=== PATIENT | female | born 1950 | race Caucasian/White ===

== ENCOUNTER 2017-05-17 14:42 | Emergency (ER) | payer MEDICARE, SELFPAY ==
[2017-05-17 14:43] VITALS: BP 152/84; PULSE 78; RESP 18; TEMP 36.6; O2SAT 96; BMI 33.5
[2017-05-17 15:59] LABS: Absolute Lymphocyte Count 2.37 X10^3/ul (0.83-4.51); Absolute Neutrophil Count 5.6 X10^3/uL (2.0-7.7); Basophil# 0.07 X10^3/uL; Basophil% 0.8 % (0-1); Eosinophil# 0.59 X10^3/uL; Eosinophils% 6.4 % (0-5); Hematocrit 42.9 % (37-47); Lymphocyte # 2.37 X10^3/ul (4.0); Lymphocyte % 25.7 % (19-41); Mean Corp Hgb Conc 32.6 g/gl (32-36); Mean Corpuscular Hgb 32.6 pg (27.0-32.0); Mean Corpuscular Volume 99.8 fL (81-99); Mean Platelet Vol. 8.7 fl (6.2-12.0); Monocyte# 0.49 X10^3/uL; Monocyte% 5.3 % (0-10); Neutrophil # 5.61 X10^3/uL (2.7-7.7); Neutrophil % 60.9 % (47-70); Platelet Count 326 K/mm3 (150-450); RBC Distribution Width CV 13.7 % (11.6-14.6); RBC Distribution Width SD 49.1 fl (35.1-43.9); White Blood Count 9.2 K/mm3 (4.4-11.0)
[2017-05-17 16:00] LABS: POSITIVE COUNT NO; POSITIVE DIFFERENTIAL NO; POSITIVE MORPHOLOGY NO
[2017-05-17] MEDS: 0.9% Normal Saline 1,000 ML 1000 ML IV (16:00)
[2017-05-17 16:08] LABS: Anion Gap 7 (5-15); BUN 17 mg/dL (7-18); Chloride 104 mmol/L (98-107); Creatinine, Serum 0.59 mg/dL (0.55-1.02); EST Glomerular Filtration Rate 109 mL/min (>60); Est Glom Filt Rate - Afr Amer 132 mL/min (>60); Estimated Creatinine Clearance 93.68 ml/min; Glucose 147 mg/dL (74-106); Sodium Level 137 mmol/L (136-145)
[2017-05-17 16:57] LABS: Mucous, Urine 0 SEEN /hpf (<or=2+)
[2017-05-17 17:30] LABS: Color, Urine Yellow (Yellow); Glucose, Dipstick Normal (Normal); Ketone-Dipstick 50 mg/dl (Negative); Leukocyte Esterase-Dipstick 25 /ul (Negative); Nitrite-Dipstick Positive (Negative); Occult Blood-Urine 50 /ul (Negative); Protein-Dipstick 15 mg/dl (Negative); Specific Gravity, Urine 1.025 (1.002-1.030); Urine Bilirubin Dipstick Negative (Negative); Urine Clarity Clear (Clear); Urine Urobilinogen 1 mg/dl (Normal)
[2017-05-17 17:58] LABS: Red Blood Cells-Urine 0-5 SEEN /hpf (0-5); Squamous Epithelial Cells - UA 0-5 SEEN /hpf (5-10); White Blood Cells 5-10 SEEN /hpf (0-5)
[2017-05-17 17:59] LABS: Bacteria 2+ /hpf (None Seen)
--- NOTE | 2017-05-17 18:29 | ED.DCSUM_ITS ---
- ER Visit Summary Date of Service: 05/17/17 Chief Complaint: Weakness and decreased appetite poor p.o. intake for the past 3 days. She denies fever or chills. She states she has had sweats for months. She denies weight gain or weight loss. She denies any ocular, visual or auditory symptoms. She denies any cardiorespiratory symptoms. She denies abdominal pain, nausea, vomiting or diarrhea. She denies dysuria, frequency, urgency hematuria. She denies of generalized weakness. She does have history of gastric carcinoma diagnosed February 2016. Last radiation chemo dose approximately 4 months ago. She is status post partial gastrectomy. She denies any polyuria, polydipsia or polyphagia. Denies heat or cold intolerance. She denies bruising easily or bleeding his stasis. Past medical history type 2 diabetes, hypertension, hyperlipidemia, depression, UTI, fibromyalgia, obstructive sleep apnea and gastric carcinoma. Past surgical history appendectomy, cholecystectomy, hysterectomy bilateral salpingo-nephrectomy and partial gastrectomy, 80%. History of Present Illness: The patient is a 66 F patient is quiet with poverty of speech and depressed affect. Pupils equal round reactive. Extra muscle intact. Nares patent. Mucosa is tacky. Heart is regular without murmur, gallop or rub. S1 and S2 are normal. Lungs are clear to auscultation with good movement of air bilaterally. Abdomen soft nontender no palpable subtle mass abdominal bruit. Surgical scars are well-healed. There is no asymmetry, swelling, discoloration, leg vein distention, palpable cords or tenderness along the distribution of the deep venous system. Neuro exam is nonfocal. Physical Examination: CBC is unremarkable. Electrode panel reveals a BUN of 17 and creatinine 0.59. UA is remarkable for leukoesterase, nitrites and blood. There is also ketones. Micro reveals 5-10 WBCs 0-5 RBCs and 2+ bacteria. Test Results: To evaluate generalized weakness in this elderly woman metabolic infectious workup was undertaken and included a CBC, BMP and UA. Because clinically she appeared mildly dehydrated and IV was established and she was given 1 L normal saline. Emergency Department Course and Treatment: Macrobid 100 mg p.o. and prescription for Macrobid. Patient was encouraged to drink more fluids. She was told she does not meet criteria for admission to the hospital. Treatment Plan: 5 day course of Macrobid and follow-up with PCP, MARY Welsh Disposition: Discharged to home with spouse Impression: 1. Urinary tract infection 2. Generalized weakness with poor appetite 3. History of type 2 diabetes 4. History of hypertension 5. History of hypercholesterolemia 6. History of depression anxiety 7. History of fibromyalgia This note was generated with [employer] software. It may contain incorrect words, spelling, and punctuation that were not noted in review of the chart prior to signing ED Disposition - Plan for ED Patient: Disposition: Home or Assisted Living Chief Complaint: General Illness Instructions: ED UTI Cystitis Female, ED Weakness [facility] Referrals: Shanta Welsh PA [Primary Care Provider] - 3-5 Days if not improving
[2017-05-17] MEDS: Nitrofurantoin Macrocrystals 100 MG Capsule PO (18:48)
--- NOTE | 2017-05-17 18:50 | ED.VISSUMM ---
- ER Visit Summary Date of Service: 05/17/17 Chief Complaint: [] History of Present Illness: The patient is a 66 F [] Physical Examination: [] Test Results: [] Emergency Department Course and Treatment: [] Treatment Plan: [] Disposition: [] Impression: [] This note was generated with [employer] dictation software. It may contain incorrect words, spelling, and punctuation that were not noted in review of the chart prior to signing ED Disposition - Plan for ED Patient: Disposition: Home or Assisted Living Chief Complaint: General Illness Instructions: ED UTI Cystitis Female, ED Weakness [facility] Prescriptions: Nitrofurantoin Macrocrystals [Macrobid] 100 mg PO Q12 #10 cap Referrals: Shanta Welsh PA [Primary Care Provider] - 3-5 Days if not improving
== END 2017-05-17 20:56 | disposition home or self-care (01) ==
PROVIDERS: Emergency Provider Emergency Medicine; Family Provider Physician Assistant; PCP Physician Assistant
DX: N39.0 Urinary tract infection, site not specified (principal); R53.1 Weakness; E86.0 Dehydration; E11.9 Type 2 diabetes mellitus without complications; I10 Essential (primary) hypertension; E78.00 Pure hypercholesterolemia, unspecified; G47.33 Obstructive sleep apnea (adult) (pediatric); M79.7 Fibromyalgia; E66.9 Obesity, unspecified; F32.9 Major depressive disorder, single episode, unspecified; F41.9 Anxiety disorder, unspecified; Z79.82 Long term (current) use of aspirin; Z79.4 Long term (current) use of insulin; Z79.52 Long term (current) use of systemic steroids; Z79.899 Other long term (current) drug therapy; Z92.3 Personal history of irradiation; Z92.21 Personal history of antineoplastic chemotherapy; Z85.028 Personal history of other malignant neoplasm of stomach; Z87.440 Personal history of urinary (tract) infections; Z90.710 Acquired absence of both cervix and uterus; Z90.3 Acquired absence of stomach [part of]
CPT/HCPCS: 80048; 81001; 85025; 99282

== ENCOUNTER 2017-05-19 10:24 | Inpatient (IN) | payer MEDICARE, MEDICAID, SELFPAY ==
[2017-05-19] VITALS (20 sets, daily range): BP systolic 75–139; BP diastolic 49–72; PULSE 52–62; RESP 10–15; TEMP 35.8–37.4; O2SAT 95–100; BMI 33.2; BMI 33.5; BMI 33.6; BMI 32.9
--- NOTE | 2017-05-19 10:35 | CT_ITS ---
STUDY: CT BRAIN WITHOUT CONTRAST REASON FOR EXAM: Female, 66 years old. Possible stroke. RADIATION DOSAGE (If Supplied By Facility): CTDIvol = ( 44.99 ) mGy, DLP = ( 812.98 ) mGycm TECHNIQUE: Transaxial CT imaging of the brain was performed without administration of intravenous contrast material. Individualized dose optimization techniques were used for this CT. COMPARISON: None. FINDINGS: Normal soft tissue structures. Normal calvarium. There is mild cerebral atrophy with widening of the extra-axial spaces and ventricular dilatation. Normal white matter tracts of the cerebral hemispheres. Normal basal ganglia and thalami. Normal brainstem. Normal cerebellum. There is no intracranial hemorrhage. There are no findings of an acute ischemic infarction. Atherosclerotic calcification of the cavernous portions of the internal carotid arteries bilaterally. Normal visualized paranasal sinuses. CT/Brain/Head without Contrast IMPRESSION: Chronic involutional changes of the brain. N.B. : The above information has been verbally conveyed by Kalin Ash MD to Jeffrey Ernst, Referring Physician, on 05/19/2017 10:53:00 (ET). Electronically Signed: Kalin Ash MD at 10:53 EST Tel [phone], Service support , N.B. : The above information has been verbally conveyed by Kalin Ash MD to Jeffrey Ernst, Referring Physician, on 05/19/2017 10:53:00 (ET).
--- NOTE | 2017-05-19 10:35 | EKG12_ITS ---
Test Reason : NEURO SYM Blood Pressure : / mmHG Vent. Rate : 053 BPM Atrial Rate : 053 BPM P-R Int : 192 ms QRS Dur : 098 ms QT Int : 466 ms P-R-T Axes : 051 000 057 degrees QTc Int : 437 ms Sinus bradycardia Nonspecific T wave abnormality Abnormal ECG Confirmed by JULIA TEAGUE, DAVIE ([id number]), video tape editor NALLELY UMAÑA ([id number]) on 05/25/2017 3:26:30 PM Referred By: LEWIS Confirmed By:DAVIE DUMONT MD
[2017-05-19 10:36] LABS: Bedside Glucose 95 mg/dL (70-110)
--- NOTE | 2017-05-19 10:46 | RAD_ITS ---
STUDY: X-RAY CHEST REASON FOR EXAM: Female, 66 years old. Weakness and confusion. TECHNIQUE: Single AP portable view of the chest. COMPARISON: Comparison is made with prior study dated March 05, 2017. FINDINGS: A left-sided portacatheter is seen. The tip is in the midportion of the superior vena cava. The lungs are clear and expanded. There is no demonstrated pleural abnormality. Normal size heart. Normal mediastinum and maxim. Normal visualized pulmonary arteries. There is atherosclerotic calcification of the aortic arch with tortuosity. There are diffuse degenerative changes of the visualized thoracic spine. Ant and screw fixation of the lower thoracic and upper lumbar spine. Prior left rotator cuff surgery. There is no demonstrated abnormality of the visualized soft tissue structures of the upper abdomen. RAD/Chest 1 View IMPRESSION: No acute abnormality is seen. Electronically Signed: Kalin Ash MD at 11:18 EST Tel [phone], Service support ,
--- NOTE | 2017-05-19 10:48 | ED.RN ---
DR BREEN SHOWED UP IN THE ER
[2017-05-19 10:58] LABS: Absolute Neutrophil Count 6.8 X10^3/uL (2.0-7.7); Basophil# 0.06 X10^3/uL; Basophil% 0.6 % (0-1); Eosinophil# 1.13 X10^3/uL; Eosinophils% 10.4 % (0-5); Hematocrit 39.7 % (37-47); Hemoglobin 13.1 g/dl (12.0-15.0); Lymphocyte % 16.5 % (19-41); Mean Platelet Vol. 8.6 fl (6.2-12.0); Monocyte# 1.07 X10^3/uL; Monocyte% 9.8 % (0-10); Neutrophil # 6.75 X10^3/uL (2.7-7.7); Neutrophil % 62.1 % (47-70); Platelet Count 339 K/mm3 (150-450); RBC Distribution Width CV 13.5 % (11.6-14.6); RBC Distribution Width SD 48.5 fl (35.1-43.9); Red Blood Count 3.97 M/mm3 (4.2-5.4); White Blood Count 10.9 K/mm3 (4.4-11.0)
[2017-05-19] MEDS: 0.9% Normal Saline 500 ML IV.SOLN. IV (11:00)
[2017-05-19 11:01] LABS: POSITIVE COUNT NO; POSITIVE DIFFERENTIAL NO; POSITIVE MORPHOLOGY NO
[2017-05-19 11:10] LABS: International Normalized Ratio 1.1; Prothrombin Time (Protime)PT. 14.1 SECONDS (11.7-14.9)
[2017-05-19 11:11] LABS: Partial Thromboplast Time 30.1 Seconds (24.1-36.2)
[2017-05-19 11:14] LABS: Anion Gap 9 (5-15); BUN 24 mg/dL (7-18); BUN/Creat Ratio 10.3 RATIO (10-20); Calcium,Total 8.7 mg/dL (8.5-10.1); Chloride 104 mmol/L (98-107); Creatinine, Serum 2.32 mg/dL (0.55-1.02); EST Glomerular Filtration Rate 22 mL/min (>60); Est Glom Filt Rate - Afr Amer 27 mL/min (>60); Estimated Creatinine Clearance 23.82 ml/min; Glucose 87 mg/dL (74-106); Potassium 3.6 mmol/L (3.5-5.1); Sodium Level 139 mmol/L (136-145)
--- NOTE | 2017-05-19 11:43 | CT_ITS ---
STUDY: CT ABDOMEN AND PELVIS WITHOUT CONTRAST REASON FOR EXAM: Female, 66 years old. Renal failure and urinary tract infection. RADIATION DOSAGE (If Supplied By Facility): CTDIvol = ( 14.77 ) mGy, DLP = ( 746.55 ) mGycm TECHNIQUE: Transaxial images were obtained from the dome of the diaphragm to the symphysis pubis without oral contrast, and without intravenous contrast. Sagittal and coronal images were reconstructed. There is significant beam hardening and streak artifact distorting anatomy of the upper abdomen arising from patient's spinal hardware. Individualized dose optimization techniques were used for this CT. COMPARISON: Prior comparable comparison studies are not available for review at this time. FINDINGS: There is patchy groundglass attenuation at the lung bases. There is interstitial thickening visible. There are focal airspace opacities within the left lower lobe that may represent some mild airspace disease. The visualized portions of the heart are within normal limits. There are vascular calcifications of the coronary arteries. Normal liver. There is non-visualization of the gallbladder, which may be secondary to either contraction or a prior cholecystectomy. Normal spleen. There is diffuse atrophy of the pancreas. Normal bilateral adrenal glands. Normal right kidney. There is a small exophytic lesion arising from lower pole left kidney. This measures approximately 2.1 cm in size. This has attenuation of approximately 24.8 Hounsfield units. This suggests that could represent a complex cyst. Normal visualized stomach. There is no evidence for dilated bowel, ascites or pneumoperitoneum. Small bowel has a grossly normal unenhanced appearance. Stool is visible throughout the colon with scattered diverticula. There calcifications near the sigmoid colon that may be the result of previous surgery. There is non-visualization of the appendix. There is patchy atherosclerotic calcification of the abdominal aorta with elongation and tortuosity, but without a demonstrated aneurysm. Normal inferior vena cava. Normal retroperitoneum. Urinary bladder wall is mildly thickened measuring approximately 6 mm in thickness. There is absence of the uterus consistent with a prior hysterectomy. There is a small umbilical hernia containing fat. The patient has had extensive thoracic and lumbar spine surgery to include surgical fusions and discectomies. The bones are osteopenic in general. There appears to be deformity of several left-sided and right-sided ribs that may be the result of previous fractures. CT/Abdomen/Pelvis without Cont IMPRESSION: 1. No CT evidence of acute intra-abdominal disease. 2. A complex cystic lesion arising from lower pole of the left kidney. 3. Sequela of extensive spinal surgery. Electronically Signed: Liza Silverio MD at 12:27 EST , Service support ,
[2017-05-19 11:45] LABS: AST(SGOT) 18 U/L (15-37); Alanine Aminotransfer ALT/SGPT 19 U/L (13-56); Albumin, Serum 3.7 g/dL (3.2-5.0); Alkaline Phosphatase 58 U/L (45-117); Bilirubin, Direct 0.13 mg/dL (0.00-0.30); Globulin 3.2 g/dL (2.2-4.2); Protein, Total 6.9 g/dL (6.4-8.2)
[2017-05-19 11:49] LABS: Red Blood Cells-Urine 0 SEEN /hpf (0-5)
[2017-05-19 11:51] LABS: Prolactin 128.2 ng/mL
[2017-05-19 11:54] LABS: Lactic Acid 2.5 mmol/L (0.4-2.0)
--- NOTE | 2017-05-19 11:56 | ED.RN ---
lactic acid 2.[address] aragon notified
--- NOTE | 2017-05-19 11:57 | ED.DCSUM_ITS ---
- ER Visit Summary Date of Service: 05/19/17 Chief Complaint: [Mental status change] History of Present Illness: The patient is a 66 F [presents to the emergency department via EMS from urgent care with complaint of mental status change. Patient's significant other is with her and states that she woke up feeling well this morning however around 8 AM she went into her closet and he went in to check on her and found her staring off in the space and essentially unresponsive. Patient was eventually ambulated out to vehicle and taken to urgent care for follow-up appointment from her visit in the emergency department 2 days ago where she was diagnosed with a urinary tract infection. Patient was found to not be acting normally in the urgent care and found to be relatively hypotensive so she was sent to the ER for further evaluation. Patient initially was unable to give me any history on arrival and was a phasic. ] Physical Examination: [HEENT-PERRLA, EOMI. Cranial nerves II through XII grossly intact. TMs clear. Mucous membranes moist. No adenopathy. Left eye slightly deviated to the left. No facial droop noted. Cardiovascular-regular rate and rhythm without murmur or ectopy Lungs-clear to auscultation, chest wall stable without crepitus or subcu emphysema Abdomen-normoactive bowel sounds, soft, nontender, no rebound or rigidity, no peritoneal signs. Neuro exam-patient a phasic, patient does seem to be moving both upper extremities and is able to hold them up. Patient will not move her lower extremities. Unable to check for ataxia. Extremities-intact ?4, normal range of motion, normal pulses, atraumatic] Test Results: [CT scan of the brain without contrast showed nothing acute. EKG obtained on arrival shows sinus bradycardia with a rate of 53 bpm with some nonspecific ST changes. CBC with differential showed a white count of 10.9, hemoglobin 13, hematocrit 39, platelets 339. Chemistries were unremarkable. BUN was 24, creatinine 2.32. Troponin was less than 0.02. Chest x-ray showed nothing acute.] Emergency Department Course and Treatment: [Initially a stroke team was called and Dr. Xavier resented to the emergency department to evaluate patient. After patient returned from CT she began following commands and became verbal and on repeat examination there are no focal neurologic deficits noted therefore patient is not a TPA candidate. Patient also initially on presentation was noted to be hypotensive and did receive IV fluids. Patient's creatinine 2 days ago was normal and now it is elevated. Patient was straight catheter urine and results of which are still currently pending.] Treatment Plan: [Admit for further workup and evaluation] Disposition: [Admit] Impression: Mental status change Hypotension Acute renal failure Lactic acidosis [] This note was generated with [employer] dictation software. It may contain incorrect words, spelling, and punctuation that were not noted in review of the chart prior to signing ED Disposition - Plan for ED Patient: Chief Complaint: Neuro S/Sx Referrals: Shanta Welsh PA [Primary Care Provider] -
[2017-05-19 12:01] LABS: Color, Urine Yellow (Yellow); Glucose, Dipstick Normal (Normal); Ketone-Dipstick Negative (Negative); Leukocyte Esterase-Dipstick 500 /ul (Negative); Nitrite-Dipstick Negative (Negative); Occult Blood-Urine 25 /ul (Negative); Protein-Dipstick 30 mg/dl (Negative); Urine Bilirubin Dipstick Negative (Negative); Urine Clarity Clear (Clear); Urine Urobilinogen Normal (Normal)
[2017-05-19 12:11] LABS: White Blood Cells 50-100 SEEN /hpf (0-5)
[2017-05-19 12:12] LABS: Amorphous Sediment 2+; Bacteria 1+ /hpf (None Seen); Mucous, Urine RARE /hpf (<or=2+); Squamous Epithelial Cells - UA 0-5 SEEN /hpf (5-10)
[2017-05-19 12:15] LABS: Amphetamine Urine VISTA NEGATIVE (<1000 ng/mL); Barbiturate Urine VISTA NEGATIVE (< 200 ng/mL); Benzodiazepine Urine VISTA NEGATIVE (< 200 ng/mL); Cocaine Urine VISTA NEGATIVE (< 300 ng/mL); Ecstacy Urine VISTA NEGATIVE (< 500 ng/mL); Methadone Urine VISTA NEGATIVE (< 300 ng/mL); PCP Urine VISTA NEGATIVE (< 25 ng/mL); THC Urine VISTA NEGATIVE (< 50 ng/mL); Vista UDS pH Range 5
--- NOTE | 2017-05-19 12:41 | ED.RN ---
SEFERINO PATCH REMOVED FROM PT RIGHT ARM BY DR SAXENA
[2017-05-19] MEDS: 0.9% Normal Saline 1,000 ML 999 ML IV ×2 (12:42→13:44)
--- NOTE | 2017-05-19 12:42 | ED.RN ---
EEG IN PROGRESS
--- NOTE | 2017-05-19 13:09 | PCM.HP.STD ---
Problem List (1) Septic shock Status: Acute (2) Acute renal failure Status: Acute (3) Urinary tract infection Status: Acute Qualifiers: Urinary tract infection type: site unspecified (4) Toxic encephalopathy Status: Acute (5) Hyperammonemia Status: Acute (6) Klebsiella lower UTI Status: Acute (7) Recurrent falls Status: Acute (8) Depression Status: Chronic (9) Diabetes mellitus type 2 in obese Status: Chronic (10) Dyslipidemia Status: Chronic (11) Fibromyalgia Status: Chronic (12) Gastric cancer Status: Chronic (13) Hypertension Status: Chronic (14) Multinodular goiter Status: Chronic (15) Obstructive sleep apnea Status: Chronic (16) Noncompliance with CPAP treatment Status: Chronic (17) Morbid obesity Status: Acute History of Present Illness Date of Admission: 05/19/17 Chief Complaint: hypotension and altered mental status The patient is a 66 year old F with a past medical history of gastric cancer (see subtotal gastrectomy), diabetes mellitus type 2, hypertension, chronic pain syndrome, fibromyalgia, obstructive sleep apnea (noncompliant with CPAP), multinodular goiter, dyslipidemia, depression and morbid obesity who was brought to the emergency department at [facility] on 05/19/2017 with decreased level of consciousness. Patient's significant other found her standing in front of a closet staring and not appropriately responding.] She was able to ambulate to the car and was brought to an [facility] for a follow up appt.. [facility] she was not acting appropriately and was hypotensive and she was sent to the ER for further evaluation. She was in the [facility] urgent care on 05/17/[address] Carreon with a complaint of decreased appetite and intake for the preceding 3 days. A UA done at that time showed 5-10 white blood cells and 2+ bacteria. She was discharged home with a 5 day course of Macrobid. Creatinine on 05/17/2017 was 0.56. K is 2.32 with a BUN of 24. Her family states that she has had no significant oral intake since Wednesday. Vital signs at presentation to the emergency room are temperature 98.3, pulse rate 56, blood pressure 79/53, respiratory rate 10 and oxygen saturation is 95%. White blood cell count is 10.9 with 62% neutrophils and 10.4% eosinophils. Hemoglobin is 13.1 and the platelets are normal at 339,000. PT and PTT are within normal limits. Electrolytes are within normal limits but the BUN is 24 with a creatinine of 2.32, up from 0.59 on 05/17/2017. Troponin is less than 0.02. Ammonia is mildly elevated at 40. CT scan of the abdomen shows normal size kidneys with no hydroureter and no hydronephrosis. UA now shows 50-100 WBCs per high-power field with 1+ bacteria. Chest x-ray shows no acute abnormality and the CT brain showed no acute findings. He was seen in the emergency room by Dr. Xavier who has ordered an EEG. She is very obtunded but is arousable and can answer questions and follow commands but drops immediately off to sleep. She is bradycardic and hypotensive. She follows with Dr. Grant. Last chemo was 4 months ago Past Medical History Past Medical History (Chronic Problems): Chronic Problems Noncompliance with CPAP treatment (Chronic) Depression (Chronic) Dyslipidemia (Chronic) Fibromyalgia (Chronic) Multinodular goiter (Chronic) Obstructive sleep apnea (Chronic) Diabetes mellitus type 2 in obese (Chronic) Hypertension (Chronic) Gastric cancer (Chronic) Allergies fentanyl Adverse Reaction (Verified 05/17/17 14:45) MAKES ME SHAKE oxycodone [From Percocet] Adverse Reaction (Verified 05/17/17 14:45) MAKES ME SHAKE thiopental Adverse Reaction (Verified 05/17/17 14:45) MAKES ME SHAKE Home Medications: Ambulatory Orders Medication Instructions Recorded Albuterol Sulfate [Proair 1 puff IH Q4H PRN PRN 02/15/16 Respiclick] Aspirin [Aspirin, Baby] 81 mg PO DAILY@0800 02/15/16 Dicyclomine HCl 20 mg PO TID PRN PRN 02/15/16 Docusate Sodium [Colace] 100 mg PO BID 02/15/16 Dorzolamide Hydrochloride/Ti 1 drop EACH EYE BID 02/15/16 [Cosopt Opth Drops] Duloxetine Hcl [Cymbalta] 60 mg PO DAILY 02/15/16 Gabapentin [Neurontin] 800 mg PO BID 02/15/16 Insulin Detemir [Levemir FlexPen] 50 units SC QHS 02/15/16 Loratadine 10 mg PO PRN PRN 02/15/16 Metoclopramide [Reglan] 10 mg PO Q6H PRN 02/15/16 Nystatin [Mycostatin] 1 applic TOPICAL BID PRN 02/15/16 Fenofibrate 200 mg PO DAILY 03/05/17 Ferrous Sulfate Syrup 325 mg PO TIDCM 03/05/17 Hydrocortisone 2.5% Crm [Hytone] 1 applic TOPICAL BID 03/05/17 Ketoconazole [Nizoral Cream] 1 applic TOPICAL DAILY 03/05/17 Ketorolac Tromethamine [Acular] 1 drop RIGHT EYE 4X/DAY 03/05/17 Metoprolol Tartrate [Lopressor 12.5 mg PO BID 03/05/17 (beta anthony)] Olanzapine 10 mg PO QHS 03/05/17 Polyethylene Glycol 3350 [Miralax] 17 gm PO DAILY 03/05/17 Ranitidine [Zantac] 150 mg PO BID 03/05/17 Trazodone HCl [Desyrel] 50 mg PO QHS 03/05/17 Nitrofurantoin Macrocrystals 100 mg PO Q12 #10 cap 05/17/17 [Macrobid] Atorvastatin Calcium [Lipitor] 40 mg PO QHS 05/19/17 Baclofen 10 mg PO TID PRN 05/19/17 Buprenorphine [Butrans] 1 each TD QWEEK 05/19/17 Esomeprazole Magnesium 40 mg PO BID 05/19/17 Furosemide [Lasix] 20 mg PO DAILY PRN 05/19/17 Glimepiride [Amaryl] 4 mg PO BID 05/19/17 Hydrochlorothiazide 12.5 mg PO DAILY PRN 05/19/17 Ibuprofen [Ibuprofen] 800 mg PO Q6H PRN 05/19/17 Metformin HCl [Glucophage] 1,000 mg PO BIDCM 05/19/17 Prednisolone Acetate 1 drop LEFT EYE 4X/DAY 05/19/17 Trimethoprim [Trimpex] 100 mg PO BID 05/19/17 Valacyclovir HCl [Valtrex] 1,000 mg PO BID PRN 05/19/17 Surgical History: cholecystectomy, hysterectomy, - - Subtotal gastrectomy for gastric cancer. She has a cervical fusion and Jefferson rods that and most of her thoracic and lumbosacral spine. Psychiatric History: - - she is on Zyprexa and the family could not tell me why FIL[employer] History: - - Has had a total hysterectomy but the family is unsure why she had a hysterectomy but this was done many years ago. Lives: Spouse/ Significant Other Smoking Status: Current every day smoker Tobacco Use: Cigarettes Alcohol: Rare Drugs: None - *Family History Maternal History Items: - - unable to obtain significant FH at this time because the pt is acutely encephalopathic Review of Systems Constitutional: Reports: Anorexia Cardiovascular: Reports: - - decreased appetite and intake Unable to obtain accurate/complete ROS d/t: pt is encephalopathic and can not stay awake to answer my questions VTE Information - Inpt Only VTE Present on Admission: No VTE Mechan Device Prophylaxis: SCD's, Knee High YAN Hose VTE Pharm Prophylaxis ordered?: Yes Patient Problems: Active and Suspected Problems Septic shock (Acute) Acute renal failure (Acute) Urinary tract infection (Acute) Toxic encephalopathy (Acute) Hyperammonemia (Acute) Morbid obesity (Acute) Encephalopathy (Acute) - Physical Exam General: Well developed, Well nourished, Lethargic HEENT: Atraumatic, PERRLA - pupils are small, the Left eye deviates laterally and the family states this is chronic due to a weak muscle, Normocephalic Oral: Dry Mucosa Neck: No JVD, Negative Carotid Bruits, No Nodes, Trachea Midline, - - neck is not very flexible- she has had a cervical fusion in the past Lungs: Clear to auscultation, Diminished Cardiovascular: Regular Rhythm, Normal S1, Normal S2, No murmurs, Bradycardic, No rub noted, No Gallop, - - heart sounds are somewhat distant Abdomen: Bowel Sounds Present, Soft, Non Tender, Non-Distended, No Hepato-splenomegaly, - - No guarding with palpation. No masses palpated Extremities: No clubbing, No cyanosis, No edema, Diminished Peripheral Pulses Skin: No rashes, No breakdown Musculoskeletal: No Muscle Wasting Neurological: Cranial nerves II-XII grossly intact, - - She can be aroused and will follow commands for a brief period until she falls asleep again.there is no facial asymmetry and no focal neurologic deficits Vital Signs Temp Pulse Resp BP Pulse Ox 97.7 F L 53 L 12 79/49 L 96 05/19/17 12:30 05/19/17 12:30 05/19/17 12:30 05/19/17 12:30 05/19/17 12:30 Oxygen Flow Rate 2 Oxygen Delivery Method Nasal Cannula Weight: 214 lb 4.629 oz Body Mass Index (BMI) 33.5 Finger Stick Blood Glucose 95 Laboratory Tests Past 24 Hrs 05/19/17 05/19/17 05/19/17 10:45 10:45 10:45 WBC 10.9 RBC 3.97 L Hgb 13.1 Hct 39.7 MCV 100.0 H MCH 33.0 H MCHC 33.0 RDW 13.5 RDW Differential 48.5 H Plt Count 339 MPV 8.6 Immature Gran % (Auto) 0.600 Neut % (Auto) 62.1 Lymph % (Auto) 16.5 L Jewell % (Auto) 9.8 Eos % (Auto) 10.4 H Baso % (Auto) 0.6 Absolute Neuts (auto) 6.8 Absolute Lymphs (auto) 1.80 Total Counted Not Reportable PT 14.1 INR 1.1 APTT 30.1 Sodium 139 Potassium 3.6 Chloride 104 Carbon Dioxide 26.0 Anion Gap 9 BUN 24 H Creatinine 2.32 H Estim Creat Clear Calc 23.82 Est GFR (MDRD) Af Amer 27 L Est GFR (MDRD) Non-Af 22 L BUN/Creatinine Ratio 10.3 Glucose 87 Lactic Acid Calcium 8.7 Total Bilirubin Direct Bilirubin AST ALT Alkaline Phosphatase Ammonia Troponin I < 0.02 Total Protein Albumin Globulin Prolactin Urine Color Urine Clarity Urine pH Ur Specific Heppner Urine Protein Urine Glucose (UA) Urine Ketones Urine Occult Blood Urine Nitrite Urine Bilirubin Urine Urobilinogen Ur Leukocyte Esterase Urine RBC Urine WBC Ur Squamous Epith Cells Amorphous Sediment Urine Bacteria Urine Mucus Urine Opiates Screen Urine Methadone Screen Ur Barbiturates Screen Ur Phencyclidine Scrn Ur Amphetamines Screen U Methamphetamin-MDMA U Benzodiazepines Scrn Urine Cocaine Screen U Cannabinoids Screen Ur Drug Screen Comment 05/19/17 05/19/17 05/19/17 11:16 11:16 11:16 WBC RBC Hgb Hct MCV MCH MCHC RDW RDW Differential Plt Count MPV Immature Gran % (Auto) Neut % (Auto) Lymph % (Auto) Jewell % (Auto) Eos % (Auto) Baso % (Auto) Absolute Neuts (auto) Absolute Lymphs (auto) Total Counted PT INR APTT Sodium Potassium Chloride Carbon Dioxide Anion Gap BUN Creatinine Estim Creat Clear Calc Est GFR (MDRD) Af Amer Est GFR (MDRD) Non-Af BUN/Creatinine Ratio Glucose Lactic Acid 2.5 H Calcium Total Bilirubin 0.40 Direct Bilirubin 0.13 AST 18 ALT 19 Alkaline Phosphatase 58 Ammonia 40.0 H Troponin I Total Protein 6.9 Albumin 3.7 Globulin 3.2 Prolactin Urine Color Urine Clarity Urine pH Ur Specific Heppner Urine Protein Urine Glucose (UA) Urine Ketones Urine Occult Blood Urine Nitrite Urine Bilirubin Urine Urobilinogen Ur Leukocyte Esterase Urine RBC Urine WBC Ur Squamous Epith Cells Amorphous Sediment Urine Bacteria Urine Mucus Urine Opiates Screen Urine Methadone Screen Ur Barbiturates Screen Ur Phencyclidine Scrn Ur Amphetamines Screen U Methamphetamin-MDMA U Benzodiazepines Scrn Urine Cocaine Screen U Cannabinoids Screen Ur Drug Screen Comment 05/19/17 05/19/17 05/19/17 11:16 11:40 11:40 WBC RBC Hgb Hct MCV MCH MCHC RDW RDW Differential Plt Count MPV Immature Gran % (Auto) Neut % (Auto) Lymph % (Auto) Jewell % (Auto) Eos % (Auto) Baso % (Auto) Absolute Neuts (auto) Absolute Lymphs (auto) Total Counted PT INR APTT Sodium Potassium Chloride Carbon Dioxide Anion Gap BUN Creatinine Estim Creat Clear Calc Est GFR (MDRD) Af Amer Est GFR (MDRD) Non-Af BUN/Creatinine Ratio Glucose Lactic Acid Calcium Total Bilirubin Direct Bilirubin AST ALT Alkaline Phosphatase Ammonia Troponin I Total Protein Albumin Globulin Prolactin 128.2 Urine Color Yellow Urine Clarity Clear Urine pH 5.0 Ur Specific Heppner 1.020 Urine Protein 30 H Urine Glucose (UA) Normal Urine Ketones Negative Urine Occult Blood 25 H Urine Nitrite Negative Urine Bilirubin Negative Urine Urobilinogen Normal Ur Leukocyte Esterase 500 H Urine RBC 0 SEEN Urine WBC 50-100 SEEN Ur Squamous Epith Cells 0-5 SEEN Amorphous Sediment 2+ Urine Bacteria 1+ Urine Mucus RARE Urine Opiates Screen NEGATIVE Urine Methadone Screen NEGATIVE Ur Barbiturates Screen NEGATIVE Ur Phencyclidine Scrn NEGATIVE Ur Amphetamines Screen NEGATIVE U Methamphetamin-MDMA NEGATIVE U Benzodiazepines Scrn NEGATIVE Urine Cocaine Screen NEGATIVE U Cannabinoids Screen NEGATIVE Ur Drug Screen Comment POC Glucose 05/19/17 10:29 POC Glucose 95 Assessment/Plan Active and Suspected Problems Septic shock (Acute) Acute renal failure (Acute) Urinary tract infection (Acute) Toxic encephalopathy (Acute) Hyperammonemia (Acute) Morbid obesity (Acute) Encephalopathy (Acute) Impressions 1. septic shock - due to UTI. She was last in the hospital in February. Will treat as hospital acquired. She has in the past grown Klebsiella pneumoniae which is sensitive to cefepime and Rocephin. Blood cultures were ordered in the emergency room and also a urine culture. She is receiving 30 cc/kg of body weight of normal saline. I suspect the Butrans patch is contributing to the hypotension and the Macrobid may be contributing to the bradycardia....and both of these are likely affected by the ARF 2. Acute renal failure-suspect secondary to dehydration, possible ATN 3. Toxic encephalopathy secondary to Butrans plus sepsis 4. DM II 5. HTN 6. fibromyalgia 7. chronic pain S on a Butrans patch 8. smoker 9. bradycardia - with hypotension 10. gastric cancer - S/P subtotal gastrectomy and chemotherapy. Follows with Dr. Grant. Last chemotherapy was 4 months ago. 11. Possible psychiatric diagnosis-patient is on Zyprexa and family cannot tell me why 12. History of depression 13. Hyperlipidemia 14. Multinodular goiter 15. Obstructive sleep apnea-noncompliant with CPAP I removed the Butrans patch. Admitted to ICU Dr. Rodriguez consulted Consult Dr. Xavier for encephalopathy-EEG done in the emergency room Cefepime 2 g IV daily Consult pharmacy to manage dosing of cefepime for renal failure and also dosing of acyclovir since she will be n.p.o. and not able to take Valtrex. N.p.o. If she remains hypotensive following 30 cc/kg of normal saline will need to start pressors. TSH stat Code Visit Inpatient E&M: 90087 Init Hosp L3
--- NOTE | 2017-05-19 14:07 | PCM.CON.CC ---
Reason for Consult Date of Consultation: 05/19/17 Reason for Consultation: Bradycardia/hypotension/altered mentation History of Present Illness: The patient is a 66-year-old female, with a history as outlined below, who presented to the emergency department on May 19 with altered mental status. The patient was seen in the emergency department on May [address] Carreon and treated for uncomplicated cystitis with nitrofurantoin. Prior urine cultures completed within this hospital has demonstrated the presence of Klebsiella pneumoniae on 2 separate occasions, the most recent of which in February 2017 was not sensitive to nitrofurantoin. The patient does have a history of gastric cancer and obstructive sleep apnea, for which she is noncompliant with use of nocturnal PAP therapy. On presentation to the emergency department, the patient was noted to be afebrile, bradycardic and hypotensive. Laboratory evaluation revealed no evidence of a leukocytosis. Her CBC differential did reveal 10.4% eosinophils. Chemistry profile was notable for evidence of acute kidney injury with a creatinine of 2.32. Her creatinine was normal at 0.59 just 2 days ago. Serum lactate was mildly elevated to 2.5. Ammonia level was increased to 40. Troponin was negative. Urinalysis revealed positive leukocyte esterase 50-100 white blood cells and 1+ bacteria. Urine toxicology screen was negative. Head CT revealed only chronic involutional changes. CT abdomen/pelvis revealed no acute intra-abdominal disease. Plain film chest x-ray revealed no acute cardiopulmonary process. The patient received supplemental IV fluids and was started on antibiotics. She was evaluated by neurology and an EEG was performed. She was subsequently transferred to the medical intensive care unit for ongoing management. Past Medical History Past Medical History (Chronic Problems): Chronic Problems Noncompliance with CPAP treatment (Chronic) Depression (Chronic) Dyslipidemia (Chronic) Fibromyalgia (Chronic) Multinodular goiter (Chronic) Obstructive sleep apnea (Chronic) Diabetes mellitus type 2 in obese (Chronic) Hypertension (Chronic) Gastric cancer (Chronic) Allergies fentanyl Adverse Reaction (Verified 05/17/17 14:45) MAKES ME SHAKE oxycodone [From Percocet] Adverse Reaction (Verified 05/17/17 14:45) MAKES ME SHAKE thiopental Adverse Reaction (Verified 05/17/17 14:45) MAKES ME SHAKE Home Medications: Ambulatory Orders Medication Instructions Recorded Albuterol Sulfate [Proair 1 puff IH Q4H PRN PRN 02/15/16 Respiclick] Aspirin [Aspirin, Baby] 81 mg PO DAILY@0800 02/15/16 Dicyclomine HCl 20 mg PO TID PRN PRN 02/15/16 Docusate Sodium [Colace] 100 mg PO BID 02/15/16 Dorzolamide Hydrochloride/Ti 1 drop EACH EYE BID 02/15/16 [Cosopt Opth Drops] Duloxetine Hcl [Cymbalta] 60 mg PO DAILY 02/15/16 Gabapentin [Neurontin] 800 mg PO BID 02/15/16 Insulin Detemir [Levemir FlexPen] 50 units SC QHS 02/15/16 Loratadine 10 mg PO PRN PRN 02/15/16 Metoclopramide [Reglan] 10 mg PO Q6H PRN 02/15/16 Nystatin [Mycostatin] 1 applic TOPICAL BID PRN 02/15/16 Fenofibrate 200 mg PO DAILY 03/05/17 Ferrous Sulfate Syrup 325 mg PO TIDCM 03/05/17 Hydrocortisone 2.5% Crm [Hytone] 1 applic TOPICAL BID 03/05/17 Ketoconazole [Nizoral Cream] 1 applic TOPICAL DAILY 03/05/17 Ketorolac Tromethamine [Acular] 1 drop RIGHT EYE 4X/DAY 03/05/17 Metoprolol Tartrate [Lopressor 12.5 mg PO BID 03/05/17 (beta anthony)] Olanzapine 10 mg PO QHS 03/05/17 Polyethylene Glycol 3350 [Miralax] 17 gm PO DAILY 03/05/17 Ranitidine [Zantac] 150 mg PO BID 03/05/17 Trazodone HCl [Desyrel] 50 mg PO QHS 03/05/17 Nitrofurantoin Macrocrystals 100 mg PO Q12 #10 cap 05/17/17 [Macrobid] Atorvastatin Calcium [Lipitor] 40 mg PO QHS 05/19/17 Baclofen 10 mg PO TID PRN 05/19/17 Buprenorphine [Butrans] 1 each TD QWEEK 05/19/17 Esomeprazole Magnesium 40 mg PO BID 05/19/17 Furosemide [Lasix] 20 mg PO DAILY PRN 05/19/17 Glimepiride [Amaryl] 4 mg PO BID 05/19/17 Hydrochlorothiazide 12.5 mg PO DAILY PRN 05/19/17 Ibuprofen [Ibuprofen] 800 mg PO Q6H PRN 05/19/17 Metformin HCl [Glucophage] 1,000 mg PO BIDCM 05/19/17 Prednisolone Acetate 1 drop LEFT EYE 4X/DAY 05/19/17 Trimethoprim [Trimpex] 100 mg PO BID 05/19/17 Valacyclovir HCl [Valtrex] 1,000 mg PO BID PRN 05/19/17 Surgical History: cholecystectomy, hysterectomy, - - Subtotal gastrectomy for gastric cancer. She has a cervical fusion and Jefferson rods that and most of her thoracic and lumbosacral spine. 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 Lives: Spouse/ Significant Other Smoking Status: Current every day smoker Tobacco Use: Cigarettes Alcohol: Rare Drugs: None - *Family History Maternal History Items: - - unable to obtain significant FH at this time because the pt is acutely encephalopathic Review of Systems Constitutional: Reports: Chills, Fever Unable to obtain accurate/complete ROS d/t: Due to encephalopathic state Patient Problems: Active and Suspected Problems Septic shock (Acute) Acute renal failure (Acute) Urinary tract infection (Acute) Toxic encephalopathy (Acute) Hyperammonemia (Acute) Morbid obesity (Acute) Encephalopathy (Acute) Objective: The patient's most recent lab work, culture data and imaging studies have all been personally reviewed. - Physical Exam General: Lethargic, - - Will arouse to verbal stimulation and then falls quickly back to sleep. HEENT: Atraumatic, PERRLA, Normocephalic Oral: No Gingival or Mucosal Lesions/ Ulcerations, Dry Mucosa Neck: Supple, No Nodes, Trachea Midline Lungs: No rhonchi, No wheeze, No rales, Diminished, - - Poor inspiratory effort Cardiovascular: Normal S1, Normal S2, No murmurs, Bradycardic Abdomen: Bowel Sounds Present, Soft, Non Tender, Obese Extremities: No clubbing, No cyanosis, No edema Skin: No rashes, No breakdown Musculoskeletal: No Muscle Wasting Neurological: - - Slowed mentation. No focal deficits. Vital Signs Temp Pulse Resp BP Pulse Ox 97.7 F L 53 L 12 79/49 L 96 05/19/17 12:30 05/19/17 12:30 05/19/17 12:30 05/19/17 12:30 05/19/17 12:30 Labs (Last 48 Hours) 05/19/17 05/19/17 05/19/17 10:29 10:45 10:45 WBC 10.9 RBC 3.97 L Hgb 13.1 Hct 39.7 MCV 100.0 H MCH 33.0 H MCHC 33.0 RDW 13.5 RDW Differential 48.5 H Plt Count 339 MPV 8.6 Immature Gran % (Auto) 0.600 Neut % (Auto) 62.1 Lymph % (Auto) 16.5 L Centre % (Auto) 9.8 Eos % (Auto) 10.4 H Baso % (Auto) 0.6 Absolute Neuts (auto) 6.8 Absolute Lymphs (auto) 1.80 Total Counted Not Reportable PT 14.1 INR 1.1 APTT 30.1 Sodium Potassium Chloride Carbon Dioxide Anion Gap BUN Creatinine Estim Creat Clear Calc Est GFR (MDRD) Af Amer Est GFR (MDRD) Non-Af BUN/Creatinine Ratio Glucose Lactic Acid Calcium Total Bilirubin Direct Bilirubin AST ALT Alkaline Phosphatase Ammonia Troponin I Total Protein Albumin Globulin Prolactin Urine Color Urine Clarity Urine pH Ur Specific [place] Urine Protein Urine Glucose (UA) Urine Ketones Urine Occult Blood Urine Nitrite Urine Bilirubin Urine Urobilinogen Ur Leukocyte Esterase Urine RBC Urine WBC Ur Squamous Epith Cells Amorphous Sediment Urine Bacteria Urine Mucus Urine Opiates Screen Urine Methadone Screen Ur Barbiturates Screen Ur Phencyclidine Scrn Ur Amphetamines Screen U Methamphetamin-MDMA U Benzodiazepines Scrn Urine Cocaine Screen U Cannabinoids Screen Ur Drug Screen Comment POC Glucose 95 05/19/17 05/19/17 05/19/17 10:45 11:16 11:16 WBC RBC Hgb Hct MCV MCH MCHC RDW RDW Differential Plt Count MPV Immature Gran % (Auto) Neut % (Auto) Lymph % (Auto) Centre % (Auto) Eos % (Auto) Baso % (Auto) Absolute Neuts (auto) Absolute Lymphs (auto) Total Counted PT INR APTT Sodium 139 Potassium 3.6 Chloride 104 Carbon Dioxide 26.0 Anion Gap 9 BUN 24 H Creatinine 2.32 H Estim Creat Clear Calc 23.82 Est GFR (MDRD) Af Amer 27 L Est GFR (MDRD) Non-Af 22 L BUN/Creatinine Ratio 10.3 Glucose 87 Lactic Acid Calcium 8.7 Total Bilirubin 0.40 Direct Bilirubin 0.13 AST 18 ALT 19 Alkaline Phosphatase 58 Ammonia 40.0 H Troponin I < 0.02 Total Protein 6.9 Albumin 3.7 Globulin 3.2 Prolactin Urine Color Urine Clarity Urine pH Ur Specific [place] Urine Protein Urine Glucose (UA) Urine Ketones Urine Occult Blood Urine Nitrite Urine Bilirubin Urine Urobilinogen Ur Leukocyte Esterase Urine RBC Urine WBC Ur Squamous Epith Cells Amorphous Sediment Urine Bacteria Urine Mucus Urine Opiates Screen Urine Methadone Screen Ur Barbiturates Screen Ur Phencyclidine Scrn Ur Amphetamines Screen U Methamphetamin-MDMA U Benzodiazepines Scrn Urine Cocaine Screen U Cannabinoids Screen Ur Drug Screen Comment POC Glucose 05/19/17 05/19/17 05/19/17 11:16 11:16 11:40 WBC RBC Hgb Hct MCV MCH MCHC RDW RDW Differential Plt Count MPV Immature Gran % (Auto) Neut % (Auto) Lymph % (Auto) Centre % (Auto) Eos % (Auto) Baso % (Auto) Absolute Neuts (auto) Absolute Lymphs (auto) Total Counted PT INR APTT Sodium Potassium Chloride Carbon Dioxide Anion Gap BUN Creatinine Estim Creat Clear Calc Est GFR (MDRD) Af Amer Est GFR (MDRD) Non-Af BUN/Creatinine Ratio Glucose Lactic Acid 2.5 H Calcium Total Bilirubin Direct Bilirubin AST ALT Alkaline Phosphatase Ammonia Troponin I Total Protein Albumin Globulin Prolactin 128.2 Urine Color Yellow Urine Clarity Clear Urine pH 5.0 Ur Specific [place] 1.020 Urine Protein 30 H Urine Glucose (UA) Normal Urine Ketones Negative Urine Occult Blood 25 H Urine Nitrite Negative Urine Bilirubin Negative Urine Urobilinogen Normal Ur Leukocyte Esterase 500 H Urine RBC 0 SEEN Urine WBC 50-100 SEEN Ur Squamous Epith Cells 0-5 SEEN Amorphous Sediment 2+ Urine Bacteria 1+ Urine Mucus RARE Urine Opiates Screen Urine Methadone Screen Ur Barbiturates Screen Ur Phencyclidine Scrn Ur Amphetamines Screen U Methamphetamin-MDMA U Benzodiazepines Scrn Urine Cocaine Screen U Cannabinoids Screen Ur Drug Screen Comment POC Glucose 05/19/17 11:40 WBC RBC Hgb Hct MCV MCH MCHC RDW RDW Differential Plt Count MPV Immature Gran % (Auto) Neut % (Auto) Lymph % (Auto) Centre % (Auto) Eos % (Auto) Baso % (Auto) Absolute Neuts (auto) Absolute Lymphs (auto) Total Counted PT INR APTT Sodium Potassium Chloride Carbon Dioxide Anion Gap BUN Creatinine Estim Creat Clear Calc Est GFR (MDRD) Af Amer Est GFR (MDRD) Non-Af BUN/Creatinine Ratio Glucose Lactic Acid Calcium Total Bilirubin Direct Bilirubin AST ALT Alkaline Phosphatase Ammonia Troponin I Total Protein Albumin Globulin Prolactin Urine Color Urine Clarity Urine pH Ur Specific [place] Urine Protein Urine Glucose (UA) Urine Ketones Urine Occult Blood Urine Nitrite Urine Bilirubin Urine Urobilinogen Ur Leukocyte Esterase Urine RBC Urine WBC Ur Squamous Epith Cells Amorphous Sediment Urine Bacteria Urine Mucus Urine Opiates Screen NEGATIVE Urine Methadone Screen NEGATIVE Ur Barbiturates Screen NEGATIVE Ur Phencyclidine Scrn NEGATIVE Ur Amphetamines Screen NEGATIVE U Methamphetamin-MDMA NEGATIVE U Benzodiazepines Scrn NEGATIVE Urine Cocaine Screen NEGATIVE U Cannabinoids Screen NEGATIVE Ur Drug Screen Comment POC Glucose Clinical Impression(s) from Imaging Studies Brain CT 05/19/17 10:35 IMPRESSION: Chronic involutional changes of the brain. N.B. : The above information has been verbally conveyed by Kalin Ash MD to Jeffrey Ernst, Referring Physician, on 05/19/2017 10:53:00 (ET). Electronically Signed: Kalin Ash MD at 10:53 EST Tel [phone], Service support , N.B. : The above information has been verbally conveyed by Kalin Ash MD to Jeffrey Ernst, Referring Physician, on 05/19/2017 10:53:00 (ET). Chest X-Ray 05/19/17 10:46 IMPRESSION: No acute abnormality is seen. Electronically Signed: Kalin Ash MD at 11:18 EST Tel [phone], Service support , Abdomen/Pelvis CT 05/19/17 11:43 IMPRESSION: 1. No CT evidence of acute intra-abdominal disease. 2. A complex cystic lesion arising from lower pole of the left kidney. 3. Sequela of extensive spinal surgery. Electronically Signed: Liza Silverio MD at 12:27 EST , Service support , Assessment/Plan Active and Suspected Problems Septic shock (Acute) Acute renal failure (Acute) Urinary tract infection (Acute) Toxic encephalopathy (Acute) Hyperammonemia (Acute) Morbid obesity (Acute) Encephalopathy (Acute) RECOMMENDATIONS: 1. Continue antibiotics pending infectious workup 2. Send blood cultures 3. Check urine eosinophil count 4. Supplemental IV fluid hydration, pending improvement in mentation and p.o. intake 5. Recheck serum lactate level 6. Check TSH level 7. Neurology is following IMPRESSIONS: 1. Encephalopathy Likely infectious/metabolic in nature with polypharmacy contributing. Continue treatment of underlying infectious process. Hold sedating medications accordingly. EEG has been completed. Anticipate improvement over the next 24-48 hours. 2. Severe sepsis secondary to cystitis Continue antibiotics as ordered. Repeat cultures are currently pending. Continue supplemental IV fluid hydration. 3. Bradycardia Likely secondary to currently administered medications in the setting of renal insufficiency. Offending medications have been discontinued. We will continue to monitor accordingly. 4. Acute kidney injury Potentially related to AIN, given peripheral eosinophilia. Will check urine eosinophil count. Additional urine studies are currently pending. Nephrology will be consulted accordingly. 5. Obstructive sleep apnea The patient has a history of CARLOTA, but is noncompliant with the use of nocturnal CPAP therapy. Recommend empiric utilization of CPAP at a pressure setting of 8 cm of water with naps and nightly. The patient should follow-up in the pulmonary medicine clinic upon discharge, at which time, a re-titration study can be completed. 6. Chronic pain syndrome/fibromyalgia/tobacco abuse/personal history of gastric malignancy/depression/hyperlipidemia Complicates care, management, recovery and prognosis. Hold all sedating medications at this time. This note was generated with [employer] software. It may contain incorrect words, spelling, and punctuation that were not noted in checking the note before signing. Code Visit Inpatient E&M: 23157 Init Hosp L3
--- NOTE | 2017-05-19 14:33 | CON.PCM_ITS ---
Problem List (1) Encephalopathy Status: Acute Reason for Consult Date of Consultation: 05/19/17 Reason for Consultation: AMS History of Present Illness: The patient is a 66 year old CF with PMH HTN, HLD, DM, H/O Gastric cancer s/p surgery and chemotherapy, depression, CARLOTA non compliant with CPAP admitted with change in mental status. Initially a stroke alert was called but patient almost came back to her baseline in the ED, based on her symptoms it was not thought to be a vascular event like stroke and she was not an IVtpa candidate. Per boyfriend patient was normal when she woke up this morning, then around 8 am became less resposnsive, was seen staring off and was not verbalizing much, was recently seen in the ED for UTI on 05/17/17, started on macrobid, later her boyfriend took her to urgent care today but there she was found to be hypotensive and less aware, was sent to the ED. At present patient is near her baseline, denies any CASAS, visual disturbances, speech disturbances, focal motor weakness or sensory loss. On admission per discussion with the admitting ED doctor the paramedics thought she may have had a gaze preference, but at present there is no gaze preference, and per documentation she has left eye amblyopia. No witnessed seizures, no tongue bite or urinary incontinence. Per patient she remember waking up normal this morning but does not remember anything in between till at present when she is ED. She does not remember her boyfriend taking her to urgent care and per boyfriend she has been in daze all morning. She uses cane to ambulate, denies any frequent falls, does not need any assistance for her ADLs. She is on ASA at baseline. Found to have RADHA with creatinine 2.32, ammonia 40 and UA- LE +ve, WBCs 50-100. [] Past Medical History Past Medical History (Chronic Problems): Chronic Problems Noncompliance with CPAP treatment (Chronic) Depression (Chronic) Dyslipidemia (Chronic) Fibromyalgia (Chronic) Multinodular goiter (Chronic) Obstructive sleep apnea (Chronic) Diabetes mellitus type 2 in obese (Chronic) Hypertension (Chronic) Gastric cancer (Chronic) Allergies fentanyl Adverse Reaction (Verified 05/17/17 14:45) MAKES ME SHAKE oxycodone [From Percocet] Adverse Reaction (Verified 05/17/17 14:45) MAKES ME SHAKE thiopental Adverse Reaction (Verified 05/17/17 14:45) MAKES ME SHAKE Home Medications: Ambulatory Orders Medication Instructions Recorded Albuterol Sulfate [Proair 1 puff IH Q4H PRN PRN 02/15/16 Respiclick] Aspirin [Aspirin, Baby] 81 mg PO DAILY@0800 02/15/16 Dicyclomine HCl 20 mg PO TID PRN PRN 02/15/16 Docusate Sodium [Colace] 100 mg PO BID 02/15/16 Dorzolamide Hydrochloride/Ti 1 drop EACH EYE BID 02/15/16 [Cosopt Opth Drops] Duloxetine Hcl [Cymbalta] 60 mg PO DAILY 02/15/16 Gabapentin [Neurontin] 800 mg PO BID 02/15/16 Insulin Detemir [Levemir FlexPen] 50 units SC QHS 02/15/16 Loratadine 10 mg PO PRN PRN 02/15/16 Metoclopramide [Reglan] 10 mg PO Q6H PRN 02/15/16 Nystatin [Mycostatin] 1 applic TOPICAL BID PRN 02/15/16 Fenofibrate 200 mg PO DAILY 03/05/17 Ferrous Sulfate Syrup 325 mg PO TIDCM 03/05/17 Hydrocortisone 2.5% Crm [Hytone] 1 applic TOPICAL BID 03/05/17 Ketoconazole [Nizoral Cream] 1 applic TOPICAL DAILY 03/05/17 Ketorolac Tromethamine [Acular] 1 drop RIGHT EYE 4X/DAY 03/05/17 Metoprolol Tartrate [Lopressor 12.5 mg PO BID 03/05/17 (beta anthony)] Olanzapine 10 mg PO QHS 03/05/17 Polyethylene Glycol 3350 [Miralax] 17 gm PO DAILY 03/05/17 Ranitidine [Zantac] 150 mg PO BID 03/05/17 Trazodone HCl [Desyrel] 50 mg PO QHS 03/05/17 Nitrofurantoin Macrocrystals 100 mg PO Q12 #10 cap 05/17/17 [Macrobid] Atorvastatin Calcium [Lipitor] 40 mg PO QHS 05/19/17 Baclofen 10 mg PO TID PRN 05/19/17 Buprenorphine [Butrans] 1 each TD QWEEK 05/19/17 Esomeprazole Magnesium 40 mg PO BID 05/19/17 Furosemide [Lasix] 20 mg PO DAILY PRN 05/19/17 Glimepiride [Amaryl] 4 mg PO BID 05/19/17 Hydrochlorothiazide 12.5 mg PO DAILY PRN 05/19/17 Ibuprofen [Ibuprofen] 800 mg PO Q6H PRN 05/19/17 Metformin HCl [Glucophage] 1,000 mg PO BIDCM 05/19/17 Prednisolone Acetate 1 drop LEFT EYE 4X/DAY 05/19/17 Trimethoprim [Trimpex] 100 mg PO BID 05/19/17 Valacyclovir HCl [Valtrex] 1,000 mg PO BID PRN 05/19/17 Surgical History: cholecystectomy, hysterectomy, - - Subtotal gastrectomy for gastric cancer. She has a cervical fusion and Jefferson rods that and most of her thoracic and lumbosacral spine. 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 Lives: Spouse/ Significant Other Smoking Status: Current every day smoker Tobacco Use: Cigarettes Alcohol: Rare Drugs: None - *Family History Maternal History Items: - - unable to obtain significant FH at this time because the pt is acutely encephalopathic Review of Systems Constitutional: Reports: - - complete ROS negative except as documented above Patient Problems: Active and Suspected Problems Septic shock (Acute) Acute renal failure (Acute) Urinary tract infection (Acute) Toxic encephalopathy (Acute) Hyperammonemia (Acute) Morbid obesity (Acute) Encephalopathy (Acute) - Physical Exam General: Alert, Oriented x3, Cooperative HEENT: Atraumatic, PERRLA, EOMI, Normocephalic Neck: Supple, No JVD, Negative Carotid Bruits Lungs: Clear to auscultation, Normal air movement Cardiovascular: Regular rate, No murmurs Abdomen: Bowel Sounds Present, Soft, Non Tender Extremities: No edema, Capillary Refill Less than 3 Seconds Skin: No rashes, No breakdown Musculoskeletal: No Tenderness to Palpation of Joints or Extremities Neurological: - - consious, alert, CN 2-12 grossly intact, left eye amblyopia, power 5/5 all 4 limbs, no sensory loss, no cerebellar signs, Reflexes + B/L B/S/ T/K/A, gait deferred Psych/Mental Status: Normal Affect, Appropriate Vital Signs Temp Pulse Resp BP Pulse Ox 97.7 F L 53 L 12 79/49 L 96 05/19/17 12:30 05/19/17 12:30 05/19/17 12:30 05/19/17 12:30 05/19/17 12:30 Assessment/Plan Active and Suspected Problems Septic shock (Acute) Acute renal failure (Acute) Urinary tract infection (Acute) Toxic encephalopathy (Acute) Hyperammonemia (Acute) Morbid obesity (Acute) Encephalopathy (Acute) The patient is a 66 year old CF with PMH HTN, HLD, DM, H/O Gastric cancer s/p surgery and chemotherapy, depression, CARLOTA non compliant with CPAP admitted with change in mental status. Initially a stroke alert was called but patient almost came back to her baseline in the ED, based on her symptoms it was not thought to be a vascular event like stroke and she was not an IVtpa candidate. Per boyfriend patient was normal when she woke up this morning, then around 8 am became less resposnsive, was seen staring off and was not verbalizing much, was recently seen in the ED for UTI on 05/17/17, started on macrobid, later her boyfriend took her to urgent care today but there she was found to be hypotensive and less aware, was sent to the ED. At present patient is near her baseline, denies any CASAS, visual disturbances, speech disturbances, focal motor weakness or sensory loss. On admission per discussion with the admitting ED doctor the paramedics thought she may have had a gaze preference, but at present there is no gaze preference, and per documentation she has left eye amblyopia. No witnessed seizures, no tongue bite or urinary incontinence. Per patient she remember waking up normal this morning but does not remember anything in between till at present when she is ED. She does not remember her boyfriend taking her to urgent care and per boyfriend she has been in daze all morning. She uses cane to ambulate, denies any frequent falls, does not need any assistance for her ADLs. She is on ASA at baseline. Found to have RADHA with creatinine 2.32, ammonia 40 and UA- LE +ve, WBCs 50-100. Impression Likely Metabolic Encephalopathy ? TGA (transient global amnesia) RADHA Hyperammonemia UTI Plan -CT head in the ED-reported normal -Recommend MRI brain w/o contrast/ MRA head/neck -Recommend EEG -Labs reviewed -On ASA and Lipitor -Further medical management per primary team -GI/DVT prophylaxis -PT/OT -Fall precautions -Please call with questions if any -Thank you for allowing us to participate in patient's care and management I spent 60 minutes of critical care time in the ED taking history, doing physical examination, reviewing medical records, coordinating care and counseling patient and her boyfriend. Code Visit Inpatient E&M: 74129 Init Hosp L3
[2017-05-19 15:20] LABS: Reflex Lactate? Y
--- NOTE | 2017-05-19 15:32 | EEG ---
- Electroencephalogram Date of Service: 05/19/17 History EEG is being done in this 66 yr F to rule out seizures EEG Description: This is an 18 channel EEG with 10-20 lead placement system. Bipolar montages, Referential and Circumferential montages were reviewed. Photic stimulation was performed but Hyperventilation was not performed. The posterior dominant background rhythm was not present. Photo stimulation did not elicit normal driving response or any abnormal photoparoxysmal response, Hyperventilation was not performed. Sleep was not identified. There is generalized background slowing in the theta frequency range of about 5 Hz. There is presence of occasional intermittent triphasic waves seen during the entire record. There was no epileptiform discharges or electrographic seizures noted during this recording. EEG Interpretation This is an abnormal EEG due to the presence of moderate generalized slowing along with the presence of occasional intermittent triphasic waves. This can be seen in generalized cerebral dysfunction like metabolic/toxic encephalopathy. Clinical correlation is advised. There is no epileptiform discharges or electrographic seizures noted during the record.
[2017-05-19 15:34] LABS: Urine Sodium 76 mmol/L (Not Establ.)
[2017-05-19] MEDS: 0.9% Normal Saline 1,000 ML 150 ML IV (15:39)
[2017-05-19] MEDS: Heparin Injection 5,000 UNITS/ML Syringe 5000 UNITS SC ×2 (15:39→21:25)
[2017-05-19 15:50] LABS: Hemoglobin A1c 5.8 % (4.2-6.3)
[2017-05-19 15:51] LABS: Thyroid Stim Hormone (TSH) 3.02 uIU/mL (0.358-3.74)
[2017-05-19 17:01] LABS: M R Staph aureus DNA By PCR Negative (Negative); Probe Check PASS; Specimen Processing Control PASS
[2017-05-19] MEDS: Dextrose 50%-Water 25 GM/50 ML DISP.SYRIN IV (17:15)
[2017-05-19] MEDS: Cefepime HCl 2 GM in 0.9% NS 100 ML Minibag Q12 IV (17:32)
[2017-05-19 17:36] LABS: Bedside Glucose 21 mg/dL (70-110)
[2017-05-19 17:50] LABS: Bedside Glucose 99 mg/dL (70-110)
[2017-05-19 19:51] LABS: Bedside Glucose 65 mg/dL (70-110)
[2017-05-19 21:12] LABS: Lactic Acid 1.6 mmol/L (0.4-2.0)
[2017-05-19] MEDS: Dextrose 5%/0.9% NaCl 1,000 ML 100 ML IV (21:25)
[2017-05-19 21:41] LABS: Bedside Glucose 68 mg/dL (70-110)
[2017-05-20] VITALS (30 sets, daily range): BP systolic 81–145; BP diastolic 41–101; PULSE 55–85; RESP 12–94; TEMP 36.8–37.6; O2SAT 90–100
[2017-05-20 00:21] LABS: Bedside Glucose 61 mg/dL (70-110)
[2017-05-20] MEDS: Dextrose 50%-Water 25 GM/50 ML DISP.SYRIN IV (00:46)
[2017-05-20] MEDS: Dextrose 5%/0.9% NaCl 1,000 ML 100 ML IV (05:30)
[2017-05-20] MEDS: Heparin Injection 5,000 UNITS/ML Syringe 5000 UNITS SC ×3 (05:30→21:30)
[2017-05-20 05:43] LABS: Absolute Lymphocyte Count 2.04 X10^3/ul (0.83-4.51); Absolute Neutrophil Count 5.8 X10^3/uL (2.0-7.7); Basophil# 0.04 X10^3/uL; Basophil% 0.4 % (0-1); Eosinophil# 1.32 X10^3/uL; Eosinophils% 12.9 % (0-5); Hematocrit 37.2 % (37-47); Hemoglobin 12.2 g/dl (12.0-15.0); Lymphocyte # 2.04 X10^3/ul (4.0); Mean Corp Hgb Conc 32.8 g/gl (32-36); Mean Corpuscular Hgb 33.3 pg (27.0-32.0); Mean Corpuscular Volume 101.6 fL (81-99); Mean Platelet Vol. 8.5 fl (6.2-12.0); Monocyte# 0.94 X10^3/uL; Monocyte% 9.2 % (0-10); Neutrophil # 5.81 X10^3/uL (2.7-7.7); Platelet Count 283 K/mm3 (150-450); RBC Distribution Width CV 13.9 % (11.6-14.6); Red Blood Count 3.66 M/mm3 (4.2-5.4); White Blood Count 10.2 K/mm3 (4.4-11.0)
[2017-05-20 05:52] LABS: POSITIVE COUNT NO; POSITIVE DIFFERENTIAL NO; POSITIVE MORPHOLOGY NO
[2017-05-20 05:55] LABS: International Normalized Ratio 1.1; Prothrombin Time (Protime)PT. 14.4 SECONDS (11.7-14.9)
--- NOTE | 2017-05-20 05:55 | RAD_ITS ---
STUDY: X-RAY CHEST REASON FOR EXAM: Female, 66 years old. Pneumonia TECHNIQUE: Single AP portable view of the chest. COMPARISON: Mar 05 2017 12:22pm FINDINGS: MediPort is seen on the left side its catheter tip is at the upper part of superior vena cava. The lungs are clear and expanded. There is no demonstrated pleural abnormality. Normal size heart. Normal mediastinum and maxim. Normal visualized pulmonary arteries. There is atherosclerotic calcification of the aortic arch with tortuosity. Normal visualized thoracic spine. There is degenerative osteoarthritis of the bilateral shoulders. There is no demonstrated abnormality of the visualized soft tissue structures of the upper abdomen. RAD/Chest 1 View (Portable) IMPRESSION: Degenerative changes, as described above. No demonstrated acute cardiopulmonary process. Electronically Signed: Flynn Calles MD at 5:10 EST Tel , Service support ,
[2017-05-20 06:11] LABS: AST(SGOT) 15 U/L (15-37); Alanine Aminotransfer ALT/SGPT 16 U/L (13-56); Albumin, Serum 3.2 g/dL (3.2-5.0); Alkaline Phosphatase 51 U/L (45-117); Anion Gap 6 (5-15); BUN 24 mg/dL (7-18); BUN/Creat Ratio 12.4 RATIO (10-20); Calcium,Total 8.1 mg/dL (8.5-10.1); Chloride 107 mmol/L (98-107); Creatinine, Serum 1.94 mg/dL (0.55-1.02); EST Glomerular Filtration Rate 28 mL/min (>60); Est Glom Filt Rate - Afr Amer 33 mL/min (>60); Estimated Creatinine Clearance 28.49 ml/min; Globulin 3.1 g/dL (2.2-4.2); Glucose 109 mg/dL (74-106); Magnesium 1.5 mg/dL (1.6-2.6); Phosphorus 5.2 mg/dL (2.5-4.9); Potassium 3.7 mmol/L (3.5-5.1); Protein, Total 6.3 g/dL (6.4-8.2); Sodium Level 142 mmol/L (136-145)
--- NOTE | 2017-05-20 07:06 | PCM.PN.INT ---
Subjective: The patient was seen and examined at the bedside this morning. Events from the last 24 hours have been reviewed. The patient is currently afebrile, but remains mildly bradycardic. She is maintaining appropriate oxygen saturations on room air. Mentation is significantly improved from yesterday. She has no specific complaints. She is anxious to be allowed to eat. Objective: The patient's most recent lab work, culture data and imaging studies have all been personally reviewed. Blood and urine cultures are pending. Prior urine cultures completed within this hospital has demonstrated the presence of Klebsiella pneumoniae on 2 separate occasions, the most recent of which in February 2017. Head CT revealed only chronic involutional changes. CT abdomen/pelvis revealed no acute intra-abdominal disease. Plain film chest x-ray revealed no acute cardiopulmonary process. EEG revealed moderate generalized background slowing which can be seen in cerebral dysfunction like metabolic/toxic encephalopathy. General: Alert, Oriented x3, Cooperative, No apparent distress HEENT: Atraumatic, PERRLA, Normocephalic Oral: Dry Mucosa Neck: Supple, No Nodes, Trachea Midline Lungs: Normal air movement, No rhonchi, No wheeze, No rales Cardiovascular: Normal S1, Normal S2, No murmurs, Bradycardic Abdomen: Bowel Sounds Present, Soft, Non Tender, Obese Extremities: No clubbing, No cyanosis, No edema Skin: No rashes, No breakdown Musculoskeletal: No Muscle Wasting Lymphatic: No Cervical, Supraclavicular, or Inguinal Adenopathy Neurological: Neuro grossly intact Psych/Mental Status: Normal Affect, Appropriate Vital Signs Temp Pulse Resp BP Pulse Ox 98.9 F 57 L 13 115/61 95 05/20/17 06:17 05/20/17 06:17 05/20/17 06:17 05/20/17 06:17 05/20/17 06:17 Oxygen Flow Rate 2 Oxygen Delivery Method Room Air Weight: 212 lb 11.937 oz Body Mass Index (BMI) 32.9 Intake and Output for Last 24 Hours 05/18/17 05/19/17 05/20/17 23:59 23:59 23:59 Intake Total 943 / 943 1093 / 1093 Output Total 175 / 175 1500 / 1500 Balance 768 / 768 -407 / -407 Labs (Last 48 Hours) 05/19/17 05/19/17 05/19/17 15:00 15:00 15:00 WBC RBC Hgb Hct MCV MCH MCHC RDW RDW Differential Plt Count MPV Immature Gran % (Auto) Neut % (Auto) Lymph % (Auto) [place] % (Auto) Eos % (Auto) Baso % (Auto) Absolute Neuts (auto) Absolute Lymphs (auto) Total Counted Eos Smear Total Cells Pending PT INR Sodium Potassium Chloride Carbon Dioxide Anion Gap BUN Creatinine Estim Creat Clear Calc Est GFR (MDRD) Af Amer Est GFR (MDRD) Non-Af BUN/Creatinine Ratio Glucose Lactic Acid Calcium Phosphorus Magnesium Total Bilirubin AST ALT Alkaline Phosphatase Total Protein Albumin Globulin Albumin/Globulin Ratio Ur Random Sodium 76 Urine Creatinine MRSA (PCR) Negative POC Glucose 05/19/17 05/19/17 05/19/17 15:00 17:25 17:44 WBC RBC Hgb Hct MCV MCH MCHC RDW RDW Differential Plt Count MPV Immature Gran % (Auto) Neut % (Auto) Lymph % (Auto) [place] % (Auto) Eos % (Auto) Baso % (Auto) Absolute Neuts (auto) Absolute Lymphs (auto) Total Counted Eos Smear Total Cells PT INR Sodium Potassium Chloride Carbon Dioxide Anion Gap BUN Creatinine Estim Creat Clear Calc Est GFR (MDRD) Af Amer Est GFR (MDRD) Non-Af BUN/Creatinine Ratio Glucose Lactic Acid Calcium Phosphorus Magnesium Total Bilirubin AST ALT Alkaline Phosphatase Total Protein Albumin Globulin Albumin/Globulin Ratio Ur Random Sodium Urine Creatinine 90.40 MRSA (PCR) POC Glucose 21 L* 99 05/19/17 05/19/17 05/19/17 19:40 20:40 21:31 WBC RBC Hgb Hct MCV MCH MCHC RDW RDW Differential Plt Count MPV Immature Gran % (Auto) Neut % (Auto) Lymph % (Auto) [place] % (Auto) Eos % (Auto) Baso % (Auto) Absolute Neuts (auto) Absolute Lymphs (auto) Total Counted Eos Smear Total Cells PT INR Sodium Potassium Chloride Carbon Dioxide Anion Gap BUN Creatinine Estim Creat Clear Calc Est GFR (MDRD) Af Amer Est GFR (MDRD) Non-Af BUN/Creatinine Ratio Glucose Lactic Acid 1.6 Calcium Phosphorus Magnesium Total Bilirubin AST ALT Alkaline Phosphatase Total Protein Albumin Globulin Albumin/Globulin Ratio Ur Random Sodium Urine Creatinine MRSA (PCR) POC Glucose 65 L 68 L 05/20/17 05/20/17 05/20/17 00:16 05:35 05:35 WBC 10.2 RBC 3.66 L Hgb 12.2 Hct 37.2 MCV 101.6 H MCH 33.3 H MCHC 32.8 RDW 13.9 RDW Differential 50.0 H Plt Count 283 MPV 8.5 Immature Gran % (Auto) 0.500 Neut % (Auto) 57.0 Lymph % (Auto) 20.0 [place] % (Auto) 9.2 Eos % (Auto) 12.9 H Baso % (Auto) 0.4 Absolute Neuts (auto) 5.8 Absolute Lymphs (auto) 2.04 Total Counted Not Reportable Eos Smear Total Cells PT 14.4 INR 1.1 Sodium Potassium Chloride Carbon Dioxide Anion Gap BUN Creatinine Estim Creat Clear Calc Est GFR (MDRD) Af Amer Est GFR (MDRD) Non-Af BUN/Creatinine Ratio Glucose Lactic Acid Calcium Phosphorus Magnesium Total Bilirubin AST ALT Alkaline Phosphatase Total Protein Albumin Globulin Albumin/Globulin Ratio Ur Random Sodium Urine Creatinine MRSA (PCR) POC Glucose 61 L 05/20/17 05:35 WBC RBC Hgb Hct MCV MCH MCHC RDW RDW Differential Plt Count MPV Immature Gran % (Auto) Neut % (Auto) Lymph % (Auto) [place] % (Auto) Eos % (Auto) Baso % (Auto) Absolute Neuts (auto) Absolute Lymphs (auto) Total Counted Eos Smear Total Cells PT INR Sodium 142 Potassium 3.7 Chloride 107 Carbon Dioxide 29.0 Anion Gap 6 BUN 24 H Creatinine 1.94 H Estim Creat Clear Calc 28.49 Est GFR (MDRD) Af Amer 33 L Est GFR (MDRD) Non-Af 28 L BUN/Creatinine Ratio 12.4 Glucose 109 H Lactic Acid Calcium 8.1 L Phosphorus 5.2 H Magnesium 1.5 L Total Bilirubin 0.30 AST 15 ALT 16 Alkaline Phosphatase 51 Total Protein 6.3 L Albumin 3.2 Globulin 3.1 Albumin/Globulin Ratio 1.0 Ur Random Sodium Urine Creatinine MRSA (PCR) POC Glucose Clinical Impression(s) from Imaging Studies Brain CT 05/19/17 10:35 IMPRESSION: Chronic involutional changes of the brain. N.B. : The above information has been verbally conveyed by Kalin Ash MD to Jeffrey Ernst, Referring Physician, on 05/19/2017 10:53:00 (ET). Electronically Signed: Kalin Ash MD at 10:53 EST Tel [phone], Service support , N.B. : The above information has been verbally conveyed by Kalin Ash MD to Jeffrey Ernst, Referring Physician, on 05/19/2017 10:53:00 (ET). Chest X-Ray 05/19/17 10:46 IMPRESSION: No acute abnormality is seen. Electronically Signed: Kalin Ash MD at 11:18 EST Tel [phone], Service support , Abdomen/Pelvis CT 05/19/17 11:43 IMPRESSION: 1. No CT evidence of acute intra-abdominal disease. 2. A complex cystic lesion arising from lower pole of the left kidney. 3. Sequela of extensive spinal surgery. Electronically Signed: Liza Silverio MD at 12:27 EST , Service support , Chest X-Ray 05/20/17 05:55 IMPRESSION: Degenerative changes, as described above. No demonstrated acute cardiopulmonary process. Electronically Signed: Flynn Calles MD at 5:10 EST Tel , Service support , Assessment/Plan Active and Suspected Problems Septic shock (Acute) Acute renal failure (Acute) Urinary tract infection (Acute) Toxic encephalopathy (Acute) Hyperammonemia (Acute) Morbid obesity (Acute) Encephalopathy (Acute) RECOMMENDATIONS: 1. Continue antibiotics pending infectious workup 2. Pain control per hospitalist 3. Prednisone for presumptive AIN 4. Swallow evaluation and advance diet 5. Neurology planning for MR brain today 6. Empiric CPAP utilization with naps and nightly 7. The patient is medically stable for transfer out of the intensive care unit. IMPRESSIONS: 1. Encephalopathy Resolved at this time. Likely infectious/metabolic in nature with polypharmacy contributing. Continue treatment of underlying infectious process. Hold sedating medications accordingly. EEG has been completed. MRI brain to be completed this morning. Perform swallow evaluation and advance diet accordingly. Recommend PT/OT evaluations today. 2. Severe sepsis secondary to cystitis Continue antibiotics as ordered. Repeat cultures are currently pending. Continue supplemental IV fluid hydration, pending advancement of diet. 3. Bradycardia Improving. Likely secondary to currently administered medications in the setting of renal insufficiency. Offending medications have been discontinued. We will continue to monitor accordingly. 4. Acute kidney injury Potentially related to AIN, given peripheral eosinophilia. Nephrology is following. Prednisone has been initiated. 5. Obstructive sleep apnea The patient has a history of CARLOTA, but is noncompliant with the use of nocturnal CPAP therapy. Recommend empiric utilization of CPAP at a pressure setting of 8 cm of water with naps and nightly. The patient should follow-up in the pulmonary medicine clinic upon discharge, at which time, a re-titration study can be completed. 6. Chronic pain syndrome/fibromyalgia/tobacco abuse/personal history of gastric malignancy/depression/hyperlipidemia Complicates care, management, recovery and prognosis. Hold all sedating medications at this time. This note was generated with [employer] (Proprietary) dictation software. It may contain incorrect words, spelling, and punctuation that were not noted in checking the note before signing. Code Visit Inpatient E&M: 88213 Subs Hosp L3
--- NOTE | 2017-05-20 07:36 | MRI_ITS ---
STUDY: MRA OF THE HEAD WITHOUT CONTRAST REASON FOR EXAM: Female, 66 years old. Altered mental status, slurred speech and confusion. TECHNIQUE: 3-D [id number] (TOF) imaging was performed with MIPs. The study was performed unenhanced. COMPARISON: None. FINDINGS: Normal bilateral petrous carotid arteries. There is ectatic elongation and tortuosity of the right cavernous carotid artery, without a demonstrated hemodynamically significant stenosis. There is ectatic elongation and tortuosity of the left cavernous carotid artery, without a demonstrated hemodynamically significant stenosis. Normal right A1 segments of the anterior cerebral artery. Normal left A1 segments of the anterior cerebral artery. Normal intact anterior communicating artery (ACOM). There is irregularity of the contour of the A2 segments. This may be related to motion artifact though sequela of vasculopathy is possible as well. There is irregularity of the right M1 and M2 branches with minimal luminal narrowing, suggesting atherosclerotic plaque formation, without an occlusion. There is irregularity of the left M1 and M2 branches with minimal luminal narrowing, suggesting atherosclerotic plaque formation, without an occlusion. There is non-visualization of the right posterior communicating artery (PCOM). Normal left posterior communicating artery (PCOM). There is a small atretic right vertebral artery with a dominant left vertebral artery. Normal basilar artery with a normal basilar bifurcation. The visualized bilateral superior cerebellar (SCA) arteries are normal. Normal bilateral P1, P2 and visualized P3 segments of the posterior cerebral arteries. There is no demonstrated aneurysm of the [place] of [place]. There is no major vessel occlusion or hemodynamically significant stenosis. There is no demonstrated abnormality of the visualized brain. MRI/MRA Head ONLY without Contrast IMPRESSION: 1. No MRA evidence for hemodynamically significant stenosis. 2. Irregular contour of the A2 segments suggest possible sequela of an inflammatory vasculopathy. Electronically Signed: Liza Silverio MD at 12:51 EST , Service support ,
--- NOTE | 2017-05-20 07:36 | MRI_ITS ---
STUDY: MRA NECK WITHOUT CONTRAST REASON FOR EXAM: Female, 66 years old. Altered mental status with slurred speech and confusion. TECHNIQUE: Source images were obtained, MIPs were performed. The study was performed unenhanced. Several images are limited by patient motion. COMPARISON: None. FINDINGS: RIGHT CAROTID ARTERIES: Normal right common carotid artery (CCA). There is mild atherosclerotic plaque formation with minimal narrowing of the right carotid bulb. There is mild atherosclerotic plaque formation of the origin of the right internal carotid artery with less than 50% cross sectional diameter stenosis. Normal visualized cervical portion of the right internal carotid artery. Normal origin of the right external carotid artery (ECA). LEFT CAROTID ARTERIES: Normal left common carotid artery (CCA). There is mild atherosclerotic plaque formation with minimal narrowing of the left carotid bulb. There is mild atherosclerotic plaque formation of the origin of the left internal carotid artery with less than 50% cross sectional diameter stenosis. There is atherosclerotic tortuous elongation of the cervical portion of the left internal carotid artery. Normal origin of the left external carotid artery (ECA). VERTEBRAL ARTERIES: Normal antegrade flow within the bilateral vertebral artery without a hemodynamically significant stenosis. MRI/MRA Neck without Contrast IMPRESSION: Technically limited study due to patient motion without MRA evidence for hemodynamically significant stenosis. Electronically Signed: Liaz Silverio MD at 12:32 EST , Service support ,
--- NOTE | 2017-05-20 07:36 | MRI_ITS ---
STUDY: MRI BRAIN WITHOUT CONTRAST REASON FOR EXAM: Female, 66 years old. Altered mental status, slurred speech and confusion. TECHNIQUE: Standardized multiplanar fat and water weighted pulse sequences were obtained. Several images are limited by patient motion. COMPARISON: CT of the head dated May 19, 2017. FINDINGS: There is mild cerebral atrophy with widening of the extra-axial spaces and ventricular dilatation. Normal white matter tracts of the supratentorial brain. There is no evidence for recent intracranial ischemia or other cause of cytotoxic edema on diffusion weighted imaging (DWI). Normal T2* images of the brain without demonstrated susceptibility artifact. There is no demonstrated hemosiderin stain. Normal bilateral basal ganglia. Normal thalami. There is no extra-axial fluid accumulation. Normal flow voids within the major intracranial circulation suggesting patency by spin echo criteria. There is enlargement of the sella turcica with increased CSF within the sella and flattening of the pituitary gland consistent with an empty sellar syndrome. Normal infundibular stalk, hypothalamus, and optic chiasm. Normal tectal plate and pineal gland. There are chronic white matter ischemic changes of the efe. The midbrain and medulla are otherwise normal. Normal cerebellum. There are large basal cisterns. Normal bilateral temporal bones. Normal bilateral internal auditory canals. There are bilateral ocular lens implants with otherwise normal intraorbital contents. There is mucoperiosteal inflammatory disease of the paranasal sinuses consistent with mild chronic sinusitis. Normal calvarium and skull base. Normal visualized soft tissue structures. Normal visualized upper cervical spine. MRI/Brain without Contrast IMPRESSION: 1. Involutional changes of the brain, as described above. 2. No MR evidence for acute infarct. Electronically Signed: Liza Silverio MD at 13:08 EST , Service support ,
[2017-05-20 08:51] LABS: Bedside Glucose 84 mg/dL (70-110)
[2017-05-20 08:51] LABS: Bedside Glucose 95 mg/dL (70-110)
--- NOTE | 2017-05-20 08:51 | PN_ITS ---
Patient Problems: Active and Suspected Problems Septic shock (Acute) Acute renal failure (Acute) Urinary tract infection (Acute) Toxic encephalopathy (Acute) Hyperammonemia (Acute) Morbid obesity (Acute) Encephalopathy (Acute) Subjective: Antibiotics day #2-currently on cefepime 66-year-old female with history of gastric cancer admitted to the intensive care unit yesterday with septic shock secondary to urinary tract infection. T-max 99.4. Balance since admission is +361. urine and output was 1500 overnight. Currently 95% on room air. Blood pressure is 115/61. Still remains in the 50s. White blood cell count is 10.2 today with an unremarkable differential other than 12.9% eosinophils. Hemoglobin and platelets are within normal limits. PT/ INR are within normal limits. HEENT is down to 1.94 from 2.32 at admission. Creatinine in February 2017 was as low as 0.59. Phosphorus is high at 5.2 today and the magnesium is low at 1.5. LFTs are unremarkable. Renal excretion of sodium is 1.41%. TSH was normal at 3.02. The second lactic acid was 1.6 after 30 cc/kg of body weight normal saline. Urine and blood cultures are pending. Chest x-ray today shows no infiltrates or pulmonary vascular congestion. Never required pressors. She is very alert, oriented and appropriate today. He has no complaints. She asked if she could be started on a diet. She denies pain. That she has been noncompliant with CPAP because it is an old unit and the mask is too large..... And makes her feel as though she is suffocating. - Physical Exam General: Alert, Oriented x3, Cooperative, No apparent distress HEENT: PERRLA Oral: Dry Mucosa Neck: No Nuchal Rigidity, Trachea Midline Lungs: No wheeze, No rales, Rhonchi - Mostly clear after a cough Cardiovascular: Regular rate, Normal S1, Normal S2, Bradycardic, No Gallop Abdomen: Bowel Sounds Present, Soft, Non Tender, Non-Distended Extremities: No edema, No Calf Tenderness Skin: No rashes, No breakdown Psych/Mental Status: Normal Affect, Appropriate Vital Signs Temp Pulse Resp BP Pulse Ox 98.9 F 57 L 13 115/61 95 05/20/17 06:17 05/20/17 06:17 05/20/17 06:17 05/20/17 06:17 05/20/17 07:28 Oxygen Flow Rate 2 Oxygen Delivery Method Room Air Weight: 212 lb 11.937 oz Body Mass Index (BMI) 32.9 Intake and Output for Last 24 Hours 05/18/17 05/19/17 05/20/17 23:59 23:59 23:59 Intake Total 943 / 943 1093 / 1093 Output Total 175 / 175 1500 / 1500 Balance 768 / 768 -407 / -407 Laboratory Tests Past 24 Hrs 05/19/17 05/19/17 05/19/17 15:00 15:00 15:00 WBC RBC Hgb Hct MCV MCH MCHC RDW RDW Differential Plt Count MPV Immature Gran % (Auto) Neut % (Auto) Lymph % (Auto) [place] % (Auto) Eos % (Auto) Baso % (Auto) Absolute Neuts (auto) Absolute Lymphs (auto) Total Counted Eos Smear Total Cells Pending PT INR Sodium Potassium Chloride Carbon Dioxide Anion Gap BUN Creatinine Estim Creat Clear Calc Est GFR (MDRD) Af Amer Est GFR (MDRD) Non-Af BUN/Creatinine Ratio Glucose Lactic Acid Calcium Phosphorus Magnesium Total Bilirubin AST ALT Alkaline Phosphatase Total Protein Albumin Globulin Albumin/Globulin Ratio Ur Random Sodium 76 Urine Creatinine MRSA (PCR) Negative 05/19/17 05/19/17 05/20/17 15:00 20:40 05:35 WBC 10.2 RBC 3.66 L Hgb 12.2 Hct 37.2 MCV 101.6 H MCH 33.3 H MCHC 32.8 RDW 13.9 RDW Differential 50.0 H Plt Count 283 MPV 8.5 Immature Gran % (Auto) 0.500 Neut % (Auto) 57.0 Lymph % (Auto) 20.0 [place] % (Auto) 9.2 Eos % (Auto) 12.9 H Baso % (Auto) 0.4 Absolute Neuts (auto) 5.8 Absolute Lymphs (auto) 2.04 Total Counted Not Reportable Eos Smear Total Cells PT INR Sodium Potassium Chloride Carbon Dioxide Anion Gap BUN Creatinine Estim Creat Clear Calc Est GFR (MDRD) Af Amer Est GFR (MDRD) Non-Af BUN/Creatinine Ratio Glucose Lactic Acid 1.6 Calcium Phosphorus Magnesium Total Bilirubin AST ALT Alkaline Phosphatase Total Protein Albumin Globulin Albumin/Globulin Ratio Ur Random Sodium Urine Creatinine 90.40 MRSA (PCR) 05/20/17 05/20/17 05:35 05:35 WBC RBC Hgb Hct MCV MCH MCHC RDW RDW Differential Plt Count MPV Immature Gran % (Auto) Neut % (Auto) Lymph % (Auto) [place] % (Auto) Eos % (Auto) Baso % (Auto) Absolute Neuts (auto) Absolute Lymphs (auto) Total Counted Eos Smear Total Cells PT 14.4 INR 1.1 Sodium 142 Potassium 3.7 Chloride 107 Carbon Dioxide 29.0 Anion Gap 6 BUN 24 H Creatinine 1.94 H Estim Creat Clear Calc 28.49 Est GFR (MDRD) Af Amer 33 L Est GFR (MDRD) Non-Af 28 L BUN/Creatinine Ratio 12.4 Glucose 109 H Lactic Acid Calcium 8.1 L Phosphorus 5.2 H Magnesium 1.5 L Total Bilirubin 0.30 AST 15 ALT 16 Alkaline Phosphatase 51 Total Protein 6.3 L Albumin 3.2 Globulin 3.1 Albumin/Globulin Ratio 1.0 Ur Random Sodium Urine Creatinine MRSA (PCR) POC Glucose 05/20/17 05/19/17 05/19/17 00:16 21:31 19:40 POC Glucose 61 L 68 L 65 L 05/19/17 05/19/17 17:44 17:25 POC Glucose 99 21 L* Assessment/Plan Active and Suspected Problems Septic shock (Acute) Acute renal failure (Acute) Urinary tract infection (Acute) Toxic encephalopathy (Acute) Hyperammonemia (Acute) Morbid obesity (Acute) Encephalopathy (Acute) Impressions 1. septic shock - due to UTI. She was last in the hospital in February. Will treat as hospital acquired. She has in the past grown Klebsiella pneumoniae which is sensitive to cefepime and Rocephin. Blood cultures were ordered in the emergency room and also a urine culture. She is receiving 30 cc/kg of body weight of normal saline. I suspect the Butrans patch is contributing to the hypotension and the Macrobid may be contributing to the bradycardia....and both of these are likely affected by the ARF.....septic shock has been ruled out. the Lactic acid was not greater than 4 and she never required fluids 2. Acute renal failure- possibly due to Interstitial Nephritis....urine for eos sent yesterday. discussed with Dr. Powell who will consult on the patient and she recommended starting Prednisone 40 mg daily 3. Toxic encephalopathy secondary to Butrans plus sepsis - resolved. Butrans patch discontinued yesterday and she is alert and pain free today 4. DM II 5. HTN 6. fibromyalgia 7. chronic pain S on a Butrans patch 8. smoker 9. bradycardia - with hypotension 10. gastric cancer - S/P subtotal gastrectomy and chemotherapy. Follows with Dr. Grant. Last chemotherapy was 4 months ago. 11. Possible psychiatric diagnosis-patient is on Zyprexa and family cannot tell me why 12. History of depression 13. Hyperlipidemia 14. Multinodular goiter 15. Obstructive sleep apnea-noncompliant with CPAP 16. Hypomagnesemia 15. Hypophosphatemia-resolved Doing much better today.....if she remains stable throughout the morning will transfer to PCU Continue cefepime and await the results of the urine culture Consult Dr. Powlel for suspected interstitial nephritis Start a 1600-calorie diet Start prednisone 40 mg p.o. daily Urine eosinophils are pending, fractional excretion of sodium is greater than 1% Supplement the magnesium Continue IV fluids Monitor intake and output closely Continue to hold metformin PT/OT ALbuterol aerosols QID Restart home medications Use buprenorphine tablets as needed pain IS
[2017-05-20] MEDS: 0.45% Normal Saline 1,000 ML 75 ML IV (10:37)
[2017-05-20] MEDS: Famotidine 20 MG Tablet PO (10:45)
[2017-05-20] MEDS: Polyethylene Glycol 3350 17 GM PACKET PO (12:36)
[2017-05-20] MEDS: Fenofibrate 145 MG Tablet PO (12:42)
[2017-05-20] MEDS: Gabapentin 300 MG Capsule PO ×2 (12:42→18:15)
[2017-05-20] MEDS: Docusate Sodium 100 MG Capsule PO ×2 (12:48→21:28)
[2017-05-20 12:51] LABS: Bedside Glucose 60 mg/dL (70-110)
--- NOTE | 2017-05-20 13:33 | PCM.CONS.R ---
Consultation - Renal 05/20/17 PCP/ Referring MD: Requesting physician: Devora Mccarty Primary care physician: Shanta Welsh Reason for Consultation:: RADHA - History of Present Illness History of Present Illness: The patient is a 66 year old F who presented to the ER by her boyfriend with confusion past 2 days. Pt was reported to be staring out, acting inappropriately like singing all the time. She had poor oral intake. She was initially seen in urgent care and was found to be hypotensive with SBP in the 80s. She was evaluated for sepsis syndrome, pancultured and admitted to ICU. Neurology was consulted. No history of seizure activity. Her metation appears to be back to normal. Ammonia level was mildly elevated at 40 with creatinine at 2.3 on admit. Creatinine improved to 1.94 today after iv fluids overnight. She had a baseline creatinine of 0.59 on 05/17/17 when she was seen in urgent care for UTI and discharged to home on macrobid. She denied dysuria but did notice tea-colored urine in the past. She noticed drop in urine output at home. Denied fever, chills. No skin rash, arthralgias, urticaria. Her past medical history is significant for hypertension, DM type 2 for 35 years with retinopathy s/p laser surgery, neuropathy on gabapentin at home. She admit to NSAID use with ibuprofen 800mg twice a day and on muscle relaxers. She has chronic back pain with history of hardware in back, cervical neck surgery, back surgery. She had a CT scan of the abdomen w/o iv contrast that showed normal size kidneys with no hydroureter or hydronephrosis. UA now shows 50-100 WBCs per high-power field with 1+ bacteria. CBC showed eosinophilia. Urine eosinophils pending. Urine sodium 76 Ucr 90. Chest x-ray shows no acute abnormality and the CT brain showed no acute findings. - Allergies Allergies: Allergies fentanyl Adverse Reaction (Verified 05/17/17 14:45) MAKES ME SHAKE oxycodone [From Percocet] Adverse Reaction (Verified 05/17/17 14:45) MAKES ME SHAKE thiopental Adverse Reaction (Verified 05/17/17 14:45) MAKES ME SHAKE - Current Medications Current Medications: Current Medications Albuterol Sulfate (Ventolin Aerosols) 2.5 mg INHALATION Q4HWA.RT CRUZITO Last Admin: 05/20/17 11:17 Dose: Not Given Aspirin (Aspirin, Baby) 81 mg PO DAILY@0800 [facility] Atorvastatin Calcium (Lipitor) 40 mg PO QHS [facility] Buprenorphine HCl (Buprenorphine Hcl) 2 mg SL Q2H PRN PRN PRN Reason: PAIN Dextrose (D50w Syringe) 0 gm IV X1 PRN; Protocol PRN Reason: Hypoglycemia Docusate Sodium (Colace) 100 mg PO BID [facility] Last Admin: 05/20/17 12:48 Dose: 100 mg Dorzolamide/Timolol (Cosopt Opth Drops) 1 drop EACH EYE BID [facility] Last Admin: 05/20/17 12:50 Dose: 1 drop Duloxetine HCl (Cymbalta) 60 mg PO DAILY [facility] Famotidine (Pepcid) 20 mg PO DAILY [facility] Last Admin: 05/20/17 10:45 Dose: 20 mg Fenofibrate (Tricor) 145 mg PO DAILY [facility] Last Admin: 05/20/17 12:42 Dose: 145 mg Ferrous Sulfate (Ferrous Sulfate Syrup) 300 mg PO BIDCM [facility] Gabapentin (Neurontin) 300 mg PO BIDCM [facility] Last Admin: 05/20/17 12:42 Dose: 300 mg Glucagon () 1 mg IM .X1 PRN PRN Reason: Hypoglycemia Heparin Sodium (Porcine) () 5,000 units SC Q8 [facility] Last Admin: 05/20/17 05:30 Dose: 5,000 units Sodium Chloride () 500 mls @ 999 mls/hr IV .Q31M ONE Last Admin: 05/19/17 10:44 Dose: 999 mls/hr Cefepime HCl 2 gm/ Sodium (Chloride) 100 mls @ 200 mls/hr IV Q24 [facility] Last Admin: 05/19/17 17:32 Dose: 200 mls/hr Dextrose/Sodium Chloride (Dextrose 5%/0.9% Nacl) 1,000 mls @ 100 mls/hr IV .Q10H [facility] Last Admin: 05/20/17 05:30 Dose: 100 mls/hr Sodium Chloride () 1,000 mls @ 75 mls/hr IV .[id number] [facility] Last Admin: 05/20/17 10:37 Dose: 75 mls/hr Magnesium Sulfate 2 gm/ Sodium (Chloride) 104 mls @ 52 mls/hr IV X1 ONE Stop: 05/20/17 13:59 Last Admin: 05/20/17 12:37 Dose: 52 mls/hr Insulin Aspart (Novolog Flexpen (Bkc)) 0 units SC ACHS [facility] PRN Reason: Protocol Last Admin: 05/20/17 12:44 Dose: Not Given Ketorolac Tromethamine (Acular) 1 drop EACH EYE 4X/DAY [facility] Last Admin: 05/20/17 10:44 Dose: 1 drop Magnesium Oxide (Mag-Ox 400) 400 mg PO DAILYCM [facility] Olanzapine (Zyprexa) 10 mg PO QHS [facility] Polyethylene Glycol (Miralax) 17 gm PO DAILY [facility] Last Admin: 05/20/17 12:36 Dose: 17 gm Prednisolone Acetate (Pred Forte 1 Ml) 1 drop LEFT EYE 4X/DAY [facility] Last Admin: 05/20/17 12:51 Dose: Not Given Prednisone (Prednisone) 40 mg PO DAILY@0800 [facility] - Past Medical History Past Medical History (Chronic Problems): Chronic Problems Noncompliance with CPAP treatment (Chronic) Depression (Chronic) Dyslipidemia (Chronic) Fibromyalgia (Chronic) Multinodular goiter (Chronic) Obstructive sleep apnea (Chronic) Diabetes mellitus type 2 in obese (Chronic) Hypertension (Chronic) Gastric cancer (Chronic) - Past Surgical History Surgical History: cholecystectomy, hysterectomy, - - Subtotal gastrectomy for gastric cancer. She has a cervical fusion and Jefferson rods that and most of her thoracic and lumbosacral spine. - Social History Smoking Status: Current every day smoker Alcohol: Rare Drugs: None - Family History Maternal History Items: Diabetes, - Paternal History Items: Diabetes - no kidney disease Review of Systems Constitutional: Reports: Anorexia, Weakness, Fatigue. Denies: Chills, Fever Eyes: Reports: - - hx retinpathy, laser surgery, decreased vision left eye. Denies: Blurred vision, Double vision HEENT: Denies: Difficulty Hearing, Head Aches Cardiovascular: Denies: Chest Pain, Edema, Palpitations, Syncope Respiratory: Denies: Cough Gastrointestinal: Reports: - - anorexia. Denies: Abdominal Pain, Constipation, Diarrhea, Nausea, Vomiting Genitourinary: Reports: Incontinence, - - tea colored urine. Denies: Dysuria, Frequency, Hematuria Musculoskeletal: Reports: Back Pain - back surgery, neck surgery, Neck Pain Skin: Denies: Rash Neurological: Denies: Focal weakness, Headaches, Tremor, Seizures Psychiatric: Reports: Depression. Denies: Anxiety Endocrine: Reports: - - hx goiter Hematologic/ Lymphatic: Denies: Hx of blood clot Patient Problems: Active and Suspected Problems Septic shock (Acute) Acute renal failure (Acute) Urinary tract infection (Acute) Toxic encephalopathy (Acute) Hyperammonemia (Acute) Morbid obesity (Acute) Encephalopathy (Acute) - Physical Exam General: Alert, Oriented x3, Cooperative, No apparent distress HEENT: PERRLA, EOMI, - - disconjugate gaze, strabismus Neck: Supple, No JVD, - - scar anterior neck Lungs: Clear to auscultation Cardiovascular: Regular rate Abdomen: Bowel Sounds Present, Soft, Non Tender, Non-Distended Extremities: No edema Musculoskeletal: No Muscle Wasting, Arthritic Changes, - - lordotic curvature of lumbar spine, s/p back surgery scar Neurological: Cranial nerves II-XII grossly intact, - - generalized weakness Psych/Mental Status: Normal Affect, Appropriate, Alert and oriented to time, place, person, mood and affect Vital Signs Temp Pulse Resp BP Pulse Ox 98.3 F 55 L 14 112/63 98 05/20/17 10:00 05/20/17 10:00 05/20/17 10:00 05/20/17 10:00 05/20/17 10:00 Oxygen Flow Rate 2 Oxygen Delivery Method Room Air Weight: 96.5 kg Body Mass Index (BMI) 32.9 Intake and Output for Last 24 Hours 05/18/17 05/19/17 05/20/17 23:59 23:59 23:59 Intake Total 943 / 943 1666 / 1666 Output Total 175 / 175 2500 / 2500 Balance 768 / 768 -834 / -834 Laboratory Tests Past 24 Hrs 05/19/17 05/19/17 05/19/17 15:00 15:00 15:00 WBC RBC Hgb Hct MCV MCH MCHC RDW RDW Differential Plt Count MPV Immature Gran % (Auto) Neut % (Auto) Lymph % (Auto) Irion % (Auto) Eos % (Auto) Baso % (Auto) Absolute Neuts (auto) Absolute Lymphs (auto) Total Counted Eos Smear Total Cells Pending PT INR Sodium Potassium Chloride Carbon Dioxide Anion Gap BUN Creatinine Estim Creat Clear Calc Est GFR (MDRD) Af Amer Est GFR (MDRD) Non-Af BUN/Creatinine Ratio Glucose Lactic Acid Calcium Phosphorus Magnesium Total Bilirubin AST ALT Alkaline Phosphatase Total Protein Albumin Globulin Albumin/Globulin Ratio Ur Random Sodium 76 Urine Creatinine MRSA (PCR) Negative 05/19/17 05/19/17 05/20/17 15:00 20:40 05:35 WBC 10.2 RBC 3.66 L Hgb 12.2 Hct 37.2 MCV 101.6 H MCH 33.3 H MCHC 32.8 RDW 13.9 RDW Differential 50.0 H Plt Count 283 MPV 8.5 Immature Gran % (Auto) 0.500 Neut % (Auto) 57.0 Lymph % (Auto) 20.0 Irion % (Auto) 9.2 Eos % (Auto) 12.9 H Baso % (Auto) 0.4 Absolute Neuts (auto) 5.8 Absolute Lymphs (auto) 2.04 Total Counted Not Reportable Eos Smear Total Cells PT INR Sodium Potassium Chloride Carbon Dioxide Anion Gap BUN Creatinine Estim Creat Clear Calc Est GFR (MDRD) Af Amer Est GFR (MDRD) Non-Af BUN/Creatinine Ratio Glucose Lactic Acid 1.6 Calcium Phosphorus Magnesium Total Bilirubin AST ALT Alkaline Phosphatase Total Protein Albumin Globulin Albumin/Globulin Ratio Ur Random Sodium Urine Creatinine 90.40 MRSA (PCR) 05/20/17 05/20/17 05:35 05:35 WBC RBC Hgb Hct MCV MCH MCHC RDW RDW Differential Plt Count MPV Immature Gran % (Auto) Neut % (Auto) Lymph % (Auto) Irion % (Auto) Eos % (Auto) Baso % (Auto) Absolute Neuts (auto) Absolute Lymphs (auto) Total Counted Eos Smear Total Cells PT 14.4 INR 1.1 Sodium 142 Potassium 3.7 Chloride 107 Carbon Dioxide 29.0 Anion Gap 6 BUN 24 H Creatinine 1.94 H Estim Creat Clear Calc 28.49 Est GFR (MDRD) Af Amer 33 L Est GFR (MDRD) Non-Af 28 L BUN/Creatinine Ratio 12.4 Glucose 109 H Lactic Acid Calcium 8.1 L Phosphorus 5.2 H Magnesium 1.5 L Total Bilirubin 0.30 AST 15 ALT 16 Alkaline Phosphatase 51 Total Protein 6.3 L Albumin 3.2 Globulin 3.1 Albumin/Globulin Ratio 1.0 Ur Random Sodium Urine Creatinine MRSA (PCR) POC Glucose 05/20/17 05/20/17 05/20/17 12:31 08:43 06:57 POC Glucose 60 L 95 84 05/20/17 05/19/17 05/19/17 00:16 21:31 19:40 POC Glucose 61 L 68 L 65 L 05/19/17 05/19/17 17:44 17:25 POC Glucose 99 21 L* Clinical Impression(s) from Imaging Studies Brain CT 05/19/17 10:35 IMPRESSION: Chronic involutional changes of the brain. N.B. : The above information has been verbally conveyed by Kalin Ash MD to Jeffrey Ernst, Referring Physician, on 05/19/2017 10:53:00 (ET). Electronically Signed: Kalin Ash MD at 10:53 EST Tel [phone], Service support , N.B. : The above information has been verbally conveyed by Kalin Ash MD to Jeffrey Ernst, Referring Physician, on 05/19/2017 10:53:00 (ET). Chest X-Ray 05/19/17 10:46 IMPRESSION: No acute abnormality is seen. Electronically Signed: Kalin Ash MD at 11:18 EST Tel [phone], Service support , Abdomen/Pelvis CT 05/19/17 11:43 IMPRESSION: 1. No CT evidence of acute intra-abdominal disease. 2. A complex cystic lesion arising from lower pole of the left kidney. 3. Sequela of extensive spinal surgery. Electronically Signed: Liza Silverio MD at 12:27 EST , Service support , Brain MRI 05/20/17 07:36 IMPRESSION: 1. Involutional changes of the brain, as described above. 2. No MR evidence for acute infarct. Electronically Signed: Liza Silverio MD at 13:08 EST , Service support , Neck MRA 05/20/17 07:36 IMPRESSION: Technically limited study due to patient motion without MRA evidence for hemodynamically significant stenosis. Electronically Signed: Liza Silverio MD at 12:32 EST , Service support , Assessment/Plan Active and Suspected Problems Septic shock (Acute) Acute renal failure (Acute) Urinary tract infection (Acute) Toxic encephalopathy (Acute) Hyperammonemia (Acute) Morbid obesity (Acute) Encephalopathy (Acute) 1. RADHA likely due to combination of poor intake, use of ibuprofen, metformin, lasix. Creatinine improved from 2.3 to 1.94 today. Continue with ivf. Continue to hold diuretics, metformin. Avoid NSAIDs, nephrotoxins eg iv contrast until renal fxn returns to baseline creatinine of 0.59 from 05/17. Has eosinophilia on CBC. Urine eos pending to evaluate for allergic interstitial nephritis with recent treatment for UTI, cystitis with macrobid. Since renal fxn improved overnight with hydration, doubt AIN. Would stop steroid treatment. Pt without fever, rash, hematuria minimal on UA. Small exophytic lesion on lower pole left kidney on CT abdomen w/o iv contrast. Consider w/u with iv contrast when renal fxn back to baseline. 2. DM type 2. Hold metformin. 3. sepsis syndrome, hypotension resolved. Cx pending. 4. Altered mental status improved. CT head unremarkable, tox screen negative. Neurology consulted
[2017-05-20 14:16] LABS: Bedside Glucose 158 mg/dL (70-110)
[2017-05-20] MEDS: Cefepime HCl 2 GM in 0.9% NS 100 ML Minibag Q12 IV (14:29)
[2017-05-20] MEDS: DULoxetine Hcl 60 MG Capsule PO (14:37)
[2017-05-20] MEDS: Albuterol 2.5 MG/3 ML VIAL.NEB. INHALATION ×2 (15:29→18:54)
--- NOTE | 2017-05-20 15:47 | CHAPLAIN ---
patient was receiving PT at the time of my attempted visit
[2017-05-20] MEDS: Ferrous Sulfate 300 MG/5 ML UDC PO (18:14)
[2017-05-20] MEDS: 0.9% NaCl Peripheral Flush Adult/Peds IV (18:14)
[2017-05-20] MEDS: 0.9% NaCl IVPB Med Flush (250 mL) 15 ML IV (18:15)
[2017-05-20 18:21] LABS: Bedside Glucose 245 mg/dL (70-110)
[2017-05-20] MEDS: OLANZapine 10 MG Tablet PO (21:29)
[2017-05-20] MEDS: Atorvastatin Calcium 40 MG Tablet PO (21:29)
[2017-05-20] MEDS: Buprenorphine HCl 2 MG TAB.SUBL SL (21:53)
[2017-05-20 22:01] LABS: Bedside Glucose 360 mg/dL (70-110)
[2017-05-21] VITALS (27 sets, daily range): BP systolic 104–135; BP diastolic 57–106; PULSE 53–71; RESP 11–23; TEMP 36.2–37.1; O2SAT 92–98
[2017-05-21] MEDS: Buprenorphine HCl 2 MG TAB.SUBL SL ×4 (00:09→21:58)
[2017-05-21] MEDS: 0.45% Normal Saline 1,000 ML 75 ML IV (03:34)
[2017-05-21 03:56] LABS: Absolute Lymphocyte Count 1.85 X10^3/ul (0.83-4.51); Absolute Neutrophil Count 5.9 X10^3/uL (2.0-7.7); Basophil# 0.06 X10^3/uL; Basophil% 0.7 % (0-1); Eosinophil# 0.39 X10^3/uL; Eosinophils% 4.4 % (0-5); Hematocrit 35.5 % (37-47); Hemoglobin 11.9 g/dl (12.0-15.0); Lymphocyte # 1.85 X10^3/ul (4.0); Lymphocyte % 20.8 % (19-41); Mean Corp Hgb Conc 33.5 g/gl (32-36); Mean Corpuscular Hgb 33.1 pg (27.0-32.0); Mean Corpuscular Volume 98.6 fL (81-99); Mean Platelet Vol. 8.8 fl (6.2-12.0); Monocyte# 0.65 X10^3/uL; Monocyte% 7.3 % (0-10); Neutrophil # 5.87 X10^3/uL (2.7-7.7); Neutrophil % 65.9 % (47-70); Platelet Count 304 K/mm3 (150-450); RBC Distribution Width CV 13.3 % (11.6-14.6); RBC Distribution Width SD 45.9 fl (35.1-43.9); White Blood Count 8.9 K/mm3 (4.4-11.0)
[2017-05-21 03:57] LABS: POSITIVE COUNT NO; POSITIVE DIFFERENTIAL NO; POSITIVE MORPHOLOGY NO
[2017-05-21 04:23] LABS: Albumin, Serum 3.2 g/dL (3.2-5.0); BUN 17 mg/dL (7-18); Calcium,Total 8.4 mg/dL (8.5-10.1); Chloride 99 mmol/L (98-107); Creatinine, Serum 1.06 mg/dL (0.55-1.02); EST Glomerular Filtration Rate 55 mL/min (>60); Est Glom Filt Rate - Afr Amer 67 mL/min (>60); Estimated Creatinine Clearance 52.14 ml/min; Glucose 270 mg/dL (74-106); Phosphorus 2.9 mg/dL (2.5-4.9); Potassium 3.7 mmol/L (3.5-5.1); Sodium Level 135 mmol/L (136-145)
[2017-05-21] MEDS: Heparin Injection 5,000 UNITS/ML Syringe 5000 UNITS SC ×3 (06:29→21:41)
[2017-05-21] MEDS: Albuterol 2.5 MG/3 ML VIAL.NEB. INHALATION ×4 (06:50→19:17)
--- NOTE | 2017-05-21 07:10 | PCM.PN.INT ---
Subjective: The patient was seen and examined at the bedside this morning. Events from the last 24 hours have been reviewed. The patient is currently afebrile, hemodynamically stable and maintaining appropriate oxygen saturations on room air. The patient's hypoglycemia and bradycardia are improved. The patient is overall net -1.2 L for the admission. No overnight events were noted by the nursing staff. Objective: The patient's most recent lab work, culture data and imaging studies have all been personally reviewed. Current infectious workup has been unrevealing to date. Prior urine cultures completed within this hospital has demonstrated the presence of Klebsiella pneumoniae on 2 separate occasions, the most recent of which in February 2017. Head CT revealed only chronic involutional changes. CT abdomen/pelvis revealed no acute intra-abdominal disease. Plain film chest x-ray revealed no acute cardiopulmonary process. EEG revealed moderate generalized background slowing which can be seen in cerebral dysfunction like metabolic/toxic encephalopathy. General: Alert, Cooperative, No apparent distress HEENT: Atraumatic, PERRLA, Normocephalic Oral: No Gingival or Mucosal Lesions/ Ulcerations Neck: Supple, No Nodes, Trachea Midline Lungs: No rhonchi, No wheeze, No rales Cardiovascular: Normal S1, Normal S2, No murmurs, Bradycardic Abdomen: Bowel Sounds Present, Soft, Non Tender Extremities: No clubbing, No cyanosis, No edema Skin: No rashes, No breakdown Musculoskeletal: No Muscle Wasting Lymphatic: No Cervical, Supraclavicular, or Inguinal Adenopathy Neurological: Neuro grossly intact Psych/Mental Status: Normal Affect, Appropriate Vital Signs Temp Pulse Resp BP Pulse Ox 97.6 F L 60 13 124/63 H 97 05/21/17 06:26 05/21/17 06:26 05/21/17 06:26 05/21/17 06:26 05/21/17 06:26 Oxygen Flow Rate 2 Oxygen Delivery Method Room Air Weight: 214 lb 15.211 oz Body Mass Index (BMI) 32.9 Intake and Output for Last 24 Hours 05/19/17 05/20/17 05/21/17 23:59 23:59 23:59 Intake Total 943 / 943 2453 / 2453 1273.5 / 1273.5 Output Total 175 / 175 3500 / 3500 2250 / 2250 Balance 768 / 768 -1047 / -1047 -976.5 / -976.5 Labs (Last 48 Hours) 05/19/17 05/19/17 05/19/17 15:00 15:00 15:00 WBC RBC Hgb Hct MCV MCH MCHC RDW RDW Differential Plt Count MPV Immature Gran % (Auto) Neut % (Auto) Lymph % (Auto) [place] % (Auto) Eos % (Auto) Baso % (Auto) Absolute Neuts (auto) Absolute Lymphs (auto) Total Counted Eos Smear Total Cells Pending PT INR Sodium Potassium Chloride Carbon Dioxide Anion Gap BUN Creatinine Estim Creat Clear Calc Est GFR (MDRD) Af Amer Est GFR (MDRD) Non-Af BUN/Creatinine Ratio Glucose Lactic Acid Calcium Phosphorus Magnesium Total Bilirubin AST ALT Alkaline Phosphatase Total Protein Albumin Globulin Albumin/Globulin Ratio Ur Random Sodium 76 Urine Creatinine MRSA (PCR) Negative POC Glucose 05/19/17 05/19/17 05/19/17 15:00 17:25 17:44 WBC RBC Hgb Hct MCV MCH MCHC RDW RDW Differential Plt Count MPV Immature Gran % (Auto) Neut % (Auto) Lymph % (Auto) [place] % (Auto) Eos % (Auto) Baso % (Auto) Absolute Neuts (auto) Absolute Lymphs (auto) Total Counted Eos Smear Total Cells PT INR Sodium Potassium Chloride Carbon Dioxide Anion Gap BUN Creatinine Estim Creat Clear Calc Est GFR (MDRD) Af Amer Est GFR (MDRD) Non-Af BUN/Creatinine Ratio Glucose Lactic Acid Calcium Phosphorus Magnesium Total Bilirubin AST ALT Alkaline Phosphatase Total Protein Albumin Globulin Albumin/Globulin Ratio Ur Random Sodium Urine Creatinine 90.40 MRSA (PCR) POC Glucose 21 L* 99 05/19/17 05/19/17 05/19/17 19:40 20:40 21:31 WBC RBC Hgb Hct MCV MCH MCHC RDW RDW Differential Plt Count MPV Immature Gran % (Auto) Neut % (Auto) Lymph % (Auto) [place] % (Auto) Eos % (Auto) Baso % (Auto) Absolute Neuts (auto) Absolute Lymphs (auto) Total Counted Eos Smear Total Cells PT INR Sodium Potassium Chloride Carbon Dioxide Anion Gap BUN Creatinine Estim Creat Clear Calc Est GFR (MDRD) Af Amer Est GFR (MDRD) Non-Af BUN/Creatinine Ratio Glucose Lactic Acid 1.6 Calcium Phosphorus Magnesium Total Bilirubin AST ALT Alkaline Phosphatase Total Protein Albumin Globulin Albumin/Globulin Ratio Ur Random Sodium Urine Creatinine MRSA (PCR) POC Glucose 65 L 68 L 05/20/17 05/20/17 05/20/17 00:16 05:35 05:35 WBC 10.2 RBC 3.66 L Hgb 12.2 Hct 37.2 MCV 101.6 H MCH 33.3 H MCHC 32.8 RDW 13.9 RDW Differential 50.0 H Plt Count 283 MPV 8.5 Immature Gran % (Auto) 0.500 Neut % (Auto) 57.0 Lymph % (Auto) 20.0 [place] % (Auto) 9.2 Eos % (Auto) 12.9 H Baso % (Auto) 0.4 Absolute Neuts (auto) 5.8 Absolute Lymphs (auto) 2.04 Total Counted Not Reportable Eos Smear Total Cells PT 14.4 INR 1.1 Sodium Potassium Chloride Carbon Dioxide Anion Gap BUN Creatinine Estim Creat Clear Calc Est GFR (MDRD) Af Amer Est GFR (MDRD) Non-Af BUN/Creatinine Ratio Glucose Lactic Acid Calcium Phosphorus Magnesium Total Bilirubin AST ALT Alkaline Phosphatase Total Protein Albumin Globulin Albumin/Globulin Ratio Ur Random Sodium Urine Creatinine MRSA (PCR) POC Glucose 61 L 05/20/17 05/20/17 05/20/17 05:35 06:57 08:43 WBC RBC Hgb Hct MCV MCH MCHC RDW RDW Differential Plt Count MPV Immature Gran % (Auto) Neut % (Auto) Lymph % (Auto) [place] % (Auto) Eos % (Auto) Baso % (Auto) Absolute Neuts (auto) Absolute Lymphs (auto) Total Counted Eos Smear Total Cells PT INR Sodium 142 Potassium 3.7 Chloride 107 Carbon Dioxide 29.0 Anion Gap 6 BUN 24 H Creatinine 1.94 H Estim Creat Clear Calc 28.49 Est GFR (MDRD) Af Amer 33 L Est GFR (MDRD) Non-Af 28 L BUN/Creatinine Ratio 12.4 Glucose 109 H Lactic Acid Calcium 8.1 L Phosphorus 5.2 H Magnesium 1.5 L Total Bilirubin 0.30 AST 15 ALT 16 Alkaline Phosphatase 51 Total Protein 6.3 L Albumin 3.2 Globulin 3.1 Albumin/Globulin Ratio 1.0 Ur Random Sodium Urine Creatinine MRSA (PCR) POC Glucose 84 95 05/20/17 05/20/17 05/20/17 12:31 14:11 18:12 WBC RBC Hgb Hct MCV MCH MCHC RDW RDW Differential Plt Count MPV Immature Gran % (Auto) Neut % (Auto) Lymph % (Auto) [place] % (Auto) Eos % (Auto) Baso % (Auto) Absolute Neuts (auto) Absolute Lymphs (auto) Total Counted Eos Smear Total Cells PT INR Sodium Potassium Chloride Carbon Dioxide Anion Gap BUN Creatinine Estim Creat Clear Calc Est GFR (MDRD) Af Amer Est GFR (MDRD) Non-Af BUN/Creatinine Ratio Glucose Lactic Acid Calcium Phosphorus Magnesium Total Bilirubin AST ALT Alkaline Phosphatase Total Protein Albumin Globulin Albumin/Globulin Ratio Ur Random Sodium Urine Creatinine MRSA (PCR) POC Glucose 60 L 158 H 245 H 05/20/17 05/21/17 05/21/17 21:23 03:45 03:45 WBC 8.9 RBC 3.60 L Hgb 11.9 L Hct 35.5 L MCV 98.6 MCH 33.1 H MCHC 33.5 RDW 13.3 RDW Differential 45.9 H Plt Count 304 MPV 8.8 Immature Gran % (Auto) 0.900 Neut % (Auto) 65.9 Lymph % (Auto) 20.8 [place] % (Auto) 7.3 Eos % (Auto) 4.4 Baso % (Auto) 0.7 Absolute Neuts (auto) 5.9 Absolute Lymphs (auto) 1.85 Total Counted Not Reportable Eos Smear Total Cells PT INR Sodium 135 L Potassium 3.7 Chloride 99 Carbon Dioxide 27.0 Anion Gap BUN 17 Creatinine 1.06 H Estim Creat Clear Calc 52.14 Est GFR (MDRD) Af Amer 67 Est GFR (MDRD) Non-Af 55 L BUN/Creatinine Ratio 16.0 Glucose 270 H Lactic Acid Calcium 8.4 L Phosphorus 2.9 Magnesium Total Bilirubin AST ALT Alkaline Phosphatase Total Protein Albumin 3.2 Globulin Albumin/Globulin Ratio Ur Random Sodium Urine Creatinine MRSA (PCR) POC Glucose 360 H Clinical Impression(s) from Imaging Studies Brain CT 05/19/17 10:35 IMPRESSION: Chronic involutional changes of the brain. N.B. : The above information has been verbally conveyed by Kalin Ash MD to Jeffrey Ernst, Referring Physician, on 05/19/2017 10:53:00 (ET). Electronically Signed: Kalin Ash MD at 10:53 EST Tel [phone], Service support , N.B. : The above information has been verbally conveyed by Kalin Ash MD to Jeffrey Ernst, Referring Physician, on 05/19/2017 10:53:00 (ET). Chest X-Ray 05/19/17 10:46 IMPRESSION: No acute abnormality is seen. Electronically Signed: Kalin Ash MD at 11:18 EST Tel [phone], Service support , Abdomen/Pelvis CT 05/19/17 11:43 IMPRESSION: 1. No CT evidence of acute intra-abdominal disease. 2. A complex cystic lesion arising from lower pole of the left kidney. 3. Sequela of extensive spinal surgery. Electronically Signed: Liza Silverio MD at 12:27 EST , Service support , Chest X-Ray 05/20/17 05:55 IMPRESSION: Degenerative changes, as described above. No demonstrated acute cardiopulmonary process. Electronically Signed: Flynn Calles MD at 5:10 EST Tel , Service support , Brain MRI 05/20/17 07:36 IMPRESSION: 1. Involutional changes of the brain, as described above. 2. No MR evidence for acute infarct. Electronically Signed: Liza Silverio MD at 13:08 EST , Service support , Head MRA 05/20/17 07:36 IMPRESSION: 1. No MRA evidence for hemodynamically significant stenosis. 2. Irregular contour of the A2 segments suggest possible sequela of an inflammatory vasculopathy. Electronically Signed: Liza Silverio MD at 12:51 EST , Service support , Neck MRA 05/20/17 07:36 IMPRESSION: Technically limited study due to patient motion without MRA evidence for hemodynamically significant stenosis. Electronically Signed: Liza Silverio MD at 12:32 EST , Service support , Assessment/Plan Active and Suspected Problems Septic shock (Acute) Acute renal failure (Acute) Urinary tract infection (Acute) Toxic encephalopathy (Acute) Hyperammonemia (Acute) Morbid obesity (Acute) Encephalopathy (Acute) RECOMMENDATIONS: 1. Continue antibiotics 2. Pain control per hospitalist 3. Prednisone for presumptive AIN 4. Empiric CPAP utilization with naps and nightly 5. Continue work with physical therapy 6. The patient should follow-up in the pulmonary medicine clinic with our nurse practitioner within 2 weeks of her discharge from the hospital, given her underlying untreated CARLOTA. IMPRESSIONS: 1. Encephalopathy Resolved at this time. Likely infectious/metabolic in nature with polypharmacy contributing. Continue treatment of underlying infectious process. Hold sedating medications accordingly. EEG has been completed. MRI brain revealed only mild involutional changes. The patient is tolerating a diet working with physical therapy. 2. Severe sepsis secondary to cystitis Continue antibiotics as ordered. Repeat cultures have been unrevealing. 3. Bradycardia Improving. Likely secondary to currently administered medications in the setting of renal insufficiency. Offending medications have been discontinued. We will continue to monitor accordingly. 4. Acute kidney injury Potentially related to AIN, given peripheral eosinophilia. Nephrology is following. Continue prednisone as ordered. 5. Obstructive sleep apnea The patient has a history of CARLOTA, but is noncompliant with the use of nocturnal CPAP therapy. Recommend empiric utilization of CPAP at a pressure setting of 8 cm of water with naps and nightly. The patient should follow-up in the pulmonary medicine clinic upon discharge, at which time, a re-titration study can be completed. 6. Chronic pain syndrome/fibromyalgia/tobacco abuse/personal history of gastric malignancy/depression/hyperlipidemia Complicates care, management, recovery and prognosis. Hold all sedating medications at this time. This note was generated with Inboxation software. It may contain incorrect words, spelling, and punctuation that were not noted in checking the note before signing. As the patient is without any further ICU needs, will sign off. Please call with any additional questions. Code Visit Inpatient E&M: 95273 Subs Hosp L2
[2017-05-21] MEDS: Gabapentin 300 MG Capsule PO ×2 (08:25→16:37)
[2017-05-21] MEDS: Aspirin 81 MG TAB.CHEW PO (08:25)
[2017-05-21] MEDS: Ferrous Sulfate 300 MG/5 ML UDC PO ×2 (08:25→16:37)
[2017-05-21] MEDS: Magnesium Oxide 400 MG Tablet PO (08:26)
[2017-05-21 08:36] LABS: Bedside Glucose 195 mg/dL (70-110)
[2017-05-21] MEDS: Fenofibrate 145 MG Tablet PO (09:25)
[2017-05-21] MEDS: Docusate Sodium 100 MG Capsule PO ×2 (09:25→21:41)
[2017-05-21] MEDS: Famotidine 20 MG Tablet PO (09:25)
[2017-05-21] MEDS: DULoxetine Hcl 60 MG Capsule PO (09:25)
[2017-05-21] MEDS: Polyethylene Glycol 3350 17 GM PACKET PO (09:26)
--- NOTE | 2017-05-21 09:34 | CASEMGMT ---
Addendum entered by Amado Medina 05/21/17 10:03: Per physician pt may dc today. CHARLIE REID spoke with pt who states her son can pick her up and stay with her this evening. She has wheeled walker @ home to use. No further dc needs identified. Felix SANTOYO Original Note: See CHARLIE REID assessment link. DC PLAN: home on discharge pending PT/OT evaluations.Felix SANTOYO
--- NOTE | 2017-05-21 12:00 | PN.RENAL_ITS ---
Patient Problems: Active and Suspected Problems Septic shock (Acute) Acute renal failure (Acute) Urinary tract infection (Acute) Toxic encephalopathy (Acute) Hyperammonemia (Acute) Morbid obesity (Acute) Encephalopathy (Acute) Subjective: Transferred out of ICU today. Renal function improved. Denied any nausea or vomiting diarrhea. - Physical Exam General: Alert, Oriented x3 Neck: Supple Lungs: Clear to auscultation Cardiovascular: Regular rate Abdomen: Bowel Sounds Present, Soft, Non Tender, Non-Distended Skin: No rashes Psych/Mental Status: Normal Affect, Appropriate, Alert and oriented to time, place, person, mood and affect Vital Signs Temp Pulse Resp BP Pulse Ox 98.3 F 56 L 14 105/58 L 96 05/21/17 11:28 05/21/17 11:28 05/21/17 11:28 05/21/17 11:28 05/21/17 11:28 Oxygen Flow Rate 2 Oxygen Delivery Method Room Air Weight: 97.5 kg Body Mass Index (BMI) 32.9 Intake and Output for Last 24 Hours 05/19/17 05/20/17 05/21/17 23:59 23:59 23:59 Intake Total 943 / 943 2453 / 2453 1675.5 / 1675.5 Output Total 175 / 175 3500 / 3500 2250 / 2250 Balance 768 / 768 -1047 / -1047 -574.5 / -574.5 Microbiology Past 72 Hours 05/19/17 15:00 Urine Culture - Preliminary Urine Catheter - Campos Culture exhibits no growth. 05/19/17 Unknown Urine Culture - Preliminary Urine, Clean Catch Culture exhibits no growth. Laboratory Tests Past 24 Hrs 05/21/17 05/21/17 03:45 03:45 WBC 8.9 RBC 3.60 L Hgb 11.9 L Hct 35.5 L MCV 98.6 MCH 33.1 H MCHC 33.5 RDW 13.3 RDW Differential 45.9 H Plt Count 304 MPV 8.8 Immature Gran % (Auto) 0.900 Neut % (Auto) 65.9 Lymph % (Auto) 20.8 [place] % (Auto) 7.3 Eos % (Auto) 4.4 Baso % (Auto) 0.7 Absolute Neuts (auto) 5.9 Absolute Lymphs (auto) 1.85 Total Counted Not Reportable Sodium 135 L Potassium 3.7 Chloride 99 Carbon Dioxide 27.0 BUN 17 Creatinine 1.06 H Estim Creat Clear Calc 52.14 Est GFR (MDRD) Af Amer 67 Est GFR (MDRD) Non-Af 55 L BUN/Creatinine Ratio 16.0 Glucose 270 H Calcium 8.4 L Phosphorus 2.9 Albumin 3.2 POC Glucose 05/21/17 05/20/17 05/20/17 08:23 21:23 18:12 POC Glucose 195 H 360 H 245 H 05/20/17 05/20/17 14:11 12:31 POC Glucose 158 H 60 L Assessment/Plan Active and Suspected Problems Septic shock (Acute) Acute renal failure (Acute) Urinary tract infection (Acute) Toxic encephalopathy (Acute) Hyperammonemia (Acute) Morbid obesity (Acute) Encephalopathy (Acute) 1. RADHA likely due to poor intake, use of ibuprofen, metformin, lasix. Creatinine improved from 2.3 on admit to 1.06 today. Continue to hold diuretics , metformin. Avoid NSAIDs. Baseline creatinine 0.59 from 05/17. Eosinophilia on CBC with differential resolved. Urine eos pending. Would stop steroid treatment since renal function already showed improvement before initiating steroids 2. DM type 2. Hold metformin. 3. sepsis syndrome, hypotension resolved. Cx pending. 4. Altered mental status improved. Follow-up as needed and discussed with hospitalist.
[2017-05-21 12:05] LABS: Bedside Glucose 299 mg/dL (70-110)
[2017-05-21 16:46] LABS: Bedside Glucose 319 mg/dL (70-110)
--- NOTE | 2017-05-21 18:37 | PCM.PROGNOTE ---
Patient Problems: Active and Suspected Problems Septic shock (Acute) Acute renal failure (Acute) Urinary tract infection (Acute) Toxic encephalopathy (Acute) Hyperammonemia (Acute) Morbid obesity (Acute) Encephalopathy (Acute) Subjective: She is afebrile with stable VS's No more hypoglycemia she denies pain and has only taken 2 doses of Suboxone she is appropriate and has no complaints Eating well no N/V BS's are increasing now and are in the low 300's - due to the steroids Urine cultures are negative but, she had received antibiotics prior to cultures. - Physical Exam General: Alert, Oriented x3, Cooperative, No apparent distress, Well developed, Well nourished HEENT: Atraumatic Neck: No Nodes, Trachea Midline Lungs: Clear to auscultation Cardiovascular: Regular rate, Regular Rhythm, Normal S1, Normal S2, No rub noted, No Gallop, - - telemetry with no significant ectopy or dysrhythmia Abdomen: Bowel Sounds Present, Soft, Non Tender, Non-Distended Extremities: No clubbing, No cyanosis, No edema Skin: No rashes, No breakdown Neurological: Cranial nerves II-XII grossly intact, Neuro grossly intact Psych/Mental Status: Normal Affect, Appropriate Vital Signs Temp Pulse Resp BP Pulse Ox 98.4 F 60 12 128/71 H 96 05/21/17 16:38 05/21/17 16:38 05/21/17 16:38 05/21/17 16:38 05/21/17 16:38 Oxygen Flow Rate 2 Oxygen Delivery Method Room Air Weight: 214 lb 15.211 oz Body Mass Index (BMI) 32.9 Intake and Output for Last 24 Hours 05/19/17 05/20/17 05/21/17 23:59 23:59 23:59 Intake Total 943 / 943 2453 / 2453 1915.5 / 1915.5 Output Total 175 / 175 3500 / 3500 2250 / 2250 Balance 768 / 768 -1047 / -1047 -334.5 / -334.5 Microbiology Past 72 Hours 05/19/17 13:36 Blood Culture - Preliminary Blood Culture (Wb) #2 - Anticubital Left No growth in 48 hours. 05/19/17 13:35 Blood Culture - Preliminary Blood Culture (Wb) - Right Hand No growth in 48 hours. 05/19/17 15:00 Urine Culture - Preliminary Urine Catheter - Campos Culture exhibits no growth. 05/19/17 Unknown Urine Culture - Preliminary Urine, Clean Catch Culture exhibits no growth. Laboratory Tests Past 24 Hrs 05/21/17 05/21/17 03:45 03:45 WBC 8.9 RBC 3.60 L Hgb 11.9 L Hct 35.5 L MCV 98.6 MCH 33.1 H MCHC 33.5 RDW 13.3 RDW Differential 45.9 H Plt Count 304 MPV 8.8 Immature Gran % (Auto) 0.900 Neut % (Auto) 65.9 Lymph % (Auto) 20.8 [place] % (Auto) 7.3 Eos % (Auto) 4.4 Baso % (Auto) 0.7 Absolute Neuts (auto) 5.9 Absolute Lymphs (auto) 1.85 Total Counted Not Reportable Sodium 135 L Potassium 3.7 Chloride 99 Carbon Dioxide 27.0 BUN 17 Creatinine 1.06 H Estim Creat Clear Calc 52.14 Est GFR (MDRD) Af Amer 67 Est GFR (MDRD) Non-Af 55 L BUN/Creatinine Ratio 16.0 Glucose 270 H Calcium 8.4 L Phosphorus 2.9 Albumin 3.2 POC Glucose 05/21/17 05/21/17 05/21/17 16:35 11:30 08:23 POC Glucose 319 H 299 H 195 H 05/20/17 21:23 POC Glucose 360 H Assessment/Plan Active and Suspected Problems Septic shock (Acute) Acute renal failure (Acute) Urinary tract infection (Acute) Toxic encephalopathy (Acute) Hyperammonemia (Acute) Morbid obesity (Acute) Encephalopathy (Acute) Impressions 1. severe sepsis - due to UTI. She was last in the hospital in February. Will treat as hospital acquired. She has in the past grown Klebsiella pneumoniae which is sensitive to cefepime and Rocephin. Blood cultures were ordered in the emergency room and also a urine culture. She is receiving 30 cc/kg of body weight of normal saline. I suspect the Butrans patch is contributing to the hypotension and the Macrobid may be contributing to the bradycardia....and both of these are likely affected by the ARF.....septic shock has been ruled out. The Lactic acid was not greater than 4 and she never required fluids. 2. Acute renal failure- possibly due to Interstitial Nephritis....urine for eos sent discussed with Dr. Powell who will consult on the patient and she recommended starting Prednisone 40 mg daily. urine eos still pending eosinophilia has resolved. Creat is improved with hydration.....wlwvation likely due to dehydration and NSAID 3. Toxic encephalopathy secondary to Butrans plus gabapentin + sepsis in a pt with ARF - resolved. Butrans patch discontinued at admission and she is alert and pain free today 4. DM II 5. HTN 6. fibromyalgia 7. chronic pain S on a Butrans patch 8. smoker 9. bradycardia - with hypotension 10. gastric cancer - S/P subtotal gastrectomy and chemotherapy. Follows with Dr. Grant. Last chemotherapy was 4 months ago. 11. Possible psychiatric diagnosis-patient is on Zyprexa and family cannot tell me why 12. History of depression 13. Hyperlipidemia 14. Multinodular goiter 15. Obstructive sleep apnea-noncompliant with CPAP 16. Hypomagnesemia 15. Hypophosphatemia-resolved Transfer to PCU De-escalate antibiotic to Rocephin since the urine culture was negative. Continue PT/OT Continue prednisone-discussed with Dr. Powell Recheck lab in the a.m. Possible discharge 05/22/2017 Now that the renal failure has improved may be able to restart Butrans patch....but at a lower dose augmentin or duricef at NH - K. Pneumoniae that she has grown in the past is susceptible to both BS's should come down with the discontinuation of the Prednisone...Pt instructed to increase water intake Code Visit Inpatient E&M: 00434 Subs Hosp L2
--- NOTE | 2017-05-21 18:52 | PN_ITS ---
Patient Problems: Active and Suspected Problems Septic shock (Acute) Acute renal failure (Acute) Urinary tract infection (Acute) Toxic encephalopathy (Acute) Hyperammonemia (Acute) Morbid obesity (Acute) Encephalopathy (Acute) Subjective: She is afebrile with stable VS's No more hypoglycemia she denies pain and has only taken 2 doses of Suboxone she is appropriate and has no complaints Eating well no N/V BS's are increasing now and are in the low 300's - due to the steroids Urine cultures are negative but, she had received antibiotics prior to cultures. - Physical Exam General: Alert, Oriented x3, Cooperative, No apparent distress, Well developed, Well nourished HEENT: Atraumatic Neck: No Nodes, Trachea Midline Lungs: Clear to auscultation Cardiovascular: Regular rate, Regular Rhythm, Normal S1, Normal S2, No rub noted , No Gallop, - - telemetry with no significant ectopy or dysrhythmia Abdomen: Bowel Sounds Present, Soft, Non Tender, Non-Distended Extremities: No clubbing, No cyanosis, No edema Skin: No rashes, No breakdown Neurological: Cranial nerves II-XII grossly intact, Neuro grossly intact Psych/Mental Status: Normal Affect, Appropriate Vital Signs Temp Pulse Resp BP Pulse Ox 98.4 F 60 12 128/71 H 96 05/21/17 16:38 05/21/17 16:38 05/21/17 16:38 05/21/17 16:38 05/21/17 16:38 Oxygen Flow Rate 2 Oxygen Delivery Method Room Air Weight: 214 lb 15.211 oz Body Mass Index (BMI) 32.9 Intake and Output for Last 24 Hours 05/19/17 05/20/17 05/21/17 23:59 23:59 23:59 Intake Total 943 / 943 2453 / 2453 1915.5 / 1915.5 Output Total 175 / 175 3500 / 3500 2250 / 2250 Balance 768 / 768 -1047 / -1047 -334.5 / -334.5 Microbiology Past 72 Hours 05/19/17 13:36 Blood Culture - Preliminary Blood Culture (Wb) #2 - Anticubital Left No growth in 48 hours. 05/19/17 13:35 Blood Culture - Preliminary Blood Culture (Wb) - Right Hand No growth in 48 hours. 05/19/17 15:00 Urine Culture - Preliminary Urine Catheter - Campos Culture exhibits no growth. 05/19/17 Unknown Urine Culture - Preliminary Urine, Clean Catch Culture exhibits no growth. Laboratory Tests Past 24 Hrs 05/21/17 05/21/17 03:45 03:45 WBC 8.9 RBC 3.60 L Hgb 11.9 L Hct 35.5 L MCV 98.6 MCH 33.1 H MCHC 33.5 RDW 13.3 RDW Differential 45.9 H Plt Count 304 MPV 8.8 Immature Gran % (Auto) 0.900 Neut % (Auto) 65.9 Lymph % (Auto) 20.8 Irion % (Auto) 7.3 Eos % (Auto) 4.4 Baso % (Auto) 0.7 Absolute Neuts (auto) 5.9 Absolute Lymphs (auto) 1.85 Total Counted Not Reportable Sodium 135 L Potassium 3.7 Chloride 99 Carbon Dioxide 27.0 BUN 17 Creatinine 1.06 H Estim Creat Clear Calc 52.14 Est GFR (MDRD) Af Amer 67 Est GFR (MDRD) Non-Af 55 L BUN/Creatinine Ratio 16.0 Glucose 270 H Calcium 8.4 L Phosphorus 2.9 Albumin 3.2 POC Glucose 05/21/17 05/21/17 05/21/17 16:35 11:30 08:23 POC Glucose 319 H 299 H 195 H 05/20/17 21:23 POC Glucose 360 H Assessment/Plan Active and Suspected Problems Septic shock (Acute) Acute renal failure (Acute) Urinary tract infection (Acute) Toxic encephalopathy (Acute) Hyperammonemia (Acute) Morbid obesity (Acute) Encephalopathy (Acute) Impressions 1. severe sepsis - due to UTI. She was last in the hospital in February. Will treat as hospital acquired. She has in the past grown Klebsiella pneumoniae which is sensitive to cefepime and Rocephin. Blood cultures were ordered in the emergency room and also a urine culture. She is receiving 30 cc/ kg of body weight of normal saline. I suspect the Butrans patch is contributing to the hypotension and the Macrobid may be contributing to the bradycardia....and both of these are likely affected by the ARF.....septic shock has been ruled out. The Lactic acid was not greater than 4 and she never required fluids. 2. Acute renal failure- possibly due to Interstitial Nephritis....urine for eos sent discussed with Dr. Powell who will consult on the patient and she recommended starting Prednisone 40 mg daily. urine eos still pending eosinophilia has resolved. Creat is improved with hydration.....wlwvation likely due to dehydration and NSAID 3. Toxic encephalopathy secondary to Butrans plus gabapentin + sepsis in a pt with ARF - resolved. Butrans patch discontinued at admission and she is alert and pain free today 4. DM II 5. HTN 6. fibromyalgia 7. chronic pain S on a Butrans patch 8. smoker 9. bradycardia - with hypotension 10. gastric cancer - S/P subtotal gastrectomy and chemotherapy. Follows with Dr. Grant. Last chemotherapy was 4 months ago. 11. Possible psychiatric diagnosis-patient is on Zyprexa and family cannot tell me why 12. History of depression 13. Hyperlipidemia 14. Multinodular goiter 15. Obstructive sleep apnea-noncompliant with CPAP 16. Hypomagnesemia 15. Hypophosphatemia-resolved Transfer to PCU De-escalate antibiotic to Rocephin since the urine culture was negative. Continue PT/OT Continue prednisone-discussed with Dr. Powell Recheck lab in the a.m. Possible discharge 05/22/2017 Now that the renal failure has improved may be able to restart Butrans patch....but at a lower dose augmentin or duricef at NM - K. Pneumoniae that she has grown in the past is susceptible to both BS's should come down with the discontinuation of the Prednisone...Pt instructed to increase water intake Code Visit Inpatient E&M: 69940 Subs Hosp L2
[2017-05-21 21:41] LABS: Bedside Glucose 237 mg/dL (70-110)
[2017-05-21] MEDS: OLANZapine 10 MG Tablet PO (21:45)
[2017-05-21] MEDS: Atorvastatin Calcium 40 MG Tablet PO (21:45)
[2017-05-21] MEDS: Metoprolol Tartrate 25 MG Tablet 12.5 MG PO (21:55)
[2017-05-22] VITALS (10 sets, daily range): BP systolic 133–160; BP diastolic 71–76; PULSE 53–66; RESP 10–20; TEMP 36.1–36.8; O2SAT 92–96
[2017-05-22] MEDS: Heparin Injection 5,000 UNITS/ML Syringe 5000 UNITS SC (05:47)
[2017-05-22 06:45] LABS: Bedside Glucose 136 mg/dL (70-110)
[2017-05-22] MEDS: Albuterol 2.5 MG/3 ML VIAL.NEB. INHALATION ×2 (06:58→11:15)
[2017-05-22 08:32] LABS: Eosinophil Ct. Urine No Eosinophils Seen % (.)
[2017-05-22] MEDS: Glimepiride 4 MG Tablet PO (09:07)
[2017-05-22] MEDS: Magnesium Oxide 400 MG Tablet PO (09:08)
[2017-05-22] MEDS: Gabapentin 300 MG Capsule PO (09:08)
[2017-05-22] MEDS: Ferrous Sulfate 300 MG/5 ML UDC PO (09:08)
[2017-05-22] MEDS: Aspirin 81 MG TAB.CHEW PO (09:08)
[2017-05-22] MEDS: Docusate Sodium 100 MG Capsule PO (09:09)
[2017-05-22] MEDS: DULoxetine Hcl 60 MG Capsule PO (09:09)
[2017-05-22] MEDS: Metoprolol Tartrate 25 MG Tablet 12.5 MG PO (09:10)
[2017-05-22] MEDS: Fenofibrate 145 MG Tablet PO (09:10)
[2017-05-22] MEDS: Polyethylene Glycol 3350 17 GM PACKET PO (09:10)
[2017-05-22] MEDS: Famotidine 20 MG Tablet PO (09:10)
[2017-05-22 09:28] LABS: Anion Gap 9 (5-15); BUN 21 mg/dL (7-18); BUN/Creat Ratio 28.6 RATIO (10-20); Calcium,Total 8.9 mg/dL (8.5-10.1); Chloride 101 mmol/L (98-107); Creatinine, Serum 0.74 mg/dL (0.55-1.02); EST Glomerular Filtration Rate 84 mL/min (>60); Est Glom Filt Rate - Afr Amer 102 mL/min (>60); Estimated Creatinine Clearance 74.69 ml/min; Glucose 126 mg/dL (74-106); Potassium 3.7 mmol/L (3.5-5.1); Sodium Level 139 mmol/L (136-145)
[2017-05-22] MEDS: 0.9% NaCl Peripheral Flush Adult/Peds IV (09:56)
[2017-05-22 11:26] LABS: Bedside Glucose 173 mg/dL (70-110)
--- NOTE | 2017-05-22 15:18 | DCINST_ITS ---
- Discharge Diagnoses Current Active Problems: Current Active and Chronic Problems Septic shock (Acute) Acute renal failure (Acute) Urinary tract infection (Acute) Toxic encephalopathy (Acute) Hyperammonemia (Acute) Noncompliance with CPAP treatment (Chronic) Morbid obesity (Acute) Encephalopathy (Acute) You will use the following diet at home:: Calorie/Carbohydrate Controlled ( specify 1200, 1400, etc) Your food should be the consistency of: Regular Your liquids should be the consistency of: Regular/Thin Discharge Activity: Return to Normal Activity Call your doctor if you observe: Fever of 101 or Higher, Shortness of breath, Dizziness, Fainting spells, Chest pain, Uncontrolled pain, - - Call your PCP if severe diarrhea, painful sores in the mouth, painful swallowing, rash or itching. Additional Instructions: I think you are doing so much better in the hospital because you are on 1/2 of the medications you were on at home. You were almost comatose when you came to the hospital and I discontinued half of your medications and decreased the Gabapentin to 300 mg BID. You have only had 5 doses of pain medication since you came into the hospital. I can not discharge on the Buprenorphine tabs you have been taking in the hospital for pain because only pain management doctors are allowed to order this. I am giving you a precription for a lower dose Butrans patch. Call Dr. Damon Wednesday and tell him you were in the hospital. I will send him a copy of the discharge summary. The other reason you are so sleepy and tired all the time and that you have confusion and problems with your memory is you are not wearing CPAP. You have been much more alert and active in the hospital because you are on less medication and you have been wearing the CPAP. I am going to have you follow up with Dr. Rodriguez in the office to arrange a new sleep study for you so you can get a machine for home. Untreated sleep apnea is also associated with more pain with less tolerance of pain. Pending Tests on Discharge: none Allergies/Adverse Reactions: Allergies fentanyl Adverse Reaction (Verified 05/17/17 14:45) MAKES ME SHAKE oxycodone [From Percocet] Adverse Reaction (Verified 05/17/17 14:45) MAKES ME SHAKE thiopental Adverse Reaction (Verified 05/17/17 14:45) MAKES ME SHAKE Medications to take at Discharge Albuterol Sulfate [Proair Respiclick] 1 puff IH Q4H PRN PRN 02/15/16 Aspirin [Aspirin, Baby] 81 mg PO DAILY@0800 02/15/16 Docusate Sodium [Colace] 100 mg PO BID 02/15/16 Dorzolamide Hydrochloride/Ti [Cosopt Opth Drops] 1 drop EACH EYE BID 02/15/16 Duloxetine Hcl [Cymbalta] 60 mg PO DAILY 02/15/16 Insulin Detemir [Levemir FlexPen] 50 units SC QHS 02/15/16 Loratadine 10 mg PO PRN PRN 02/15/16 Nystatin [Mycostatin] 1 applic TOPICAL BID PRN 02/15/16 Fenofibrate 200 mg PO DAILY 03/05/17 Ferrous Sulfate Syrup 325 mg PO TIDCM 03/05/17 Hydrocortisone 2.5% Crm [Hytone] 1 applic TOPICAL BID 03/05/17 Ketoconazole [Nizoral Cream] 1 applic TOPICAL DAILY 03/05/17 Ketorolac Tromethamine [Acular] 1 drop RIGHT EYE 4X/DAY 03/05/17 Metoprolol Tartrate [Lopressor (beta anthony)] 12.5 mg PO BID 03/05/17 Olanzapine 10 mg PO QHS 03/05/17 Polyethylene Glycol 3350 [Miralax] 17 gm PO DAILY 03/05/17 Ranitidine [Zantac] 150 mg PO BID 03/05/17 Atorvastatin Calcium [Lipitor] 40 mg PO QHS 05/19/17 Buprenorphine [Butrans] 1 each TD QWEEK 05/19/17 Esomeprazole Magnesium 40 mg PO BID 05/19/17 Furosemide [Lasix] 20 mg PO DAILY PRN 05/19/17 Glimepiride [Amaryl] 4 mg PO BID 05/19/17 Metformin HCl [Glucophage] 1,000 mg PO BIDCM 05/19/17 Prednisolone Acetate 1 drop LEFT EYE 4X/DAY 05/19/17 Valacyclovir HCl [Valtrex] 1,000 mg PO BID PRN 05/19/17 Cefadroxil 1 gm PO DAILY #4 tab 05/22/17 Gabapentin [Neurontin] 300 mg PO BIDCM #60 cap 05/22/17 Magnesium Oxide [Mag-Ox 400] 400 mg PO DAILYCM #30 tab 05/22/17 Methadone HCl 5 mg PO Q4H PRN PRN 5 Days #20 tab 05/22/17 The following prescriptions were given: Methadone HCl 5 mg PO Q4H PRN PRN 5 Days #20 tab PRN Reason: Pain Cefadroxil 1 gm PO DAILY #4 tab Magnesium Oxide [Mag-Ox 400] 400 mg PO DAILYCM #30 tab Gabapentin [Neurontin] 300 mg PO BIDCM #60 cap Primary Care Physician: Shanta Welsh PA [Primary Care Provider] - Please Follow Up With: Wing Damon When: call the office Wednesday Please Follow Up With: Darrick Rodriguez DO When: 2 weeks with Perla to arrange an OP sleep study Proposed Discharge Date: 05/22/17
--- NOTE | 2017-05-22 15:49 | PCM.DC.SUM ---
Discharge Date and Diagnosis Date of Admission: 05/19/17 Date of Discharge: 05/22/17 - Primary Discharge Diagnosis Active and Suspected Problems septic shock - ruled out.....hypotension resolved with hydration Severe sepsis (Acute) Acute renal failure (Acute) Urinary tract infection (Acute) Toxic encephalopathy (Acute) secondary to polypharmacy in patient with untreated sleep apnea Eosinophilia (Acute) - likely due to Macrobid Hypophosphatemia (Acute) Hypomagnesemia (Acute) Hyperammonemia (Acute) - Secondary Discharge Diagnosis Chronic Problems Chronic pain syndrome (Chronic) Noncompliance with CPAP treatment (Chronic) Morbid obesity (Chronic) Depression (Chronic) Dyslipidemia (Chronic) Fibromyalgia (Chronic) Multinodular goiter (Chronic) Obstructive sleep apnea (Chronic) Diabetes mellitus type 2 in obese (Chronic) Hypertension (Chronic) Gastric cancer (Chronic) Hospital Course and Treatment Imaging Results: Clinical Impression(s) from Imaging Studies Brain CT 05/19/17 10:35 IMPRESSION: Chronic involutional changes of the brain. N.B. : The above information has been verbally conveyed by Kalin Ash MD to Jeffrey Ernst, Referring Physician, on 05/19/2017 10:53:00 (ET). Electronically Signed: Kalin Ash MD at 10:53 EST Tel [phone], Service support , N.B. : The above information has been verbally conveyed by Kalin Ash MD to Jeffrey Ernst, Referring Physician, on 05/19/2017 10:53:00 (ET). Chest X-Ray 05/19/17 10:46 IMPRESSION: No acute abnormality is seen. Electronically Signed: Kalin Ash MD at 11:18 EST Tel [phone], Service support , Abdomen/Pelvis CT 05/19/17 11:43 IMPRESSION: 1. No CT evidence of acute intra-abdominal disease. 2. A complex cystic lesion arising from lower pole of the left kidney. 3. Sequela of extensive spinal surgery. Electronically Signed: Liza Silverio MD at 12:27 EST , Service support , Chest X-Ray 05/20/17 05:55 IMPRESSION: Degenerative changes, as described above. No demonstrated acute cardiopulmonary process. Electronically Signed: Flynn Calles MD at 5:10 EST Tel , Service support , Brain MRI 05/20/17 07:36 IMPRESSION: 1. Involutional changes of the brain, as described above. 2. No MR evidence for acute infarct. Electronically Signed: Liza Silverio MD at 13:08 EST , Service support , Head MRA 05/20/17 07:36 IMPRESSION: 1. No MRA evidence for hemodynamically significant stenosis. 2. Irregular contour of the A2 segments suggest possible sequela of an inflammatory vasculopathy. Electronically Signed: Liza Silverio MD at 12:51 EST , Service support , Neck MRA 05/20/17 07:36 IMPRESSION: Technically limited study due to patient motion without MRA evidence for hemodynamically significant stenosis. Electronically Signed: Liza Silverio MD at 12:32 EST , Service support , Laboratory Results - last 24 hr 05/19/17 05/21/17 05/21/17 15:00 16:35 21:36 Eos Smear Total Cells No Eosinophils Seen Sodium Potassium Chloride Carbon Dioxide Anion Gap BUN Creatinine Estim Creat Clear Calc Est GFR (MDRD) Af Amer Est GFR (MDRD) Non-Af BUN/Creatinine Ratio Glucose Calcium POC Glucose 319 H 237 H 05/22/17 05/22/17 05/22/17 06:36 08:10 11:19 Eos Smear Total Cells Sodium 139 Potassium 3.7 Chloride 101 Carbon Dioxide 29.0 Anion Gap 9 BUN 21 H Creatinine 0.74 Estim Creat Clear Calc 74.69 Est GFR (MDRD) Af Amer 102 Est GFR (MDRD) Non-Af 84 BUN/Creatinine Ratio 28.6 H Glucose 126 H Calcium 8.9 POC Glucose [address] Xavier - neurology Dr. Darrick Rodriguez - pulmonary/traffic signal supervisor maintenance Operations: None Procedures: Electroencephalogram - moderate generalized slowing with the presence of occasional intermittent triphasic waves. Summary of Care Provided: The patient is a 66 year old F with a past medical history of gastric cancer (S/P subtotal gastrectomy), diabetes mellitus type 2, hypertension, chronic pain syndrome, fibromyalgia, obstructive sleep apnea (noncompliant with CPAP), multinodular goiter, dyslipidemia, depression and morbid obesity who was brought to the emergency department at [facility] on 05/19/2017 with decreased level of consciousness. Patient's significant other found her standing in front of a closet staring and not appropriately responding. She was able to ambulate to the car and was brought to an [facility] for a follow up appt.. [facility] was not acting appropriately and was hypotensive and she was sent to the ER for further evaluation. She was in the [facility] ED on 05/17/[address] Carreon with a complaint of decreased appetite and intake for the preceding 3 days. A UA done at that time showed 5-10 white blood cells and 2+ bacteria. She was discharged home with a 5 day course of Macrobid. Creatinine on 05/17/2017 was 0.56. At admission to the hospital the Creat was 2.32 with a BUN of 24. Her family states that she had no significant oral intake since 05/17. Vital signs at presentation to the emergency room were temperature 98.3, pulse rate 56, blood pressure 79/53, respiratory rate 10 and oxygen saturation was 95%. White blood cell count was 10.9 with 62% neutrophils and 10.4% eosinophils. Hemoglobin was 13.1 and the platelets are normal at 339,000. PT and PTT were within normal limits. Electrolytes were within normal limits but, the BUN was 24 with a creatinine of 2.32, up from 0.59 on 05/17/2017. Troponin was less than 0.02. Ammonia was mildly elevated at 40. CT scan of the abdomen showed normal size kidneys with no hydroureter and no hydronephrosis. UA showed 50-100 WBCs per high-power field with 1+ bacteria. Chest x-ray showed no acute abnormality and the CT brain showed no acute findings. She was admitted to the ICU. The Butrans patch was discontinued and also most of the sedating medications. Dr. Rodriguez was consulted to participate in management. She was also seen by Dr. Xavier and he ordered an EEG and brain MRA's and MRI and also an MRA of the neck. The EEG showed generalized slowing with the presence of occasional intermittent triphasic waves possibly due to generalized cerebral dysfunction like metabolic/toxic encephalopathy. There were no epileptiform discharges. MRI of the brain showed involutional changes with no MR evidence for acute infarct. There was no MR evidence for hemodynamically significant stenosis on the MRA of the brain or the MRA of the neck. On 05/20 she was more alert and she was started on a diet. The blood sugars were low and labile and she was maintained in the ICU for another night. She was transferred to PCU on 05/21. She wore CPAP anytime she was sleeping while in the hospital and was very alert during the day. She has not had a sleep study for many years and has not been wearing the CPAP at home....she stated it was broke. She is always fatigued at home and she told me she is forgetful and she fears she is developing Alzheimer's. Blood and urine cultures had no growth however the patient had been on Macrobid as an outpatient. The eosinophilia resolved with discontinuation of Macrobid. She was treated with cefepime and then Rocephin while in the hospital. Consult was also ordered with Dr. Powell in the hospital and she recommended continuing hydration and starting Prednisone for suspected Interstitial nephritis until the urine eosinophils were back from the lab. The urine had no eosinophils and the Prednisone was discontinued prior to DC. The creat recovered and the creat at DC was 0.74. She was discharged home on 05/22/17. She was instructed not to restart the Butrans patch and the Gabapentin was reduced to 300 mg BID. While in the hospital she required very little pain medication and her pain was adequately controlled with just 1-2 Suboxone tablets daily. She was also given a RX for Cefadroxil to finish treatment for UTI and a RX for Methadone 5 mg tabs to take every 4 hours as needed for pain until she can follow up with Dr. Damon. She benefited greatly from CPAP in the hospital and she is going to follow up with Dr. Rodriguez in the office in 2 weeks to arrange a sleep study and PFT's. Would avoid, as much as possible, sedating medications until she has a working CPAP unit. This note was generated with [employer] dictation software. It may contain incorrect words, spelling, and punctuation that were not noted in checking the note before signing. Discharge Activity: Return to Normal Activity Call your doctor if you observe: Fever of 101 or Higher, Shortness of breath, Dizziness, Fainting spells, Chest pain, Uncontrolled pain, - - Call your PCP if severe diarrhea, painful sores in the mouth, painful swallowing, rash or itching. Home Medications: Medications to take at Discharge Albuterol Sulfate [Proair Respiclick] 1 puff IH Q4H PRN PRN 02/15/16 Aspirin [Aspirin, Baby] 81 mg PO DAILY@0800 02/15/16 Docusate Sodium [Colace] 100 mg PO BID 02/15/16 Dorzolamide Hydrochloride/Ti [Cosopt Opth Drops] 1 drop EACH EYE BID 02/15/16 Duloxetine Hcl [Cymbalta] 60 mg PO DAILY 02/15/16 Insulin Detemir [Levemir FlexPen] 50 units SC QHS 02/15/16 Loratadine 10 mg PO PRN PRN 02/15/16 Nystatin [Mycostatin] 1 applic TOPICAL BID PRN 02/15/16 Fenofibrate 200 mg PO DAILY 03/05/17 Ferrous Sulfate Syrup 325 mg PO TIDCM 03/05/17 Hydrocortisone 2.5% Crm [Hytone] 1 applic TOPICAL BID 03/05/17 Ketoconazole [Nizoral Cream] 1 applic TOPICAL DAILY 03/05/17 Ketorolac Tromethamine [Acular] 1 drop RIGHT EYE 4X/DAY 03/05/17 Metoprolol Tartrate [Lopressor (beta anthony)] 12.5 mg PO BID 03/05/17 Olanzapine 10 mg PO QHS 03/05/17 Polyethylene Glycol 3350 [Miralax] 17 gm PO DAILY 03/05/17 Ranitidine [Zantac] 150 mg PO BID 03/05/17 Atorvastatin Calcium [Lipitor] 40 mg PO QHS 05/19/17 Buprenorphine [Butrans] 1 each TD QWEEK 05/19/17 Esomeprazole Magnesium 40 mg PO BID 05/19/17 Furosemide [Lasix] 20 mg PO DAILY PRN 05/19/17 Glimepiride [Amaryl] 4 mg PO BID 05/19/17 Metformin HCl [Glucophage] 1,000 mg PO BIDCM 05/19/17 Prednisolone Acetate 1 drop LEFT EYE 4X/DAY 05/19/17 Valacyclovir HCl [Valtrex] 1,000 mg PO BID PRN 05/19/17 Cefadroxil 1 gm PO DAILY #4 tab 05/22/17 Gabapentin [Neurontin] 300 mg PO BIDCM #60 cap 05/22/17 Magnesium Oxide [Mag-Ox 400] 400 mg PO DAILYCM #30 tab 05/22/17 Methadone HCl 5 mg PO Q4H PRN PRN 5 Days #20 tab 05/22/17 Following Prescrptions Were Given to Patient: Methadone HCl 5 mg PO Q4H PRN PRN 5 Days #20 tab PRN Reason: Pain Cefadroxil 1 gm PO DAILY #4 tab Magnesium Oxide [Mag-Ox 400] 400 mg PO DAILYCM #30 tab Gabapentin [Neurontin] 300 mg PO BIDCM #60 cap Primary Care Physician: Shanta Welsh PA [Primary Care Provider] - Please Follow Up With: Wing Damon When: call the office Wednesday Please Follow Up With: Darrick Rodriguez DO When: 2 weeks with Perla to arrange an OP sleep study Disposition: Home Minutes spent on discharge:: 38 Patient Condition:: Good Meaningful Use Info Meaningful Use Diagnoses (Choose all that apply): None applicable Code Visit Inpatient E&M: 54465 Disch Hosp
--- NOTE | 2017-05-22 16:00 | DS.PCM_ITS ---
Discharge Date and Diagnosis Date of Admission: 05/19/17 Date of Discharge: 05/22/17 - Primary Discharge Diagnosis Active and Suspected Problems septic shock - ruled out.....hypotension resolved with hydration Severe sepsis (Acute) Acute renal failure (Acute) Urinary tract infection (Acute) Toxic encephalopathy (Acute) secondary to polypharmacy in patient with untreated sleep apnea Eosinophilia (Acute) - likely due to Macrobid Hypophosphatemia (Acute) Hypomagnesemia (Acute) Hyperammonemia (Acute) - Secondary Discharge Diagnosis Chronic Problems Chronic pain syndrome (Chronic) Noncompliance with CPAP treatment (Chronic) Morbid obesity (Chronic) Depression (Chronic) Dyslipidemia (Chronic) Fibromyalgia (Chronic) Multinodular goiter (Chronic) Obstructive sleep apnea (Chronic) Diabetes mellitus type 2 in obese (Chronic) Hypertension (Chronic) Gastric cancer (Chronic) Hospital Course and Treatment Imaging Results: Clinical Impression(s) from Imaging Studies Brain CT 05/19/17 10:35 IMPRESSION: Chronic involutional changes of the brain. N.B. : The above information has been verbally conveyed by Kalin Ash MD to Jeffrey Ernst, Referring Physician, on 05/19/2017 10:53:00 (ET). Electronically Signed: Kalin Ash MD at 10:53 EST Tel [phone], Service support , N.B. : The above information has been verbally conveyed by Kalin Ash MD to Jeffrey Ernst, Referring Physician, on 05/19/2017 10:53:00 (ET). Chest X-Ray 05/19/17 10:46 IMPRESSION: No acute abnormality is seen. Electronically Signed: Kalin Ash MD at 11:18 EST Tel [phone], Service support , Abdomen/Pelvis CT 05/19/17 11:43 IMPRESSION: 1. No CT evidence of acute intra-abdominal disease. 2. A complex cystic lesion arising from lower pole of the left kidney. 3. Sequela of extensive spinal surgery. Electronically Signed: Liza Silverio MD at 12:27 EST , Service support , Chest X-Ray 05/20/17 05:55 IMPRESSION: Degenerative changes, as described above. No demonstrated acute cardiopulmonary process. Electronically Signed: Flynn Calles MD at 5:10 EST Tel , Service support , Brain MRI 05/20/17 07:36 IMPRESSION: 1. Involutional changes of the brain, as described above. 2. No MR evidence for acute infarct. Electronically Signed: Liza Silverio MD at 13:08 EST , Service support , Head MRA 05/20/17 07:36 IMPRESSION: 1. No MRA evidence for hemodynamically significant stenosis. 2. Irregular contour of the A2 segments suggest possible sequela of an inflammatory vasculopathy. Electronically Signed: Liza Silverio MD at 12:51 EST , Service support , Neck MRA 05/20/17 07:36 IMPRESSION: Technically limited study due to patient motion without MRA evidence for hemodynamically significant stenosis. Electronically Signed: Liza Silverio MD at 12:32 EST , Service support , Laboratory Results - last 24 hr 05/19/17 05/21/17 05/21/17 15:00 16:35 21:36 Eos Smear Total Cells No Eosinophils Seen Sodium Potassium Chloride Carbon Dioxide Anion Gap BUN Creatinine Estim Creat Clear Calc Est GFR (MDRD) Af Amer Est GFR (MDRD) Non-Af BUN/Creatinine Ratio Glucose Calcium POC Glucose 319 H 237 H 05/22/17 05/22/17 05/22/17 06:36 08:10 11:19 Eos Smear Total Cells Sodium 139 Potassium 3.7 Chloride 101 Carbon Dioxide 29.0 Anion Gap 9 BUN 21 H Creatinine 0.74 Estim Creat Clear Calc 74.69 Est GFR (MDRD) Af Amer 102 Est GFR (MDRD) Non-Af 84 BUN/Creatinine Ratio 28.6 H Glucose 126 H Calcium 8.9 POC Glucose [address] Xavier - neurology Dr. Darrick Rodriguez - pulmonary/lead front end developer Operations: None Procedures: Electroencephalogram - moderate generalized slowing with the presence of occasional intermittent triphasic waves. Summary of Care Provided: The patient is a 66 year old F with a past medical history of gastric cancer (S/P subtotal gastrectomy), diabetes mellitus type 2, hypertension, chronic pain syndrome, fibromyalgia, obstructive sleep apnea (noncompliant with CPAP), multinodular goiter, dyslipidemia, depression and morbid obesity who was brought to the emergency department at [facility] on 05/19/2017 with decreased level of consciousness. Patient's significant other found her standing in front of a closet staring and not appropriately responding. She was able to ambulate to the car and was brought to an [facility] for a follow up appt.. At the [facility] she was not acting appropriately and was hypotensive and she was sent to the ER for further evaluation. She was in the [facility] ED on 05/17/[address] Carreon with a complaint of decreased appetite and intake for the preceding 3 days. A UA done at that time showed 5- 10 white blood cells and 2+ bacteria. She was discharged home with a 5 day course of Macrobid. Creatinine on 05/17/2017 was 0.56. At admission to the hospital the Creat was 2.32 with a BUN of 24. Her family states that she had no significant oral intake since 05/17. Vital signs at presentation to the emergency room were temperature 98.3, pulse rate 56, blood pressure 79/53, respiratory rate 10 and oxygen saturation was 95%. White blood cell count was 10.9 with 62% neutrophils and 10.4% eosinophils. Hemoglobin was 13.1 and the platelets are normal at 339,000. PT and PTT were within normal limits. Electrolytes were within normal limits but, the BUN was 24 with a creatinine of 2.32, up from 0.59 on 05/17/2017. Troponin was less than 0.02. Ammonia was mildly elevated at 40. CT scan of the abdomen showed normal size kidneys with no hydroureter and no hydronephrosis. UA showed 50-100 WBCs per high-power field with 1+ bacteria. Chest x-ray showed no acute abnormality and the CT brain showed no acute findings. She was admitted to the ICU. The Butrans patch was discontinued and also most of the sedating medications. Dr. Rodriguez was consulted to participate in management. She was also seen by Dr. Xavier and he ordered an EEG and brain MRA's and MRI and also an MRA of the neck. The EEG showed generalized slowing with the presence of occasional intermittent triphasic waves possibly due to generalized cerebral dysfunction like metabolic/ toxic encephalopathy. There were no epileptiform discharges. MRI of the brain showed involutional changes with no MR evidence for acute infarct. There was no MR evidence for hemodynamically significant stenosis on the MRA of the brain or the MRA of the neck. On 05/20 she was more alert and she was started on a diet. The blood sugars were low and labile and she was maintained in the ICU for another night. She was transferred to PCU on 05/21. She wore CPAP anytime she was sleeping while in the hospital and was very alert during the day. She has not had a sleep study for many years and has not been wearing the CPAP at home....she stated it was broke. She is always fatigued at home and she told me she is forgetful and she fears she is developing Alzheimer's. Blood and urine cultures had no growth however the patient had been on Macrobid as an outpatient. The eosinophilia resolved with discontinuation of Macrobid. She was treated with cefepime and then Rocephin while in the hospital. Consult was also ordered with Dr. Powell in the hospital and she recommended continuing hydration and starting Prednisone for suspected Interstitial nephritis until the urine eosinophils were back from the lab. The urine had no eosinophils and the Prednisone was discontinued prior to DC. The creat recovered and the creat at DC was 0.74. She was discharged home on 05/22/17. She was instructed not to restart the Butrans patch and the Gabapentin was reduced to 300 mg BID. While in the hospital she required very little pain medication and her pain was adequately controlled with just 1-2 Suboxone tablets daily. She was also given a RX for Cefadroxil to finish treatment for UTI and a RX for Methadone 5 mg tabs to take every 4 hours as needed for pain until she can follow up with Dr. Damon. She benefited greatly from CPAP in the hospital and she is going to follow up with Dr. Rodriguez in the office in 2 weeks to arrange a sleep study and PFT's. Would avoid, as much as possible, sedating medications until she has a working CPAP unit. This note was generated with [employer] dictation software. It may contain incorrect words, spelling, and punctuation that were not noted in checking the note before signing. Discharge Activity: Return to Normal Activity Call your doctor if you observe: Fever of 101 or Higher, Shortness of breath, Dizziness, Fainting spells, Chest pain, Uncontrolled pain, - - Call your PCP if severe diarrhea, painful sores in the mouth, painful swallowing, rash or itching. Home Medications: Medications to take at Discharge Albuterol Sulfate [Proair Respiclick] 1 puff IH Q4H PRN PRN 02/15/16 Aspirin [Aspirin, Baby] 81 mg PO DAILY@0800 02/15/16 Docusate Sodium [Colace] 100 mg PO BID 02/15/16 Dorzolamide Hydrochloride/Ti [Cosopt Opth Drops] 1 drop EACH EYE BID 02/15/16 Duloxetine Hcl [Cymbalta] 60 mg PO DAILY 02/15/16 Insulin Detemir [Levemir FlexPen] 50 units SC QHS 02/15/16 Loratadine 10 mg PO PRN PRN 02/15/16 Nystatin [Mycostatin] 1 applic TOPICAL BID PRN 02/15/16 Fenofibrate 200 mg PO DAILY 03/05/17 Ferrous Sulfate Syrup 325 mg PO TIDCM 03/05/17 Hydrocortisone 2.5% Crm [Hytone] 1 applic TOPICAL BID 03/05/17 Ketoconazole [Nizoral Cream] 1 applic TOPICAL DAILY 03/05/17 Ketorolac Tromethamine [Acular] 1 drop RIGHT EYE 4X/DAY 03/05/17 Metoprolol Tartrate [Lopressor (beta anthony)] 12.5 mg PO BID 03/05/17 Olanzapine 10 mg PO QHS 03/05/17 Polyethylene Glycol 3350 [Miralax] 17 gm PO DAILY 03/05/17 Ranitidine [Zantac] 150 mg PO BID 03/05/17 Atorvastatin Calcium [Lipitor] 40 mg PO QHS 05/19/17 Buprenorphine [Butrans] 1 each TD QWEEK 05/19/17 Esomeprazole Magnesium 40 mg PO BID 05/19/17 Furosemide [Lasix] 20 mg PO DAILY PRN 05/19/17 Glimepiride [Amaryl] 4 mg PO BID 05/19/17 Metformin HCl [Glucophage] 1,000 mg PO BIDCM 05/19/17 Prednisolone Acetate 1 drop LEFT EYE 4X/DAY 05/19/17 Valacyclovir HCl [Valtrex] 1,000 mg PO BID PRN 05/19/17 Cefadroxil 1 gm PO DAILY #4 tab 05/22/17 Gabapentin [Neurontin] 300 mg PO BIDCM #60 cap 05/22/17 Magnesium Oxide [Mag-Ox 400] 400 mg PO DAILYCM #30 tab 05/22/17 Methadone HCl 5 mg PO Q4H PRN PRN 5 Days #20 tab 05/22/17 Following Prescrptions Were Given to Patient: Methadone HCl 5 mg PO Q4H PRN PRN 5 Days #20 tab PRN Reason: Pain Cefadroxil 1 gm PO DAILY #4 tab Magnesium Oxide [Mag-Ox 400] 400 mg PO DAILYCM #30 tab Gabapentin [Neurontin] 300 mg PO BIDCM #60 cap Primary Care Physician: Shanta Welsh PA [Primary Care Provider] - Please Follow Up With: Wing Damon When: call the office Wednesday Please Follow Up With: Darrick Rodriguez DO When: 2 weeks with Perla to arrange an OP sleep study Disposition: Home Minutes spent on discharge:: 38 Patient Condition:: Good Meaningful Use Info Meaningful Use Diagnoses (Choose all that apply): None applicable Code Visit Inpatient E&M: 55672 Disch Hosp
== END 2017-05-22 16:06 | disposition home or self-care (01) | DRG 871 ==
LOC: ED 10:37 → ICU 13:17 → PCU 05-21 18:51 → ICU 05-24 09:35
PROVIDERS: Internal Medicine Critical Care Medicine; Psychiatry & Neurology Neurology; Admitting Provider Internal Medicine; Emergency Provider Emergency Medicine; Family Provider Physician Assistant; PCP Physician Assistant; Visit Provider Internal Medicine
DX: A41.9 Sepsis, unspecified organism (principal); G92 Toxic encephalopathy; N17.9 Acute kidney failure, unspecified; D72.1 Eosinophilia; E11.40 Type 2 diabetes mellitus with diabetic neuropathy, unspecified; E72.20 Disorder of urea cycle metabolism, unspecified; I95.9 Hypotension, unspecified; E66.01 Morbid (severe) obesity due to excess calories; N39.0 Urinary tract infection, site not specified; E83.39 Other disorders of phosphorus metabolism; E83.42 Hypomagnesemia; Z85.028 Personal history of other malignant neoplasm of stomach; Z90.3 Acquired absence of stomach [part of]; F17.210 Nicotine dependence, cigarettes, uncomplicated; G47.33 Obstructive sleep apnea (adult) (pediatric); E04.2 Nontoxic multinodular goiter; E78.5 Hyperlipidemia, unspecified; M79.7 Fibromyalgia; R65.20 Severe sepsis without septic shock; T50.905A Adverse effect of unspecified drugs, medicaments and biological substances, initial encounter; T37.8X5A Adverse effect of other specified systemic anti-infectives and antiparasitics, initial encounter; G89.4 Chronic pain syndrome; Z68.32 Body mass index [BMI] 32.0-32.9, adult; F32.9 Major depressive disorder, single episode, unspecified; Z91.19 Patient's noncompliance with other medical treatment and regimen; I10 Essential (primary) hypertension; Z79.4 Long term (current) use of insulin; Z79.899 Other long term (current) drug therapy; E86.0 Dehydration; F41.9 Anxiety disorder, unspecified; Z79.82 Long term (current) use of aspirin; Z79.52 Long term (current) use of systemic steroids; Z92.3 Personal history of irradiation; Z92.21 Personal history of antineoplastic chemotherapy; Z87.440 Personal history of urinary (tract) infections; Z90.710 Acquired absence of both cervix and uterus
CPT/HCPCS: 36415; 70450; 70544; 70547; 70551; 71045; 74176; 80048; 80053; 80069; 80076; 80307; 81001; 82140; 82570; 82962; 83036; 83605; 83735; 84100; 84146; 84300; 84443; 84484; 85025; 85610; 85730; 87040; 87086; 87205; 87641; 93005; 94002; 94640; 94660; 95819; 97110; 97116; 97162; 97165; 97802; 99282; 99285; 99406; J7030; J7040; J7050; A4216; J0696; J3490

== ENCOUNTER 2017-06-11 10:42 | Emergency (ER) | payer MEDICARE, MEDICAID, SELFPAY ==
[2017-06-11 10:44] VITALS: BP 138/82; PULSE 90; RESP 18; TEMP 36.7; O2SAT 96; BMI 33.2
--- NOTE | 2017-06-11 11:00 | ED.VISSUMM ---
- ER Visit Summary Date of Service: 06/11/17 Chief Complaint: UTI History of Present Illness: The patient is a 67 F with a possible UTI. She has chills and sweats and felt the same several weeks ago when she had a UTI. She was admitted and hospitalized for acute kidney injury. Denies fevers. Denies any urinary symptoms. Denies abdominal pain. She did have some nausea, but no vomiting. No diarrhea. No rash or skin lesions. No joint pain. No headache or neck pain. No cough or chest pain. No cold or sinusitis symptoms. She has an extensive medical history including treatment for stomach cancer. She had surgery and chemotherapy last year. No radiation. Physical Examination: Afebrile and vital signs unremarkable. The patient is nontoxic and in no acute distress. Skin appears normal. HEENT exam unremarkable. Lungs clear throughout. Heart regular. Abdomen soft and nontender. Moves all extremities without any evidence of pain. Test Results: Chest x-ray, labs, and urinalysis pending. Emergency Department Course and Treatment: Lab work was all fairly unremarkable. No sign of urine infection. Glucose 166. White count normal. No sign of sepsis. Patient continued to feel ill and have chills. There are no objective abnormal findings. Vitals are normal. Afebrile. Labs as above. I advised the patient that she may be coming down with an infection, but right now everything looks okay. It does not look like she has a urine infection. Chest x-ray and vital signs normal. Patient will be discharged for outpatient follow-up. Return for new or worsening symptoms. Treatment Plan: As above Disposition: Discharged Impression: 1. Chills This note was generated with [employer] dictation software. It may contain incorrect words, spelling, and punctuation that were not noted in review of the chart prior to signing ED Disposition - Plan for ED Patient: Chief Complaint: Complaint Referrals: Shanta Welsh PA [Primary Care Provider] -
--- NOTE | 2017-06-11 11:05 | RAD_ITS ---
STUDY: X-RAY CHEST REASON FOR EXAM: Female, 67 years old. PT THINKS SHE HAS A UTI. PT STATES HOSPITALIZED RECENTLY FOR SAME. HOT AND COLD AT HOME. PT STATES NO FREQUENCY OR URGENCY BUT DID NOT HAVE WITH LAST UTI TECHNIQUE: Single AP portable view of the chest. COMPARISON: None. FINDINGS: MediPort is seen on the left side The lungs are clear and expanded. There is no demonstrated pleural abnormality. Normal size heart. Normal mediastinum and maxim. Normal visualized pulmonary arteries. Normal visualized aortic arch and descending thoracic aorta. There are diffuse degenerative changes of the visualized thoracic spine. There is degenerative osteoarthritis of the bilateral shoulders. There is no demonstrated abnormality of the visualized soft tissue structures of the upper abdomen. RAD/Chest 1 View (Portable) IMPRESSION: Degenerative changes, as described above. No demonstrated acute cardiopulmonary process. Electronically Signed: Flynn Calles MD at 11:25 EDT Tel , Service support ,
[2017-06-11 11:16] LABS: Absolute Lymphocyte Count 2.24 X10^3/ul (0.83-4.51); Absolute Neutrophil Count 4.2 X10^3/uL (2.0-7.7); Basophil# 0.13 X10^3/uL; Basophil% 1.7 % (0-1); Eosinophil# 0.55 X10^3/uL; Hematocrit 44.6 % (37-47); Hemoglobin 14.4 g/dl (12.0-15.0); Lymphocyte # 2.24 X10^3/ul (4.0); Lymphocyte % 28.7 % (19-41); Mean Corp Hgb Conc 32.3 g/gl (32-36); Mean Corpuscular Hgb 32.3 pg (27.0-32.0); Mean Platelet Vol. 8.6 fl (6.2-12.0); Monocyte# 0.68 X10^3/uL; Monocyte% 8.7 % (0-10); Neutrophil # 4.16 X10^3/uL (2.7-7.7); Neutrophil % 53.3 % (47-70); Platelet Count 411 K/mm3 (150-450); RBC Distribution Width CV 13.5 % (11.6-14.6); RBC Distribution Width SD 48.9 fl (35.1-43.9); Red Blood Count 4.46 M/mm3 (4.2-5.4); White Blood Count 7.8 K/mm3 (4.4-11.0)
[2017-06-11 11:19] LABS: POSITIVE COUNT NO; POSITIVE DIFFERENTIAL NO; POSITIVE MORPHOLOGY NO
[2017-06-11 11:31] LABS: Color, Urine Yellow (Yellow); Glucose, Dipstick Normal (Normal); Ketone-Dipstick 5 mg/dl (Negative); Leukocyte Esterase-Dipstick 25 /ul (Negative); Nitrite-Dipstick Negative (Negative); Occult Blood-Urine 25 /ul (Negative); Protein-Dipstick Negative (Negative); Specific Gravity, Urine 1.025 (1.002-1.030); Urine Bilirubin Dipstick Negative (Negative); Urine Clarity Sl. Cloudy (Clear); Urine Urobilinogen Normal (Normal)
[2017-06-11 11:38] LABS: ALB/GLOB Ratio 1.1 RATIO (0.9-2.4); AST(SGOT) 22 U/L (15-37); Alanine Aminotransfer ALT/SGPT 22 U/L (13-56); Albumin, Serum 3.9 g/dL (3.2-5.0); Alkaline Phosphatase 68 U/L (45-117); Anion Gap 9 (5-15); BUN 18 mg/dL (7-18); BUN/Creat Ratio 23.4 RATIO (10-20); Chloride 103 mmol/L (98-107); Creatinine, Serum 0.77 mg/dL (0.55-1.02); EST Glomerular Filtration Rate 80 mL/min (>60); Est Glom Filt Rate - Afr Amer 97 mL/min (>60); Estimated Creatinine Clearance 70.83 ml/min; Globulin 3.6 g/dL (2.2-4.2); Glucose 166 mg/dL (74-106); Potassium 4.1 mmol/L (3.5-5.1); Protein, Total 7.5 g/dL (6.4-8.2); Sodium Level 138 mmol/L (136-145)
[2017-06-11 11:43] LABS: Bacteria 1+ /hpf (None Seen); Mucous, Urine 1+ /hpf (<or=2+); Red Blood Cells-Urine 0-5 SEEN /hpf (0-5); Squamous Epithelial Cells - UA 0-5 SEEN /hpf (5-10); White Blood Cells 0-5 SEEN /hpf (0-5)
[2017-06-11] MEDS: Ondansetron 4 MG/2 ML Vial IV (11:50)
--- NOTE | 2017-06-11 13:15 | ED.DEP ---
ED Disposition - Plan for ED Patient: Chief Complaint: Complaint Referrals: Shanta Welsh PA [Primary Care Provider] - Additional Instructions: Follow-up with her doctor. Return if worse.
[2017-06-11 13:41] VITALS: BP 109/64; PULSE 83; RESP 17; O2SAT 93
== END 2017-06-11 13:43 | disposition home or self-care (01) ==
PROVIDERS: Emergency Provider Emergency Medicine; Family Provider Physician Assistant; PCP Physician Assistant
DX: R68.83 Chills (without fever) (principal); R11.0 Nausea; E11.9 Type 2 diabetes mellitus without complications; I10 Essential (primary) hypertension; G89.29 Other chronic pain; K21.9 Gastro-esophageal reflux disease without esophagitis; Z72.0 Tobacco use; F32.9 Major depressive disorder, single episode, unspecified; G47.33 Obstructive sleep apnea (adult) (pediatric); Z79.84 Long term (current) use of oral hypoglycemic drugs; Z79.82 Long term (current) use of aspirin; Z79.4 Long term (current) use of insulin; Z79.899 Other long term (current) drug therapy; Z87.440 Personal history of urinary (tract) infections; Z85.028 Personal history of other malignant neoplasm of stomach; Z92.21 Personal history of antineoplastic chemotherapy
CPT/HCPCS: 71045; 80053; 81001; 85025; 96374; 99283; A4216; J2405

== ENCOUNTER 2017-07-31 23:04 | Emergency (ER) | payer MEDICARE, MEDICAID, SELFPAY ==
[2017-07-31 23:05] VITALS: BP 137/76; PULSE 75; RESP 15; TEMP 36; O2SAT 97; BMI 31.9
--- NOTE | 2017-07-31 23:22 | RAD_ITS ---
STUDY: X-RAY - RIGHT FEMUR REASON FOR STUDY: Female, 67 years old. Femur pain TECHNIQUE: Radiological exam, femur, minimum 2 views COMPARISON: None. FINDINGS: Normal visualized femur. Normal visualized soft tissue structure. RAD/Femur Min 2 Views IMPRESSION: Normal x-ray examination of the femur. No fracture Electronically Signed: Bradley Wolf, at 0:23 EDT Tel , Service support ,
--- NOTE | 2017-08-01 00:01 | ED.DCSUM_ITS ---
- ER Visit Summary Date of Service: 07/31/17 Chief Complaint: Atraumatic right upper leg pain. Patient states that the last week she has had pain in her entire right thigh and upper leg. She denies fall or trauma. She denies fever. She has never had surgery of the sling. She has chronic pedal edema both lower extremities actually worse on the left than the right. She has never had a DVT or PE. History of Present Illness: The patient is a 67 F history of diabetes. Patient with a one-week history of atraumatic right leg pain. Denies any falls or trauma. No fever. No history of DVT or PE. Denies any recent travel, surgery or hospitalization. Denies any recent immobilization. Denies any shortness of breath or chest pain. No hemoptysis. Is worse with walking. She denies a history of peripheral vascular disease. She does have chronic lower extremity edema today she worse in the left and the right and the right of the leg she is complaining of. Physical Examination: Appearing older female. Vital signs are stable afebrile. Pulse ox 97% on room air no signs of hypoxia. HEENT exam is unremarkable. Neck is nontender. Lungs clear to auscultation bilaterally. Heart regular rate and rhythm no murmur. Abdomen is soft and nontender. Normal bowel sounds. She is moving all 4 extremities. The neurovascular intact. She has trace ankle edema in both lower extremities actually worse in the left than the right. She has equal symmetrical DP pulses. She has full range of motion of both hips knees ankles and feet. She has normal touch sensation in her feet she is able to wiggle her toes. There are no gross bony deformities. Specifically the right thigh appears normal. He is not swollen. There is no signs of trauma. There is no effusion or swelling to either the hip or the knee. The right lower leg. There is no redness or joint effusions. No signs of infection. Back exam nontender no SI tenderness negative straight leg raise. Neurologically there are no focal motor deficits. There are no sensory deficits in either leg. Test Results: Clinically she has no risk factors and I do not feel this is a DVT. I did do an x-ray of her right femur chronic degenerative changes of her knee but otherwise is unremarkable. Emergency Department Course and Treatment: Patient be discharged home. Tylenol and Motrin for pain. Call and follow-up with her primary care provider. Treatment Plan: Motrin for pain and Tylenol. Follow-up with her primary care physician. Disposition: Discharge Impression: Right upper leg pain secondary to musculoskeletal etiology. This note was generated with [employer]™ Interactive dictation software. It may contain incorrect words, spelling, and punctuation that were not noted in review of the chart prior to signing ED Disposition - Plan for ED Patient: Chief Complaint: Lower Extremity Injury Referrals: Shanta Welsh PA [Primary Care Provider] -
--- NOTE | 2017-08-01 00:01 | ED.DEP ---
ED Disposition - Plan for ED Patient: Disposition: Home or Assisted Living Chief Complaint: Lower Extremity Injury Instructions: ED Degenerative Joint Disease Referrals: Shanta Welsh PA [Primary Care Provider] - 3-5 Days if not improving Additional Instructions: Tylenol and Motrin for pain. Call and follow-up with MARY Welsh if not improving.
== END 2017-08-01 00:15 | disposition home or self-care (01) ==
PROVIDERS: Emergency Provider Emergency Medicine; Family Provider Physician Assistant; PCP Physician Assistant
DX: M79.604 Pain in right leg (principal); R60.0 Localized edema; E11.9 Type 2 diabetes mellitus without complications; J45.909 Unspecified asthma, uncomplicated; Z72.0 Tobacco use; Z79.82 Long term (current) use of aspirin; Z79.4 Long term (current) use of insulin; Z79.899 Other long term (current) drug therapy
CPT/HCPCS: 73552; 99282

== ENCOUNTER → 2017-09-08 10:56 | Outpatient (CLI) | payer MEDICARE, SELFPAY | PROVIDERS: Family Provider Physician Assistant; PCP Physician Assistant; Visit Provider Nurse Practitioner Family | DX: E78.5 Hyperlipidemia, unspecified (principal) ==

== ENCOUNTER → 2017-09-17 11:26 | Outpatient (CLI) | payer MEDICARE, SELFPAY ==
--- NOTE | 2017-09-17 | ASPS_PTH ---
PATIENT: LIDIA LORA LOC: [facility] U#:[id number] AGE/SX: 74/F ROOM: RE09/17/[address]: Dr. Tee Bledsoe MD : 1950 BED: DIS: SPEC #: [id number] RECD: 09/17/17 13:15 STATUS: TERRY JUAN #: [id number] ROLY: 09/17/17 00:[address]: Tee Bledsoe DEPT: CYTOLOGY RECD BY: Jarod Wilson ENTERED: 09/17/17 13:16 SP TYPE: ASPIRATION OTHR DR: MARY Cleveland Tissues: Thyroid gland, NOS Procedures: Pap Stain (control) Special Stain Group II Cytology Other HEADER OPERATION: Ultrasound guided fine needle aspiration, left thyroid PRE-OP DIAGNOSIS: Multiple thyroid nodules, E04.2 TISSUE SUBMITTED: Fine needle aspiration, left thyroid DIAGNOSIS CYTOLOGY Left thyroid, ultrasound-guided FNA (smears): Consistent with benign follicular nodule. SJ:sp 09/20/17 COMMENT Immediate cytologic evaluation to determine adequacy is not applicable. Correlation with clinical, radiologic findings and appropriate followup are necessary. CYTOLOGY STUDY Slides are reviewed. The specimen is adequate for evaluation. The specimen consists of benign follicular cells. CYTOLOGY GROSS Received are 8 smears labeled with the patient's name and designated per the requisition as FNA left thyroid. Submitted for staining. /Miguel 09/17/17 TC:5 CPT: 82105
== END ==
PROVIDERS: Family Provider Physician Assistant; PCP Physician Assistant; Visit Provider Surgery
DX: E04.2 Nontoxic multinodular goiter (principal)
CPT/HCPCS: 88161; 88313

== ENCOUNTER 2017-10-10 18:10 | Emergency (ER) | payer MEDICARE, MEDICAID, SELFPAY ==
[2017-10-10 18:11] VITALS: BP 130/74; PULSE 75; RESP 18; TEMP 35.5; O2SAT 93; BMI 34.0
[2017-10-10] MEDS: 0.9% Normal Saline 1,000 ML 150 ML IV (18:44)
[2017-10-10 18:51] LABS: Absolute Neutrophil Count 4.5 X10^3/uL (2.0-7.7); Basophil# 0.03 X10^3/uL; Basophil% 0.4 % (0-1); Eosinophil# 0.79 X10^3/uL; Eosinophils% 9.9 % (0-5); Hematocrit 39.9 % (37-47); Hemoglobin 12.7 g/dl (12.0-15.0); Lymphocyte % 27.7 % (19-41); Mean Corp Hgb Conc 31.8 g/gl (32-36); Mean Corpuscular Hgb 32.1 pg (27.0-32.0); Mean Corpuscular Volume 100.8 fL (81-99); Mean Platelet Vol. 8.5 fl (6.2-12.0); Monocyte# 0.41 X10^3/uL; Monocyte% 5.2 % (0-10); Neutrophil # 4.45 X10^3/uL (2.7-7.7); Platelet Count 321 K/mm3 (150-450); RBC Distribution Width CV 14.3 % (11.6-14.6); RBC Distribution Width SD 52.3 fl (35.1-43.9); Red Blood Count 3.96 M/mm3 (4.2-5.4); White Blood Count 7.9 K/mm3 (4.4-11.0)
[2017-10-10 18:52] LABS: POSITIVE COUNT NO; POSITIVE DIFFERENTIAL NO; POSITIVE MORPHOLOGY NO
[2017-10-10 18:58] LABS: D-Dimer Quantitative (DVT/PE) 0.47 FEU/ug/m (0.27-0.49)
[2017-10-10 19:03] LABS: Anion Gap 8 (5-15); BUN 20 mg/dL (7-18); BUN/Creat Ratio 25.9 RATIO (10-20); Calcium,Total 8.6 mg/dL (8.5-10.1); Chloride 105 mmol/L (98-107); Creatinine, Serum 0.77 mg/dL (0.55-1.02); EST Glomerular Filtration Rate 80 mL/min (>60); Est Glom Filt Rate - Afr Amer 96 mL/min (>60); Estimated Creatinine Clearance 73.48 ml/min; Glucose 97 mg/dL (74-106); Potassium 3.9 mmol/L (3.5-5.1); Sodium Level 143 mmol/L (136-145)
--- NOTE | 2017-10-10 19:09 | ED.VISSUMM ---
- ER Visit Summary Date of Service: 10/10/17 Chief Complaint: [Redness and swelling to both legs.] History of Present Illness: The patient is a 67 F [presents the emergency department with complaint of redness to her legs that started 2 days ago. Patient states that she had a fall 3 weeks ago since that time she has noticed some swelling to both lower extremities. Patient denies any fever at home. She denies any chest pain or shortness of breath. Patient was concerned about possibility of blood clot in her leg.] Physical Examination: [HEENT-PERRLA, EOMI. Cranial nerves II through XII grossly intact. TMs clear. Mucous membranes moist. No adenopathy. Cardiovascular-regular rate and rhythm without murmur or ectopy Lungs-clear to auscultation, chest wall stable without crepitus or subcu emphysema Abdomen-normoactive bowel sounds, soft, nontender, no rebound or rigidity, no peritoneal signs. Extremities-intact ?4, normal range of motion, normal pulses. Patient has multiple superficial abrasions to the left lower extremity. There is diffuse edema to both lower extremities. Patient has faint erythema to both lower extremities from the knees down to the feet left greater than right. Negative Homans sign bilaterally. No ropes or cords palpated. Test Results: [CBC with differential obtained showed a white count 7.9, hemoglobin 12.7, hematocrit 40, placed 321. Chemistries unremarkable. D-dimer was normal at 0.47. D-dimer was performed because venous Dopplers are not available at this time.] Emergency Department Course and Treatment: [Patient was medicated with Unasyn 3 g IV.] Treatment Plan: [Patient will be started on Keflex and will be discharged home given that she is not febrile and has normal labs.] Disposition: [Discharged home in stable condition. Patient to follow-up with primary care physician within next 3-5 days. Patient to return if increased pain, redness, swelling, fever, chest pain, shortness of breath, or condition should worsen in any way.] Impression: [Cellulitis bilateral lower extremities.] This note was generated with [employer] dictation software. It may contain incorrect words, spelling, and punctuation that were not noted in review of the chart prior to signing ED Disposition - Plan for ED Patient: Chief Complaint: Lower Extremity Injury Referrals: Shanta Welsh PA [Primary Care Provider] -
--- NOTE | 2017-10-10 19:12 | ED.DEP ---
ED Disposition - Plan for ED Patient: Chief Complaint: Lower Extremity Injury Instructions: ED Infec Skin Cellulitis Prescriptions: Cephalexin [Keflex] 500 mg PO Q6 #40 cap Referrals: Shanta Welsh PA [Primary Care Provider] - 3-5 Days
[2017-10-10 20:00] VITALS: BP 128/71; PULSE 79; RESP 16; O2SAT 98
== END 2017-10-10 20:01 | disposition home or self-care (01) ==
LOC: ED 18:54
PROVIDERS: Emergency Provider Emergency Medicine; Family Provider Physician Assistant; PCP Physician Assistant
DX: L03.116 Cellulitis of left lower limb (principal); L03.115 Cellulitis of right lower limb; S80.812A Abrasion, left lower leg, initial encounter; W19.XXXA Unspecified fall, initial encounter; Y93.9 Activity, unspecified; Y92.89 Other specified places as the place of occurrence of the external cause; Y99.9 Unspecified external cause status; E11.9 Type 2 diabetes mellitus without complications; I10 Essential (primary) hypertension; G47.30 Sleep apnea, unspecified; E66.9 Obesity, unspecified; Z72.0 Tobacco use; Z79.82 Long term (current) use of aspirin; Z79.4 Long term (current) use of insulin; Z79.899 Other long term (current) drug therapy; Z87.440 Personal history of urinary (tract) infections; Z86.19 Personal history of other infectious and parasitic diseases
CPT/HCPCS: 80048; 85025; 85379; 96365; 99283; J7030; A4216; J0295

== ENCOUNTER 2018-03-17 11:05 | Emergency (ER) | payer MEDICARE, MEDICAID, SELFPAY ==
[2018-03-17 11:06] VITALS: BP 165/79; PULSE 106; RESP 16; TEMP 37.1; O2SAT 98; BMI 30.9
--- NOTE | 2018-03-17 11:35 | RAD_ITS ---
STUDY: X-RAY - THORACIC SPINE REASON FOR EXAM: Female, 67 years old. TECHNIQUE: 4 views view(s) of the thoracic spine were obtained. COMPARISON: None. FINDINGS: There is evidence of intrapedicular screws and hardware fixing the thoracolumbar spine no obvious failure of the hardware seen from the level of T4 down to the sacroiliac joints no fracture. No paraspinal spinal soft tissue mass seen RAD/Thoracic Spine 3 Views IMPRESSION: Intact hardware that is fixing the spine from the level of T4 down to the sacroiliac joints. Electronically Signed: Ochoa Diaz, at 14:39 EST Tel , Service support ,
--- NOTE | 2018-03-17 11:36 | ED.VISSUMM ---
"- ER Visit Summary Date of Service: 03/17/18 Chief Complaint: Back pain History of Present Illness: The patient is a 67 F with back pain. She is postop day 8 from a back surgery by Dr. Sanches at the [facility]. She is not sure what the surgery was, but she said she had rods placed in her spine. She reports increasing pain since the surgery. She was prescribed Robaxin and hydrocodone. She was not sure how much or how often she was taking. She says her helps her. She had not had anything today. Denies any weakness or numbness. Denies fever. Denies chest pain or shortness of breath. Denies trouble going to the bathroom. Physical Examination: Afebrile and vital signs unremarkable. Patient is alert and oriented. Heart slightly tachycardic but regular. Lungs clear. Abdomen soft. Patient has a large incision from her upper thoracic spine down to her lumbar spine over the midline. It is clean, dry, and intact. Sutures are in place. No redness or drainage. Test Results: X-rays pending. Labs pending. Emergency Department Course and Treatment: Patient treated with pain medicine will recheck. X-ray shows postoperative changes. Nothing acute otherwise. White count 13.5, platelets 520, ESR 44, and CRP is 14.7. Patient required further pain medicine after her initial dose of Dilaudid. She did receive an additional 0.5 mg. I was not able to speak with her surgeon as he was in the operating room, but I did speak with his nurse who knows the patient very well. She spent a lot of time on the phone with the patient yesterday. She did receive a new prescription for pain medicine in the mail. It sounds like the patient has not optimized her pain medication. She is able to take 2 of her hydrocodone's every 4 hours. If she has anything new or worsening, she may return at any time, otherwise follow-up with her surgeon. Treatment Plan: As above Disposition: Discharged Impression: 1. Back pain This note was generated with [employer] | [employer] dictation software. It may contain incorrect words, spelling, and punctuation that were not noted in review of the chart prior to signing ED Disposition - Plan for ED Patient: Chief Complaint: Back Referrals: Shanta Welsh PA [Primary Care Provider] -"
[2018-03-17 12:08] VITALS: PULSE 89; RESP 14; TEMP 36.6; O2SAT 97
[2018-03-17] MEDS: Ondansetron 4 MG/2 ML Vial IV (12:13)
[2018-03-17] MEDS: HYDROmorphone 1 MG/ML Syringe IV (12:13)
--- NOTE | 2018-03-17 12:20 | RAD_ITS ---
STUDY: X-RAY - LUMBAR SPINE REASON FOR EXAM: Female, 67 years old. TECHNIQUE: 3 view(s) of the lumbar spine were obtained. COMPARISON: None FINDINGS: This study revealed evidence of hardware fixing the spine from the dorsal spine down to the sacroiliac joint. There are disc spacers present at L2-3 and L3-4 no obvious complicating process noted. Apparently there was resection of the posterior elements. The examination is available for review at your convenience. Grossly the hardware are intact. RAD/Lumbar Spine 2 or 3 Views IMPRESSION: Spinal fixation with hardware from the level of T4 down to the sacroiliac joints Electronically Signed: Ochoa Diaz, at 14:43 EST Tel , Service support ,
[2018-03-17 12:29] LABS: Anion Gap 8 (5-15); BUN 17 mg/dL (7-18); BUN/Creat Ratio 30.2 RATIO (10-20); Calcium,Total 8.9 mg/dL (8.5-10.1); Chloride 104 mmol/L (98-107); Creatinine, Serum 0.56 mg/dL (0.55-1.02); EST Glomerular Filtration Rate 115 mL/min (>60); Est Glom Filt Rate - Afr Amer 139 mL/min (>60); Estimated Creatinine Clearance 101.03 ml/min; Glucose 81 mg/dL (74-106); Potassium 4.2 mmol/L (3.5-5.1); Sodium Level 140 mmol/L (136-145)
[2018-03-17 12:31] LABS: Differential Indicated MANUAL DIFF; Hemoglobin 12.7 g/dl (12.0-15.0); Mean Corp Hgb Conc 33.4 g/gl (32-36); Mean Corpuscular Hgb 32.7 pg (27.0-32.0); Mean Corpuscular Volume 97.9 fL (81-99); Mean Platelet Vol. 8.3 fl (6.2-12.0); POSITIVE COUNT YES; POSITIVE DIFFERENTIAL NO; POSITIVE MORPHOLOGY YES; Platelet Count 520 K/mm3 (150-450); RBC Distribution Width CV 13.3 % (11.6-14.6); RBC Distribution Width SD 47.2 fl (35.1-43.9); Red Blood Count 3.88 M/mm3 (4.2-5.4); White Blood Count 13.5 K/mm3 (4.4-11.0)
[2018-03-17 12:41] LABS: Erythrocyte Sedimentation Rate 44 mm/hr (0-30)
[2018-03-17 13:03] LABS: Lymphocyte 27 % (19-41); Monocyte 5 % (0-10); Neutrophil-Segmented 67 % (47-70); Platelet Estimate MOD INC (ADEQ); Promyelocyte 1 (0-0); Red Cell Morphology NORM C+C NORMAL (NORM C&C); Total Cells Counted 100 (MANUAL DIFF)
[2018-03-17 13:04] LABS: Absolute Lymphocyte Count 3.65 X10^3/ul (0.83-4.51); Absolute Neutrophil Count 9.1 X10^3/uL (2.0-7.7); Lymphocyte # 3.65 X10^3/ul (4.0)
[2018-03-17 14:21] VITALS: BP 128/68; PULSE 99; RESP 14; RESP 15; TEMP 36.8; O2SAT 97
--- NOTE | 2018-03-17 15:10 | NURSING ---
CALLED DR JOSEPH'S OFFICE AT [facility]
--- NOTE | 2018-03-17 15:58 | ED.DEP ---
ED Disposition - Plan for ED Patient: Chief Complaint: Back Instructions: ED Neck Back Pain General Additional Instructions: follow up with Dr. Sanches
[2018-03-17] MEDS: HYDROmorphone 0.5 MG/0.5 ML SYRINGE IV (16:13)
[2018-03-17 16:27] VITALS: BP 158/68; PULSE 112; RESP 14; O2SAT 97
[2018-03-18 14:23] LABS: Pathologist Review Reviewed
== END 2018-03-17 16:28 | disposition home or self-care (01) ==
PROVIDERS: Emergency Provider Emergency Medicine; Family Provider Physician Assistant; PCP Physician Assistant
DX: M54.6 Pain in thoracic spine (principal); M54.5 Low back pain; I25.10 Atherosclerotic heart disease of native coronary artery without angina pectoris; I10 Essential (primary) hypertension; E11.9 Type 2 diabetes mellitus without complications; Z79.4 Long term (current) use of insulin; Z79.82 Long term (current) use of aspirin; Z79.899 Other long term (current) drug therapy; Z72.0 Tobacco use
CPT/HCPCS: 72072; 72100; 80048; 85025; 85652; 86140; 96374; 96375; 96376; 99285; A4216; J2405

== ENCOUNTER 2018-03-31 10:51 | Observation (INO) | payer MEDICARE, MEDICAID, SELFPAY ==
[2018-03-31] VITALS (8 sets, daily range): BP systolic 129–144; BP diastolic 51–74; PULSE 63–108; RESP 14–20; TEMP 35.7–37.1; O2SAT 93–95; BMI 33.6; BMI 30.4
[2018-03-31 11:30] LABS: Bedside Glucose 35 mg/dL (70-110)
[2018-03-31 11:30] LABS: Bedside Glucose 140 mg/dL (70-110)
[2018-03-31 11:34] LABS: Absolute Lymphocyte Count 2.99 X10^3/ul (0.83-4.51); Absolute Neutrophil Count 6.1 X10^3/uL (2.0-7.7); Anion Gap 6 (5-15); BUN 19 mg/dL (7-18); BUN/Creat Ratio 30.9 RATIO (10-20); Basophil# 0.14 X10^3/uL; Basophil% 1.3 % (0-1); Calcium,Total 8.6 mg/dL (8.5-10.1); Chloride 102 mmol/L (98-107); Creatinine, Serum 0.61 mg/dL (0.55-1.02); Differential Indicated SCAN CRITERIA MET; EST Glomerular Filtration Rate 104 mL/min (>60); Eosinophil# 0.44 X10^3/uL; Est Glom Filt Rate - Afr Amer 125 mL/min (>60); Estimated Creatinine Clearance 89.41 ml/min; Glucose 270 mg/dL (74-106); Hematocrit 40.4 % (37-47); Hemoglobin 12.7 g/dl (12.0-15.0); Lymphocyte # 2.99 X10^3/ul (4.0); Lymphocyte % 27.5 % (19-41); Mean Corp Hgb Conc 31.4 g/gl (32-36); Mean Corpuscular Hgb 32.5 pg (27.0-32.0); Mean Corpuscular Volume 103.3 fL (81-99); Mean Platelet Vol. 8.3 fl (6.2-12.0); Monocyte# 0.89 X10^3/uL; Monocyte% 8.2 % (0-10); Neutrophil # 6.12 X10^3/uL (2.7-7.7); Neutrophil % 56.3 % (47-70); POSITIVE COUNT YES; POSITIVE DIFFERENTIAL NO; POSITIVE MORPHOLOGY YES; Platelet Count 560 K/mm3 (150-450); Potassium 5.1 mmol/L (3.5-5.1); RBC Distribution Width CV 13.5 % (11.6-14.6); RBC Distribution Width SD 50.8 fl (35.1-43.9); Red Blood Count 3.91 M/mm3 (4.2-5.4); Sodium Level 138 mmol/L (136-145); White Blood Count 10.9 K/mm3 (4.4-11.0)
[2018-03-31 12:15] LABS: Bedside Glucose 151 mg/dL (70-110)
--- NOTE | 2018-03-31 12:18 | PCM.HP.STD ---
History of Present Illness Date of Admission: 03/31/18 Chief Complaint: unresponsiveness The patient is a 67 year old F with an extensive past medical history as listed. She was admitted through the ED with a complaint of unresponsiveness and hypoglycemia. Patient was found to be unresponsive by her early this morning when he came back from work. Called the EMS who found her to be hypoglycemic with a blood sugar in the 50s. He was given some sugar drinks and cookies to eat and brought to the ED where she was found to still be hypoglycemic with blood sugar of 135. She was resuscitated with dextrose. Upon further inquiry, patient states that she is not a good appetite since she had back surgery about 3 weeks ago. She has been taking her glimepiride and metformin as well as long-acting insulin. She states her long-acting insulin was decreased from 50 units to 46 units by her PCP on account of recurrent episodes of hypoglycemia. She denies any fever or chills and admits to a mild nonproductive cough. She denied any chest pain, shortness of breath, abdominal pain, diarrhea or vomiting. Vitals in the ED was essentially unremarkable. She is been admitted to be managed for hypoglycemia. [] Past Medical History Past Medical History (Chronic Problems): Chronic Problems (Last Reviewed 09/17/17 @ 08:52 by Denisa Sanches) Edema (Chronic) Hyperlipidemia (Chronic) Atherosclerosis of [place] coronary artery of [place] heart without angina pectoris (Chronic) Chronic pain syndrome (Chronic) Noncompliance with CPAP treatment (Chronic) Morbid obesity (Chronic) Depression (Chronic) Dyslipidemia (Chronic) Fibromyalgia (Chronic) Multinodular goiter (Chronic) Obstructive sleep apnea (Chronic) Diabetes mellitus type 2 in obese (Chronic) Hypertension (Chronic) Gastric cancer (Chronic) Medical History: Medical History (Last Reviewed 09/17/17 @ 08:52 by Denisa Sanches) Edema (Chronic) R60.9 Hyperlipidemia (Chronic) E78.5 Atherosclerosis of [place] coronary artery of [place] heart without angina pectoris (Chronic) I25.10 Hypophosphatemia (Acute) E83.39 Chronic pain syndrome (Chronic) G89.4 Eosinophilia (Acute) D72.1 Hypomagnesemia (Acute) E83.42 Severe sepsis (Acute) A41.9, R65.20 Septic shock (Ruled-out) A41.9, R65.21 Acute renal failure (Acute) N17.9 Urinary tract infection (Acute) N39.0 Toxic encephalopathy (Acute) G92 Hyperammonemia (Acute) E72.20 Noncompliance with CPAP treatment (Chronic) Z91.14 Morbid obesity (Chronic) E66.01 Depression (Chronic) F32.9 Dyslipidemia (Chronic) E78.5 Fibromyalgia (Chronic) M79.7 Multinodular goiter (Chronic) E04.2 Obstructive sleep apnea (Chronic) G47.33 Recurrent falls (Acute) R29.6 Diabetes mellitus type 2 in obese (Chronic) E11.69, E66.9 Hypertension (Chronic) I10 Gastric cancer (Chronic) C16.9 Allergies fentanyl Adverse Reaction (Verified 03/31/18 10:53) MAKES ME SHAKE oxycodone [From Percocet] Adverse Reaction (Verified 03/31/18 10:53) MAKES ME SHAKE thiopental Adverse Reaction (Verified 03/31/18 10:53) MAKES ME SHAKE Home Medications: Ambulatory Orders Medication Instructions Recorded Albuterol Sulfate [Proair 1 puff IH Q4H PRN PRN 02/15/16 Respiclick] Docusate Sodium [Colace] 100 mg PO BID 02/15/16 Dorzolamide HCL/Timolol [Cosopt 1 drp EACH EYE BID 02/15/16 Opth Drops] Duloxetine Hcl [Cymbalta] 60 mg PO DAILY 02/15/16 Insulin Detemir [Levemir FlexPen] 46 units SC QHS 02/15/16 Ferrous Sulfate Syrup 325 mg PO TIDCM 03/05/17 Olanzapine 10 mg PO QHS 03/05/17 Polyethylene Glycol 3350 [Miralax] 17 gm PO DAILY 03/05/17 Atorvastatin Calcium [Lipitor] 40 mg PO QHS 05/19/17 Esomeprazole Magnesium 40 mg PO BID 05/19/17 Glimepiride [Amaryl] 4 mg PO BID 05/19/17 buprenorphine 10 mcg/hour weekly 1 patch TRANSDERMAL QWEEK 09/02/17 transdermal patch hydrochlorothiazide 12.5 mg tablet 12.5 mg PO QAM 09/02/17 hydrocortisone 2.5 % topical cream 1 applic TOPICAL BID 09/02/17 trazodone 50 mg tablet 50 mg PO QDAY 09/02/17 trimethoprim 100 mg tablet 100 mg PO Q12H 09/02/17 Bupropion HCl [Bupropion Xl] 150 mg PO DAILY 03/31/18 Ciprofloxacin [Cipro] 500 mg PO BID 03/31/18 Doxycycline [Vibramycin] 100 mg PO BID 03/31/18 Gabapentin [Neurontin] 300 mg PO TID 03/31/18 Hydrocodone Bitart/Apap 5-325 1 - 2 tablet PO Q4H PRN PRN 03/31/18 [[place] 5MG-325MG] Magnesium Oxide 400 mg PO DAILY 03/31/18 Surgical History: Surgical History (Last Reviewed 09/17/17 @ 08:52 by Denisa Sanches) history of colectomy from colonoscopy perforation (Resolved) History of (Resolved) Z98.891 history open cholecystectomy (Resolved) History of gastrectomy (Resolved) Z90.3 Surgical History: cholecystectomy, hysterectomy, - - Subtotal gastrectomy for gastric cancer. She has a cervical fusion and Jefferson rods that and most of her thoracic and lumbosacral spine. Lives: Spouse/ Significant Other Smoking Status: Current every day smoker Tobacco Use: Cigarettes Alcohol: None Drugs: None - *Family History Maternal Family History: Family History (Last Reviewed 09/17/17 @ 08:52 by Denisa Sanches) Mother Diabetes Father Diabetes Heart disease History Items: Diabetes, - Paternal Family History: Family History (Last Reviewed 09/17/17 @ 08:52 by Denisa Sanches) Mother Diabetes Father Diabetes Heart disease History Items: Diabetes - no kidney disease Review of Systems Constitutional: Denies: Chills, Fever, Malaise, Weakness, Weight Change, Fatigue Eyes: Denies: Blurred vision HEENT: Denies: Head Aches, Sinus Congestion, Sinus Drainage Cardiovascular: Denies: Chest Pain, Palpitations Respiratory: Denies: Cough, Shortness of Breath, Shortness of breath at rest, Sputum production Gastrointestinal: Denies: Abdominal Pain, Nausea, Vomiting Genitourinary: Denies: Dysuria Musculoskeletal: Denies: Joint Pain, Joint Tenderness Skin: Denies: Rash, Wounds Neurological: Denies: Numbness, Tingling, Focal weakness Psychiatric: Denies: Anxiety, Depression, Homicidal Ideations, Suicidal Ideations Hematologic/ Lymphatic: Denies: Easy Bruising, Easy Bleeding VTE Information - Inpt Only VTE Present on Admission: No VTE Pharm Prophylaxis ordered?: Yes - Physical Exam General: Alert, Oriented x3, Cooperative, No apparent distress HEENT: Atraumatic, PERRLA, EOMI, Normocephalic Oral: Moist Mucosa Neck: Supple, No JVD, Negative Carotid Bruits Lungs: Clear to auscultation, Normal air movement Cardiovascular: Regular rate, Regular Rhythm, Normal S1, Normal S2, No murmurs Abdomen: Bowel Sounds Present, Soft, Non Tender, Non-Distended, No Hepato-splenomegaly Extremities: No clubbing, No cyanosis, No edema, Capillary Refill Less than 3 Seconds Skin: No rashes, No breakdown, - - well healed surgical scar running the length of her spine. Musculoskeletal: No Tenderness to Palpation of Joints or Extremities Lymphatic: No Cervical, Supraclavicular, or Inguinal Adenopathy Neurological: Cranial nerves II-XII grossly intact, Neuro grossly intact, Motor Exam 5/5 strength throughout Psych/Mental Status: Normal Affect, Appropriate, Alert and oriented to time, place, person, mood and affect Vital Signs Temp Pulse Resp BP Pulse Ox 96.2 F L 67 14 137/67 H 93 03/31/18 10:53 03/31/18 11:04 03/31/18 11:04 03/31/18 11:04 03/31/18 11:04 Oxygen Delivery Method Room Air Weight: 215 lb Body Mass Index (BMI) 33.6 Finger Stick Blood Glucose 35 Laboratory Tests Past 24 Hrs 03/31/18 03/31/18 11:13 11:13 WBC 10.9 RBC 3.91 L Hgb 12.7 Hct 40.4 MCV 103.3 H MCH 32.5 H MCHC 31.4 L RDW 13.5 RDW Differential 50.8 H Plt Count 560 H MPV 8.3 Immature Gran % (Auto) 2.700 H Neut % (Auto) 56.3 Lymph % (Auto) 27.5 [place] % (Auto) 8.2 Eos % (Auto) 4.0 Baso % (Auto) 1.3 H Absolute Neuts (auto) 6.1 Absolute Lymphs (auto) 2.99 Total Counted Not Reportable Diff Path Review May foll Sodium 138 Potassium 5.1 Chloride 102 Carbon Dioxide 30.0 Anion Gap 6 BUN 19 H Creatinine 0.61 Estim Creat Clear Calc 89.41 Est GFR (MDRD) Af Amer 125 Est GFR (MDRD) Non-Af 104 BUN/Creatinine Ratio 30.9 H Glucose 270 H Calcium 8.6 POC Glucose 03/31/18 03/31/18 03/31/18 12:11 11:11 11:00 POC Glucose 151 H 140 H 35 L* Assessment/Plan All Active Problems (Last Reviewed 09/17/17 @ 08:52 by Denisa Sanches) history of colectomy from colonoscopy perforation (Resolved) History of (Resolved) history open cholecystectomy (Resolved) History of gastrectomy (Resolved) Hypophosphatemia (Acute) Eosinophilia (Acute) Hypomagnesemia (Acute) Severe sepsis (Acute) Septic shock (Ruled-out) Acute renal failure (Acute) Urinary tract infection (Acute) Toxic encephalopathy (Acute) Hyperammonemia (Acute) Recurrent falls (Acute) 67 y/o female presenting with hypoglycemia 1. Recurrent hypoglycemia in a known diabetic likely medication induced. This is exacerbated by her poor appetite since she had surgery insulin dose was recently decreased to 46Iu from 50IU by her PCP o/a of hypoglycemia also on metformin and glimepiride admit to Med surg with telemetry hold levemir, metformin and glimepiride monitor blood sugars q4 hrly for now hydrate with IVF D5 NS ISS 2.Hypertension: controlled. on hydrochlorthiazide 3. Hyperlipidemia: on statin 4. back pains/p reent back surgery: pain well controlled. On gabapentin and norco 5,. CARLOTA: on CPAP 6. Depression and fibromyalgia: on Bupropion, Cumbalta and olanzapine. Code status: Patient counseled extensively about different types of CODE STATUS including full code, DNR CCA and DNR CCA. Patient elects to be full code. Total [id number] time 16 minutes. DVT prophylaxis: heparin Code Visit OBSV E&M: 61691 Initial observation care L3 Procedures: 52961 Advncd Care Plan 30 Min
--- NOTE | 2018-03-31 12:27 | ED.VISSUMM ---
- ER Visit Summary Date of Service: 03/31/18 Chief Complaint: Hypoglycemia History of Present Illness: The patient is a 67 F who presents with hyperglycemia. Her glucose was in the 50s per EMS and she received D50. She has a history of diabetes among her other chronic medical conditions. She takes insulin, metformin, and Amaryl. She has not been eating much. She had a recent back surgery and has been taking pain medication. Her pain seems to be improving and she has no other complaints related to her back, but she just has not had a lot of energy and has not been eating much despite taking her medications. Physical Examination: Afebrile and vital signs unremarkable. Head and neck atraumatic. Heart regular. Lungs clear. Abdomen soft. Skin appears unremarkable. Test Results: CBC showed platelets of 560 and glucose was 270. BUN 19. Emergency Department Course and Treatment: Patient was hypoglycemic on arrival and treated with D50. We checked a repeat glucose after about an hour and it was 150. I am concerned that the patient is on long-term oral agents. She may drop again. I did order food for her, but I am recommending observation as she is having difficulty at home. Discussed with the hospitalist who will admit for further care. Treatment Plan: As above Disposition: Admission Impression: 1. Hypoglycemia This note was generated with [employer] dictation software. It may contain incorrect words, spelling, and punctuation that were not noted in review of the chart prior to signing ED Disposition - Plan for ED Patient: Chief Complaint: Hypoglycemia Referrals: Shanta Welsh PA [Primary Care Provider] -
[2018-03-31 12:40] LABS: Bacteria 0 SEEN /hpf (None Seen); Mucous, Urine 0 SEEN /hpf (<or=2+)
[2018-03-31 12:45] LABS: Color, Urine Yellow (Yellow); Glucose, Dipstick 100 mg/dl (Normal); Ketone-Dipstick Negative (Negative); Leukocyte Esterase-Dipstick 25 /ul (Negative); Nitrite-Dipstick Negative (Negative); Occult Blood-Urine Negative /ul (Negative); Protein-Dipstick Negative (Negative); Urine Bilirubin Dipstick Negative (Negative); Urine Clarity Clear (Clear); Urine Urobilinogen Normal (Normal)
[2018-03-31 12:51] LABS: Amorphous Sediment 2+; Red Blood Cells-Urine 0 SEEN /hpf (0-5); Squamous Epithelial Cells - UA 0-5 SEEN /hpf (5-10); White Blood Cells 0-5 SEEN /hpf (0-5)
--- NOTE | 2018-03-31 13:05 | NURSING ---
312 [facility] HYPOGLYCEMIA
[2018-03-31] MEDS: Dextrose 5%/0.9% NaCl 1,000 ML 60 ML IV (15:05)
[2018-03-31] MEDS: HYDROcodone Bitartrate/Apap 5/325 Tablet PO ×3 (15:05→22:41)
[2018-03-31] MEDS: Glucerna Shake 120 ML LIQUID PO (16:35)
[2018-03-31] MEDS: Ferrous Sulfate 300 MG/5 ML UDC PO (16:36)
[2018-03-31] MEDS: Insulin Lispro 100 UNIT/ML INSULN.PEN SQ ×2 (16:40→21:40)
[2018-03-31 16:41] LABS: Bedside Glucose 155 mg/dL (70-110)
[2018-03-31] MEDS: Dorzolamide HCL/Timolol 10 ml Bottle 1 DRP EACH EYE (21:40)
[2018-03-31] MEDS: Docusate Sodium 100 MG Capsule PO (21:41)
[2018-03-31] MEDS: OLANZapine 10 MG Tablet PO (21:41)
[2018-03-31] MEDS: traZODone 50 MG Tablet PO (21:41)
[2018-03-31] MEDS: Atorvastatin Calcium 40 MG Tablet PO (21:41)
[2018-03-31] MEDS: Gabapentin 300 MG Capsule PO (21:41)
[2018-03-31 21:50] LABS: Bedside Glucose 167 mg/dL (70-110)
[2018-04-01 02:28] VITALS: BP 124/71; PULSE 76; RESP 18; TEMP 36.9; O2SAT 92
[2018-04-01 04:00] VITALS: PULSE 77
[2018-04-01 06:00] LABS: Absolute Lymphocyte Count 4.09 X10^3/ul (0.83-4.51); Absolute Neutrophil Count 4.4 X10^3/uL (2.0-7.7); Basophil# 0.09 X10^3/uL; Basophil% 0.8 % (0-1); Eosinophil# 1.07 X10^3/uL; Eosinophils% 9.8 % (0-5); Hematocrit 40.9 % (37-47); Hemoglobin 13.1 g/dl (12.0-15.0); Lymphocyte # 4.09 X10^3/ul (4.0); Lymphocyte % 37.4 % (19-41); Mean Corpuscular Hgb 32.8 pg (27.0-32.0); Mean Corpuscular Volume 102.3 fL (81-99); Mean Platelet Vol. 8.5 fl (6.2-12.0); Monocyte# 1.15 X10^3/uL; Monocyte% 10.5 % (0-10); Neutrophil # 4.39 X10^3/uL (2.7-7.7); Neutrophil % 40.1 % (47-70); Platelet Count 416 K/mm3 (150-450); RBC Distribution Width CV 13.4 % (11.6-14.6); RBC Distribution Width SD 50.1 fl (35.1-43.9); White Blood Count 10.9 K/mm3 (4.4-11.0)
[2018-04-01 06:01] LABS: Differential Indicated SCAN CRITERIA MET; POSITIVE COUNT NO; POSITIVE DIFFERENTIAL NO; POSITIVE MORPHOLOGY YES
[2018-04-01 06:15] LABS: Anion Gap 6 (5-15); BUN 13 mg/dL (7-18); BUN/Creat Ratio 21.7 RATIO (10-20); Calcium,Total 8.2 mg/dL (8.5-10.1); Chloride 110 mmol/L (98-107); EST Glomerular Filtration Rate 107 mL/min (>60); Est Glom Filt Rate - Afr Amer 129 mL/min (>60); Glucose 105 mg/dL (74-106); Potassium 4.4 mmol/L (3.5-5.1); Sodium Level 138 mmol/L (136-145)
[2018-04-01 06:27] LABS: Anisocytosis 1+; Macrocytosis 1+; Platelet Estimate ADEQUATE (ADEQ)
[2018-04-01] MEDS: Gabapentin 300 MG Capsule PO (06:40)
[2018-04-01] MEDS: HYDROcodone Bitartrate/Apap 5/325 Tablet PO (06:43)
[2018-04-01 06:46] LABS: Bedside Glucose 110 mg/dL (70-110)
[2018-04-01 07:20] VITALS: PULSE 77
[2018-04-01 08:35] VITALS: BP 147/74; PULSE 85; RESP 18; TEMP 36.8; O2SAT 95
[2018-04-01] MEDS: Ferrous Sulfate 300 MG/5 ML UDC PO (08:42)
[2018-04-01] MEDS: Dorzolamide HCL/Timolol 10 ml Bottle 1 DRP EACH EYE (08:42)
[2018-04-01] MEDS: hydroCHLOROthiazide 12.5mg 12.5 MG PO (08:43)
[2018-04-01] MEDS: Pantoprazole Sodium 40 MG Tablet PO (08:43)
[2018-04-01] MEDS: Docusate Sodium 100 MG Capsule PO (08:43)
[2018-04-01] MEDS: Magnesium Oxide 400 MG Tablet PO (08:43)
[2018-04-01] MEDS: DULoxetine Hcl 60 MG Capsule PO (08:43)
[2018-04-01] MEDS: buPROPion (XL) 150 MG TABLET.XL PO (08:43)
--- NOTE | 2018-04-01 10:08 | PCM.DC ---
You will use the following diet at home:: Calorie/Carbohydrate Controlled (specify 1200, 1400, etc) - 1800 calories daily Your food should be the consistency of: Regular Your liquids should be the consistency of: Regular/Thin Discharge Activity: Return to Normal Activity Weight Bearing Status: Weight bearing as tolerated Call your doctor if you observe: Dizziness, Fainting spells Instructions: Hypoglycemia (Low Blood Sugar) Additional Instructions: insulin levemir reduced from 46IU to 20IU. Glimepiride stopped permanently. Continue with home metformin 500mg bid. Allergies/Adverse Reactions: Allergies fentanyl Adverse Reaction (Verified 03/31/18 10:53) MAKES ME SHAKE oxycodone [From Percocet] Adverse Reaction (Verified 03/31/18 10:53) MAKES ME SHAKE thiopental Adverse Reaction (Verified 03/31/18 10:53) MAKES ME SHAKE Medications to take at Discharge Albuterol Sulfate [Proair Respiclick] 1 puff IH Q4H PRN PRN 02/15/16 Docusate Sodium [Colace] 100 mg PO BID 02/15/16 Dorzolamide HCL/Timolol [Cosopt Opth Drops] 1 drp EACH EYE BID 02/15/16 Duloxetine Hcl [Cymbalta] 60 mg PO DAILY 02/15/16 Ferrous Sulfate Syrup 325 mg PO TIDCM 03/05/17 Olanzapine 10 mg PO QHS 03/05/17 Polyethylene Glycol 3350 [Miralax] 17 gm PO DAILY 03/05/17 Atorvastatin Calcium [Lipitor] 40 mg PO QHS 05/19/17 Esomeprazole Magnesium 40 mg PO BID 05/19/17 buprenorphine 10 mcg/hour weekly transdermal patch 1 patch TRANSDERMAL QWEEK 09/02/17 hydrochlorothiazide 12.5 mg tablet 12.5 mg PO QAM 09/02/17 hydrocortisone 2.5 % topical cream 1 applic TOPICAL BID 09/02/17 trazodone 50 mg tablet 50 mg PO QDAY 09/02/17 Bupropion HCl [Bupropion Xl] 150 mg PO DAILY 03/31/18 Gabapentin [Neurontin] 300 mg PO TID 03/31/18 Hydrocodone Bitart/Apap 5-325 [[place] 5/325] 1 - 2 tablet PO Q4H PRN PRN 03/31/18 Magnesium Oxide 400 mg PO DAILY 03/31/18 Insulin Detemir [Levemir FlexPen] 20 units SC QHS #10 insuln.pen 04/01/18 The following prescriptions were given: Insulin Detemir [Levemir FlexPen] 20 units SC QHS #10 insuln.pen Primary Care Physician: Shanta Welsh PA [Primary Care Provider] - Please follow up with your Primary Care Physician in: one week Test Results: Test results from this visit will be discussed in further detail at your follow-up appointment, if applicable. Please Follow Up With: Carina Humphrey NP-C When: 1 week Proposed Discharge Date: 04/01/18
--- NOTE | 2018-04-01 10:12 | DCINST_ITS ---
You will use the following diet at home:: Calorie/Carbohydrate Controlled (specify 1200, 1400, etc) - 1800 calories daily Your food should be the consistency of: Regular Your liquids should be the consistency of: Regular/Thin Discharge Activity: Return to Normal Activity Weight Bearing Status: Weight bearing as tolerated Call your doctor if you observe: Dizziness, Fainting spells Instructions: Hypoglycemia (Low Blood Sugar) Additional Instructions: insulin levemir reduced from 46IU to 20IU. Glimepiride stopped permanently. Continue with home metformin 500mg bid. Allergies/Adverse Reactions: Allergies fentanyl Adverse Reaction (Verified 03/31/18 10:53) MAKES ME SHAKE oxycodone [From Percocet] Adverse Reaction (Verified 03/31/18 10:53) MAKES ME SHAKE thiopental Adverse Reaction (Verified 03/31/18 10:53) MAKES ME SHAKE Medications to take at Discharge Albuterol Sulfate [Proair Respiclick] 1 puff IH Q4H PRN PRN 02/15/16 Docusate Sodium [Colace] 100 mg PO BID 02/15/16 Dorzolamide HCL/Timolol [Cosopt Opth Drops] 1 drp EACH EYE BID 02/15/16 Duloxetine Hcl [Cymbalta] 60 mg PO DAILY 02/15/16 Ferrous Sulfate Syrup 325 mg PO TIDCM 03/05/17 Olanzapine 10 mg PO QHS 03/05/17 Polyethylene Glycol 3350 [Miralax] 17 gm PO DAILY 03/05/17 Atorvastatin Calcium [Lipitor] 40 mg PO QHS 05/19/17 Esomeprazole Magnesium 40 mg PO BID 05/19/17 buprenorphine 10 mcg/hour weekly transdermal patch 1 patch TRANSDERMAL QWEEK 09/02/17 hydrochlorothiazide 12.5 mg tablet 12.5 mg PO QAM 09/02/17 hydrocortisone 2.5 % topical cream 1 applic TOPICAL BID 09/02/17 trazodone 50 mg tablet 50 mg PO QDAY 09/02/17 Bupropion HCl [Bupropion Xl] 150 mg PO DAILY 03/31/18 Gabapentin [Neurontin] 300 mg PO TID 03/31/18 Hydrocodone Bitart/Apap 5-325 [[place] 5/325] 1 - 2 tablet PO Q4H PRN PRN 03/31/18 Magnesium Oxide 400 mg PO DAILY 03/31/18 Insulin Detemir [Levemir FlexPen] 20 units SC QHS #10 insuln.pen 04/01/18 The following prescriptions were given: Insulin Detemir [Levemir FlexPen] 20 units SC QHS #10 insuln.pen Primary Care Physician: Shanta Welsh PA [Primary Care Provider] - Please follow up with your Primary Care Physician in: one week Test Results: Test results from this visit will be discussed in further detail at your follow- up appointment, if applicable. Please Follow Up With: Carina Humphrey NP-C When: 1 week Proposed Discharge Date: 04/01/18
--- NOTE | 2018-04-01 10:12 | PCM.DC.SUM ---
Discharge Date and Diagnosis Date of Admission: 03/31/18 Date of Discharge: 04/01/18 - Primary Discharge Diagnosis acute hypoglycemia, due to medications - Secondary Discharge Diagnosis Chronic Problems (Last Reviewed 09/17/17 @ 08:52 by Denisa Sanches) Edema (Chronic) Hyperlipidemia (Chronic) Atherosclerosis of [place] coronary artery of [place] heart without angina pectoris (Chronic) Chronic pain syndrome (Chronic) Noncompliance with CPAP treatment (Chronic) Morbid obesity (Chronic) Depression (Chronic) Dyslipidemia (Chronic) Fibromyalgia (Chronic) Multinodular goiter (Chronic) Obstructive sleep apnea (Chronic) Diabetes mellitus type 2 in obese (Chronic) Hypertension (Chronic) Gastric cancer (Chronic) Hospital Course and Treatment Operations: None Procedures: None Summary of Care Provided: The patient is a 67 year old F with an extensive past medical history as listed. She was admitted through the ED with a complaint of unresponsiveness and hypoglycemia. Patient was found to be unresponsive by her on morning of day of admission when he came back from work. He called the EMS who found her to be hypoglycemic with a blood sugar in the 50s. She was given some sugar drinks and cookies to eat and brought to the ED where she was found to still be hypoglycemic with blood sugar of 135. She was resuscitated with dextrose. Upon further inquiry, patient states that she had not had a good appetite since she had back surgery about 3 weeks prior to presentation. She had been taking her glimepiride and metformin as well as long-acting insulin. She states her long-acting insulin was decreased from 50 units to 46 units by her PCP on account of recurrent episodes of hypoglycemia. She denied any fever or chills and admits to a mild nonproductive cough. She denied any chest pain, shortness of breath, abdominal pain, diarrhea or vomiting. Vitals in the ED was essentially unremarkable. She was admitted to be managed for hypoglycemia. Patient's metformin and glimepiride were held and Lantus was also held. Patient's blood sugar remained stable remaining around 150s and 160s and was 110 on the morning of discharge. Patient remained stable and was discharged home on 04/01/2018. Her glimepiride was permanently stopped and insulin Levemir was decreased from 46 international units to 20 international units daily. She is continue with her metformin 500 mg twice daily. She is to follow-up with her primary care doctor with a log of her blood sugar checks for insulin dose to be adjusted as needed. Patient seen and examined prior to discharge. She had no complaints and felt well. She denied any fever, any chills, any cough or chest pain, any shortness of breath, abdominal pain, any diarrhea vomiting. Review of systems otherwise negative. Labs and vitals reviewed. Home medications reviewed and reconciled o/e: Vital Signs Height 5 ft 7 in Weight: 194 lb 0.003 oz Weight in Pounds 194.0 lbs Pulse Ox 95 Temperature 98.2 F Pulse Rate 85 Respiratory Rate 18 Blood Pressure 147/74 Blood Pressure Position Semi-Fowlers General: Alert, Oriented x3, Cooperative, No apparent distress HEENT: Atraumatic, PERRLA, EOMI, Normocephalic Oral: Moist Mucosa Neck: Supple, No JVD, Negative Carotid Bruits Lungs: Clear to auscultation, Normal air movement Cardiovascular: Regular rate, Regular Rhythm, Normal S1, Normal S2, No murmurs Abdomen: Bowel Sounds Present, Soft, Non Tender, Non-Distended, No Hepato-splenomegaly Extremities: No clubbing, No cyanosis, No edema, Capillary Refill Less than 3 Seconds Skin: No rashes, No breakdown, - - well healed surgical scar running the length of her spine. Musculoskeletal: No Tenderness to Palpation of Joints or Extremities Lymphatic: No Cervical, Supraclavicular, or Inguinal Adenopathy Neurological: Cranial nerves II-XII grossly intact, Neuro grossly intact, Motor Exam 5/5 strength throughout Psych/Mental Status: Normal Affect, Appropriate, Alert and oriented to time, place, person, mood and affect - Physical Exam Vital Signs Temp Pulse Resp BP Pulse Ox 98.2 F 85 18 147/74 H 95 04/01/18 08:35 04/01/18 08:35 04/01/18 08:35 04/01/18 08:35 04/01/18 08:35 Oxygen Delivery Method Room Air Weight: 194 lb 0.003 oz Body Mass Index (BMI) 30.4 Finger Stick Blood Glucose 35 Intake and Output for Last 24 Hours 03/30/18 03/31/18 04/01/18 23:59 23:59 23:59 Intake Total 526 / 526 500 / 500 Balance 526 / 526 500 / 500 Laboratory Tests Past 24 Hrs 03/31/18 03/31/18 03/31/18 11:13 11:13 12:32 WBC 10.9 RBC 3.91 L Hgb 12.7 Hct 40.4 MCV 103.3 H MCH 32.5 H MCHC 31.4 L RDW 13.5 RDW Differential 50.8 H Plt Count 560 H MPV 8.3 Immature Gran % (Auto) 2.700 H Neut % (Auto) 56.3 Lymph % (Auto) 27.5 [place] % (Auto) 8.2 Eos % (Auto) 4.0 Baso % (Auto) 1.3 H Absolute Neuts (auto) 6.1 Absolute Lymphs (auto) 2.99 Total Counted Not Reportable Diff Path Review May foll Platelet Estimate Anisocytosis Macrocytosis Sodium 138 Potassium 5.1 Chloride 102 Carbon Dioxide 30.0 Anion Gap 6 BUN 19 H Creatinine 0.61 Estim Creat Clear Calc 89.41 Est GFR (MDRD) Af Amer 125 Est GFR (MDRD) Non-Af 104 BUN/Creatinine Ratio 30.9 H Glucose 270 H Calcium 8.6 Urine Color Yellow Urine Clarity Clear Urine pH 8.0 Ur Specific [place] 1.010 Urine Protein Negative Urine Glucose (UA) 100 H Urine Ketones Negative Urine Occult Blood Negative Urine Nitrite Negative Urine Bilirubin Negative Urine Urobilinogen Normal Ur Leukocyte Esterase 25 H Urine RBC 0 SEEN Urine WBC 0-5 SEEN Ur Squamous Epith Cells 0-5 SEEN Amorphous Sediment 2+ Urine Bacteria 0 SEEN Urine Mucus 0 SEEN 04/01/18 04/01/18 05:10 05:10 WBC 10.9 RBC 4.00 L Hgb 13.1 Hct 40.9 MCV 102.3 H MCH 32.8 H MCHC 32.0 RDW 13.4 RDW Differential 50.1 H Plt Count 416 MPV 8.5 Immature Gran % (Auto) 1.400 H Neut % (Auto) 40.1 L Lymph % (Auto) 37.4 [place] % (Auto) 10.5 H Eos % (Auto) 9.8 H Baso % (Auto) 0.8 Absolute Neuts (auto) 4.4 Absolute Lymphs (auto) 4.09 Total Counted Not Reportable Diff Path Review Platelet Estimate ADEQUATE Anisocytosis 1+ Macrocytosis 1+ Sodium 138 Potassium 4.4 Chloride 110 H Carbon Dioxide 22.0 Anion Gap 6 BUN 13 Creatinine 0.60 Estim Creat Clear Calc 90.90 Est GFR (MDRD) Af Amer 129 Est GFR (MDRD) Non-Af 107 BUN/Creatinine Ratio 21.7 H Glucose 105 Calcium 8.2 L Urine Color Urine Clarity Urine pH Ur Specific [place] Urine Protein Urine Glucose (UA) Urine Ketones Urine Occult Blood Urine Nitrite Urine Bilirubin Urine Urobilinogen Ur Leukocyte Esterase Urine RBC Urine WBC Ur Squamous Epith Cells Amorphous Sediment Urine Bacteria Urine Mucus POC Glucose 04/01/18 03/31/18 03/31/18 06:37 21:39 16:33 POC Glucose 110 167 H 155 H 03/31/18 03/31/18 03/31/18 12:11 11:11 11:00 POC Glucose 151 H 140 H 35 L* Discharge Diet: 1800 Calorie Control Diet Discharge Activity: Return to Normal Activity Weight Bearing Status: Weight bearing as tolerated Call your doctor if you observe: Dizziness, Fainting spells Home Medications: Medications to take at Discharge Albuterol Sulfate [Proair Respiclick] 1 puff IH Q4H PRN PRN 02/15/16 Docusate Sodium [Colace] 100 mg PO BID 02/15/16 Dorzolamide HCL/Timolol [Cosopt Opth Drops] 1 drp EACH EYE BID 02/15/16 Duloxetine Hcl [Cymbalta] 60 mg PO DAILY 02/15/16 Ferrous Sulfate Syrup 325 mg PO TIDCM 03/05/17 Olanzapine 10 mg PO QHS 03/05/17 Polyethylene Glycol 3350 [Miralax] 17 gm PO DAILY 03/05/17 Atorvastatin Calcium [Lipitor] 40 mg PO QHS 05/19/17 Esomeprazole Magnesium 40 mg PO BID 05/19/17 buprenorphine 10 mcg/hour weekly transdermal patch 1 patch TRANSDERMAL QWEEK 09/02/17 hydrochlorothiazide 12.5 mg tablet 12.5 mg PO QAM 09/02/17 hydrocortisone 2.5 % topical cream 1 applic TOPICAL BID 09/02/17 trazodone 50 mg tablet 50 mg PO QDAY 09/02/17 Bupropion HCl [Bupropion Xl] 150 mg PO DAILY 03/31/18 Gabapentin [Neurontin] 300 mg PO TID 03/31/18 Hydrocodone Bitart/Apap 5-325 [[place] 5/325] 1 - 2 tablet PO Q4H PRN PRN 03/31/18 Magnesium Oxide 400 mg PO DAILY 03/31/18 Insulin Detemir [Levemir FlexPen] 20 units SC QHS #10 insuln.pen 04/01/18 Following Prescrptions Were Given to Patient: Insulin Detemir [Levemir FlexPen] 20 units SC QHS #10 insuln.pen Primary Care Physician: Shanta Welsh PA [Primary Care Provider] - Please follow up with your Primary Care Physician in: one week Please Follow Up With: Carina Humphrey PROCESS CONTROL OPERATORLyudmilaC When: 1 week Patient Instructions: Hypoglycemia (Low Blood Sugar) Disposition: Home Minutes spent on discharge:: 35 Patient Condition:: Stable Medical Necessity - Tobacco Use Smoking Status: Current every day smoker Tobacco Use: Cigarettes Meaningful Use Info Meaningful Use Diagnoses (Choose all that apply): None applicable Code Visit Inpatient E&M: 02056 Disch Hosp
[2018-04-01 14:02] LABS: Pathologist Review Reviewed
== END 2018-04-01 11:06 | disposition home or self-care (01) ==
LOC: ED 12:44 → MS3 12:57
PROVIDERS: Admitting Provider Student in an Organized Health Care Education/Training Program; Emergency Provider Emergency Medicine; Family Provider Physician Assistant; PCP Physician Assistant; Visit Provider Student in an Organized Health Care Education/Training Program
DX: E11.649 Type 2 diabetes mellitus with hypoglycemia without coma (principal); T38.3X5A Adverse effect of insulin and oral hypoglycemic [antidiabetic] drugs, initial encounter; E78.5 Hyperlipidemia, unspecified; I25.10 Atherosclerotic heart disease of native coronary artery without angina pectoris; G89.4 Chronic pain syndrome; G47.33 Obstructive sleep apnea (adult) (pediatric); M79.7 Fibromyalgia; I10 Essential (primary) hypertension; Z91.19 Patient's noncompliance with other medical treatment and regimen; Z85.028 Personal history of other malignant neoplasm of stomach; Z79.4 Long term (current) use of insulin; Z79.899 Other long term (current) drug therapy; F17.210 Nicotine dependence, cigarettes, uncomplicated; F32.9 Major depressive disorder, single episode, unspecified
CPT/HCPCS: 36415; 80048; 81001; 82962; 85025; 97802; 99218; 99285; 99406; J7030; G0378

== ENCOUNTER 2018-05-02 20:04 | Emergency (ER) | payer MEDICARE, MEDICAID, SELFPAY ==
[2018-03-31 13:19] VITALS: BMI 30.4
[2018-05-02 20:04] VITALS: BP 127/66; PULSE 78; RESP 18; TEMP 36.4; O2SAT 96; BMI 28.5
--- NOTE | 2018-05-02 20:16 | CT_ITS ---
STUDY: CT ABDOMEN AND PELVIS WITH CONTRAST REASON FOR EXAM: Female, 67 years old. Abdominal pain RADIATION DOSAGE (If Supplied By Facility): CTDIvol = ( 18.47 ) mGy, DLP = ( 1264.85 ) mGycm TECHNIQUE: Transaxial images were obtained from the dome of the diaphragm to the symphysis pubis without oral contrast. 100 ml of Isovue 300 contrast was administered. Sagittal and coronal images were reconstructed. Individualized dose optimization techniques were used for this CT. COMPARISON: May 19, 2017 FINDINGS: The visualized lung bases are unremarkable. The visualized portions of the heart are within normal limits. Fatty liver. Nonvisualization of the gallbladder. There is dilatation of the biliary system. Normal spleen. Borderline ductal prominence in the pancreas. Normal bilateral adrenal glands. Normal right kidney. 2 mm stone and 2 cm cyst in the left kidney. Prior surgery of the stomach. Fluid distended duodenum. Prior surgery at the rectosigmoid colon. The appendix is not visualized. Calcified abdominal aorta. Normal inferior vena cava. Normal retroperitoneum. Normal urinary bladder. Normal abdominal wall. Degenerative and postsurgical vertebral changes. Vertebral rods are noted. CT/Abdomen/Pelvis WITH Contrast IMPRESSION: Fluid distended duodenum. Left renal cyst and stone. Fatty liver. Status post cholecystectomy. Biliary dilatation. Borderline pancreatic ductal prominence. Electronically Signed: Marc Alvarez DO at 22:51 EST Tel [phone], Service support ,
[2018-05-02] MEDS: 0.9% Normal Saline 1,000 ML 1000 ML IV (20:28)
[2018-05-02] MEDS: Ondansetron 4 MG/2 ML Vial IV (20:28)
[2018-05-02] MEDS: Morphine 4 MG/ML Syringe IV (20:29)
[2018-05-02 20:30] LABS: Absolute Lymphocyte Count 2.95 X10^3/ul (0.83-4.51); Absolute Neutrophil Count 4.7 X10^3/uL (2.0-7.7); Basophil# 0.07 X10^3/uL; Basophil% 0.8 % (0-1); Eosinophil# 0.25 X10^3/uL; Eosinophils% 2.8 % (0-5); Hematocrit 40.9 % (37-47); Hemoglobin 13.3 g/dl (12.0-15.0); Lymphocyte # 2.95 X10^3/ul (4.0); Lymphocyte % 33.1 % (19-41); Mean Corp Hgb Conc 32.5 g/gl (32-36); Mean Corpuscular Hgb 31.9 pg (27.0-32.0); Mean Corpuscular Volume 98.1 fL (81-99); Mean Platelet Vol. 8.4 fl (6.2-12.0); Monocyte# 0.81 X10^3/uL; Monocyte% 9.1 % (0-10); Neutrophil # 4.72 X10^3/uL (2.7-7.7); POSITIVE COUNT NO; POSITIVE DIFFERENTIAL NO; POSITIVE MORPHOLOGY NO; Platelet Count 417 K/mm3 (150-450); RBC Distribution Width CV 13.5 % (11.6-14.6); RBC Distribution Width SD 47.7 fl (35.1-43.9); Red Blood Count 4.17 M/mm3 (4.2-5.4); White Blood Count 8.9 K/mm3 (4.4-11.0)
[2018-05-02 20:37] LABS: Bacteria 0 SEEN /hpf (None Seen); Mucous, Urine 0 SEEN /hpf (<or=2+)
[2018-05-02 20:44] LABS: ALB/GLOB Ratio 0.9 RATIO (0.9-2.4); AST(SGOT) 12 U/L (15-37); Alanine Aminotransfer ALT/SGPT 14 U/L (13-56); Albumin, Serum 3.4 g/dL (3.2-5.0); Alkaline Phosphatase 75 U/L (45-117); Anion Gap 10 (5-15); BUN 14 mg/dL (7-18); BUN/Creat Ratio 20.3 RATIO (10-20); Calcium,Total 8.6 mg/dL (8.5-10.1); Chloride 103 mmol/L (98-107); Creatinine, Serum 0.69 mg/dL (0.55-1.02); EST Glomerular Filtration Rate 90 mL/min (>60); Est Glom Filt Rate - Afr Amer 109 mL/min (>60); Estimated Creatinine Clearance 79.05 ml/min; Globulin 3.9 g/dL (2.2-4.2); Glucose 126 mg/dL (74-106); Lipase 115 U/L (73-393); Potassium 3.7 mmol/L (3.5-5.1); Protein, Total 7.3 g/dL (6.4-8.2); Sodium Level 135 mmol/L (136-145)
[2018-05-02 20:47] LABS: Color, Urine Yellow (Yellow); Glucose, Dipstick Normal (Normal); Ketone-Dipstick 50 mg/dl (Negative); Leukocyte Esterase-Dipstick 25 /ul (Negative); Nitrite-Dipstick Negative (Negative); Occult Blood-Urine 150 /ul (Negative); Protein-Dipstick 15 mg/dl (Negative); Urine Bilirubin Dipstick 1 mg/dL (Negative); Urine Urobilinogen 4 mg/dl (Normal)
[2018-05-02 20:49] LABS: Red Blood Cells-Urine 10-25 SEEN /hpf (0-5); Squamous Epithelial Cells - UA 0-5 SEEN /hpf (5-10); White Blood Cells 0-5 SEEN /hpf (0-5)
[2018-05-02 20:50] LABS: Urine Clarity Sl Cldy (Clear)
--- NOTE | 2018-05-02 21:01 | ED.DCSUM_ITS ---
- ER Visit Summary Date of Service: 05/02/18 Chief Complaint: Abdominal pain, nausea History of Present Illness: The patient is a 67 F presents to the emergency department with abdominal pain and nausea. The patient has a history of prior gastric carcinoma. She underwent stomach resection and chemotherapy. She had neoadjuvant chemotherapy and then chemo after the treatment. She states that she is been in remission. Over the past 6 or 7 days, she had increasing abdominal pain, early satiety, and nausea. She states these are similar symptoms that she had when she was initially diagnosed with a cancer. She denies any weight loss. She denies any fevers or night sweats. She states that she is not really had an appetite. Physical Examination: Vital signs reviewed General: Well-nourished, well-developed Head: Normocephalic, atraumatic Eyes: Pupils equal and reactive, extraocular muscles intact Neck, supple, no lymphadenopathy Heart: Regular rate and rhythm Respiratory: No distress, clear bilaterally Abdomen: Soft, nontender, nondistended, no peritoneal signs Back: Nontender Extremities: Nontender, no edema, no cords Skin: Normal color no rash Neuro: Alert and oriented, no focal or lateralizing deficits Test Results: [] Emergency Department Course and Treatment: The patient's abdomen is soft. She did have some mild tenderness in the midepigastric area, but no rebound or guarding. IV was established. Patient was given analgesics and antiemetics. Screening labs are obtained. Labs are relatively unremarkable. LFTs were normal. Patient underwent CT of the abdomen pelvis. This does show some fluid distention within the duodenum, but no evidence of obstruction. On reevaluation, she is pain-free. At this time, I do feel the patient is safe for discharge with outpatient workup. I did financial health counselor her that she is going to need to follow with her oncologist if she is continuing to have this pain. She will be given 1 day of analgesics and antiemetics. She was counseled concerning symptoms and reasons to return. She will be discharged home. Treatment Plan: [] Disposition: Discharge Impression: 1. Abdominal pain 2. Nausea This note was generated with [employer] software. It may contain incorrect words, spelling, and punctuation that were not noted in review of the chart prior to signing ED Disposition - Plan for ED Patient: Instructions: ED Abdominal Pain Unkn Cause Prescriptions: Ondansetron [Zofran Odt] 4 mg PO Q8H PRN PRN #10 tab PRN Reason: Nausea Referrals: Shanta Welsh PA [Primary Care Provider] -
[2018-05-02 23:04] VITALS: BP 151/67; PULSE 91; RESP 16; TEMP 36.7; O2SAT 96
[2018-05-02 23:36] VITALS: BP 110/76; PULSE 77; RESP 18; O2SAT 98
[2018-05-02] MEDS: HYDROcodone Bitartrate/Apap 5/325 Tablet PO (23:36)
[2018-05-02] MEDS: Ondansetron ODT 4 MG Tablet PO (23:36)
== END 2018-05-02 23:37 | disposition home or self-care (01) ==
LOC: ED 21:06
PROVIDERS: Emergency Provider Emergency Medicine; Family Provider Physician Assistant; PCP Physician Assistant
DX: R10.9 Unspecified abdominal pain (principal); R11.0 Nausea; E11.9 Type 2 diabetes mellitus without complications; I10 Essential (primary) hypertension; Z79.4 Long term (current) use of insulin; Z79.899 Other long term (current) drug therapy; Z85.028 Personal history of other malignant neoplasm of stomach; Z92.21 Personal history of antineoplastic chemotherapy; Z90.3 Acquired absence of stomach [part of]
CPT/HCPCS: 74177; 80053; 81001; 83690; 85025; 96361; 96374; 96375; 99284; J7030; Q9967; A4216; J2405

== ENCOUNTER 2018-05-07 22:33 | Emergency (ER) | payer MEDICARE, MEDICAID, SELFPAY ==
[2018-05-07 22:34] VITALS: BP 99/66; PULSE 77; RESP 18; TEMP 36.1; O2SAT 95; BMI 28.0
[2018-05-07] MEDS: Morphine 4 MG/ML Syringe IV (23:41)
[2018-05-07] MEDS: Ondansetron 4 MG/2 ML Vial IV (23:41)
[2018-05-07] MEDS: 0.9% Normal Saline 1,000 ML 1000 ML IV (23:41)
--- NOTE | 2018-05-07 23:50 | RAD_ITS ---
STUDY: X-RAY - ABDOMEN/PELVIS REASON FOR EXAM: Female, 67 years old. Nausea TECHNIQUE: AP supine and upright views of the abdomen and pelvis. COMPARISON: February 15, 2016 FINDINGS: Thoracolumbosacral internal fixation. Multiple disc spacers are noted. Multilevel degenerative changes. Lung bases appear relatively clear. Moderate stool seen within the colon. No free air identified. Nonobstructive bowel gas pattern. Phleboliths within the pelvis. RAD/Abd Inc Decub and/or Erect IMPRESSION: Moderate stool in the colon correlate for constipation. Nonobstructive bowel gas pattern. Extensive spinal fixation. Electronically Signed: John Renee, at 1:33 EST Tel , Service support ,
[2018-05-08 00:12] LABS: Absolute Lymphocyte Count 2.63 X10^3/ul (0.83-4.51); Absolute Neutrophil Count 3.7 X10^3/uL (2.0-7.7); Basophil# 0.05 X10^3/uL; Basophil% 0.7 % (0-1); Eosinophil# 0.36 X10^3/uL; Eosinophils% 4.8 % (0-5); Hematocrit 40.1 % (37-47); Lymphocyte # 2.63 X10^3/ul (4.0); Lymphocyte % 34.9 % (19-41); Mean Corp Hgb Conc 32.4 g/gl (32-36); Mean Corpuscular Hgb 32.4 pg (27.0-32.0); Mean Platelet Vol. 8.6 fl (6.2-12.0); Monocyte# 0.75 X10^3/uL; Neutrophil # 3.69 X10^3/uL (2.7-7.7); Neutrophil % 48.9 % (47-70); Platelet Count 385 K/mm3 (150-450); RBC Distribution Width CV 13.4 % (11.6-14.6); RBC Distribution Width SD 48.2 fl (35.1-43.9); Red Blood Count 4.01 M/mm3 (4.2-5.4); White Blood Count 7.5 K/mm3 (4.4-11.0)
[2018-05-08 00:13] LABS: AST(SGOT) 18 U/L (15-37); Alanine Aminotransfer ALT/SGPT 17 U/L (13-56); Albumin, Serum 3.3 g/dL (3.2-5.0); Alkaline Phosphatase 81 U/L (45-117); Anion Gap 9 (5-15); BUN 14 mg/dL (7-18); BUN/Creat Ratio 21.1 RATIO (10-20); Bilirubin, Direct 0.12 mg/dL (0.00-0.30); Calcium,Total 8.5 mg/dL (8.5-10.1); Chloride 100 mmol/L (98-107); Creatinine, Serum 0.66 mg/dL (0.55-1.02); EST Glomerular Filtration Rate 95 mL/min (>60); Est Glom Filt Rate - Afr Amer 115 mL/min (>60); Estimated Creatinine Clearance 85.72 ml/min; Globulin 3.7 g/dL (2.2-4.2); Glucose 99 mg/dL (74-106); Lipase 136 U/L (73-393); Potassium 3.3 mmol/L (3.5-5.1); Sodium Level 136 mmol/L (136-145)
[2018-05-08 00:14] LABS: POSITIVE COUNT NO; POSITIVE DIFFERENTIAL NO; POSITIVE MORPHOLOGY NO
--- NOTE | 2018-05-08 00:24 | ED.DCSUM_ITS ---
- ER Visit Summary Date of Service: 05/08/18 Chief Complaint: Mid upper abdominal pain History of Present Illness: The patient is a 67 F with upper abdominal pain for the past 2-3 weeks. Pain seems to be worse with food but she states she is drinking okay. She denies having a bowel movement the past 6 days. She denies fever or chills. Patient has a history of gastrectomy secondary to gastric cancer. She was seen in the ER on May 02 for the same. At that time CT scan showed fluid distention of the duodenum but no obstruction. Patient states that she is scheduled for a scope in 2 days with her GI doctor in [place]. Physical Examination: Vital signs in triage include a blood pressure 99/66, otherwise unremarkable. Patient is lying in bed no acute distress. She is nontoxic appearing. Head neck examination is normal. Heart is regular rate and rhythm. Lungs sounds are clear. Abdomen is soft with mild strict tenderness. There is no guarding or rebound. Active bowel sounds are noted. Test Results: CBC and chemistry studies are significant only for potassium slightly low at 3.3. LFTs and lipase are normal. Acute abdominal series is obtained. There is evidence of moderate stool but no obstruction. Extensive spinal fixation is noted. Emergency Department Course and Treatment: Patient was given IV fluids, morphine, and Zofran. On repeat evaluation patient feels significantly improved. She will be given a home pack of [place] and Zofran. She will be written for magnesium citrate which she will take tomorrow. Treatment Plan: [] Disposition: Discharge Impression: 1. Abdominal pain 2. Constipation This note was generated with [employer] dictation software. It may contain incorrect words, spelling, and punctuation that were not noted in review of the chart prior to signing ED Disposition - Plan for ED Patient: Referrals: Shanta Welsh PA [Primary Care Provider] -
--- NOTE | 2018-05-08 01:40 | ED.DEP ---
ED Disposition - Plan for ED Patient: Disposition: Home or Assisted Living Instructions: ED Constipation Prescriptions: Magnesium Citrate [Citrate Of Magnesia] 150 ml PO Q6H PRN PRN #1 bottle PRN Reason: Constipation Referrals: Shanta Welsh PA [Primary Care Provider] - Additional Instructions: Follow-up for endoscopy on Wednesday as scheduled.
[2018-05-08] MEDS: Ondansetron ODT 4 MG Tablet PO (01:57)
[2018-05-08] MEDS: HYDROcodone Bitartrate/Apap 5/325 Tablet PO (01:57)
[2018-05-08 01:59] VITALS: BP 104/70; BP 104/71; PULSE 75; RESP 16; O2SAT 97; O2SAT 98
== END 2018-05-08 02:01 | disposition home or self-care (01) ==
PROVIDERS: Emergency Provider Emergency Medicine; Family Provider Physician Assistant; PCP Physician Assistant
DX: R10.9 Unspecified abdominal pain (principal); K59.00 Constipation, unspecified; E11.9 Type 2 diabetes mellitus without complications; I10 Essential (primary) hypertension; Z79.4 Long term (current) use of insulin; Z79.899 Other long term (current) drug therapy; Z85.028 Personal history of other malignant neoplasm of stomach; Z87.891 Personal history of nicotine dependence; Z90.3 Acquired absence of stomach [part of]
CPT/HCPCS: 74019; 80048; 80076; 83690; 85025; 96361; 96374; 96375; 99283; J7030; A4216; J2405

== ENCOUNTER 2018-05-09 17:22 | Emergency (ER) | payer MEDICARE, MEDICAID, SELFPAY ==
[2018-05-09 17:24] VITALS: BP 107/69; PULSE 67; RESP 16; TEMP 36.7; O2SAT 99; BMI 28.3
[2018-05-09 19:05] LABS: Absolute Neutrophil Count 3.6 X10^3/uL (2.0-7.7); Basophil# 0.05 X10^3/uL; Basophil% 0.7 % (0-1); Eosinophil# 0.23 X10^3/uL; Eosinophils% 3.4 % (0-5); Hematocrit 37.8 % (37-47); Hemoglobin 12.2 g/dl (12.0-15.0); Lymphocyte % 31.2 % (19-41); Mean Corp Hgb Conc 32.3 g/gl (32-36); Mean Corpuscular Volume 99.2 fL (81-99); Mean Platelet Vol. 8.6 fl (6.2-12.0); Monocyte% 10.4 % (0-10); Neutrophil # 3.61 X10^3/uL (2.7-7.7); Neutrophil % 53.7 % (47-70); Platelet Count 354 K/mm3 (150-450); RBC Distribution Width CV 13.8 % (11.6-14.6); RBC Distribution Width SD 49.4 fl (35.1-43.9); Red Blood Count 3.81 M/mm3 (4.2-5.4); White Blood Count 6.7 K/mm3 (4.4-11.0)
[2018-05-09 19:06] LABS: POSITIVE COUNT NO; POSITIVE DIFFERENTIAL NO; POSITIVE MORPHOLOGY NO
[2018-05-09] MEDS: Morphine 4 MG/ML Syringe IV ×2 (19:20→20:31)
[2018-05-09] MEDS: 0.9% Normal Saline 1,000 ML 150 ML IV (19:20)
[2018-05-09] MEDS: Ondansetron 4 MG/2 ML Vial IV ×2 (19:21→20:31)
[2018-05-09 19:22] LABS: AST(SGOT) 15 U/L (15-37); Alanine Aminotransfer ALT/SGPT 15 U/L (13-56); Albumin, Serum 3.1 g/dL (3.2-5.0); Alkaline Phosphatase 76 U/L (45-117); Anion Gap 7 (5-15); BUN 10 mg/dL (7-18); BUN/Creat Ratio 19.9 RATIO (10-20); Bilirubin, Direct 0.13 mg/dL (0.00-0.30); Calcium,Total 8.3 mg/dL (8.5-10.1); Chloride 104 mmol/L (98-107); EST Glomerular Filtration Rate 131 mL/min (>60); Est Glom Filt Rate - Afr Amer 158 mL/min (>60); Estimated Creatinine Clearance 113.16 ml/min; Globulin 3.4 g/dL (2.2-4.2); Glucose 112 mg/dL (74-106); Lipase 61 U/L (73-393); Potassium 3.8 mmol/L (3.5-5.1); Protein, Total 6.5 g/dL (6.4-8.2); Sodium Level 137 mmol/L (136-145)
[2018-05-09 19:35] VITALS: BP 112/56; PULSE 54; RESP 16; O2SAT 97
--- NOTE | 2018-05-09 20:10 | RAD_ITS ---
STUDY: X-RAY - ABDOMEN/PELVIS REASON FOR EXAM: Female, 67 years old. Epigastric pain. TECHNIQUE: AP supine and upright views of the abdomen and pelvis. COMPARISON: May 07, 2018 FINDINGS: Normal visualized lung bases. There is an unremarkable bowel gas pattern. No dilated small bowel. There is air in the colon. There is postoperative change in the pelvis with anastomotic suture line. There is no demonstrated free abdominal air. The visualized liver, spleen and kidneys are grossly normal in size and morphology. There is postoperative change with hardware fusing from the thoracic spine to the lumbar spine to the sacrum and across the sacroiliac joints . RAD/Abd Inc Decub and/or Erect IMPRESSION: No obstruction. Electronically Signed: Brian Francois MD at 21:11 EST , Service support ,
--- NOTE | 2018-05-09 22:31 | ED.VISSUMM ---
- ER Visit Summary Date of Service: 05/09/18 Chief Complaint: Abdominal pain History of Present Illness: The patient is a 67 F with upper abdominal pain for the past 2-3 weeks. She had 2 prior visits to the ED. On CT scan of abdomen and pelvis on May 02 showed fluid distended duodenum. Abdominal x-ray on the showed no objective pattern. Patient has a history of gastric cancer and had a gastrectomy in August 2016 at [facility]. She followed up with her GI specialist in [place] this morning and had a EGD. Family states there was a recurrent mass in the proximal small bowel. Arrangements were made for her to follow-up with her oncologist. Patient returns to the ER tonight with continued pain. She is still not able to eat any solid food. Physical Examination: Vital signs are unremarkable. Patient sitting upright in bed no acute distress. Head neck examination is unremarkable. Heart is regular rate and rhythm. Lungs sounds clear. Abdomen is soft with mild epigastric tenderness. No guarding or rebound. Bowel sounds are noted. Test Results: CBC and chemistry studies unremarkable. LFTs and lipase normal. Abdominal x-ray showed no obstruction. Emergency Department Course and Treatment: Patient was given morphine, Zofran, and IV fluids. I spoke with the patient's oncologist, Dr. Grant. He was aware of the patient's EGD today showing recurrent mass. He was not aware that the patient had been having symptoms have been in the ER recently. In light of this he feels the patient should be evaluated by surgery at [facility] as opposed to seeing him as an outpatient. I spoke with surgery quarterback at [facility] and patient has been accepted in transfer. Treatment Plan: [] Disposition: Transfer Impression: Recurrent stomach cancer This note was generated with [employer] dictation software. It may contain incorrect words, spelling, and punctuation that were not noted in review of the chart prior to signing ED Disposition - Plan for ED Patient: Referrals: Shanta Welsh PA [Primary Care Provider] -
--- NOTE | 2018-05-09 22:34 | ED.DCSUM_ITS ---
- ER Visit Summary Date of Service: 05/09/18 Chief Complaint: Abdominal pain History of Present Illness: The patient is a 67 F with upper abdominal pain for the past 2-3 weeks. She had 2 prior visits to the ED. On CT scan of abdomen and pelvis on May 02 showed fluid distended duodenum. Abdominal x-ray on the showed no objective pattern. Patient has a history of gastric cancer and had a gastrectomy in August 2016 at [facility]. She followed up with her GI specialist in [place] this morning and had a EGD. Family states there was a recurrent mass in the proximal small bowel. Arrangements were made for her to follow-up with her oncologist. Patient returns to the ER tonight with continued pain. She is still not able to eat any solid food. Physical Examination: Vital signs are unremarkable. Patient sitting upright in bed no acute distress. Head neck examination is unremarkable. Heart is regular rate and rhythm. Lungs sounds clear. Abdomen is soft with mild epigastric tenderness. No guarding or rebound. Bowel sounds are noted. Test Results: CBC and chemistry studies unremarkable. LFTs and lipase normal. Abdominal x-ray showed no obstruction. Emergency Department Course and Treatment: Patient was given morphine, Zofran, and IV fluids. I spoke with the patient's oncologist, Dr. Grant. He was aware of the patient's EGD today showing recurrent mass. He was not aware that the patient had been having symptoms have been in the ER recently. In light of this he feels the patient should be evaluated by surgery at [facility] as opposed to seeing him as an outpatient. I spoke with surgery quarterback at [facility] and patient has been accepted in transfer. Treatment Plan: [] Disposition: Transfer Impression: Recurrent stomach cancer This note was generated with [employer] dictation software. It may contain incorrect words, spelling, and punctuation that were not noted in review of the chart prior to signing ED Disposition - Plan for ED Patient: Referrals: Shanta Welsh PA [Primary Care Provider] -
[2018-05-09] MEDS: proMETHazine 25 MG/ML Syringe 6.25 MG IV (23:11)
--- NOTE | 2018-05-09 23:47 | ED.RN ---
ATTEMPTED TO CALL REPORT AND NURSE UNAVAILABLE AT THIS TIME. [facility] WILL HAVE NURSE CALL [facility] IN 20 MINUTES FOR REPORT.
[2018-05-10 00:20] VITALS: BP 119/53; PULSE 57; RESP 16; TEMP 36.8; O2SAT 96
--- NOTE | 2018-05-10 00:32 | ED.RN ---
PT POWER PORT WAS FLUSHED WITH NS 10CC AND HEPARIN FOR TRANSFER TO [facility].
== END 2018-05-10 00:35 | disposition short-term general hospital (02) ==
PROVIDERS: Emergency Provider Emergency Medicine; Family Provider Physician Assistant; PCP Physician Assistant
DX: C16.9 Malignant neoplasm of stomach, unspecified (principal); C78.4 Secondary malignant neoplasm of small intestine; E11.9 Type 2 diabetes mellitus without complications; I10 Essential (primary) hypertension; Z79.4 Long term (current) use of insulin; Z79.891 Long term (current) use of opiate analgesic; Z79.899 Other long term (current) drug therapy; Z87.891 Personal history of nicotine dependence
CPT/HCPCS: 36591; 74019; 80048; 80076; 83690; 85025; 96361; 96374; 96375; 96376; 99283; J7030; A4216; J2405

== ENCOUNTER 2018-05-22 18:40 | Emergency (ER) | payer MEDICARE, MEDICAID, SELFPAY ==
[2018-05-22 18:41] VITALS: BP 129/80; PULSE 90; RESP 18; TEMP 36; O2SAT 95; BMI 28.3
--- NOTE | 2018-05-22 19:31 | ED.VISSUMM ---
- ER Visit Summary Date of Service: 05/22/18 Chief Complaint: Status post left humerus fracture with left hand swelling History of Present Illness: The patient is a 67 F is post fall with left humerus fracture. This occurred about a week ago. She was seen at the [facility] because I think she was up there being evaluated for a upcoming surgery. He placed on a sling. Treated with Dandridge for pain. She states she has lost swelling in her left hand. And is out of her pain medication. She denies other injuries. She states she was not given an orthopedic referral. Physical Examination: Well-appearing older female. Vital signs are stable. Afebrile. No distress. H EENT exam unremarkable atraumatic. Pupils round react light. Neck nontender. Lungs clear to auscultation bilaterally. Heart regular rhythm no murmur. Abdomen soft and nontender. Normal bowel sounds. No peritoneal signs. Pelvic girdle intact. The right upper and both lower extremities are unremarkable. Her left upper extremities in a sling. She has tenderness to left proximal third humerus. The elbow is nontender and nonswollen. The forearm is nontender. She has a strong radial pulse. She has normal cap refill intact sensation left hand. The left hand is mildly swollen. She can open and close it. There is no signs of compartment syndrome. Test Results: None Emergency Department Course and Treatment: Patient has proximal humerus fracture. She will be given Dandridge for pain. Follow-up with local orthopedic surgeon for the [facility] Dr. Hobson Treatment Plan: Dandridge for pain. Orthopedic follow-up Disposition: Discharge Impression: Left hand swelling secondary to proximal humerus fracture This note was generated with [employer] dictation software. It may contain incorrect words, spelling, and punctuation that were not noted in review of the chart prior to signing ED Disposition - Plan for ED Patient: Referrals: Shanta Welsh PA [Primary Care Provider] -
--- NOTE | 2018-05-22 19:34 | ED.DCSUM_ITS ---
- ER Visit Summary Date of Service: 05/22/18 Chief Complaint: Status post left humerus fracture with left hand swelling History of Present Illness: The patient is a 67 F is post fall with left humerus fracture. This occurred about a week ago. She was seen at the [facility] because I think she was up there being evaluated for a upcoming surgery. He placed on a sling. Treated with Powderly for pain. She states she has lost swelling in her left hand. And is out of her pain medication. She denies other injuries. She states she was not given an orthopedic referral. Physical Examination: Well-appearing older female. Vital signs are stable. Afebrile. No distress. H EENT exam unremarkable atraumatic. Pupils round react light. Neck nontender. Lungs clear to auscultation bilaterally. Heart regular rhythm no murmur. Abdomen soft and nontender. Normal bowel sounds. No peritoneal signs. Pelvic girdle intact. The right upper and both lower extremities are unremarkable. Her left upper extremities in a sling. She has tenderness to left proximal third humerus. The elbow is nontender and nonswollen. The forearm is nontender. She has a strong radial pulse. She has normal cap refill intact sensation left hand. The left hand is mildly swollen. She can open and close it. There is no signs of compartment syndrome. Test Results: None Emergency Department Course and Treatment: Patient has proximal humerus fracture. She will be given Powderly for pain. Follow-up with local orthopedic surgeon for the [facility] Dr. Hobson Treatment Plan: Powderly for pain. Orthopedic follow-up Disposition: Discharge Impression: Left hand swelling secondary to proximal humerus fracture This note was generated with [employer] dictation software. It may contain incorrect words, spelling, and punctuation that were not noted in review of the chart prior to signing ED Disposition - Plan for ED Patient: Referrals: Shanta Welsh PA [Primary Care Provider] -
--- NOTE | 2018-05-22 19:34 | ED.DEP ---
ED Disposition - Plan for ED Patient: Disposition: Home or Assisted Living Prescriptions: Hydrocodone/Acetaminophen [Elsberry 5-325 Tablet] 1 ea PO Q6H PRN PRN #20 tab PRN Reason: Pain Referrals: Brian Hobson MD [STAFF PHYSICIAN] - As soon as possible Francisco Yanez DO [STAFF PHYSICIAN] - As soon as possible Additional Instructions: Elsberry for pain. May also use with ibuprofen for pain and swelling. Call and follow-up with a local orthopedic surgeon either Dr. Brian Hobson with [facility] or Dr. Francisco Yanez with [facility] to reevaluate your left proximal humerus fracture.
[2018-05-22] MEDS: HYDROcodone Bitartrate/Apap 5/325 Tablet PO (19:48)
[2018-05-22 20:00] VITALS: RESP 16
== END 2018-05-22 20:01 | disposition home or self-care (01) ==
PROVIDERS: Emergency Provider Emergency Medicine; Family Provider Physician Assistant; PCP Physician Assistant
DX: M79.89 Other specified soft tissue disorders (principal); S42.302S Unspecified fracture of shaft of humerus, left arm, sequela; X58.XXXS Exposure to other specified factors, sequela; E11.9 Type 2 diabetes mellitus without complications; I10 Essential (primary) hypertension; Z79.4 Long term (current) use of insulin; Z79.899 Other long term (current) drug therapy
CPT/HCPCS: 99282

== ENCOUNTER 2018-06-13 13:13 | Emergency (ER) | payer MEDICARE, MEDICAID, SELFPAY ==
[2018-06-13 13:13] VITALS: BP 113/76; PULSE 83; RESP 16; O2SAT 97
[2018-06-13 13:14] VITALS: BP 119/71; PULSE 87; RESP 14; TEMP 36.6; O2SAT 97; BMI 25.8
[2018-06-13 13:51] LABS: Mucous, Urine 0 SEEN /hpf (<or=2+)
[2018-06-13 14:00] LABS: Color, Urine Yellow (Yellow); Glucose, Dipstick Normal (Normal); Ketone-Dipstick 5 mg/dl (Negative); Leukocyte Esterase-Dipstick 500 /ul (Negative); Nitrite-Dipstick Positive (Negative); Occult Blood-Urine 25 /ul (Negative); Protein-Dipstick 30 mg/dl (Negative); Specific Gravity, Urine 1.025 (1.002-1.030); Urine Clarity Sl. Cloudy (Clear); Urine Urobilinogen Normal (Normal)
[2018-06-13 14:02] LABS: Urine Bilirubin Dipstick 1 mg/dL (Negative)
[2018-06-13 14:11] LABS: Bacteria 2+ /hpf (None Seen); Red Blood Cells-Urine 0-5 SEEN /hpf (0-5); Squamous Epithelial Cells - UA 0-5 SEEN /hpf (5-10); White Blood Cells 25-50 SEEN /hpf (0-5)
--- NOTE | 2018-06-13 14:16 | ED.VIS.GEN ---
History of Present Illness Chief Complaint: Abd Pain Informant: Patient Onset: Yesterday Context: Gradual Onset Timing: Continuous Quality: ache Location: periumbilical Current Severity: Moderate Maximum Severity: Moderate Worsened by: nothing, but worse after taking mag citrate this AM Relieved by: nothing Associated Symptoms: nausea. no BM x 8 days. Narrative: Patient recently sustained a left proximal humerus fracture for which she is in a sling and has been taking Aline. She has been constipated and not had a bowel movement in just about a week, she took her last Aline 4 days ago but still has not had a bowel movement. Yesterday and today, she has taken laxatives, MiraLAX, magnesium citrate and a stool softener. She has not tried an enema. Pain is worse now. She has had no bowel movement today. - Past Medical History (1) Recurrent falls Status: Chronic (2) Atherosclerosis of chit[place] coronary artery of chitina heart without angina pectoris Status: Chronic (3) Chronic pain syndrome Status: Chronic (4) Depression Status: Chronic (5) Diabetes mellitus type 2 in obese Status: Chronic (6) Dyslipidemia Status: Chronic (7) Fibromyalgia Status: Chronic (8) Gastric cancer Status: Resolved (9) Hypertension Status: Chronic (10) Obstructive sleep apnea Status: Chronic Past Medical History - Allergies and Home Meds Allergies/Adverse Reactions: Allergies fentanyl Adverse Reaction (Verified 06/13/18 13:14) MAKES ME SHAKE oxycodone [From Percocet] Adverse Reaction (Verified 06/13/18 13:14) MAKES ME SHAKE thiopental Adverse Reaction (Verified 06/13/18 13:14) MAKES ME SHAKE Primary Care Physician: Shanta Welsh PA [Primary Care Provider] - Surgical History: cholecystectomy, hysterectomy, - - Subtotal gastrectomy for gastric cancer. She has a cervical fusion and Jefferson rods that and most of her thoracic and lumbosacral spine. 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 Denies: Melena, Hematochezia Genitourinary: Denies: Dysuria, Hematuria, Frequency Musculoskeletal: Denies: Back pain, Extremity Pain Skin: Denies: Rash, Wounds Neurological: Denies: Headache, Weakness, Numbness Physical Exam Vital Signs/Narrative: Vital Signs Temp Pulse Resp BP Pulse Ox 06/13/18 13:14 97.9 F 87 14 119/71 97 Inital Vital Signs reviewed: Yes General: Well nourished, Well developed, Obese, No Acute Distress Head: Normocephalic, Atraumatic Eyes: Perrl, EOMI - dysconjugate gaze w/ lazy OS ENT: Moist mucous membranes, No rhinorrhea Neck: Supple, Nontender Cardiovascular: Regular rate, Regular rhythm, No murmurs Respiratory: No distress, CTA bilaterally, Chest nontender Abdomen: Soft, Nondistended, Normal bowel sounds, Tender - mild throughout periumbilical area; otherwise, benign. Negative for: Guarding, Rebound tenderness Back: Nontender, Normal Inspection Extremities: Nontender, No edema Skin: Normal color, No rash Neurological: Alert, Oriented x3, Cranial nerves II-XII grossly intact, Normal Strength, Normal Sensation Psychological: Normal affect, Normal Mood Diagnostic/Tx/Re-eval Laboratory Tests 06/13/18 Range/Units 13:40 Urine Color Yellow (Yellow) Urine Clarity Sl. Cloudy (Clear) Urine pH 5.0 (5.0 - 8.0) Ur Specific Jefferson 1.025 (1.002-1.030) Urine Protein 30 H (Negative) mg/dl Urine Glucose (UA) Normal (Normal) mg/dl Urine Ketones 5 H (Negative) mg/dl Urine Occult Blood 25 H (Negative) /ul Urine Nitrite Positive H (Negative) Urine Bilirubin 1 H (Negative) mg/dL Urine Urobilinogen Normal (Normal) mg/dl Ur Leukocyte Esterase 500 H (Negative) /ul Urine RBC 0-5 SEEN (0-5) /hpf Urine WBC 25-50 SEEN (0-5) /hpf Ur Squamous Epith Cells 0-5 SEEN (5-10) /hpf Urine Bacteria 2+ (None Seen) /hpf Urine Mucus 0 SEEN (<or=2+) /hpf - Medical Decision Making I suspect the patient was very constipated from the recent narcotic she was taking for her left proximal humerus fracture. Prior to performing extensive workup, she was given an enema, which resulted in a large bowel movement and resolution of her pain. On reexamination her abdomen is soft, benign, nontender. She still little nauseated, she was given some Zofran for that. I feel comfortable letting her be discharged home. Her urine incidentally shows infection, the sent for culture and she will be placed on a short course of antibiotics, she does not have urinary symptoms. Advised to continue MiraLAX 1 capful daily, and to follow-up if she has further problems. She is comfortable with the plan feels better. ED Disposition - Plan for ED Patient: Disposition: Home or Assisted Living Diagnosis: Diffuse abdominal pain, Constipation due to opioid therapy, Urinary tract infection Instructions: ED UTI Cystitis Female, ED Constipation Prescriptions: Nitrofurantoin Monohyd/M-Cryst [Macrobid 100 mg Capsule] 100 mg PO BID #10 capsule Referrals: Shanta Welsh PA [Primary Care Provider] - 3-5 Days if not improving Additional Instructions: Take MiraLAX 1 capful dissolved in a glass of liquid once daily and drink plenty of water or other drink.
--- NOTE | 2018-06-13 14:29 | ED.RN ---
DIFFICULTY WITH PT FOLLOWING INSTRUCTIONS REGARDING THE ENEMA. ENEMA RUNNING OUT OF PT, PT STATES SHE CAN NOT HOLD IT IN.
[2018-06-13] MEDS: Ondansetron ODT 4 MG Tablet 8 MG PO (15:23)
[2018-06-13 15:25] VITALS: BP 150/85; PULSE 80; O2SAT 97
[2018-06-13 15:27] VITALS: BP 150/85; PULSE 78; RESP 14; O2SAT 96
[2018-06-13] MEDS: Dicyclomine 10 MG Capsule 20 MG PO (15:31)
== END 2018-06-13 15:40 | disposition home or self-care (01) ==
PROVIDERS: Emergency Provider Emergency Medicine; Family Provider Physician Assistant; PCP Physician Assistant
DX: R10.84 Generalized abdominal pain (principal); K59.03 Drug induced constipation; T40.2X5A Adverse effect of other opioids, initial encounter; Y92.9 Unspecified place or not applicable; N39.0 Urinary tract infection, site not specified; S42.202D Unspecified fracture of upper end of left humerus, subsequent encounter for fracture with routine healing; X58.XXXD Exposure to other specified factors, subsequent encounter; R29.6 Repeated falls; I25.10 Atherosclerotic heart disease of native coronary artery without angina pectoris; I10 Essential (primary) hypertension; E11.9 Type 2 diabetes mellitus without complications; E78.5 Hyperlipidemia, unspecified; M79.7 Fibromyalgia; G89.4 Chronic pain syndrome; G47.33 Obstructive sleep apnea (adult) (pediatric); F32.9 Major depressive disorder, single episode, unspecified; E66.9 Obesity, unspecified; Z85.028 Personal history of other malignant neoplasm of stomach
CPT/HCPCS: 81001; 87077; 87086; 87088; 87186; 99285

== ENCOUNTER 2018-08-05 13:36 | Observation (INO) | payer MEDICARE, MEDICAID, SELFPAY ==
[2018-07-20 07:53] VITALS: BMI 25.8
[2018-08-05] VITALS (9 sets, daily range): BP systolic 138–181; BP diastolic 76–130; PULSE 88–119; RESP 15–22; TEMP 36.4–37.1; O2SAT 93–98; BMI 23.2; BMI 24.6
--- NOTE | 2018-08-05 13:54 | CT_ITS ---
We are attempting to reach an attending provider to discuss findings. An addendum with communication details will be sent when the communication is complete. STUDY: CT ABDOMEN AND PELVIS WITH CONTRAST REASON FOR EXAM: Female, 68 years old. Epigastric pain RADIATION DOSAGE (If Supplied By Facility): CTDIvol = ( 16.18 ) mGy, DLP = ( 1118.24 ) mGycm TECHNIQUE: Transaxial images were obtained from the dome of the diaphragm to the symphysis pubis without oral contrast. 75mL IV/Oral Isovue 300 was administered. Sagittal and coronal images were reconstructed. Individualized dose optimization techniques were used for this CT. COMPARISON: 05/02/2018 CT scan abdomen and pelvis FINDINGS: The visualized lung bases are unremarkable. The visualized portions of the heart are within normal limits. Normal liver. The gallbladder is not well-visualized. There is a extremely distended appearance or a blind-ending loop duodenum measuring up to 5.6 cm as well as the common duct. The duodenum is distended to the left upper quadrant where there is focal narrowing of the lumen and then a normal caliber. There is postoperative change within the duodenum There is persistent intra and extrahepatic ductal dilatation. Normal spleen. There is a distended appearance of the duodenum. There is a partially effaced appearance of the head of the pancreas by the distended small bowel structure. Normal bilateral adrenal glands. Normal right kidney. Normal left kidney. There is a fluid distended appearance of the stomach. There is postoperative change in the stomach. There is been a partial gastrectomy and a jejunostomy. This jejunostomy appears to be slightly medial of the severe mesenteric artery. This orientation is fairly similar to the prior study May 02, 2018, and similar to the May 19, 2017 study. There is a distended appearance of the gastroesophageal junction. There is a distended appearance of the stomach. There is a thick walled appearance of the distal stomach. Resident to severely distended appearance of the blind-ending loop of the duodenum that measures up to 5.6 cm. Its distal loop appears focally narrowed. There is mild to moderate stool in the colon. There is postoperative change within the sigmoid. There is a thick walled appearance of the descending colon. There are surgical clips in the region of the appendix consistent with a prior appendectomy. The aorta is partially calcified. Normal inferior vena cava. The IVC is decompressed by the large distended loop of duodenum. The space between the superior mesenteric artery and aorta is increased by the distended duodenum which is greater than the prior study. The bladder is decompressed the wall is mildly thickened. Uterus is been removed. Is postoperative change in the abdominal wall. There is a focal diastases of the rectus muscle with fatty herniation. There is a spinal fusion visualized throughout the visualized thoracolumbar spine with laminectomy. There is multilevel degenerative disc disease. There is multilevel [id number] neural foramina narrowing. CT/Abdomen/Pelvis WITH Contrast IMPRESSION: There is a very abnormally distended appearance of the remaining duodenal loop status post gastrectomy to 5.6 cm., Worse than prior study There is moderate to severe intra and extrahepatic ductal dilatation. Findings are consistent with an obstruction of this duodenal loop which may be related to mucosal thickening stricture adhesion. There is also thickening of the distal stomach at the gastrojejunostomy which may represent gastritis or potentially neoplastic involvement. There is a abnormally distended appearance of the distal esophagus. Postoperative changes in the sigmoid thickened appearance of the distal descending colon consistent with colitis. Status post hysterectomy appendectomy cholecystectomy lumbar spine fusion. Electronically Signed: Jyothi Almanza MD at 17:29 EDT Tel , Service support ,
[2018-08-05] MEDS: 0.9% Normal Saline 1,000 ML 1000 ML IV (14:10)
[2018-08-05] MEDS: Morphine 4 MG/ML Syringe IV (14:10)
[2018-08-05] MEDS: Ondansetron 4 MG/2 ML Vial IV (14:11)
[2018-08-05 14:23] LABS: Absolute Lymphocyte Count 2.25 X10^3/ul (0.83-4.51); Absolute Neutrophil Count 6.6 X10^3/uL (2.0-7.7); Basophil# 0.06 X10^3/uL; Basophil% 0.6 % (0-1); Eosinophil# 0.21 X10^3/uL; Eosinophils% 2.1 % (0-5); Hematocrit 40.7 % (37-47); Hemoglobin 14.2 g/dl (12.0-15.0); Lymphocyte # 2.25 X10^3/ul (4.0); Lymphocyte % 22.2 % (19-41); Mean Corp Hgb Conc 34.9 g/gl (32-36); Mean Corpuscular Hgb 31.2 pg (27.0-32.0); Mean Corpuscular Volume 89.5 fL (81-99); Mean Platelet Vol. 8.3 fl (6.2-12.0); Monocyte# 0.84 X10^3/uL; Monocyte% 8.3 % (0-10); Neutrophil # 6.64 X10^3/uL (2.7-7.7); Neutrophil % 65.3 % (47-70); Platelet Count 471 K/mm3 (150-450); RBC Distribution Width CV 13.7 % (11.6-14.6); RBC Distribution Width SD 44.9 fl (35.1-43.9); Red Blood Count 4.55 M/mm3 (4.2-5.4); White Blood Count 10.2 K/mm3 (4.4-11.0)
[2018-08-05 14:24] LABS: POSITIVE COUNT NO; POSITIVE DIFFERENTIAL NO; POSITIVE MORPHOLOGY NO
--- NOTE | 2018-08-05 14:25 | ED.VISSUMM ---
- ER Visit Summary Date of Service: 08/05/18 Chief Complaint: Abdominal pain History of Present Illness: The patient is a 68 F who presents with abdominal pain that began yesterday. Patient states the pain is over the epigastric area. Patient states it feels like there is a knot in her abdomen. Patient admits to nausea but denies any vomiting. Patient denies any diarrhea, melena, or hematochezia. Patient denies any dysuria, hematuria, urgency, or frequency. Patient states nothing makes the pain better or worse. Patient states she is scheduled for surgery at [facility] next week with Dr. Dunne. Patient states she had partial gastric resection and states there is a blockage at the anastomosis with her small intestine. Physical Examination: Vital signs are stable except for mild tachycardia 110. Patient is afebrile. Patient is in no acute distress. Cranial nerves II through XII are intact. There are no focal motor or sensory deficits noted. Oral mucosa is pink and moist. Neck is supple. Trachea is midline. There is no JVD noted. Heart was regular and tachycardic. Lungs are clear and equal bilaterally. Abdomen is soft. Bowel sounds are normal. There is diffuse tenderness but worse in the epigastric area. There is no rebound or guarding noted. Test Results: CBC and complete metabolic profile were within normal limits. Lipase was elevated at 1633. Urinalysis does not show any evidence of urinary tract infection. CT scan of the abdomen and pelvis with oral and IV contrast was obtained and is pending. Emergency Department Course and Treatment: Patient was given IV fluids, morphine, and Zofran initially. She was having more nausea while she was drinking her contrast. Patient was given a dose of Phenergan. If the CT scan of the abdomen pelvis shows an acute obstruction. Patient will likely need to be transferred to the [facility] where her surgeon is. Otherwise the patient may need to be admitted here for acute pancreatitis. Disposition: Admit to hospital Impression: 1. Acute pancreatitis This note was generated with [employer] dictation software. It may contain incorrect words, spelling, and punctuation that were not noted in review of the chart prior to signing <Billy Song - Last Filed: 08/05/18 16:36> - ER Visit Summary Date of Service: 08/05/18 Patient was turned over to me. I reevaluated her she still has some abdominal pain, the CT was concerning for duodenal distention, worse and then before she continues to have pain, she also has pancreatitis with this, because of this patient will need transfer I am calling [facility] for this. This note was generated with [employer] dictation software. It may contain incorrect words, spelling, and punctuation that were not noted in review of the chart prior to signing <Emir Patel - Last Filed: 08/05/18 17:52> ED Disposition <Billy Song - Last Filed: 08/05/18 16:36> <Emir Patel - Last Filed: 08/05/18 17:52> - Plan for ED Patient: Diagnosis: Acute pancreatitis Referrals: Shanta Welsh PA [Primary Care Provider] -
--- NOTE | 2018-08-05 14:28 | ED.DCSUM_ITS ---
- ER Visit Summary Date of Service: 08/05/18 Chief Complaint: Abdominal pain History of Present Illness: The patient is a 68 F who presents with abdominal pain that began yesterday. Patient states the pain is over the epigastric area. Patient states it feels like there is a knot in her abdomen. Patient admits to nausea but denies any vomiting. Patient denies any diarrhea, melena, or hematochezia. Patient denies any dysuria, hematuria, urgency, or frequency. Patient states nothing makes the pain better or worse. Patient states she is scheduled for surgery at [facility] next week with Dr. Dunne. Patient states she had partial gastric resection and states there is a blockage at the anastomosis with her small intestine. Physical Examination: Vital signs are stable except for mild tachycardia 110. Patient is afebrile. Patient is in no acute distress. Cranial nerves II through XII are intact. There are no focal motor or sensory deficits noted. Oral mucosa is pink and moist. Neck is supple. Trachea is midline. There is no JVD noted. Heart was regular and tachycardic. Lungs are clear and equal bilaterally. Abdomen is soft. Bowel sounds are normal. There is diffuse tenderness but worse in the epigastric area. There is no rebound or guarding noted. Test Results: CBC and complete metabolic profile were within normal limits. Lipase was elevated at 1633. Urinalysis does not show any evidence of urinary tract infection. CT scan of the abdomen and pelvis with oral and IV contrast was obtained and is pending. Emergency Department Course and Treatment: Patient was given IV fluids, morphine, and Zofran initially. She was having more nausea while she was drinking her contrast. Patient was given a dose of Phenergan. If the CT scan of the abdomen pelvis shows an acute obstruction. Patient will likely need to be transferred to the [facility] where her surgeon is. Otherwise the patient may need to be admitted here for acute pancreatitis. Disposition: Admit to hospital Impression: 1. Acute pancreatitis This note was generated with [employer] dictation software. It may contain incorrect words, spelling, and punctuation that were not noted in review of the chart prior to signing <Billy Song - Last Filed: 08/05/18 16:36> - ER Visit Summary Date of Service: 08/05/18 Patient was turned over to me. I reevaluated her she still has some abdominal pain, the CT was concerning for duodenal distention, worse and then before she continues to have pain, she also has pancreatitis with this, because of this patient will need transfer I am calling [facility] for this. This note was generated with [employer] dictation software. It may contain incorrect words, spelling, and punctuation that were not noted in review of the chart prior to signing <Emir Patel - Last Filed: 08/05/18 17:52> ED Disposition <Billy Song - Last Filed: 08/05/18 16:36> <Emir Patel - Last Filed: 08/05/18 17:52> - Plan for ED Patient: Diagnosis: Acute pancreatitis Referrals: Shanta Welsh PA [Primary Care Provider] -
--- NOTE | 2018-08-05 14:47 | ED.RN ---
DR NOTIFIED THAT PT IS VOMITING- REFUSING CT DRINK D/T NAUSEA/VOMITING. MORPHINE EFFECTIVE FOR PAIN. NEW ORDER FOR PHENERGAN.
[2018-08-05] MEDS: proMETHazine 25 MG/ML Syringe 6.25 MG IV (14:51)
[2018-08-05 14:54] LABS: ALB/GLOB Ratio 0.9 RATIO (0.9-2.4); AST(SGOT) 28 U/L (15-37); Alanine Aminotransfer ALT/SGPT 25 U/L (13-56); Albumin, Serum 3.3 g/dL (3.2-5.0); Alkaline Phosphatase 89 U/L (45-117); Anion Gap 10 (5-15); BUN 17 mg/dL (7-18); Calcium,Total 9.2 mg/dL (8.5-10.1); Chloride 99 mmol/L (98-107); Creatinine, Serum 0.59 mg/dL (0.55-1.02); EST Glomerular Filtration Rate 109 mL/min (>60); Est Glom Filt Rate - Afr Amer 132 mL/min (>60); Estimated Creatinine Clearance 55.82 ml/min; Globulin 3.6 g/dL (2.2-4.2); Glucose 186 mg/dL (74-106); Lipase 1633 U/L (73-393); Potassium 3.4 mmol/L (3.5-5.1); Protein, Total 6.9 g/dL (6.4-8.2); Sodium Level 134 mmol/L (136-145)
[2018-08-05 15:34] LABS: Mucous, Urine 0 SEEN /hpf (<or=2+); Squamous Epithelial Cells - UA 0 SEEN /hpf (5-10)
[2018-08-05 15:46] LABS: Color, Urine Yellow (Yellow); Glucose, Dipstick Normal (Normal); Ketone-Dipstick 15 mg/dl (Negative); Leukocyte Esterase-Dipstick 100 /ul (Negative); Nitrite-Dipstick Negative (Negative); Occult Blood-Urine 25 /ul (Negative); Protein-Dipstick 30 mg/dl (Negative); Urine Bilirubin Dipstick Negative (Negative); Urine Clarity Cloudy (Clear); Urine Urobilinogen Normal (Normal)
[2018-08-05 15:56] LABS: Bacteria 4+ /hpf (None Seen); Red Blood Cells-Urine 0-5 SEEN /hpf (0-5); White Blood Cells 0-5 SEEN /hpf (0-5)
--- NOTE | 2018-08-05 16:08 | ED.RN ---
DR AWARE PT NOT ABLE TO DRINK MORE CT CONTRAST D/T HEARTBURN, STATES NAUSEA IS BETTER. STATES OK TO CONTINUE W/CT SCAN WITH HOWEVER MUCH CONTRAST THE PT CAN DRINK. CT NOTIFIED
--- NOTE | 2018-08-05 17:26 | ED.RN ---
DR NOTIFIED OF CONTINUED VOMITING, ABD PAIN AND ELEVATED BP. NEW ORDERS PLACED. WILL MONITOR
[2018-08-05] MEDS: HYDROmorphone 1 MG/ML Syringe IV ×2 (17:35→20:13)
[2018-08-05] MEDS: Metoclopramide 10 MG/2 ML Vial 5 MG IV (17:35)
[2018-08-05] MEDS: Lidocaine 4% 5 ML Ampul 2 ML INHALATION (18:25)
--- NOTE | 2018-08-05 18:45 | RAD_ITS ---
STUDY: X-RAY - ABDOMEN/PELVIS REASON FOR EXAM: Female, 68 years old. Due to placement TECHNIQUE: Single AP view of the abdomen / pelvis. COMPARISON: 06/11 2017 chest x-ray FINDINGS: Limited study of the mid abdomen is provided. There is an NG tube present the tip is in the stomach. There is an extensive thoracolumbar spine fusion. RAD/Abdomen Single View (Portable) IMPRESSION: NG tube in satisfactory position. Electronically Signed: Jyothi Almanza MD at 19:23 EDT Tel , Service support ,
--- NOTE | 2018-08-05 19:56 | CON.PCM_ITS ---
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 She reported that she felt like there is a knot in her epigastric region. Patient has been scheduled for small bowel surgery with Dr. Dunne at [facility] because of a small bowel obstruction. Her surgery is next 08/12/2018. At the emergency department, [facility] was contacted. However because there was no room available patient was admitted to the hospital. Patient was admitted to surgery service. Internal medicine is following for management of chronic medical condition. Past Medical History Past Medical History (Chronic Problems): Chronic Problems (Last Reviewed 08/05/18 @ 22:43 by Naresh Roca MD) Edema (Chronic) Hyperlipidemia (Chronic) Atherosclerosis of [place] coronary artery of [place] heart without angina pectoris (Chronic) Chronic pain syndrome (Chronic) Noncompliance with CPAP treatment (Chronic) Morbid obesity (Chronic) Depression (Chronic) Dyslipidemia (Chronic) Fibromyalgia (Chronic) Multinodular goiter (Chronic) Obstructive sleep apnea (Chronic) Recurrent falls (Chronic) Diabetes mellitus type 2 in obese (Chronic) Hypertension (Chronic) Medical History: Medical History (Last Reviewed 08/06/18 @ 01:12 by Naresh Roca MD) Edema (Chronic) R60.9 Hyperlipidemia (Chronic) E78.5 Atherosclerosis of [place] coronary artery of [place] heart without angina pectori s (Chronic) I25.10 Hypophosphatemia (Acute) E83.39 Chronic pain syndrome (Chronic) G89.4 Eosinophilia (Acute) D72.1 Hypomagnesemia (Acute) E83.42 Severe sepsis (Acute) A41.9, R65.20 Septic shock (Ruled-out) A41.9, R65.21 Acute renal failure (Acute) N17.9 Urinary tract infection (Acute) N39.0 Toxic encephalopathy (Acute) G92 Hyperammonemia (Acute) E72.20 Noncompliance with CPAP treatment (Chronic) Z91.14 Morbid obesity (Chronic) E66.01 Depression (Chronic) F32.9 Dyslipidemia (Chronic) E78.5 Fibromyalgia (Chronic) M79.7 Multinodular goiter (Chronic) E04.2 Obstructive sleep apnea (Chronic) G47.33 Recurrent falls (Chronic) R29.6 Diabetes mellitus type 2 in obese (Chronic) E11.69, E66.9 Hypertension (Chronic) I10 Gastric cancer (Resolved) C16.9 Allergies fentanyl Adverse Reaction (Verified 08/05/18 13:38) MAKES ME SHAKE oxycodone [From Percocet] Adverse Reaction (Verified 08/05/18 13:38) MAKES ME SHAKE thiopental Adverse Reaction (Verified 08/05/18 13:38) MAKES ME SHAKE Home Medications: Ambulatory Orders Medication Instructions Recorded Docusate Sodium [Colace] 100 mg PO BID 02/15/16 Dorzolamide HCL/Timolol [Cosopt 1 drp EACH EYE BID 02/15/16 Opth Drops] Duloxetine Hcl [Cymbalta] 60 mg PO DAILY 02/15/16 Polyethylene Glycol 3350 [Miralax] 17 gm PO DAILY 03/05/17 Atorvastatin Calcium [Lipitor] 40 mg PO QHS 05/19/17 hydrochlorothiazide 12.5 mg tablet 12.5 mg PO PRN PRN 09/02/17 Bupropion HCl [Bupropion Xl] 150 mg PO DAILY 03/31/18 Gabapentin [Neurontin] 300 mg PO BID 03/31/18 Magnesium Oxide 400 mg PO DAILY 03/31/18 Insulin Detemir [Levemir FlexPen] 20 units SC QHS #10 insuln.pen 04/01/18 Ferrous Sulfate 325 mg PO BIDCM 08/05/18 Omeprazole 20 mg PO BID 08/05/18 traZODone [Desyrel] 50 mg PO QHS 08/05/18 Surgical History: Surgical History (Last Reviewed 08/06/18 @ 01:12 by Naresh Roca MD) history of colectomy from colonoscopy perforation (Resolved) History of (Resolved) Z98.891 history open cholecystectomy (Resolved) History of gastrectomy (Resolved) Z90.3 Surgical History: cholecystectomy, hysterectomy, - - Subtotal gastrectomy for gastric cancer. She has a cervical fusion and Jefferson rods that and most of her thoracic and lumbosacral spine. Smoking Status: Former smoker Alcohol: None - *Family History Maternal Family History: Family History (Last Reviewed 08/06/18 @ 01:12 by Naresh Roca MD) Mother Diabetes Father Diabetes Heart disease History Items: Diabetes, - Paternal Family History: Family History (Last Reviewed 08/06/18 @ 01:12 by Naresh Roca MD) Mother Diabetes Father Diabetes Heart disease History Items: Diabetes - no kidney disease Review of Systems Constitutional: Denies: Chills, Fever, Weight Change HEENT: Denies: Head Aches, Sinus Congestion, Sinus Drainage Cardiovascular: Denies: Chest Pain, Palpitations Respiratory: Denies: Cough, Shortness of breath at rest, Sputum production Gastrointestinal: Reports: Abdominal Pain, Nausea, Vomiting Genitourinary: Denies: Dysuria Musculoskeletal: Denies: Joint Pain, Joint Tenderness Skin: Denies: Rash, Wounds Neurological: Denies: Numbness, Tingling, Focal weakness Psychiatric: Denies: Anxiety, Depression, Homicidal Ideations, Suicidal Ideations Hematologic/ Lymphatic: Denies: Easy Bruising, Easy Bleeding Patient Problems: Active and Suspected Problems (Last Reviewed 08/05/18 @ 22:43 by Naresh Roca MD) Acute pancreatitis (Acute) Abdominal pain (Acute) SBO (small bowel obstruction) (Acute) - Physical Exam General: Alert, Oriented x3, Cooperative HEENT: Atraumatic, PERRLA, EOMI, Normocephalic Neck: Supple, No JVD, Negative Carotid Bruits Lungs: Clear to auscultation, Normal air movement Cardiovascular: Regular rate, No murmurs Abdomen: Bowel Sounds Present, Soft, Hypoactive Bowel Sounds, Tender - Epigastric area Extremities: No edema, Capillary Refill Less than 3 Seconds Skin: No rashes, No breakdown Musculoskeletal: No Tenderness to Palpation of Joints or Extremities Neurological: Cranial nerves II-XII grossly intact Psych/Mental Status: Normal Affect, Appropriate Vital Signs Temp Pulse Resp BP Pulse Ox 97.5 F L 116 H 22 H 149/105 H 94 08/05/18 13:36 08/05/18 18:25 08/05/18 18:25 08/05/18 18:10 08/05/18 18:10 Oxygen Delivery Method Room Air Weight: 69.4 kg Body Mass Index (BMI) 23.2 Finger Stick Blood Glucose 35 Laboratory Tests Past 24 Hrs 08/05/18 08/05/18 08/05/18 14:10 14:10 15:30 WBC 10.2 RBC 4.55 Hgb 14.2 Hct 40.7 MCV 89.5 MCH 31.2 MCHC 34.9 RDW 13.7 RDW Differential 44.9 H Plt Count 471 H MPV 8.3 Immature Gran % (Auto) 1.500 H Neut % (Auto) 65.3 Lymph % (Auto) 22.2 [place] % (Auto) 8.3 Eos % (Auto) 2.1 Baso % (Auto) 0.6 Absolute Neuts (auto) 6.6 Absolute Lymphs (auto) 2.25 Total Counted Not Reportable Sodium 134 L Potassium 3.4 L Chloride 99 Carbon Dioxide 25.0 Anion Gap 10 BUN 17 Creatinine 0.59 Estim Creat Clear Calc 55.82 Est GFR (MDRD) Af Amer 132 Est GFR (MDRD) Non-Af 109 BUN/Creatinine Ratio 29.0 H Glucose 186 H Calcium 9.2 Total Bilirubin 0.40 AST 28 ALT 25 Alkaline Phosphatase 89 Total Protein 6.9 Albumin 3.3 Globulin 3.6 Albumin/Globulin Ratio 0.9 Lipase 1633 H Urine Color Yellow Urine Clarity Cloudy Urine pH 7.0 Ur Specific [place] 1.020 Urine Protein 30 H Urine Glucose (UA) Normal Urine Ketones 15 H Urine Occult Blood 25 H Urine Nitrite Negative Urine Bilirubin Negative Urine Urobilinogen Normal Ur Leukocyte Esterase 100 H Urine RBC 0-5 SEEN Urine WBC 0-5 SEEN Ur Squamous Epith Cells 0 SEEN Urine Bacteria 4+ Urine Mucus 0 SEEN Assessment/Plan All Active Problems (Last Reviewed 08/05/18 @ 22:43 by Naresh Roca MD) Acute pancreatitis (Acute) Abdominal pain (Acute) SBO (small bowel obstruction) (Acute) history of colectomy from colonoscopy perforation (Resolved) History of (Resolved) history open cholecystectomy (Resolved) History of gastrectomy (Resolved) Hypophosphatemia (Acute) Eosinophilia (Acute) Hypomagnesemia (Acute) Severe sepsis (Acute) Septic shock (Ruled-out) Acute renal failure (Acute) Urinary tract infection (Acute) Toxic encephalopathy (Acute) Hyperammonemia (Acute) Gastric cancer (Resolved) The patient is a 68 year old F with a significant history of cancer of lining of the stomach status post 80% resection of stomach; small bowel obstruction status post intestinal surgery; diabetes mellitus; and hypertension who presented with 1 day history of excruciating epigastric pain that radiates to her back; and with a scheduled surgery for small bowel obstruction at the [facility] but found to have elevated lipase on presentation consistent with acute pancreatitis. Acute pancreatitis Patient with elevated lipase on presentation Patient with a history of open cholecystectomy We will check lipid level. Received normal saline bolus in the emergency department. Will increase current IV fluids from lactated Ringer's 75 MLS per hour to 150 mL's per hour. Continue Zofran as needed Morphine as needed ordered for pain. Small bowel obstruction NG tube placed in the ED. General surgery is following. N.p.o. with ice chips ordered. Patient is awaiting bed at [facility]. Hypertension On presentation her blood pressure was not within goal. We will hold all p.o. meds. As such we will hold his home hydrochlorothiazide. Put on Vasotec IV. Trend blood pressure and adjust blood pressure medication Insomnia Home trazodone held PRN Ativan nightly ordered. Diabetes mellitus On presentation his blood glucose was not within goal. However patient is n.p.o. for now. Will cutdown her home long-acting insulin. And will add correction scale insulin. Reportedly she takes metformin at home. Hold metformin. Accu-Chek every 6 hours. DVT prophylaxis Subcutaneous heparin. Thank you for consulting internal medicine service. Will continue to follow. Code Visit Inpatient E&M: 87538 Init Hosp L3
[2018-08-05] MEDS: 0.9% Normal Saline 1,000 ML 125 ML IV (19:57)
--- NOTE | 2018-08-05 19:57 | HP.PCM_ITS ---
Problem List (1) Abdominal pain Status: Acute Qualifiers: Abdominal location: upper abdomen, unspecified Qualified Code(s): R10.10 - Upper abdominal pain, unspecified History of Present Illness Date of Admission: 08/05/18 The patient is a 68 F who presents with abdominal pain that began yesterday. Patient states the pain is over the epigastric area. Patient states it feels like there is a knot in her abdomen. Patient admits to nausea but denies any vomiting. Patient denies any diarrhea, melena, or hematochezia. Patient denies any dysuria, hematuria, urgency, or frequency. Patient states nothing makes the pain better or worse. Patient states she is scheduled for surgery at [facility] [place] next week with Dr. Dunne. Patient states she had partial gastric resection and states there is a blockage at the anastomosis with her small intestine. CT scan of the abdomen was obtained: MPRESSION: There is a very abnormally distended appearance of the remaining duodenal loop status post gastrectomy to 5.6 cm., Worse than prior study There is moderate to severe intra and extrahepatic ductal dilatation. Findings are consistent with an obstruction of this duodenal loop which may be related to mucosal thickening stricture adhesion. There is also thickening of the distal stomach at the gastrojejunostomy which may represent gastritis or potentially neoplastic involvement. There is a abnormally distended appearance of the distal esophagus. Postoperative changes in the sigmoid thickened appearance of the distal descending colon consistent with colitis. Status post hysterectomy appendectomy cholecystectomy lumbar spine fusion. The [facility] has accepted this patient and when beds become available they are going to take her in transfer. Past Medical History Past Medical History (Chronic Problems): Chronic Problems (Last Reviewed 07/20/18 @ 07:52 by Patty Cervantes) Edema (Chronic) Hyperlipidemia (Chronic) Atherosclerosis of [place] coronary artery of [place] heart without angina pectoris (Chronic) Chronic pain syndrome (Chronic) Noncompliance with CPAP treatment (Chronic) Morbid obesity (Chronic) Depression (Chronic) Dyslipidemia (Chronic) Fibromyalgia (Chronic) Multinodular goiter (Chronic) Obstructive sleep apnea (Chronic) Recurrent falls (Chronic) Diabetes mellitus type 2 in obese (Chronic) Hypertension (Chronic) Medical History: Medical History (Last Reviewed 08/05/18 @ 19:59 by Brooks Fisher MD) Edema (Chronic) R60.9 Hyperlipidemia (Chronic) E78.5 Atherosclerosis of [place] coronary artery of [place] heart without angina pectoris (Chronic) I25.10 Hypophosphatemia (Acute) E83.39 Chronic pain syndrome (Chronic) G89.4 Eosinophilia (Acute) D72.1 Hypomagnesemia (Acute) E83.42 Severe sepsis (Acute) A41.9, R65.20 Septic shock (Ruled-out) A41.9, R65.21 Acute renal failure (Acute) N17.9 Urinary tract infection (Acute) N39.0 Toxic encephalopathy (Acute) G92 Hyperammonemia (Acute) E72.20 Noncompliance with CPAP treatment (Chronic) Z91.14 Morbid obesity (Chronic) E66.01 Depression (Chronic) F32.9 Dyslipidemia (Chronic) E78.5 Fibromyalgia (Chronic) M79.7 Multinodular goiter (Chronic) E04.2 Obstructive sleep apnea (Chronic) G47.33 Recurrent falls (Chronic) R29.6 Diabetes mellitus type 2 in obese (Chronic) E11.69, E66.9 Hypertension (Chronic) I10 Gastric cancer (Resolved) C16.9 Allergies fentanyl Adverse Reaction (Verified 08/05/18 13:38) MAKES ME SHAKE oxycodone [From Percocet] Adverse Reaction (Verified 08/05/18 13:38) MAKES ME SHAKE thiopental Adverse Reaction (Verified 08/05/18 13:38) MAKES ME SHAKE Home Medications: Ambulatory Orders Medication Instructions Recorded Docusate Sodium [Colace] 100 mg PO BID 02/15/16 Dorzolamide HCL/Timolol [Cosopt 1 drp EACH EYE BID 02/15/16 Opth Drops] Duloxetine Hcl [Cymbalta] 60 mg PO DAILY 02/15/16 Polyethylene Glycol 3350 [Miralax] 17 gm PO DAILY 03/05/17 Atorvastatin Calcium [Lipitor] 40 mg PO QHS 05/19/17 hydrochlorothiazide 12.5 mg tablet 12.5 mg PO PRN PRN 09/02/17 Bupropion HCl [Bupropion Xl] 150 mg PO DAILY 03/31/18 Gabapentin [Neurontin] 300 mg PO BID 03/31/18 Magnesium Oxide 400 mg PO DAILY 03/31/18 Insulin Detemir [Levemir FlexPen] 20 units SC QHS #10 insuln.pen 04/01/18 Ferrous Sulfate 325 mg PO BIDCM 08/05/18 Omeprazole 20 mg PO BID 08/05/18 traZODone [Desyrel] 50 mg PO QHS 08/05/18 Surgical History: Surgical History (Last Reviewed 08/05/18 @ 19:59 by Brooks Fisher MD) history of colectomy from colonoscopy perforation (Resolved) History of (Resolved) Z98.891 history open cholecystectomy (Resolved) History of gastrectomy (Resolved) Z90.3 Surgical History: cholecystectomy, hysterectomy, - - Subtotal gastrectomy for gastric cancer. She has a cervical fusion and Jefferson rods that and most of her thoracic and lumbosacral spine. Smoking Status: Former smoker - *Family History Maternal Family History: Family History (Last Reviewed 08/05/18 @ 20:00 by Brooks Fisher MD) Mother Diabetes Father Diabetes Heart disease History Items: Diabetes, - Paternal Family History: Family History (Last Reviewed 08/05/18 @ 20:00 by Brooks Fisher MD) Mother Diabetes Father Diabetes Heart disease History Items: Diabetes - no kidney disease Review of Systems Constitutional: Denies: Chills, Fever, Weight Change Cardiovascular: Denies: Chest Pain, Chest Pressure, Chest Tightness, Palpitations Respiratory: Denies: Cough, Hemoptysis, Shortness of breath at rest, Shortness of breath upon exertion, Wheezing Gastrointestinal: Reports: Abdominal Pain, Nausea. Denies: Vomiting Genitourinary: Denies: Dysuria, Frequency, Hematuria, Urgency VTE Information - Inpt Only VTE Present on Admission: No VTE Mechan Device Prophylaxis: SCD's VTE Pharm Prophylaxis ordered?: No Reason prophylaxis not ordered:: Treatment Not Indicated Patient Problems: Active and Suspected Problems (Last Reviewed 07/20/18 @ 07:52 by Patty Cervantes) Acute pancreatitis (Acute) Abdominal pain (Acute) - Physical Exam General: Alert, Oriented x3 Oral: Dry Mucosa Neck: Supple, No JVD Cardiovascular: Regular rate, Regular Rhythm, No murmurs Abdomen: Bowel Sounds Present, Tender - Patient does not have any rebound guarding or peritoneal signs. Her abdomen is soft. Extremities: No clubbing, No cyanosis, No edema Skin: No rashes, No breakdown Vital Signs Temp Pulse Resp BP Pulse Ox 97.5 F L 116 H 22 H 149/105 H 94 08/05/18 13:36 08/05/18 18:25 08/05/18 18:25 08/05/18 18:10 08/05/18 18:10 Oxygen Delivery Method Room Air Weight: 153 lb Body Mass Index (BMI) 23.2 Finger Stick Blood Glucose 35 Laboratory Tests Past 24 Hrs 08/05/18 08/05/18 08/05/18 14:10 14:10 15:30 WBC 10.2 RBC 4.55 Hgb 14.2 Hct 40.7 MCV 89.5 MCH 31.2 MCHC 34.9 RDW 13.7 RDW Differential 44.9 H Plt Count 471 H MPV 8.3 Immature Gran % (Auto) 1.500 H Neut % (Auto) 65.3 Lymph % (Auto) 22.2 [place] % (Auto) 8.3 Eos % (Auto) 2.1 Baso % (Auto) 0.6 Absolute Neuts (auto) 6.6 Absolute Lymphs (auto) 2.25 Total Counted Not Reportable Sodium 134 L Potassium 3.4 L Chloride 99 Carbon Dioxide 25.0 Anion Gap 10 BUN 17 Creatinine 0.59 Estim Creat Clear Calc 55.82 Est GFR (MDRD) Af Amer 132 Est GFR (MDRD) Non-Af 109 BUN/Creatinine Ratio 29.0 H Glucose 186 H Calcium 9.2 Total Bilirubin 0.40 AST 28 ALT 25 Alkaline Phosphatase 89 Total Protein 6.9 Albumin 3.3 Globulin 3.6 Albumin/Globulin Ratio 0.9 Lipase 1633 H Urine Color Yellow Urine Clarity Cloudy Urine pH 7.0 Ur Specific [place] 1.020 Urine Protein 30 H Urine Glucose (UA) Normal Urine Ketones 15 H Urine Occult Blood 25 H Urine Nitrite Negative Urine Bilirubin Negative Urine Urobilinogen Normal Ur Leukocyte Esterase 100 H Urine RBC 0-5 SEEN Urine WBC 0-5 SEEN Ur Squamous Epith Cells 0 SEEN Urine Bacteria 4+ Urine Mucus 0 SEEN Assessment/Plan All Active Problems (Last Reviewed 07/20/18 @ 07:52 by Patty Cervantes) Acute pancreatitis (Acute) Abdominal pain (Acute) history of colectomy from colonoscopy perforation (Resolved) History of (Resolved) history open cholecystectomy (Resolved) History of gastrectomy (Resolved) Hypophosphatemia (Acute) Eosinophilia (Acute) Hypomagnesemia (Acute) Severe sepsis (Acute) Septic shock (Ruled-out) Acute renal failure (Acute) Urinary tract infection (Acute) Toxic encephalopathy (Acute) Hyperammonemia (Acute) Gastric cancer (Resolved) Plan is to admit the patient. NG tube will be placed. Medicine has been consulted and will see the patient to handle medical chronic problems. Await for a bed at the [facility].
[2018-08-05] MEDS: Lactated Ringers 1,000 ML 150 ML IV (22:30)
[2018-08-05 22:55] LABS: Cholesterol 125 mg/dL (200); High Density Lipoprotein 56 mg/dL; Triglycerides 145 mg/dL; Very Low Density Lipoprotein 29 mg/dL (5-40)
[2018-08-05] MEDS: Enalaprilat 1.25 MG/ML Vial IV (23:30)
[2018-08-05 23:40] LABS: Bedside Glucose 146 mg/dL (70-110)
[2018-08-06 00:11] VITALS: PULSE 99
--- NOTE | 2018-08-06 00:20 | NURSING ---
Called report to Myriam GUERRA on [id number], at the [facility].
--- NOTE | 2018-08-06 01:26 | NURSING ---
Pt left with [facility] at this time, family is aware the pt was discharged and sent to [facility].
== END 2018-08-06 01:20 | disposition short-term general hospital (02) ==
LOC: ED 14:05 → MS3 20:25 → PCU 21:19
PROVIDERS: Hospitalist; Admitting Provider Surgery; Emergency Provider Emergency Medicine; Family Provider Physician Assistant; PCP Physician Assistant; Visit Provider Surgery
DX: K85.90 Acute pancreatitis without necrosis or infection, unspecified (principal); K56.609 Unspecified intestinal obstruction, unspecified as to partial versus complete obstruction; I10 Essential (primary) hypertension; E11.9 Type 2 diabetes mellitus without complications; G89.4 Chronic pain syndrome; E78.5 Hyperlipidemia, unspecified; I25.10 Atherosclerotic heart disease of native coronary artery without angina pectoris; F32.9 Major depressive disorder, single episode, unspecified; M79.7 Fibromyalgia; G47.33 Obstructive sleep apnea (adult) (pediatric); Z79.899 Other long term (current) drug therapy; Z79.4 Long term (current) use of insulin; Z91.19 Patient's noncompliance with other medical treatment and regimen; Z87.891 Personal history of nicotine dependence; Z90.49 Acquired absence of other specified parts of digestive tract; Z85.028 Personal history of other malignant neoplasm of stomach; Z98.1 Arthrodesis status
CPT/HCPCS: 74018; 74177; 80053; 80061; 81001; 82962; 83690; 85025; 94640; 96361; 96365; 96375; 96376; 99218; 99285; J7030; J7120; Q9967; A4216; G0378; J2405

== ENCOUNTER 2018-08-19 18:27 | Emergency (ER) | payer MEDICARE, MEDICAID, SELFPAY ==
[2018-08-05 21:39] VITALS: BMI 24.6
[2018-08-19 18:29] VITALS: BP 104/57; PULSE 112; RESP 18; TEMP 37.1; O2SAT 95; BMI 24.3
--- NOTE | 2018-08-19 18:51 | ED.DCSUM_ITS ---
- ER Visit Summary Date of Service: 08/19/18 Chief Complaint: Wound check History of Present Illness: The patient is a 68 F who presents the emergency department with her family. They are concerned she may have an infection around her feeding tube site. They no drainage. They state that they were just at oncology office. They note a yellowish drainage from around the feeding tube site and some redness and warmth. The feeding tube was placed 13 days ago in [place]. Stitches are still in place. She has an appointment on Wednesday. She is currently taking Bactrim. Physical Examination: Afebrile vital signs are stable There is some mild erythema around the feeding tube site. Is very similar to the erythema around the anabel that are in the midline from her surgical incision heard around the feeding tube is a yellowish thick drainage. I do not appreciate increased warmth. Emergency Department Course and Treatment: A sample of the drainage was obtained will be sent for culture. I will add in Cipro to provide some gram-negative coverage. My initial instinct that this is normal healing. We will await culture. Patient has follow-up on Wednesday with her surgeon. Impression: 1. Postoperative wound check This note was generated with [employer] dictation software. It may contain incorrect words, spelling, and punctuation that were not noted in review of the chart prior to signing ED Disposition - Plan for ED Patient: Disposition: Home or Assisted Living Instructions: ED Wound Infec After Surgery Prescriptions: Ciprofloxacin [Cipro] 500 mg PO BID #10 tab Additional Instructions: Follow-up with your surgeon as scheduled on Wednesday
--- NOTE | 2018-08-19 19:18 | HP.PCM_ITS ---
History of Present Illness The patient is a 68 year old F [] Past Medical History Past Medical History (Chronic Problems): Chronic Problems (Last Reviewed 08/06/18 @ 01:12 by Naresh Roca MD) Edema (Chronic) Hyperlipidemia (Chronic) Atherosclerosis of [place] coronary artery of [place] heart without angina pectoris (Chronic) Chronic pain syndrome (Chronic) Noncompliance with CPAP treatment (Chronic) Morbid obesity (Chronic) Depression (Chronic) Dyslipidemia (Chronic) Fibromyalgia (Chronic) Multinodular goiter (Chronic) Obstructive sleep apnea (Chronic) Recurrent falls (Chronic) Diabetes mellitus type 2 in obese (Chronic) Hypertension (Chronic) Medical History: Medical History (Last Reviewed 08/06/18 @ 01:12 by Naresh Roca MD) Edema (Chronic) R60.9 Hyperlipidemia (Chronic) E78.5 Atherosclerosis of [place] coronary artery of [place] heart without angina pectoris (Chronic) I25.10 Hypophosphatemia (Acute) E83.39 Chronic pain syndrome (Chronic) G89.4 Eosinophilia (Acute) D72.1 Hypomagnesemia (Acute) E83.42 Severe sepsis (Acute) A41.9, R65.20 Septic shock (Ruled-out) A41.9, R65.21 Acute renal failure (Acute) N17.9 Urinary tract infection (Acute) N39.0 Toxic encephalopathy (Acute) G92 Hyperammonemia (Acute) E72.20 Noncompliance with CPAP treatment (Chronic) Z91.14 Morbid obesity (Chronic) E66.01 Depression (Chronic) F32.9 Dyslipidemia (Chronic) E78.5 Fibromyalgia (Chronic) M79.7 Multinodular goiter (Chronic) E04.2 Obstructive sleep apnea (Chronic) G47.33 Recurrent falls (Chronic) R29.6 Diabetes mellitus type 2 in obese (Chronic) E11.69, E66.9 Hypertension (Chronic) I10 Gastric cancer (Resolved) C16.9 Allergies fentanyl Adverse Reaction (Verified 08/19/18 18:29) MAKES ME SHAKE oxycodone [From Percocet] Adverse Reaction (Verified 08/19/18 18:29) MAKES ME SHAKE thiopental Adverse Reaction (Verified 08/19/18 18:29) MAKES ME SHAKE Home Medications: Ambulatory Orders Medication Instructions Recorded Docusate Sodium [Colace] 100 mg PO BID 02/15/16 Dorzolamide HCL/Timolol [Cosopt 1 drp EACH EYE BID 02/15/16 Opth Drops] Duloxetine Hcl [Cymbalta] 60 mg PO DAILY 02/15/16 Polyethylene Glycol 3350 [Miralax] 17 gm PO DAILY 03/05/17 Atorvastatin Calcium [Lipitor] 40 mg PO QHS 05/19/17 hydrochlorothiazide 12.5 mg tablet 12.5 mg PO PRN PRN 09/02/17 Bupropion HCl [Bupropion Xl] 150 mg PO DAILY 03/31/18 Gabapentin [Neurontin] 300 mg PO BID 03/31/18 Magnesium Oxide 400 mg PO DAILY 03/31/18 Insulin Detemir [Levemir FlexPen] 20 units SC QHS #10 insuln.pen 04/01/18 Ferrous Sulfate 325 mg PO BIDCM 08/05/18 Omeprazole 20 mg PO BID 08/05/18 traZODone [Desyrel] 50 mg PO QHS 08/05/18 Ciprofloxacin [Cipro] 500 mg PO BID #10 tab 08/19/18 Surgical History: Surgical History (Last Reviewed 08/06/18 @ 01:12 by Naresh Roca MD) history of colectomy from colonoscopy perforation (Resolved) History of (Resolved) Z98.891 history open cholecystectomy (Resolved) History of gastrectomy (Resolved) Z90.3 Surgical History: cholecystectomy, hysterectomy, - - Subtotal gastrectomy for gastric cancer. She has a cervical fusion and Jefferson rods that and most of her thoracic and lumbosacral spine. Smoking Status: Former smoker - *Family History Maternal Family History: Family History (Last Reviewed 08/06/18 @ 01:12 by Naresh Roca MD) Mother Diabetes Father Diabetes Heart disease History Items: Diabetes, - Paternal Family History: Family History (Last Reviewed 08/06/18 @ 01:12 by Naresh Roca MD) Mother Diabetes Father Diabetes Heart disease History Items: Diabetes - no kidney disease - Physical Exam Vital Signs Temp Pulse Resp BP Pulse Ox 98.7 F 112 H 18 104/57 L 95 08/19/18 18:29 08/19/18 18:29 08/19/18 18:29 08/19/18 18:29 08/19/18 18:29 Oxygen Delivery Method Room Air Weight: 72.575 kg Body Mass Index (BMI) 24.3 Finger Stick Blood Glucose 35 Assessment/Plan All Active Problems (Last Reviewed 08/06/18 @ 01:12 by Naresh Roca MD) Acute pancreatitis (Acute) Abdominal pain (Acute) SBO (small bowel obstruction) (Acute) history of colectomy from colonoscopy perforation (Resolved) History of (Resolved) history open cholecystectomy (Resolved) History of gastrectomy (Resolved) Hypophosphatemia (Acute) Eosinophilia (Acute) Hypomagnesemia (Acute) Severe sepsis (Acute) Septic shock (Ruled-out) Acute renal failure (Acute) Urinary tract infection (Acute) Toxic encephalopathy (Acute) Hyperammonemia (Acute) Gastric cancer (Resolved)
== END 2018-08-19 19:18 | disposition home or self-care (01) ==
PROVIDERS: Emergency Provider Emergency Medicine; Family Provider Physician Assistant; PCP Physician Assistant
DX: Z46.59 Encounter for fitting and adjustment of other gastrointestinal appliance and device (principal); E11.9 Type 2 diabetes mellitus without complications; I10 Essential (primary) hypertension; Z79.4 Long term (current) use of insulin; Z79.899 Other long term (current) drug therapy; Z87.891 Personal history of nicotine dependence
CPT/HCPCS: 87070; 87077; 87186; 87205; 99283

== ENCOUNTER 2018-08-24 13:22 | Day surgery (SDC) | payer MEDICARE, MEDICAID, SELFPAY ==
[2018-08-23 13:21] VITALS: BMI 24.6
[2018-08-24] VITALS (8 sets, daily range): BP systolic 114–119; BP diastolic 60–73; PULSE 87–94; RESP 14–16; TEMP 36.3–36.8; O2SAT 94–98; BMI 25.2
--- NOTE | 2018-08-24 06:17 | PCM.HP.BLA ---
Problem List (1) Gastric cancer Status: Resolved Qualifiers: History and Physical Date of Admission: 08/24/18 Intake Vital Signs 08/23/18 Body Mass Index (BMI) 24.6 08/23/18 Blood Pressure 125/81 08/23/18 Height 5 ft 8 in 08/23/18 Weight: 162 lb 08/23/18 Body Mass Index (BMI) 24.6 08/23/18 Blood Pressure 125/81 H 08/23/18 Blood Pressure Location Rt brachial 08/23/18 Blood Pressure Position Sitting 08/23/18 Respiratory Rate 14 08/23/18 Pulse Rate 100 08/23/18 Pulse Source Monitor 08/23/18 Temperature 98.2 F 08/23/18 Temperature Source Oral 08/23/18 Pulse Ox 94 08/23/18 Oxygen Delivery Method room air Intake Visit Reasons: port placement Chief Complaint: Abd pain N/V Is patient in pain?: Yes (LLQ/ back) Pain scale (1-10): 2 Allergies fentanyl Adverse Reaction (Verified 08/23/18 13:19) MAKES ME SHAKE oxycodone [From Percocet] Adverse Reaction (Verified 08/23/18 13:19) MAKES ME SHAKE thiopental Adverse Reaction (Verified 08/23/18 13:19) MAKES ME SHAKE Medications Docusate Sodium [Colace] 100 mg PO BID 02/15/16 [History Confirmed 08/23/18] Dorzolamide HCL/Timolol [Cosopt Opth Drops] 1 drp EACH EYE BID 02/15/16 [History Confirmed 08/23/18] Duloxetine Hcl [Cymbalta] 60 mg PO DAILY 02/15/16 [History Confirmed 08/23/18] Polyethylene Glycol 3350 [Miralax] 17 gm PO DAILY 03/05/17 [History Confirmed 08/23/18] Atorvastatin Calcium [Lipitor] 40 mg PO QHS 05/19/17 [History Confirmed 08/23/18] hydrochlorothiazide 12.5 mg tablet 12.5 mg PO PRN PRN 09/02/17 [History Confirmed 08/23/18] Bupropion HCl [Bupropion Xl] 150 mg PO DAILY 03/31/18 [History Confirmed 08/23/18] Gabapentin [Neurontin] 300 mg PO BID 03/31/18 [History Confirmed 08/23/18] Magnesium Oxide 400 mg PO DAILY 03/31/18 [History Confirmed 08/23/18] Insulin Detemir [Levemir FlexPen] 20 units SUBCUT QHS #10 insuln.pen 04/01/18 [Rx Confirmed 08/23/18] Ferrous Sulfate 325 mg PO BIDCM 08/05/18 [History Confirmed 08/23/18] Omeprazole 20 mg PO BID 08/05/18 [History Confirmed 08/23/18] traZODone [Desyrel] 50 mg PO QHS 08/05/18 [History Confirmed 08/23/18] Ciprofloxacin [Cipro] 500 mg PO BID #10 tab 08/19/18 [Rx Confirmed 08/23/18] COUNT INCLUDES THE [facility] Medical History GERD (gastroesophageal reflux disease) (Acute) Edema (Chronic) Hyperlipidemia (Chronic) Atherosclerosis of [place] coronary artery of [place] heart without angina pectoris (Chronic) Hypophosphatemia (Acute) Chronic pain syndrome (Chronic) Eosinophilia (Acute) Hypomagnesemia (Acute) Severe sepsis (Acute) Septic shock (Ruled-out) Acute renal failure (Acute) Urinary tract infection (Acute) Toxic encephalopathy (Acute) Hyperammonemia (Acute) Noncompliance with CPAP treatment (Chronic) Morbid obesity (Chronic) Depression (Chronic) Dyslipidemia (Chronic) Fibromyalgia (Chronic) Multinodular goiter (Chronic) Obstructive sleep apnea (Chronic) Recurrent falls (Chronic) Diabetes mellitus type 2 in obese (Chronic) Hypertension (Chronic) Gastric cancer (Resolved) Surgical History S/P jejunostomy (Acute) history of colectomy from colonoscopy perforation (Resolved) History of (Resolved) history open cholecystectomy (Resolved) History of gastrectomy (Resolved) Family History Mother Diabetes Father Diabetes Heart disease Social History Smoking Status: Former smoker alcohol intake: current alcohol intake frequency: a few times a month substance use type: does not use caffeine: Yes Type: tea HPI HPI HPI: LIDIA LORA, is a 68 F who presents to the office today for HPI HPI Surgical H&P: Yes HPI: LIDIA LORA, is a 68 F who presents to the office today for replacement of a port to facilitate chemotherapy for the management of recurrent gastric cancer. The patient kindly was referred back to me by Dr. Emir Grant. It is of note that on July 20, 2018 I removed her left internal jugular port. She had a dense fibrin sheath and I had to create a counterincision in order to safely remove the tubing. It is of note that I placed the port for her April 2016. She had had 3 previous low right neck incisions from spinal procedures. At that time I elected to place the port on the left. Her port functioned well until removal. As noted however upon removal of the port it did act like there was a dense fibrin sheath. she has just recently been detected again is having recurrent cancer ROS General General: Yes fatigue; no weight change, appetite, colon cancer, breast cancer or weakness HEENT HEENT: Yes difficulty swallowing; no eye injury, eye surgery, swollen glands or hoarseness Endo Endocrine: Yes diabetes mellitus; no thyroid disease, thyroid cancer, Hair loss, heat intolerance or cold intolerance Skin Skin: No rash or changing moles Breast Breast: No left breast lump, right breast lump, nipple discharge, breast pain, abnormal mammogram, abnormal US or breast enlargement Musc Musculoskeletal: Yes back problems and arthritis; no rheumatoid arthritis, gout or joint pain Cardio Cardiovascular: Yes high blood pressure; no murmur, pacemaker, heart disease, atrial fibrillation, heart attack, heart stent, palpitations, shortness of breat with exertion or chest pain Psych Psychiatric: Yes depression and anxiety; no hearing voices Resp Respiratory: No shortness of breath, Yes sleep apnea, No cough, No COPD, Yes asthma, No emphysema, No wheezing Gastro Gastrointestinal: No abdominal pain, Yes nausea or vomiting, No diarrhea, No constipation, No blood in stool, Yes acid reflux, No hemorrhoids, No ulcers, No gallbladder problem, No black,tarry stools Robert Hematologic: No blood thinners, No blood disorders, No bleeding, No anemia, No blood clots Neuro Neurologic: No weakness Exam Const General: cooperative, other (Sitting in a wheelchair) Nutritional Appearance: average body habitus [facility] Head: normal to inspection, other (Left eye lateral deviation) Chest Breast Palpation: No nipple discharge Resp Effort & Inspection: normal respiratory effort Auscultation: clear to auscultation bilaterally Cardio Rhythm: regular rhythm Heart Sounds: no murmurs GI Other: Feeding tube in place Neuro Cognition: normal cognition Extrem General: edema Laterality: bilateral Psych Affect: normal affect Assessment & Plan Problems 1. Malignant neoplasm of stomach, unspecified location C16.9 Plan Recurrent gastric cancer. Recently performed exploratory laparotomy with lysis of adhesions and duodenal jejunostomy and gastrojejunostomy and tube jejunostomy. There is recurrent cancer at the base of the mesentery Ulcer the patient repeat attempted a left internal jugular port placement. She is aware of the technique, benefit, risk and alternatives. She has had an opportunity to ask and have questions answered. If not successful then anticipate a left subclavian approach. We will schedule and expedite her care. I very much appreciate the ongoing opportunity of assisting with her surgical management. We will expedite her management by scheduling her for tomorrow. I very much appreciate the kind repeat referral by Dr. Emir Grant. The patient and her seem pleased for me to continue to manage her surgical options. CC: Dr. Emir Bledsoe M.D., F.A.C.S. Coding Level of Care Code Attention Bhavna Exam Problem Focused Diagnoses Malignant neoplasm of stomach, unspecified location C16.9 ??Malignant neoplasm of stomach location: unspecified location Comment Unrelated consult ? during post op period Consult detailed 08/23/18 1341 <Electronically signed by Tee Bledsoe MD> Date Tee Bledsoe MD Cosigner Signature: Date (if applicable) CC: Shanta Welsh; Emir Grant DO ~ I have re-examined the patient. There are no clinical changes since date of exam.
[2018-08-24 14:11] LABS: Bedside Glucose 101 mg/dL (70-110)
--- NOTE | 2018-08-24 15:32 | RAD_ITS ---
STUDY: X-RAY CHEST REASON FOR EXAM: Female, 68 years old. Chest pain TECHNIQUE: Frontal view of the chest COMPARISON: X-Ray Chest June 11, 2017 FINDINGS: There is a left chest tunneled catheter with the tip at the cavoatrial junction. The lungs are clear. There are no pleural effusions. There is no pneumothorax. The heart is normal in size. The visualized osseous structures are within normal limits. Spinal fusion rods are present. Cervical stabilization present. RAD/Chest 1 View (Portable) IMPRESSION: No acute thoracic pathology. Left chest port placement with tip at the cavoatrial junction. Electronically Signed: Fabio Alanis, at 17:51 EDT Tel , Service support ,
--- NOTE | 2018-08-24 15:33 | DCINST_ITS ---
Discharge Diet: No Restrictions - Pain medication may cause nausea. You should typically eat light foods as you take your pain medication. Discharge Activity: Return to Normal Activity, May Shower - Leave the bandage on for 2-3 days. When you remove the bandage, leave the steri-strips intact until they fall off. Additional Dressing/Incision Instructions:: Leave the bandage on for 2-3 days. When you remove the bandage, leave the steri-strips intact until they fall off. Allergies/Adverse Reactions: Allergies fentanyl Adverse Reaction (Verified 08/23/18 15:31) MAKES ME SHAKE oxycodone [From Percocet] Adverse Reaction (Verified 08/23/18 15:31) MAKES ME SHAKE thiopental Adverse Reaction (Verified 08/23/18 15:31) MAKES ME SHAKE Medications to take at Discharge Docusate Sodium [Colace] 100 mg PO BID 02/15/16 Dorzolamide HCL/Timolol [Cosopt Opth Drops] 1 drp EACH EYE BID 02/15/16 Duloxetine Hcl [Cymbalta] 60 mg PO DAILY 02/15/16 Polyethylene Glycol 3350 [Miralax] 17 gm PO DAILY 03/05/17 Atorvastatin Calcium [Lipitor] 40 mg PO QHS 05/19/17 hydrochlorothiazide 12.5 mg tablet 12.5 mg PO PRN PRN 09/02/17 Bupropion HCl [Bupropion Xl] 150 mg PO DAILY 03/31/18 Gabapentin [Neurontin] 300 mg PO BID 03/31/18 Magnesium Oxide 400 mg PO DAILY 03/31/18 Insulin Detemir [Levemir FlexPen] 20 units SUBCUT QHS #10 insuln.pen 04/01/18 Ferrous Sulfate 325 mg PO BIDCM 08/05/18 Omeprazole 20 mg PO BID 08/05/18 traZODone [Desyrel] 50 mg PO QHS 08/05/18 Albuterol Inhaler [Ventolin Hfa (SP)] 1 - 2 puff INHALATION Q4H PRN PRN 08/23/18 Metoprolol Tartrate [Lopressor (Beta Aditya)] 25 mg PO BID 08/23/18 Potassium Chloride 10 meq PO PRN PRN 08/23/18 metFORMIN HCl [Glucophage] 1,000 mg PO BIDCM 08/23/18 traMADol [Ultram (G)] 50 mg PO Q6H PRN PRN 08/23/18 Primary Care Physician: Shanta Welsh PA [Primary Care Provider] - Test Results: Test results from this visit will be discussed in further detail at your follow- up appointment, if applicable. Please Follow Up With: Tee Bledsoe MD - [phone] When: Please call the office for any difficulties
[2018-08-24] MEDS: Cefazolin 2 GM in 0.9% Normal Saline 100 ML IV (16:04)
[2018-08-24] MEDS: Bupivacaine Mpf 0.5% 30 ML VIAL (16:14)
--- NOTE | 2018-08-24 16:42 | PCM.OPRPT ---
Problem List (1) Gastric cancer Status: Resolved Qualifiers: Malignant neoplasm of stomach location: unspecified location Report of Operation Date of Procedure: 08/24/18 Pre-Operative Diagnosis: Recurrent gastric cancer Post-Operative Diagnosis: Same Surgery/Procedure Performed:: Left internal jugular 6 Citizen Of [place] power port placement. Reference #[id number].Lot number [id number]. Expiry date 08/20/2019 Description of Surgical Findings:: Timeout and informed consent was obtained. 68-year-old female taken out from placement table with monitored anesthesia care. Ancef 2 g given intravenous preoperatively. The left neck and chest were sterilely prepped draped. 1% lidocaine mixed 50-50 with 0.5% Marcaine was used as local anesthetic. Total 16 cc was used. Under ultrasound guidance the left internal jugular vein was identified. Flow was noted. Local was instilled under ultrasound guidance. A micropuncture needle was inserted. Micropuncture wire inserted. Micropuncture sheath inserted. No 3 5 J-wire was inserted. Fluoroscopy demonstrated good positioning. Local was instilled down upon the chest wall. The previous transverse incision was elliptically excised to remove the skin scar it was inspected consistent with scar was discarded. A subcutaneous pocket was created with electrocautery. The tubing was tunneled from the neck to the chest site. Sheath dilator was placed over the wire the wire dilator removed the catheter was advanced through the sheath the sheath was split the cath was positioned at the SVC atrial junction. The catheter was amputated length connected to the port secured with a port attachment device. The port was placed in the pocket and secured there with interrupted 2-0 silk. The port site was closed with interrupted 3-0 Vicryl subdermal stitches. The neck site with interrupted 5-0 Vicryl subdermal stitches. The port was accessed. It aspirated easily was flushed with saline and then 2 cc of heparinized saline. Steri-Strips Telfa and OpSite dressings applied. Sponge and instrument and needle counts were reported the surgeon be correct. Blood loss was minimal. She was taken to the recovery area in satisfactory condition without apparent complication. Specimens none. Drains none. Blood loss minimal. Tee Bledsoe M.D., F.A.C.S. Type of Anesthesia:: Local MAC Anesthesiologist: Cosme Walker
== END 2018-08-24 18:29 | disposition home or self-care (01) ==
LOC: SDC 13:22 → AC 13:24
PROVIDERS: Family Provider Physician Assistant; PCP Physician Assistant; Referring Provider Surgery; Visit Provider Surgery
PROC: (CPT 36561; principal; 2018-08-24 15:15)
DX: Z45.2 Encounter for adjustment and management of vascular access device (principal); C16.9 Malignant neoplasm of stomach, unspecified; D64.9 Anemia, unspecified; E11.9 Type 2 diabetes mellitus without complications; I25.10 Atherosclerotic heart disease of native coronary artery without angina pectoris; I10 Essential (primary) hypertension; E78.5 Hyperlipidemia, unspecified; M79.7 Fibromyalgia; G89.4 Chronic pain syndrome; G47.33 Obstructive sleep apnea (adult) (pediatric); K21.9 Gastro-esophageal reflux disease without esophagitis; F32.9 Major depressive disorder, single episode, unspecified; F41.9 Anxiety disorder, unspecified; E66.01 Morbid (severe) obesity due to excess calories; Z78.0 Asymptomatic menopausal state; Z79.899 Other long term (current) drug therapy; Z79.4 Long term (current) use of insulin; Z88.5 Allergy status to narcotic agent; Z93.4 Other artificial openings of gastrointestinal tract status; Z87.891 Personal history of nicotine dependence
CPT/HCPCS: 36561; 76937; 77001; 71045; 82962; J7120

== ENCOUNTER 2018-08-26 15:00 | Inpatient (IN) | payer MEDICARE, MEDICAID, SELFPAY ==
[2018-08-24 13:54] VITALS: BMI 25.2
[2018-08-26] VITALS (11 sets, daily range): BP systolic 108–127; BP diastolic 56–75; PULSE 104–125; RESP 18–25; TEMP 36.7–37.4; O2SAT 94–98; BMI 26.3; BMI 26.0; BMI 26.1
--- NOTE | 2018-08-26 15:42 | CT_ITS ---
STUDY: CT ABDOMEN AND PELVIS WITHOUT CONTRAST REASON FOR EXAM: Female, 68 years old. Back and abdominal pain. History of gastric cancer with surgery and radiation. RADIATION DOSAGE (If Supplied By Facility): CTDIvol = ( 21.86 ) mGy, DLP = ( 1160.73 ) mGycm TECHNIQUE: Transaxial images were obtained from the dome of the diaphragm to the symphysis pubis with oral contrast, and without intravenous contrast. Sagittal and coronal images were reconstructed. Individualized dose optimization techniques were used for this CT. COMPARISON: CT of the abdomen and pelvis, August 05, 2018. FINDINGS: There is a small pleural effusion. The lungs are otherwise clear. The visualized portions of the heart are within normal limits. There are diffuse coronary artery calcifications. Normal liver. There is non-visualization of the gallbladder, which may be secondary to either contraction or a prior cholecystectomy. Normal spleen. Normal pancreas. Normal bilateral adrenal glands. The right kidney is of normal size and cortical thickness. There is no mass or renal calculi. There is mild stranding of the perinephric fat and thickening of the pararenal fascial planes. Normal visualized right ureter. The left kidney is of normal size and cortical thickness. There is stranding of the perinephric fat and thickening of the pararenal fascial planes. There is a nonobstructing 3 mm calcification in the lower pole calyx. There is no hydronephrosis. Normal visualized left ureter. 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 There is no evidence of obstruction at the anastomosis. There is distention of the proximal duodenal and mild focal dilatation of the proximal jejunum thought to be secondary to the surgery. Small bowel is otherwise unremarkable. Contrast is seen throughout the colon. There is an anastomosis in the rectosigmoid colon. There is thickening of the wall of the transverse colon with associated stranding suggesting colitis. The proximal colon appears normal. There is non-visualization of the appendix. There is diffuse atherosclerotic calcification of the abdominal aorta, without a demonstrated aneurysm. Normal inferior vena cava. Normal retroperitoneum. Normal urinary bladder. Normal vaginal cuff. There is no pelvic lymphadenopathy or mass. No free air or free fluid is seen within the peritoneal cavity. There is stranding of subcutaneous fat of the abdomen. There is a PEG tube entering the right abdomen and extending into the small bowel. There is diffuse surgical changes on the thoracolumbar spine unchanged from the previous exam. CT/Abdomen/Pelvis without Cont IMPRESSION: 1. Resolution of the marked distention of the stomach remnant and distal esophagus, seen on the prior study. 2. Almost complete resolution of the duodenal and proximal small bowel dilatation seen on the previous study. 3. Findings suggestive of transverse colitis with associated soft tissue stranding. This was not previously noted. 4. NG tube not present on the previous examination. 5. New left pleural effusion and atelectasis. 6. Otherwise stable findings. Electronically Signed: Marcellus Diaz DO at 16:49 EDT Tel [phone], Service support ,
--- NOTE | 2018-08-26 15:44 | ED.VISSUMM ---
- ER Visit Summary Date of Service: 08/26/18 Chief Complaint: Bilateral flank pain History of Present Illness: The patient is a 68 F who presents with bilateral flank pain that is been getting worse over the past 3 days. Patient denies any injury. Patient describes the pain as throbbing. Patient states the pain is over the bilateral thoracic and lumbar areas. Patient states her pain improves when she remains still. Patient denies any radiation of her pain. Patient denies any paresthesias or weakness. Patient denies any dysuria or hematuria. Patient denies any urinary or stool incontinence. Physical Examination: Vital signs are stable except for mild tachycardia of 119. Patient is afebrile. Patient is in no acute distress. Cranial nerves II through XII are intact. Strength is 5/5 bilateral knee upper and lower extremities. There are no sensory deficits noted. Oral mucosa is pink and somewhat dry. Neck is supple. Trachea is midline. There is no JVD noted. Heart was regular rate and rhythm. Lungs are clear and equal bilaterally. Abdomen is soft. Bowel sounds are normal. There is no tenderness. There is no guarding noted. Musculoskeletal exam reveals tenderness over the flank areas bilaterally. There is also tenderness over the thoracic and lumbar paraspinal muscles. Range of motion was limited in all motions of the lumbar and thoracic spine secondary to pain. Straight leg raises were negative bilaterally. Test Results: CBC showed a white blood cell count of 26.2, hemoglobin of 8.8, hematocrit 27.3, and platelets of 821. There were 80 segs, 2 bands, and 10 lymphocytes. Metabolic profile showed sodium of 130 and chloride of 95. Urinalysis shows leukocyte esterase of 100, positive nitrates, 50-100 white blood cells, and 4+ bacteria. CT scan of the abdomen and pelvis was obtained. There is transverse colitis and a left pleural effusion and atelectasis. There is no other acute intra-abdominal abnormality. Urine culture and blood cultures were obtained. Lactate was elevated at 2.2. Emergency Department Course and Treatment: Patient was given IV fluids. Patient was started on Rocephin. Case was discussed with the hospitalist. Disposition: Admit to hospital Impression: 1. Urinary tract infection 2. Severe sepsis This note was generated with [employer] software. It may contain incorrect words, spelling, and punctuation that were not noted in review of the chart prior to signing ED Disposition - Plan for ED Patient: Disposition: Acute Care Hospital [facility] Diagnosis: Urinary tract infection, Severe sepsis Referrals: Shanta Welsh PA [Primary Care Provider] -
--- NOTE | 2018-08-26 15:47 | ED.DCSUM_ITS ---
- ER Visit Summary Date of Service: 08/26/18 Chief Complaint: Bilateral flank pain History of Present Illness: The patient is a 68 F who presents with bilateral flank pain that is been getting worse over the past 3 days. Patient denies any injury. Patient describes the pain as throbbing. Patient states the pain is over the bilateral thoracic and lumbar areas. Patient states her pain improves when she remains still. Patient denies any radiation of her pain. Patient denies any paresthesias or weakness. Patient denies any dysuria or hematuria. Patient denies any urinary or stool incontinence. Physical Examination: Vital signs are stable except for mild tachycardia of 119. Patient is afebrile. Patient is in no acute distress. Cranial nerves II through XII are intact. Strength is 5/5 bilateral knee upper and lower extremities. There are no sensory deficits noted. Oral mucosa is pink and somewhat dry. Neck is supple. Trachea is midline. There is no JVD noted. Heart was regular rate and rhythm. Lungs are clear and equal bilaterally. Abdomen is soft. Bowel sounds are normal. There is no tenderness. There is no guarding noted. Musculoskeletal exam reveals tenderness over the flank areas bilaterally. There is also tenderness over the thoracic and lumbar paraspinal muscles. Range of motion was limited in all motions of the lumbar and thoracic spine secondary to pain. Straight leg raises were negative bilaterally. Test Results: CBC showed a white blood cell count of 26.2, hemoglobin of 8.8, hematocrit 27.3, and platelets of 821. There were 80 segs, 2 bands, and 10 lymphocytes. Metabolic profile showed sodium of 130 and chloride of 95. Urinalysis shows leukocyte esterase of 100, positive nitrates, 50-100 white blood cells, and 4+ bacteria. CT scan of the abdomen and pelvis was obtained. There is transverse colitis and a left pleural effusion and atelectasis. There is no other acute intra-abdominal abnormality. Urine culture and blood cultures were obtained. Lactate was elevated at 2.2. Emergency Department Course and Treatment: Patient was given IV fluids. Patient was started on Rocephin. Case was discussed with the hospitalist. Disposition: Admit to hospital Impression: 1. Urinary tract infection 2. Severe sepsis This note was generated with CIRQYation software. It may contain incorrect words, spelling, and punctuation that were not noted in review of the chart prior to signing ED Disposition - Plan for ED Patient: Disposition: Acute Care Hospital [facility] Diagnosis: Urinary tract infection, Severe sepsis Referrals: Shanta Welsh PA [Primary Care Provider] -
[2018-08-26] MEDS: 0.9% Normal Saline 1,000 ML 1000 ML IV (16:13)
[2018-08-26 16:25] LABS: Mucous, Urine 0 SEEN /hpf (<or=2+)
[2018-08-26 16:43] LABS: Color, Urine Yellow (Yellow); Glucose, Dipstick Normal (Normal); Ketone-Dipstick 5 mg/dl (Negative); Leukocyte Esterase-Dipstick 100 /ul (Negative); Nitrite-Dipstick Positive (Negative); Occult Blood-Urine 25 /ul (Negative); Protein-Dipstick 30 mg/dl (Negative); Urine Bilirubin Dipstick Negative (Negative); Urine Clarity Cloudy (Clear); Urine Urobilinogen 1 mg/dl (Normal)
[2018-08-26 16:48] LABS: ALB/GLOB Ratio 0.4 RATIO (0.9-2.4); AST(SGOT) 19 U/L (15-37); Alanine Aminotransfer ALT/SGPT 12 U/L (13-56); Albumin, Serum 2.1 g/dL (3.2-5.0); Alkaline Phosphatase 143 U/L (45-117); Anion Gap 6 (5-15); BUN 14 mg/dL (7-18); BUN/Creat Ratio 28.8 RATIO (10-20); Calcium,Total 8.8 mg/dL (8.5-10.1); Chloride 95 mmol/L (98-107); Creatinine, Serum 0.49 mg/dL (0.55-1.02); EST Glomerular Filtration Rate 136 mL/min (>60); Est Glom Filt Rate - Afr Amer 164 mL/min (>60); Estimated Creatinine Clearance 55.82 ml/min; Globulin 4.8 g/dL (2.2-4.2); Glucose 125 mg/dL (74-106); Potassium 3.8 mmol/L (3.5-5.1); Protein, Total 6.9 g/dL (6.4-8.2); Sodium Level 130 mmol/L (136-145)
[2018-08-26 16:49] LABS: Hematocrit 27.3 % (37-47); Hemoglobin 8.8 g/dl (12.0-15.0); Mean Corp Hgb Conc 32.2 g/gl (32-36); Mean Corpuscular Hgb 29.4 pg (27.0-32.0); Mean Corpuscular Volume 91.3 fL (81-99); Mean Platelet Vol. 8.3 fl (6.2-12.0); RBC Distribution Width SD 45.6 fl (35.1-43.9); Red Blood Count 2.99 M/mm3 (4.2-5.4); White Blood Count 26.2 K/mm3 (4.4-11.0)
[2018-08-26 16:51] LABS: Differential Indicated MANUAL DIFF; POSITIVE COUNT YES; POSITIVE DIFFERENTIAL YES; POSITIVE MORPHOLOGY YES
[2018-08-26 16:52] LABS: Platelet Count 821 K/mm3 (150-450)
--- NOTE | 2018-08-26 16:57 | ED.RN ---
PLT [address] LCAIRE.
[2018-08-26 16:58] LABS: Bacteria 4+ /hpf (None Seen); Red Blood Cells-Urine 0-5 SEEN /hpf (0-5); Squamous Epithelial Cells - UA 0-5 SEEN /hpf (5-10); White Blood Cells 50-100 SEEN /hpf (0-5)
[2018-08-26 17:12] LABS: Eosinophil 1 % (0-5); Lymphocyte 10 % (19-41); Monocyte 6 % (0-10); Myelocyte 1 (0-0); Neutrophil-Band 2 % (0-5); Neutrophil-Segmented 80 % (47-70); Total Cells Counted 100 (MANUAL DIFF)
[2018-08-26 17:13] LABS: Platelet Estimate MKD INC (ADEQ); Red Cell Morphology NORM C+C NORMAL (NORM C&C)
--- NOTE | 2018-08-26 18:15 | RAD_ITS ---
STUDY: X-RAY CHEST REASON FOR EXAM: Female, 68 years old. Pleural effusion seen on abdominal CT. TECHNIQUE: Single AP portable view of the chest. COMPARISON: CT of the abdomen and pelvis, August 26, 2018. Chest, August 24, 2018. FINDINGS: Stable right Port-A-Cath. The lungs are clear and expanded. There is no demonstrated pleural abnormality. The small pleural effusion noted on CT is not evident on this single AP projection. Normal size heart. Normal mediastinum and maxim. Normal visualized pulmonary arteries. Normal visualized aortic arch and descending thoracic aorta. 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 There is degenerative osteoarthritis of the bilateral shoulders. There appears to be a healing/healed fracture of the left humeral neck. There is no demonstrated abnormality of the visualized soft tissue structures of the upper abdomen. RAD/Chest 1 View (Portable) IMPRESSION: Nonvisualization of a small left pleural effusion noted on a recent abdominal CT. There is no change in findings when compared with study of 2 days earlier Electronically Signed: Marcellus Diaz DO at 18:52 EDT Tel [phone], Service support ,
[2018-08-26] MEDS: Ceftriaxone 1 GM/50 ML BAG IV (18:28)
[2018-08-26 18:40] LABS: International Normalized Ratio 1.1; Prothrombin Time (Protime)PT. 14.3 SECONDS (11.7-14.9)
[2018-08-26 18:41] LABS: Partial Thromboplast Time 32.8 Seconds (24.1-36.2)
[2018-08-26 18:58] LABS: Lactic Acid 2.2 mmol/L (0.4-2.0)
--- NOTE | 2018-08-26 19:33 | HP.PCM_ITS ---
Problem List (1) Severe sepsis Status: Acute (2) Urinary tract infection Status: Acute Qualifiers: Urinary tract infection type: site unspecified (3) Colitis Status: Acute (4) Anemia Status: Acute Qualifiers: Anemia type: unspecified type Qualified Code(s): D64.9 - Anemia, unspecified (5) Hyperlipidemia Status: Chronic Qualifiers: Hyperlipidemia type: pure hypercholesterolemia Qualified Code(s): E78.00 - Pure hypercholesterolemia, unspecified; E78.0 - Pure hypercholesterolemia (6) Noncompliance with CPAP treatment Status: Chronic (7) Dyslipidemia Status: Chronic (8) Fibromyalgia Status: Chronic (9) Obstructive sleep apnea Status: Chronic (10) Diabetes mellitus type 2 in obese Status: Chronic (11) Hypertension Status: Chronic Qualifiers: Hypertension type: essential hypertension Qualified Code(s): I10 - Essential (primary) hypertension (12) Gastric cancer Status: Chronic Qualifiers: Malignant neoplasm of stomach location: unspecified location History of Present Illness Date of Admission: 08/26/18 Chief Complaint: BL flank discomfort, abdominal pain, poor oral intake. The patient is a 68 y/o F w/ PMHx: HTN, HLD, Chronic pain syndrome, CARLOTA, Diabetes mellitus type II with Neuropathy, Fibromyalgia, Known Gastric CA with recent surgical intervention with specific bypass with retained gastric cancer secondary to terminal stage IV with tube feed abilities but allowed oral intake on 08/06/18 and recent 08/24/18 power port placement who presents to the [facility] ED on 08/26/18 with history of worsening bilateral flank as well as generalized abdominal discomfort of the past 3 days, noted as throbbing as well as cramping in the abdomen and worse with any palpation, worse with any aggressive activity or movements with recent decreased oral intake ability with no nausea or vomiting nor any noted bright red blood per rectum, dark black stools or hematemesis. Work-up in the ED included T 99.3, heart rate 119, BP 117/67, respiratory rate 18, 94% on room air, CBC with RBC 26.2, heme globin 8.8, platelet 821 with left shift, unremarkable coags, CMP with sodium 130, chloride 95, BUN/creatinine 14/0.49, glucose 125, lactic acid 2.2, urinalysis notably concerning for acute UTI versus pyelonephritis, urine culture and blood culture x2 pending per ED, chest x-ray with nonvisualization of a small left pleural effusion noted on the recent abdominal CT, CT A/P 08/26/18 with noted resolution of marked distention of the stomach remnant and distal esophagus seen on prior study, almost complete resolution of duodenal and proximal small bowel dilation seen on prior study, findings suggestive of a transverse colitis with associated soft tissue stranding not previously noted, new left pleural effusion and atelectasis. Patient most recent urine culture from May 2018 notable for E. coli and Klebsiella pneumonia with notable resistance patterns to E. coli specifically only sensitive to meropenem, imipenem, gentamicin, cefotetan, amikacin however these cultures were only 11-25,000 colony-forming units. Repeat hemoglobin was obtained and 8.1. Discussed with patient and her son who was present and healthcare power of deputy attorney general as a notable decrease of hemoglobin since most recent presentation however this was following a very significant operative intervention. Past Medical History Past Medical History (Chronic Problems): Chronic Problems (Last Reviewed 08/23/18 @ 13:20 by Chinyere Rubalcava) Edema (Chronic) Hyperlipidemia (Chronic) Atherosclerosis of hughes coronary artery of hughes heart without angina pectoris (Chronic) Chronic pain syndrome (Chronic) Noncompliance with CPAP treatment (Chronic) Morbid obesity (Chronic) Depression (Chronic) Dyslipidemia (Chronic) Fibromyalgia (Chronic) Multinodular goiter (Chronic) Obstructive sleep apnea (Chronic) Recurrent falls (Chronic) Diabetes mellitus type 2 in obese (Chronic) Hypertension (Chronic) Gastric cancer (Chronic) Medical History: Medical History (Last Reviewed 08/23/18 @ 13:20 by Chinyere Rubalcava) Edema (Chronic) R60.9 Hyperlipidemia (Chronic) E78.5 Atherosclerosis of hughes coronary artery of hughes heart without angina pectoris (Chronic) I25.10 Hypophosphatemia (Acute) E83.39 Chronic pain syndrome (Chronic) G89.4 Eosinophilia (Acute) D72.1 Hypomagnesemia (Acute) E83.42 Severe sepsis (Acute) A41.9, R65.20 Septic shock (Ruled-out) A41.9, R65.21 Acute renal failure (Acute) N17.9 Urinary tract infection (Acute) N39.0 Toxic encephalopathy (Acute) G92 Hyperammonemia (Acute) E72.20 Noncompliance with CPAP treatment (Chronic) Z91.14 Morbid obesity (Chronic) E66.01 Depression (Chronic) F32.9 Dyslipidemia (Chronic) E78.5 Fibromyalgia (Chronic) M79.7 Multinodular goiter (Chronic) E04.2 Obstructive sleep apnea (Chronic) G47.33 Recurrent falls (Chronic) R29.6 Diabetes mellitus type 2 in obese (Chronic) E11.69, E66.9 Hypertension (Chronic) I10 Gastric cancer (Resolved) C16.9 Allergies fentanyl Adverse Reaction (Verified 08/26/18 15:06) MAKES ME SHAKE oxycodone [From Percocet] Adverse Reaction (Verified 08/26/18 15:06) MAKES ME SHAKE thiopental Adverse Reaction (Verified 08/26/18 15:06) MAKES ME SHAKE Home Medications: Ambulatory Orders Medication Instructions Recorded Docusate Sodium [Colace] 100 mg PO BID 02/15/16 Dorzolamide HCL/Timolol [Cosopt 1 drp EACH EYE BID 02/15/16 Opth Drops] Duloxetine Hcl [Cymbalta] 60 mg PO DAILY 02/15/16 Polyethylene Glycol 3350 [Miralax] 17 gm PO DAILY 03/05/17 Atorvastatin Calcium [Lipitor] 40 mg PO QHS 05/19/17 hydrochlorothiazide 12.5 mg tablet 12.5 mg PO PRN PRN 09/02/17 Gabapentin [Neurontin] 300 mg PO BID 03/31/18 Magnesium Oxide 400 mg PO DAILY 03/31/18 Insulin Detemir [Levemir FlexPen] 20 units SUBCUT QHS #10 insuln.pen 04/01/18 Ferrous Sulfate 325 mg PO BIDCM 08/05/18 Omeprazole 20 mg PO BID 08/05/18 traZODone [Desyrel] 50 mg PO QHS 08/05/18 Albuterol Inhaler [Ventolin Hfa 1 - 2 puff INHALATION Q4H PRN PRN 08/23/18 (SP)] Metoprolol Tartrate [Lopressor 25 mg PO BID 08/23/18 (Beta Aditya)] Potassium Chloride 10 meq PO PRN PRN 08/23/18 metFORMIN HCl [Glucophage] 1,000 mg PO BIDCM 08/23/18 traMADol [Ultram (G)] 50 mg PO Q6H PRN PRN 08/23/18 Surgical History: Surgical History (Last Reviewed 08/23/18 @ 13:20 by Chinyere Rubalcava) S/P jejunostomy (Acute) Z93.4 placement history of colectomy from colonoscopy perforation (Resolved) History of (Resolved) Z98.891 history open cholecystectomy (Resolved) History of gastrectomy (Resolved) Z90.3 Surgical History: cholecystectomy, hysterectomy, - - Subtotal gastrectomy for gastric cancer, prior cervical fusion as well as Jefferson rods in the thoracic and lumbosacral spine, recent PowerPort placement, recent gastric cancer bypass with small bowel partial resection. 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 Denies: Chills, Fever, Weight Change HEENT: Denies: Head Aches, Sinus Congestion, Sinus Drainage Cardiovascular: Denies: Chest Pain, Palpitations Respiratory: Denies: Cough, Shortness of breath at rest, Sputum production Gastrointestinal: Reports: Abdominal Pain. Denies: Nausea, Vomiting Genitourinary: Reports: Dysuria, - - Flank pain. Musculoskeletal: Reports: Back Pain. Denies: Joint Pain, Joint Tenderness Skin: Reports: Skin Changes. Denies: Rash, Wounds Neurological: Denies: Numbness, Tingling, Focal weakness Psychiatric: Reports: Depression. Denies: Anxiety, Homicidal Ideations, Suicidal Ideations Hematologic/ Lymphatic: Reports: Anemia. Denies: Easy Bruising, Easy Bleeding VTE Information - Inpt Only VTE Present on Admission: No VTE Mechan Device Prophylaxis: SCD's VTE Pharm Prophylaxis ordered?: No Reason prophylaxis not ordered:: Medical Contraindication Patient Problems: Active and Suspected Problems (Last Reviewed 08/23/18 @ 13:20 by Chinyere Rubalcava) Anemia (Acute) Colitis (Acute) Severe sepsis (Acute) Urinary tract infection (Acute) Subjective: Laying in the ED bed, fatigued, ill appearing. Objective: Physical Examination: General: awake, alert, oriented x 3 and cooperative, seated upright in the ED bed in no apparent distress but fatigued and ill appearing. Skin: normal color, turgor, no icterus, cyanosis except abdominal midline scar following recent surgery and jorge a-feeding tube skin without erythema (family and patient notes recently treated for cellulitis). HEENT: AT/NC, EOMI, PERRLA, dry MM, no carotid bruits or JVD noted. Lungs: CTA bilaterally, moderate effort, moderate decrease BL bases, no rales, ronchi or wheezing. Heart: Mildly tachycardic with regular rhythm; no gallop, rub audible. Abdomen: soft, no suprapubic TTP, mild BL flank discomfort w/ palpation, abdominal midline scar following recent surgery, intact and well appearing, diffuse although worse R side abdominal pain, appears minimally distened, hyperactive distant BS, difficult to assess HSM. Extremities: no cyanosis, clubbing, or edema. Neurological: patient awake, alert, oriented x 3; cognitive function intact; pupils equally reactive to light and accomodation; cranial nerves II-XII grossly normal, moving all 4 extremities, no focal deficits, strength severely globally decreased secondary to acute presentation. Psychiatric: affect appears fatigued, no acute evidence of depressive or anxiety feelings. - Physical Exam Vital Signs Temp Pulse Resp BP Pulse Ox 98.0 F 122 H 18 122/64 H 95 08/26/18 18:14 08/26/18 17:55 08/26/18 17:55 08/26/18 17:55 08/26/18 17:55 Oxygen Delivery Method Room Air Weight: 173 lb Body Mass Index (BMI) 26.3 Finger Stick Blood Glucose 35 Laboratory Tests Past 24 Hrs 08/26/18 08/26/18 08/26/18 16:00 16:10 16:10 WBC 26.2 H RBC 2.99 L Hgb 8.8 L Hct 27.3 L MCV 91.3 MCH 29.4 MCHC 32.2 RDW 14.0 RDW Differential 45.6 H Plt Count 821 H* MPV 8.3 Neut % (Auto) Not Reportable Absolute Neuts (auto) Not Reportable Total Counted 100 Neutrophils % (Manual) 80 H Band Neutrophils % 2 Lymphocytes % (Manual) 10 L Monocytes % (Manual) 6 Eosinophils % (Manual) 1 Myelocytes % 1 H Diff Path Review May foll Platelet Estimate MKD INC RBC Morphology NORM C+C PT INR APTT Sodium 130 L Potassium 3.8 Chloride 95 L Carbon Dioxide 29.0 Anion Gap 6 BUN 14 Creatinine 0.49 L Estim Creat Clear Calc 55.82 Est GFR (MDRD) Af Amer 164 Est GFR (MDRD) Non-Af 136 BUN/Creatinine Ratio 28.8 H Glucose 125 H Lactic Acid Calcium 8.8 Total Bilirubin 0.30 AST 19 ALT 12 L Alkaline Phosphatase 143 H Total Protein 6.9 Albumin 2.1 L Globulin 4.8 H Albumin/Globulin Ratio 0.4 L Urine Color Yellow Urine Clarity Cloudy Urine pH 8.0 Ur Specific Joy 1.010 Urine Protein 30 H Urine Glucose (UA) Normal Urine Ketones 5 H Urine Occult Blood 25 H Urine Nitrite Positive H Urine Bilirubin Negative Urine Urobilinogen 1 H Ur Leukocyte Esterase 100 H Urine RBC 0-5 SEEN Urine WBC 50-100 SEEN Ur Squamous Epith Cells 0-5 SEEN Urine Bacteria 4+ Urine Mucus 0 SEEN 08/26/18 08/26/18 18:24 18:24 WBC RBC Hgb Hct MCV MCH MCHC RDW RDW Differential Plt Count MPV Neut % (Auto) Absolute Neuts (auto) Total Counted Neutrophils % (Manual) Band Neutrophils % Lymphocytes % (Manual) Monocytes % (Manual) Eosinophils % (Manual) Myelocytes % Diff Path Review Platelet Estimate RBC Morphology PT 14.3 INR 1.1 APTT 32.8 Sodium Potassium Chloride Carbon Dioxide Anion Gap BUN Creatinine Estim Creat Clear Calc Est GFR (MDRD) Af Amer Est GFR (MDRD) Non-Af BUN/Creatinine Ratio Glucose Lactic Acid 2.2 H Calcium Total Bilirubin AST ALT Alkaline Phosphatase Total Protein Albumin Globulin Albumin/Globulin Ratio Urine Color Urine Clarity Urine pH Ur Specific Joy Urine Protein Urine Glucose (UA) Urine Ketones Urine Occult Blood Urine Nitrite Urine Bilirubin Urine Urobilinogen Ur Leukocyte Esterase Urine RBC Urine WBC Ur Squamous Epith Cells Urine Bacteria Urine Mucus Assessment/Plan All Active Problems (Last Reviewed 08/23/18 @ 13:20 by Chinyere Rubalcava) Anemia (Acute) Colitis (Acute) S/P jejunostomy (Acute) Acute pancreatitis (Acute) Abdominal pain (Acute) SBO (small bowel obstruction) (Acute) history of colectomy from colonoscopy perforation (Resolved) History of (Resolved) history open cholecystectomy (Resolved) History of gastrectomy (Resolved) Hypophosphatemia (Acute) Eosinophilia (Acute) Hypomagnesemia (Acute) Severe sepsis (Acute) Septic shock (Ruled-out) Acute renal failure (Acute) Urinary tract infection (Acute) Toxic encephalopathy (Acute) Hyperammonemia (Acute) The patient is a 68 y/o F w/ PMHx: HTN, HLD, Chronic pain syndrome, CARLOTA, Diabetes mellitus type II with Neuropathy, Fibromyalgia, Known Gastric CA with recent surgical intervention with specific bypass with retained gastric cancer secondary to terminal stage IV with tube feed abilities but allowed oral intake on 08/06/18 and recent 08/24/18 power port placement who presents to the [facility] ED on 08/26/18 with history of worsening bilateral flank as well as generalized abdominal discomfort of the past 3 days, noted as throbbing as well as cramping in the abdomen and worse with any palpation, worse with any aggressive activity or movements with recent decreased oral intake ability with no nausea or vomiting nor any noted bright red blood per rectum, dark black stools or hematemesis. (1) Acute Severe Sepsis secondary to ? Acute Transverse Colitis and Acute UTI: Work-up in the ED included T 99.3, heart rate 119, BP 117/67, respiratory rate 18, 94% on room air, CBC with RBC 26.2, heme globin 8.8, platelet 821 with left shift, unremarkable coags, CMP with sodium 130, chloride 95, BUN/creatinine 14/0.49, glucose 125, lactic acid 2.2, urinalysis notably concerning for acute UTI versus pyelonephritis, urine culture and blood culture x2 pending per ED, chest x-ray with nonvisualization of a small left pleural effusion noted on the recent abdominal CT, CT A/P 08/26/18 with noted resolution of marked distention of the stomach remnant and distal esophagus seen on prior study, almost complete resolution of duodenal and proximal small bowel dilation seen on prior study, findings suggestive of a transverse colitis with associated soft tissue stranding not previously noted, new left pleural effusion and atelectasis. Will admit to MedSurg, allow clears per discussion with patient and her preference, consult nutrition for coagulation of appropriate caloric intake daily as needs to have a back-up supplemental feed program, if worsened discomfort with oral intake will return to n.p.o. status, initiate and continue on IV meropenem per most recent urinary cultures with notable resistance patterns, maintain on PPI, PRN nausea and pain regimen, monitor I&Os, obtain stool cultures if notable ongoing profuse diarrhea, and lactic acid per facility protocol, repeat CBC, BMP in a.m. ED guaiac negative. (2) New normocytic anemia, Suspected secondary to recent Acute Blood Loss s/p OR: Admission hemoglobin 8.8, last hemoglobin prior 14.2 on 08/05/18, she did have significant surgical intervention on 08/06/18 although specific procedure unclear but notes that she had small intestine resection and had a bypass around her gastric cancer with anastomosis to either a distal portion of the small bowel or colon. Repeat hemoglobin was obtained and 8.1. Guaiac negative. Maintain on PPI. Maintain on iron supplementation. (3) Acute Hyponatremia, Hypovolemic: Admission sodium 130, chloride 95, poor oral intake noted secondary to decreased tolerance by mouth, only able to take in small bites and small meals, nutrition consulted to assist with tube feeds supplementation calculations, continue hydration, repeat BMP in a.m. (4) Gastric Cancer, Stage IV, Terminal: As noted recent 08/06/18 bypass of the gastric cancer with TF access placement and on 08/24/18 power port placement, from discussion with patient and son planned palliative chemotherapy, mag and phos pending, nutrition consulted for caloric calculations to assure appropriate intake. (5) Diabetes mellitus type II with neuropathy: Hold oral home regimen, continue home insulin regimen, ADA diet, accu checks w/ ISS, as noted nutrition consulted for caloric calculations, continue home gabapentin regimen. (6) Hypertension: Continue home regimen including metoprolol with hold parameters as needed, PRN hydralazine. (7) Hyperlipidemia: Continue home statin regimen. (8) Fibromyalgia, chronic pain syndrome: Continue home Cymbalta, gabapentin, tramadol regimen. (9) CARLOTA: Non-CPAP compliant. (10) GERD: PPI. (11) DVT prophylaxis: SCDs, defer chemo prophylaxis given worsened anemia and unclear specifically if notable from operative intervention. (12) CODE status: Patient's son is present and is healthcare power of deputy attorney general, living will in place. Discussed CODE status at length including difference between FULL code, DNR-CCA and DNR-CC status. Following discussions about the differences in these status, requested DNR-CCA, no intubation status. DNR-CCA, no intubation form signed and placed on the chart. Advanced Care Planning Face to Face Time: 25 minutes. Code Visit Inpatient E&M: 27630 Init Hosp L3 Procedures: 41157 Advncd Care Plan 30 Min
[2018-08-26 20:05] LABS: Hematocrit 24.6 % (37-47); Hemoglobin 8.1 g/dl (12.0-15.0)
[2018-08-26 21:12] LABS: Magnesium 1.4 mg/dL (1.6-2.6)
[2018-08-26 21:20] LABS: Phosphorus 1.9 mg/dL (2.5-4.9)
[2018-08-26] MEDS: 0.9% Normal Saline 1,000 ML 999 ML IV ×2 (21:50→23:58)
[2018-08-26] MEDS: 0.9% NaCl IVPB Med Flush (250 mL) 15 ML IV (21:55)
[2018-08-26] MEDS: Magnesium Sulfate 4gm/100mL 4 GM/100 ML IV.SOLN. IV (21:55)
[2018-08-26] MEDS: Docusate Sodium 100 MG Capsule PO (21:58)
[2018-08-26] MEDS: Dorzolamide HCL/Timolol 10 ml Bottle 1 DRP EACH EYE (21:58)
[2018-08-26] MEDS: Metoprolol Tartrate 25 MG Tablet PO (21:59)
[2018-08-26] MEDS: Atorvastatin Calcium 40 MG Tablet PO (21:59)
[2018-08-26] MEDS: Gabapentin 300 MG Capsule PO (21:59)
[2018-08-26] MEDS: traZODone 50 MG Tablet PO (22:00)
[2018-08-26 22:30] LABS: Reflex Lactate? Y
[2018-08-26 22:36] LABS: Bedside Glucose 112 mg/dL (70-110)
[2018-08-26 23:28] LABS: Lactic Acid 2.2 mmol/L (0.4-2.0)
[2018-08-26] MEDS: 0.9% NaCl Peripheral Flush Adult/Peds IV (23:37)
[2018-08-27] VITALS (13 sets, daily range): BP systolic 97–130; BP diastolic 58–66; PULSE 87–106; RESP 16–22; TEMP 36.7–37.3; O2SAT 95–97
[2018-08-27] MEDS: Morphine 2 MG/ML Syringe IV ×2 (00:20→21:40)
[2018-08-27 00:41] LABS: Absolute Lymphocyte Count 2.62 X10^3/ul (0.83-4.51); Absolute Neutrophil Count 21.5 X10^3/uL (2.0-7.7)
[2018-08-27] MEDS: traMADol 50 MG Tablet PO ×3 (02:22→17:35)
[2018-08-27 06:35] LABS: Bedside Glucose 73 mg/dL (70-110)
[2018-08-27 08:07] LABS: ALB/GLOB Ratio 0.4 RATIO (0.9-2.4); AST(SGOT) 20 U/L (15-37); Alanine Aminotransfer ALT/SGPT 10 U/L (13-56); Albumin, Serum 1.7 g/dL (3.2-5.0); Alkaline Phosphatase 127 U/L (45-117); Anion Gap 8 (5-15); BUN 9 mg/dL (7-18); BUN/Creat Ratio 29.1 RATIO (10-20); Calcium,Total 8.2 mg/dL (8.5-10.1); Chloride 100 mmol/L (98-107); Creatinine, Serum 0.31 mg/dL (0.55-1.02); EST Glomerular Filtration Rate 229 mL/min (>60); Est Glom Filt Rate - Afr Amer 276 mL/min (>60); Estimated Creatinine Clearance 55.82 ml/min; Globulin 4.3 g/dL (2.2-4.2); Glucose 49 mg/dL (74-106); Potassium 3.8 mmol/L (3.5-5.1); Sodium Level 132 mmol/L (136-145)
[2018-08-27 08:15] LABS: Hematocrit 24.6 % (37-47); Hemoglobin 7.9 g/dl (12.0-15.0); Mean Corp Hgb Conc 32.1 g/gl (32-36); Mean Corpuscular Hgb 29.3 pg (27.0-32.0); Mean Corpuscular Volume 91.1 fL (81-99); Mean Platelet Vol. 8.5 fl (6.2-12.0); RBC Distribution Width CV 14.2 % (11.6-14.6); RBC Distribution Width SD 45.5 fl (35.1-43.9); White Blood Count 22.6 K/mm3 (4.4-11.0)
[2018-08-27 08:19] LABS: Differential Indicated MANUAL DIFF; POSITIVE COUNT YES; POSITIVE DIFFERENTIAL YES; POSITIVE MORPHOLOGY YES; Platelet Count 770 K/mm3 (150-450)
--- NOTE | 2018-08-27 08:57 | NS ---
To supplement PO diet, recommend 450mL bolus feed of Vital AF 1.2 via PEG after each meal if PO intake on REGULAR diet <50%. Would recommend additional bolus at night of 450mL for additional nutrition support (provides 540 calories, ~34 g protein). Recommend 75mL H2O flush before and after each bolus to provide an additional 150mL per feeding. Four 450mL bolus feeds of Vital AF 1.2 w/ 150mL H2O flush each feeding will provide 2160 calories, 135 g protein, and 2059mL free fluid/day, which would meet pt's estimated nutritional needs. Suspect pt's home TF supplement w/ normal PO intake not meeting pt's estimated needs. If pt does not tolerate bolus feeds as recommended, will adjust formula/rate accordingly. Contact clinical RD at [phone] w/ further questions. Recommend daily wts Advance PO diet as tolerated to transitional. As tolerance of transitional diet established, recommend regular diet. Michael Mackey MS, RDN, LD
[2018-08-27 09:25] LABS: Eosinophil 1 % (0-5); Lymphocyte 9 % (19-41); Metamyelocyte 2 % (0-1); Monocyte 6 % (0-10); Myelocyte 5 (0-0); Neutrophil-Band 6 % (0-5); Neutrophil-Segmented 71 % (47-70); Platelet Estimate MOD (ADEQ); Red Cell Morphology NORM C+C NORMAL (NORM C&C); Total Cells Counted 100 (MANUAL DIFF)
--- NOTE | 2018-08-27 09:42 | PCM.PN.HOSP ---
Patient Problems: Active and Suspected Problems (Last Reviewed 08/23/18 @ 13:20 by Chinyere Rubalcava) Anemia (Acute) Colitis (Acute) Severe sepsis (Acute) Urinary tract infection (Acute) Subjective: Patient seen and examined. She was admitted to the ED on 08/26/2018 with complaint of worsening bilateral flank pain as well as generalized abdominal discomfort for 3 days prior to admission. She denied any nausea vomiting or bright red blood per rectum or melena stools. She was found to have UTI with UA concerning for UTI versus pyelonephritis and CT of the abdomen showed transverse colitis with assisted soft tissue stranding as well as new left pleural effusion and atelectasis. She has been managed for sepsis due to UTI and colitis. Patient still complains of bilateral flank pain. She denies any chest pain or palpitations, dizziness, fever or chills. No vomiting. Review of systems otherwise negative. Labs and vitals reviewed. Vitals/I&O's: Vital Signs Temp Pulse Resp BP Pulse Ox 98.7 F 98 18 111/61 96 08/27/18 08:00 08/27/18 08:00 08/27/18 08:00 08/27/18 08:00 08/27/18 08:00 Oxygen Flow Rate (L/min) 2 Oxygen Delivery Method Room Air Weight: 171 lb 8.314 oz Body Mass Index (BMI) 26.0 Finger Stick Blood Glucose 35 Intake and Output for Last 24 Hours 08/25/18 08/26/18 08/27/18 23:59 23:59 23:59 Intake Total 3371 / 3371 Output Total 150 / 150 Balance 3221 / 3221 General: Alert, Oriented x3, Cooperative, Lethargic HEENT: Atraumatic, PERRLA, EOMI, Normocephalic Oral: Dry Mucosa Neck: Supple, No JVD, Negative Carotid Bruits, Negative Hepatojugular Reflux, No Nodes Lungs: - - decreaed breath sounds bibasally, no wheeze or crackles. on 2L of oxygen Cardiovascular: Regular rate, Regular Rhythm, Normal S1, Normal S2, No murmurs Abdomen: Bowel Sounds Present, Soft, Non Tender, - - diminished bowel sounds; has PEG tube in place Extremities: No clubbing, No cyanosis, No edema, Capillary Refill Less than 3 Seconds Skin: No rashes, No breakdown Musculoskeletal: No Tenderness to Palpation of Joints or Extremities Lymphatic: No Cervical, Supraclavicular, or Inguinal Adenopathy Neurological: Cranial nerves II-XII grossly intact Psych/Mental Status: Normal Affect, Appropriate Microbiology Past 72 Hours 08/26/18 19:50 Stool Stool Occult Blood ([facility]) - Final Laboratory Results 08/26/18 16:00: Urine Color Yellow, Urine Clarity Cloudy, Urine pH 8.0, Ur Specific [place] 1.010, Urine Protein 30 H, Urine Glucose (UA) Normal, Urine Ketones 5 H, Urine Occult Blood 25 H, Urine Nitrite Positive H, Urine Bilirubin Negative, Urine Urobilinogen 1 H, Ur Leukocyte Esterase 100 H, Urine RBC 0-5 SEEN, Urine WBC 50-100 SEEN, Ur Squamous Epith Cells 0-5 SEEN, Urine Bacteria 4+, Urine Mucus 0 SEEN 08/26/18 16:10: WBC 26.2 H, RBC 2.99 L, Hgb 8.8 L, Hct 27.3 L, MCV 91.3, MCH 29.4, MCHC 32.2, RDW 14.0, RDW Differential 45.6 H, Plt Count 821 H*, MPV 8.3, Neut % (Auto) Not Reportable, Absolute Neuts (auto) 21.5 H, Absolute Lymphs (auto) 2.62, Total Counted 100, Neutrophils % (Manual) 80 H, Band Neutrophils % 2, Lymphocytes % (Manual) 10 L, Monocytes % (Manual) 6, Eosinophils % (Manual) 1, Myelocytes % 1 H, Diff Path Review July, Platelet Estimate [employer] INC, RBC Morphology NORM C+C 08/26/18 16:10: Sodium 130 L, Potassium 3.8, Chloride 95 L, Carbon Dioxide 29.0, Anion Gap 6, BUN 14, Creatinine 0.49 L, Estim Creat Clear Calc 55.82, Est GFR (MDRD) Af Amer 164, Est GFR (MDRD) Non-Af 136, BUN/Creatinine Ratio 28.8 H, Glucose 125 H, Calcium 8.8, Total Bilirubin 0.30, AST 19, ALT 12 L, Alkaline Phosphatase 143 H, Total Protein 6.9, Albumin 2.1 L, Globulin 4.8 H, Albumin/Globulin Ratio 0.4 L 08/26/18 16:10: Magnesium 1.4 L 08/26/18 16:10: Phosphorus 1.9 L 08/26/18 18:24: PT 14.3, INR 1.1, APTT 32.8 08/26/18 18:24: Lactic Acid 2.2 H 08/26/18 19:50: Hgb 8.1 L, Hct 24.6 L 08/26/18 22:23: POC Glucose 112 H 08/26/18 22:53: Lactic Acid 2.2 H 08/27/18 06:27: WBC 22.6 H, RBC 2.70 L, Hgb 7.9 L, Hct 24.6 L, MCV 91.1, MCH 29.3, MCHC 32.1, RDW 14.2, RDW Differential 45.5 H, Plt Count 770 H*, MPV 8.5, Neut % (Auto) Not Reportable, Absolute Neuts (auto) Not Reportable, Total Counted 100, Neutrophils % (Manual) 71 H, Band Neutrophils % 6 H, Lymphocytes % (Manual) 9 L, Monocytes % (Manual) 6, Eosinophils % (Manual) 1, Metamyelocytes % 2 H, Myelocytes % 5 H, Platelet Estimate MOD, RBC Morphology NORM C+C 08/27/18 06:27: Sodium 132 L, Potassium 3.8, Chloride 100, Carbon Dioxide 24.0, Anion Gap 8, BUN 9, Creatinine 0.31 L, Estim Creat Clear Calc 55.82, Est GFR (MDRD) Af Amer 276, Est GFR (MDRD) Non-Af 229, BUN/Creatinine Ratio 29.1 H, Glucose 49 L, Calcium 8.2 L, Total Bilirubin 0.50, AST 20, ALT 10 L, Alkaline Phosphatase 127 H, Total Protein 6.0 L, Albumin 1.7 L, Globulin 4.3 H, Albumin/Globulin Ratio 0.4 L 08/27/18 06:29: POC Glucose 73 Diagnostic Data Abdomen/Pelvis CT 08/26/18 15:42 IMPRESSION: 1. Resolution of the marked distention of the stomach remnant and distal esophagus, seen on the prior study. 2. Almost complete resolution of the duodenal and proximal small bowel dilatation seen on the previous study. 3. Findings suggestive of transverse colitis with associated soft tissue stranding. This was not previously noted. 4. NG tube not present on the previous examination. 5. New left pleural effusion and atelectasis. 6. Otherwise stable findings. Electronically Signed: Marcellus Diaz DO at 16:49 EDT Tel [phone], Service support , Chest X-Ray 08/26/18 18:15 IMPRESSION: Nonvisualization of a small left pleural effusion noted on a recent abdominal CT. There is no change in findings when compared with study of 2 days earlier Electronically Signed: Marcellus Diaz DO at 18:52 EDT Tel [phone], Service support , Current Medications Acetaminophen (Tylenol) 650 mg PO Q6H PRN PRN PRN Reason: Non-cardiac pain (mod-severe) Al Hydroxide/Mg Hydroxide (Mylanta Ii) 15 - 30 ml PO Q4H PRN PRN PRN Reason: INDIGESTION Albuterol Sulfate (Ventolin Aerosols) 2.5 mg INHALATION Q2H PRN PRN PRN Reason: dyspnea, wheezing Atorvastatin Calcium (Lipitor) 40 mg PO QHS [facility] Last Admin: 08/26/18 21:59 Dose: 40 mg Dextrose (D50w Syringe) 0 gm IV X1 PRN; Protocol PRN Reason: Hypoglycemia Docusate Sodium (Colace) 100 mg PO BID [facility] Last Admin: 08/26/18 21:58 Dose: 100 mg Dorzolamide/Timolol (Cosopt Opth Drops) 1 drop EACH EYE BID [facility] Last Admin: 08/26/18 21:58 Dose: 1 drop Duloxetine HCl (Cymbalta) 60 mg PO DAILY [facility] Ferrous Sulfate (Ferrous Sulfate) 325 mg PO BIDCM [facility] Gabapentin (Neurontin) 300 mg PO BID [facility] Last Admin: 08/26/18 21:59 Dose: 300 mg Glucagon () 1 mg IM .X1 PRN PRN Reason: Hypoglycemia Hydralazine HCl (Apresoline Iv) 10 mg IV Q4H PRN PRN PRN Reason: SBP > 160 Sodium Chloride () 1,000 mls @ 125 mls/hr IV .Q8H [facility] Meropenem 1 gm/ Sodium (Chloride) 120 mls @ 33 mls/hr IV Q8 [facility] Last Admin: 08/27/18 06:17 Dose: 33 mls/hr Sodium Chloride () 250 mls @ 15 mls/hr IV .[id number] PRN PRN Reason: SALINE FLUSH Last Admin: 08/26/18 21:55 Dose: 15 mls/hr Insulin Glargine (Lantus (Bkc)) 20 units SC QHS [facility] Last Admin: 08/26/18 22:28 Dose: 20 u Insulin Human Lispro (Humalog Kwikpen (Bkc)) 0 unit SQ ACHS [facility]; Protocol Last Admin: 08/27/18 06:31 Dose: Not Given Magnesium Oxide (Mag-Ox 400) 400 mg PO DAILY [facility] Melatonin (Melatonin) 3 mg PO QHS PRN PRN PRN Reason: INSOMNIA Metoprolol Tartrate (Lopressor (Beta Aditya)) 25 mg PO BID [facility] Last Admin: 08/26/18 21:59 Dose: 25 mg Morphine Sulfate () 1 - 2 mg IV Q4H PRN PRN PRN Reason: PAIN Last Admin: 08/27/18 00:20 Dose: 2 mg Nutritional Formula (Lactose Free) (Ensure Clear) 120 ml PO 4X/DAY [facility] Ondansetron HCl (Zofran) 4 mg IV Q8H PRN PRN PRN Reason: NAUSEA/VOMITING Pantoprazole Sodium (Protonix) 20 mg PO BID [facility] Polyethylene Glycol (Miralax) 17 gm PO DAILY [facility] Sodium Chloride () 5 - 15 ml IV UD PRN PRN Reason: SALINE FLUSH Tramadol HCl (Ultram) 50 mg PO Q4H PRN PRN PRN Reason: PAIN Last Admin: 08/27/18 06:25 Dose: 50 mg Trazodone HCl (Desyrel) 50 mg PO QHS [facility] Last Admin: 08/26/18 22:00 Dose: 50 mg Medical Necessity - Tobacco Use Smoking Status: Former smoker Tobacco Use: Non-smoker Assessment/Plan All Active Problems (Last Reviewed 08/23/18 @ 13:20 by Chinyere Rubalcava) Anemia (Acute) Colitis (Acute) S/P jejunostomy (Acute) Acute pancreatitis (Acute) Abdominal pain (Acute) SBO (small bowel obstruction) (Acute) history of colectomy from colonoscopy perforation (Resolved) History of (Resolved) history open cholecystectomy (Resolved) History of gastrectomy (Resolved) Hypophosphatemia (Acute) Eosinophilia (Acute) Hypomagnesemia (Acute) Severe sepsis (Acute) Septic shock (Ruled-out) Acute renal failure (Acute) Urinary tract infection (Acute) Toxic encephalopathy (Acute) Hyperammonemia (Acute) 1. Sepsis due to UTI and transverse colitis SIRS criteria is 1/ (leucocytosis) on IV meroprenem blood and urine cultures pending. UA showed wbc of 50-100 and bacteria 4+ lactic acid remained at 2.2 will monitor 2. Anemia, possibly due to blood loss from recent surgery Had gastric bypass for stomach cancer done about 2 weeks ago. Also states she had a small intestinal resection. Hemoglobin from about a month ago was 14.2 but hemoglobin on admission was 8.1. Is 7.9 today. Stool for occult blood was negative. Currently on PPI. We will continue oral iron supplementation and monitor. Transfuse if hemoglobin falls less than 7. 3. Hyponatremia: likely due to decreased intake. Sodium was 130 on admission to 132. We will continue hydration with IV fluid normal saline. 4. Hypomagnesemia and hypophosphatemia: We will replace and monitor. 5. Stage IV stomach cancer: Status post stomach resection 2 years ago and states she had bypass due to recurrence and small bowel resection about 2 weeks ago at [facility]. She is planning to have palliative chemotherapy and had a port placed about 08/24/2018. Follow-up with Dr. Grant on discharge. 6. Thrombocytosis: platelets are 880 today, was 821 on admission. Possibly related to gastric cancer. platelets were 471 in July 2018; Will monitor. If downward trend doesnt continue, will consider oncology consult. 7. Type 2 diabetes mellitus: ISS. Accuchecks ACHS. All meds on hold. Nutrition consulted for caloric calculations she has a PEG tube. 8. Hypertension: Well controlled. On metoprolol. IV hydralazine PRN. 9. Hyperlipidemia: On statin. 10. Fibromyalgia and chronic pain syndrome: On Cymbalta, gabapentin and tramadol. 11. CARL[place]: stable DVT prophylaxis: SCDs Code status: DNRCCA Code Visit Inpatient E&M: 34743 [facility] Hosp L3
[2018-08-27] MEDS: 0.9% Normal Saline 1,000 ML 125 ML IV ×2 (09:44→15:45)
[2018-08-27] MEDS: Docusate Sodium 100 MG Capsule PO ×2 (09:44→21:28)
[2018-08-27] MEDS: Ferrous Sulfate 325 MG Tablet PO ×2 (09:44→17:14)
[2018-08-27] MEDS: Dorzolamide HCL/Timolol 10 ml Bottle 1 DRP EACH EYE ×2 (09:45→21:29)
[2018-08-27] MEDS: Ensure Clear 120 ML Liquid PO ×3 (09:45→21:27)
[2018-08-27] MEDS: DULoxetine Hcl 60 MG Capsule PO (09:45)
[2018-08-27] MEDS: Gabapentin 300 MG Capsule PO ×2 (09:46→21:27)
[2018-08-27] MEDS: Metoprolol Tartrate 25 MG Tablet PO ×2 (09:46→21:27)
[2018-08-27] MEDS: Magnesium Oxide 400 MG Tablet PO (09:46)
[2018-08-27] MEDS: Polyethylene Glycol 3350 17 GM PACKET PO (09:46)
--- NOTE | 2018-08-27 09:46 | PN_ITS ---
Patient Problems: Active and Suspected Problems (Last Reviewed 08/23/18 @ 13:20 by Chinyere Rubalcava) Anemia (Acute) Colitis (Acute) Severe sepsis (Acute) Urinary tract infection (Acute) Subjective: Patient seen and examined. She was admitted to the ED on 08/26/2018 with complaint of worsening bilateral flank pain as well as generalized abdominal discomfort for 3 days prior to admission. She denied any nausea vomiting or bright red blood per rectum or melena stools. She was found to have UTI with UA concerning for UTI versus pyelonephritis and CT of the abdomen showed transverse colitis with assisted soft tissue stranding as well as new left pleural effusion and atelectasis. She has been managed for sepsis due to UTI and colitis. Patient still complains of bilateral flank pain. She denies any chest pain or palpitations, dizziness, fever or chills. No vomiting. Review of systems otherwise negative. Labs and vitals reviewed. Vitals/I&O's: Vital Signs Temp Pulse Resp BP Pulse Ox 98.7 F 98 18 111/61 96 08/27/18 08:00 08/27/18 08:00 08/27/18 08:00 08/27/18 08:00 08/27/18 08:00 Oxygen Flow Rate (L/min) 2 Oxygen Delivery Method Room Air Weight: 171 lb 8.314 oz Body Mass Index (BMI) 26.0 Finger Stick Blood Glucose 35 Intake and Output for Last 24 Hours 08/25/18 08/26/18 08/27/18 23:59 23:59 23:59 Intake Total 3371 / 3371 Output Total 150 / 150 Balance 3221 / 3221 General: Alert, Oriented x3, Cooperative, Lethargic HEENT: Atraumatic, PERRLA, EOMI, Normocephalic Oral: Dry Mucosa Neck: Supple, No JVD, Negative Carotid Bruits, Negative Hepatojugular Reflux, No Nodes Lungs: - - decreaed breath sounds bibasally, no wheeze or crackles. on 2L of oxygen Cardiovascular: Regular rate, Regular Rhythm, Normal S1, Normal S2, No murmurs Abdomen: Bowel Sounds Present, Soft, Non Tender, - - diminished bowel sounds; has PEG tube in place Extremities: No clubbing, No cyanosis, No edema, Capillary Refill Less than 3 Seconds Skin: No rashes, No breakdown Musculoskeletal: No Tenderness to Palpation of Joints or Extremities Lymphatic: No Cervical, Supraclavicular, or Inguinal Adenopathy Neurological: Cranial nerves II-XII grossly intact Psych/Mental Status: Normal Affect, Appropriate Microbiology Past 72 Hours 08/26/18 19:50 Stool Stool Occult Blood ([place]) - Final Laboratory Results 08/26/18 16:00: Urine Color Yellow, Urine Clarity Cloudy, Urine pH 8.0, Ur Specific [place] 1.010, Urine Protein 30 H, Urine Glucose (UA) Normal, Urine Ketones 5 H, Urine Occult Blood 25 H, Urine Nitrite Positive H, Urine Bilirubin Negative, Urine Urobilinogen 1 H, Ur Leukocyte Esterase 100 H, Urine RBC 0-5 SEEN, Urine WBC 50-100 SEEN, Ur Squamous Epith Cells 0-5 SEEN, Urine Bacteria 4+, Urine Mucus 0 SEEN 08/26/18 16:10: WBC 26.2 H, RBC 2.99 L, Hgb 8.8 L, Hct 27.3 L, MCV 91.3, MCH 29.4, MCHC 32.2, RDW 14.0, RDW Differential 45.6 H, Plt Count 821 H*, MPV 8.3, Neut % (Auto) Not Reportable, Absolute Neuts (auto) 21.5 H, Absolute Lymphs (auto) 2.62, Total Counted 100, Neutrophils % (Manual) 80 H, Band Neutrophils % 2, Lymphocytes % (Manual) 10 L, Monocytes % (Manual) 6, Eosinophils % (Manual) 1, Myelocytes % 1 H, Diff Path Review July, Platelet Estimate [employer] INC, RBC Morphology NORM C+C 08/26/18 16:10: Sodium 130 L, Potassium 3.8, Chloride 95 L, Carbon Dioxide 29.0, Anion Gap 6, BUN 14, Creatinine 0.49 L, Estim Creat Clear Calc 55.82, Est GFR (MDRD) Af Amer 164, Est GFR (MDRD) Non-Af 136, BUN/Creatinine Ratio 28.8 H, Glucose 125 H, Calcium 8.8, Total Bilirubin 0.30, AST 19, ALT 12 L, Alkaline Phosphatase 143 H, Total Protein 6.9, Albumin 2.1 L, Globulin 4.8 H, Al bumin/Globulin Ratio 0.4 L 08/26/18 16:10: Magnesium 1.4 L 08/26/18 16:10: Phosphorus 1.9 L 08/26/18 18:24: PT 14.3, INR 1.1, APTT 32.8 08/26/18 18:24: Lactic Acid 2.2 H 08/26/18 19:50: Hgb 8.1 L, Hct 24.6 L 08/26/18 22:23: POC Glucose 112 H 08/26/18 22:53: Lactic Acid 2.2 H 08/27/18 06:27: WBC 22.6 H, RBC 2.70 L, Hgb 7.9 L, Hct 24.6 L, MCV 91.1, MCH 29.3, MCHC 32.1, RDW 14.2, RDW Differential 45.5 H, Plt Count 770 H*, MPV 8.5, Neut % (Auto) Not Reportable, Absolute Neuts (auto) Not Reportable, Total Counted 100, Neutrophils % (Manual) 71 H, Band Neutrophils % 6 H, Lymphocytes % (Manual) 9 L, Monocytes % (Manual) 6, Eosinophils % (Manual) 1, Metamyelocytes % 2 H, Myelocytes % 5 H, Platelet Estimate MOD, RBC Morphology NORM C+C 08/27/18 06:27: Sodium 132 L, Potassium 3.8, Chloride 100, Carbon Dioxide 24.0, Anion Gap 8, BUN 9, Creatinine 0.31 L, Estim Creat Clear Calc 55.82, Est GFR (MDRD) Af Amer 276, Est GFR (MDRD) Non-Af 229, BUN/Creatinine Ratio 29.1 H, Glucose 49 L, Calcium 8.2 L, Total Bilirubin 0.50, AST 20, ALT 10 L, Alkaline Phosphatase 127 H, Total Protein 6.0 L, Albumin 1.7 L, Globulin 4.3 H, Albumin/Globulin Ratio 0.4 L 08/27/18 06:29: POC Glucose 73 Diagnostic Data Abdomen/Pelvis CT 08/26/18 15:42 IMPRESSION: 1. Resolution of the marked distention of the stomach remnant and distal esophagus, seen on the prior study. 2. Almost complete resolution of the duodenal and proximal small bowel dilatation seen on the previous study. 3. Findings suggestive of transverse colitis with associated soft tissue stranding. This was not previously noted. 4. NG tube not present on the previous examination. 5. New left pleural effusion and atelectasis. 6. Otherwise stable findings. Electronically Signed: Marcellus Diaz DO at 16:49 EDT Tel [phone], Service support , Chest X-Ray 08/26/18 18:15 IMPRESSION: Nonvisualization of a small left pleural effusion noted on a recent abdominal CT. There is no change in findings when compared with study of 2 days earlier Electronically Signed: Marcellus Diaz DO at 18:52 EDT Tel [phone], Service support , Current Medications Acetaminophen (Tylenol) 650 mg PO Q6H PRN PRN PRN Reason: Non-cardiac pain (mod-severe) Al Hydroxide/Mg Hydroxide (Mylanta Ii) 15 - 30 ml PO Q4H PRN PRN PRN Reason: INDIGESTION Albuterol Sulfate (Ventolin Aerosols) 2.5 mg INHALATION Q2H PRN PRN PRN Reason: dyspnea, wheezing Atorvastatin Calcium (Lipitor) 40 mg PO QHS [facility] Last Admin: 08/26/18 21:59 Dose: 40 mg Dextrose (D50w Syringe) 0 gm IV X1 PRN; Protocol PRN Reason: Hypoglycemia Docusate Sodium (Colace) 100 mg PO BID [facility] Last Admin: 08/26/18 21:58 Dose: 100 mg Dorzolamide/Timolol (Cosopt Opth Drops) 1 drop EACH EYE BID [facility] Last Admin: 08/26/18 21:58 Dose: 1 drop Duloxetine HCl (Cymbalta) 60 mg PO DAILY [facility] Ferrous Sulfate (Ferrous Sulfate) 325 mg PO BIDCM [facility] Gabapentin (Neurontin) 300 mg PO BID [facility] Last Admin: 08/26/18 21:59 Dose: 300 mg Glucagon () 1 mg IM .X1 PRN PRN Reason: Hypoglycemia Hydralazine HCl (Apresoline Iv) 10 mg IV Q4H PRN PRN PRN Reason: SBP > 160 Sodium Chloride () 1,000 mls @ 125 mls/hr IV .Q8H [facility] Meropenem 1 gm/ Sodium (Chloride) 120 mls @ 33 mls/hr IV Q8 [facility] Last Admin: 08/27/18 06:17 Dose: 33 mls/hr Sodium Chloride () 250 mls @ 15 mls/hr IV .[id number] PRN PRN Reason: SALINE FLUSH Last Admin: 08/26/18 21:55 Dose: 15 mls/hr Insulin Glargine (Lantus (Bkc)) 20 units SC QHS [facility] Last Admin: 08/26/18 22:28 Dose: 20 u Insulin Human Lispro (Humalog Kwikpen (Bkc)) 0 unit SQ ACHS [facility]; Protocol Last Admin: 08/27/18 06:31 Dose: Not Given Magnesium Oxide (Mag-Ox 400) 400 mg PO DAILY [facility] Melatonin (Melatonin) 3 mg PO QHS PRN PRN PRN Reason: INSOMNIA Metoprolol Tartrate (Lopressor (Beta Aditya)) 25 mg PO BID [facility] Last Admin: 08/26/18 21:59 Dose: 25 mg Morphine Sulfate () 1 - 2 mg IV Q4H PRN PRN PRN Reason: PAIN Last Admin: 08/27/18 00:20 Dose: 2 mg Nutritional Formula (Lactose Free) (Ensure Clear) 120 ml PO 4X/DAY [facility] Ondansetron HCl (Zofran) 4 mg IV Q8H PRN PRN PRN Reason: NAUSEA/VOMITING Pantoprazole Sodium (Protonix) 20 mg PO BID [facility] Polyethylene Glycol (Miralax) 17 gm PO DAILY [facility] Sodium Chloride () 5 - 15 ml IV UD PRN PRN Reason: SALINE FLUSH Tramadol HCl (Ultram) 50 mg PO Q4H PRN PRN PRN Reason: PAIN Last Admin: 08/27/18 06:25 Dose: 50 mg Trazodone HCl (Desyrel) 50 mg PO QHS [facility] Last Admin: 08/26/18 22:00 Dose: 50 mg Medical Necessity - Tobacco Use Smoking Status: Former smoker Tobacco Use: Non-smoker Assessment/Plan All Active Problems (Last Reviewed 08/23/18 @ 13:20 by Chinyere Rubalcava) Anemia (Acute) Colitis (Acute) S/P jejunostomy (Acute) Acute pancreatitis (Acute) Abdominal pain (Acute) SBO (small bowel obstruction) (Acute) history of colectomy from colonoscopy perforation (Resolved) History of (Resolved) history open cholecystectomy (Resolved) History of gastrectomy (Resolved) Hypophosphatemia (Acute) Eosinophilia (Acute) Hypomagnesemia (Acute) Severe sepsis (Acute) Septic shock (Ruled-out) Acute renal failure (Acute) Urinary tract infection (Acute) Toxic encephalopathy (Acute) Hyperammonemia (Acute) 1. Sepsis due to UTI and transverse colitis * SIRS criteria is 1/4 (leucocytosis) * on IV meroprenem * blood and urine cultures pending. * UA showed wbc of 50-100 and bacteria 4+ * lactic acid remained at 2.2 * will monitor * 2. Anemia, possibly due to blood loss from recent surgery * Had gastric bypass for stomach cancer done about 2 weeks ago. Also states she had a small intestinal resection. * Hemoglobin from about a month ago was 14.2 but hemoglobin on admission was 8.1. Is 7.9 today. * Stool for occult blood was negative. Currently on PPI. We will continue oral iron supplementation and monitor. * Transfuse if hemoglobin falls less than 7. * 3. Hyponatremia: likely due to decreased intake. Sodium was 130 on admission to 132. We will continue hydration with IV fluid normal saline. 4. Hypomagnesemia and hypophosphatemia: We will replace and monitor. 5. Stage IV stomach cancer: * Status post stomach resection 2 years ago and states she had bypass due to recurrence and small bowel resection about [address] [facility]. * She is planning to have palliative chemotherapy and had a port placed about 08/24/2018. Follow-up with Dr. Grant on discharge. * 6. Thrombocytosis: * platelets are 880 today, was 821 on admission. * Possibly related to gastric cancer. platelets were 471 in July 2018; * Will monitor. If downward trend doesnt continue, will consider oncology consult. * 7. Type 2 diabetes mellitus: ISS. Accuchecks ACHS. All meds on hold. Nutrition consulted for caloric calculations she has a PEG tube. 8. Hypertension: Well controlled. On metoprolol. IV hydralazine PRN. 9. Hyperlipidemia: On statin. 10. Fibromyalgia and chronic pain syndrome: On Cymbalta, gabapentin and tramadol. 11. CARLOTA: stable DVT prophylaxis: SCDs Code status: DNRCCA Code Visit Inpatient E&M: 26990 [facility] Hosp L3
[2018-08-27] MEDS: Pantoprazole Sodium 20 MG Tablet PO ×2 (09:49→21:27)
[2018-08-27 12:01] LABS: Bedside Glucose 109 mg/dL (70-110)
--- NOTE | 2018-08-27 14:38 | CM.UR ---
RN CM Assessment Met face to face with patient for initial transition planning/care coordination assessment. Introduced myself and my role. Verb understanding and agreement for assessment. Presentation: bilateral flank pain x 3 days PCP: Blaise Specialists: Tori Pref[facility]acy[facility] Insurance: [facility] & medicaid Prescription Benefit: Yes. No concerns re: affording medications. LNOK: Antoinno Sylvester. Home: one story ranch. ADLs: Needs assistance with all adls. Significant other Arsalan Rodriguez is there all day then works afternoons. Grandson stays with her to help her in the evening when S.O. is gone. Transportation: S.O and family DME: Walker, shower chair, BSC, Grab bars, cane. Advance Directives: They are on-file. SonArsalan is DPOA. Jayleen, daughter is 2nd and Arsalan Rodriguez is 3rd. DC PLAN: Home. Denies any needs. Lianna Carlin RN, [facility].
[2018-08-27 15:56] LABS: Bedside Glucose 81 mg/dL (70-110)
[2018-08-27] MEDS: traZODone 50 MG Tablet PO (21:27)
[2018-08-27] MEDS: Atorvastatin Calcium 40 MG Tablet PO (21:28)
[2018-08-27 21:45] LABS: Bedside Glucose 105 mg/dL (70-110)
[2018-08-28] VITALS (11 sets, daily range): BP systolic 128–131; BP diastolic 71–73; PULSE 89–102; RESP 16–18; TEMP 36.7–37.4; O2SAT 91–95
[2018-08-28] MEDS: Mag Hydrox/Al Hydrox/Simeth 30 ML UDC PO (00:02)
[2018-08-28] MEDS: 0.9% Normal Saline 1,000 ML 125 ML IV ×4 (00:03→22:36)
[2018-08-28 05:50] LABS: Hematocrit 23.9 % (37-47); Hemoglobin 7.9 g/dl (12.0-15.0); Mean Corp Hgb Conc 33.1 g/gl (32-36); Mean Corpuscular Hgb 29.4 pg (27.0-32.0); Mean Corpuscular Volume 88.8 fL (81-99); Mean Platelet Vol. 7.9 fl (6.2-12.0); Platelet Count 657 K/mm3 (150-450); RBC Distribution Width CV 14.3 % (11.6-14.6); RBC Distribution Width SD 46.5 fl (35.1-43.9); Red Blood Count 2.69 M/mm3 (4.2-5.4); White Blood Count 21.2 K/mm3 (4.4-11.0)
[2018-08-28 05:51] LABS: Differential Indicated MANUAL DIFF; POSITIVE COUNT YES; POSITIVE DIFFERENTIAL YES; POSITIVE MORPHOLOGY YES
[2018-08-28 05:54] LABS: Anion Gap 10 (5-15); BUN 5 mg/dL (7-18); BUN/Creat Ratio 17.8 RATIO (10-20); Calcium,Total 8.3 mg/dL (8.5-10.1); Chloride 100 mmol/L (98-107); Creatinine, Serum 0.28 mg/dL (0.55-1.02); EST Glomerular Filtration Rate 255 mL/min (>60); Est Glom Filt Rate - Afr Amer 309 mL/min (>60); Estimated Creatinine Clearance 55.82 ml/min; Glucose 134 mg/dL (74-106); Magnesium 1.5 mg/dL (1.6-2.6); Potassium 3.7 mmol/L (3.5-5.1); Sodium Level 134 mmol/L (136-145)
[2018-08-28 06:19] LABS: Eosinophil 1 % (0-5); Lymphocyte 8 % (19-41); Metamyelocyte 4 % (0-1); Monocyte 8 % (0-10); Neutrophil-Band 35 % (0-5); Neutrophil-Segmented 44 % (47-70); Total Cells Counted 100 (MANUAL DIFF)
[2018-08-28 06:21] LABS: Absolute Neutrophil Count 17.6 X10^3/uL (2.0-7.7); Neutrophil # 17.59 X10^3/uL (2.7-7.7)
[2018-08-28 06:22] LABS: Platelet Estimate MOD INC (ADEQ); Toxic Granulation 1+
[2018-08-28] MEDS: 0.9% NaCl IVPB Med Flush (250 mL) 15 ML IV (06:44)
[2018-08-28 06:46] LABS: Bedside Glucose 133 mg/dL (70-110)
[2018-08-28] MEDS: Ferrous Sulfate 325 MG Tablet PO ×2 (07:39→17:04)
--- NOTE | 2018-08-28 07:43 | NURSING ---
mag not on unit for pt administration at this time
[2018-08-28] MEDS: Magnesium Sulfate 4gm/100mL 4 GM/100 ML IV.SOLN. IV (08:11)
--- NOTE | 2018-08-28 09:24 | PCM.PN.HOSP ---
Patient Problems: Active and Suspected Problems (Last Reviewed 08/23/18 @ 13:20 by Chinyere Rubalcava) Anemia (Acute) Colitis (Acute) Severe sepsis (Acute) Urinary tract infection (Acute) Subjective: Patient seen and examined. She feels better today. Abdominal pain and bilateral flank pain have resolved. She denies any nausea, vomiting fever or chills, shortness of breath or chest pain. Review of systems otherwise negative. Labs and vitals reviewed. Vitals/I&O's: Vital Signs Temp Pulse Resp BP Pulse Ox 98.1 F 99 18 131/71 H 95 08/28/18 08:00 08/28/18 08:00 08/28/18 08:00 08/28/18 08:00 08/28/18 08:00 Oxygen Flow Rate (L/min) 2 Oxygen Delivery Method Room Air Weight: 171 lb 8.314 oz Body Mass Index (BMI) 26.0 Finger Stick Blood Glucose 35 Intake and Output for Last 24 Hours 08/26/18 08/27/18 08/28/18 23:59 23:59 23:59 Intake Total 5405 / 5405 2632 / 2632 Output Total 150 / 150 1200 / 1200 Balance 5255 / 5255 1432 / 1432 General: Alert, Oriented x3, Cooperative, Lethargic HEENT: Atraumatic, PERRLA, EOMI, Normocephalic Oral: Dry Mucosa Neck: Supple, No JVD, Negative Carotid Bruits, Negative Hepatojugular Reflux, No Nodes Lungs: - - mildly decreased breath sounds bibasally, no wheeze or crackles. on room air now Cardiovascular: Regular rate, Regular Rhythm, Normal S1, Normal S2, No murmurs Abdomen: Bowel Sounds Present, Soft, Non Tender, - - has PEG tube in place Extremities: No clubbing, No cyanosis, No edema, Capillary Refill Less than 3 Seconds Skin: No rashes, No breakdown Musculoskeletal: No Tenderness to Palpation of Joints or Extremities Lymphatic: No Cervical, Supraclavicular, or Inguinal Adenopathy Neurological: Cranial nerves II-XII grossly intact Psych/Mental Status: Normal Affect, Appropriate Microbiology Past 72 Hours 08/26/18 16:00 Urine, Clean Catch Urine Culture - Preliminary Presumptive E. coli 08/26/18 19:50 Stool Stool Occult Blood ([facility]) - Final Laboratory Results 08/27/18 06:27: Total Counted 100, Neutrophils % (Manual) 71 H, Band Neutrophils % 6 H, Lymphocytes % (Manual) 9 L, Monocytes % (Manual) 6, Eosinophils % (Manual) 1, Metamyelocytes % 2 H, Myelocytes % 5 H, Platelet Estimate MOD, RBC Morphology NORM C+C 08/27/18 11:56: POC Glucose 109 08/27/18 15:49: POC Glucose 81 08/27/18 21:33: POC Glucose 105 08/28/18 05:13: WBC 21.2 H, RBC 2.69 L, Hgb 7.9 L, Hct 23.9 L, MCV 88.8, MCH 29.4, MCHC 33.1, RDW 14.3, RDW Differential 46.5 H, Plt Count 657 H, MPV 7.9, Neut % (Auto) Not Reportable, Absolute Neuts (auto) 17.6 H, Absolute Lymphs (auto) 1.70, Total Counted 100, Neutrophils % (Manual) 44 L, Band Neutrophils % 35 H, Lymphocytes % (Manual) 8 L, Monocytes % (Manual) 8, Eosinophils % (Manual) 1, Metamyelocytes % 4 H, Toxic Granulation 1+, Platelet Estimate MOD INC 08/28/18 05:13: Sodium 134 L, Potassium 3.7, Chloride 100, Carbon Dioxide 24.0, Anion Gap 10, BUN 5 L, Creatinine 0.28 L, Estim Creat Clear Calc 55.82, Est GFR (MDRD) Af Amer 309, Est GFR (MDRD) Non-Af 255, BUN/Creatinine Ratio 17.8, Glucose 134 H, Calcium 8.3 L, Magnesium 1.5 L 08/28/18 06:37: POC Glucose 133 H Diagnostic Data Abdomen/Pelvis CT 08/26/18 15:42 IMPRESSION: 1. Resolution of the marked distention of the stomach remnant and distal esophagus, seen on the prior study. 2. Almost complete resolution of the duodenal and proximal small bowel dilatation seen on the previous study. 3. Findings suggestive of transverse colitis with associated soft tissue stranding. This was not previously noted. 4. NG tube not present on the previous examination. 5. New left pleural effusion and atelectasis. 6. Otherwise stable findings. Electronically Signed: Marcellus Diaz DO at 16:49 EDT Tel [phone], Service support , Chest X-Ray 08/26/18 18:15 IMPRESSION: Nonvisualization of a small left pleural effusion noted on a recent abdominal CT. There is no change in findings when compared with study of 2 days earlier Electronically Signed: Marcellus Diaz DO at 18:52 EDT Tel [phone], Service support , Current Medications Acetaminophen (Tylenol) 650 mg PO Q6H PRN PRN PRN Reason: Non-cardiac pain (mod-severe) Al Hydroxide/Mg Hydroxide (Mylanta Ii) 15 - 30 ml PO Q4H PRN PRN PRN Reason: INDIGESTION Last Admin: 08/28/18 00:02 Dose: 30 ml Albuterol Sulfate (Ventolin Aerosols) 2.5 mg INHALATION Q2H PRN PRN PRN Reason: dyspnea, wheezing Atorvastatin Calcium (Lipitor) 40 mg PO QHS [facility] Last Admin: 08/27/18 21:28 Dose: 40 mg Dextrose (D50w Syringe) 0 gm IV X1 PRN; Protocol PRN Reason: Hypoglycemia Docusate Sodium (Colace) 100 mg PO BID [facility] Last Admin: 08/27/18 21:28 Dose: 100 mg Dorzolamide/Timolol (Cosopt Opth Drops) 1 drop EACH EYE BID [facility] Last Admin: 08/27/18 21:29 Dose: 1 drop Duloxetine HCl (Cymbalta) 60 mg PO DAILY [facility] Last Admin: 08/27/18 09:45 Dose: 60 mg [facility] Last Admin: 08/28/18 07:39 Dose: 325 mg Gabapentin (Neurontin) 300 mg PO BID [facility] Last Admin: 08/27/18 21:27 Dose: 300 mg Glucagon () 1 mg IM .X1 PRN PRN Reason: Hypoglycemia Hydralazine HCl (Apresoline Iv) 10 mg IV Q4H PRN PRN PRN Reason: SBP > 160 Sodium Chloride () 1,000 mls @ 125 mls/hr IV .Q8H [facility] Last Admin: 08/28/18 06:47 Dose: 125 mls/hr Meropenem 1 gm/ Sodium (Chloride) 120 mls @ 33 mls/hr IV Q8 [facility] Last Admin: 08/28/18 05:44 Dose: 33 mls/hr Sodium Chloride () 250 mls @ 15 mls/hr IV .[id number] PRN PRN Reason: SALINE FLUSH Last Admin: 08/28/18 06:44 Dose: 15 mls/hr Magnesium Sulfate () 4 gm in 100 mls @ 25 mls/hr IV X1 ONE Stop: 08/28/18 11:29 Last Admin: 08/28/18 08:11 Dose: 25 mls/hr Insulin Glargine (Lantus ([facility])) 20 units SC QHS [facility] Last Admin: 08/27/18 21:34 Dose: 20 u Insulin Human Lispro (Humalog Kwikpen ([facility])) 0 unit SQ ACHS [facility]; Protocol Last Admin: 08/28/18 06:39 Dose: Not Given Magnesium Oxide (Mag-Ox 400) 400 mg PO DAILY [facility] Last Admin: 08/27/18 09:46 Dose: 400 mg Melatonin (Melatonin) 3 mg PO QHS PRN PRN PRN Reason: INSOMNIA Metoprolol Tartrate (Lopressor (Beta Aditya)) 25 mg PO BID [facility] Last Admin: 08/27/18 21:27 Dose: 25 mg Morphine Sulfate () 1 - 2 mg IV Q4H PRN PRN PRN Reason: PAIN Last Admin: 08/27/18 21:40 Dose: 2 mg Nutritional Formula (Lactose Free) (Ensure Clear) 120 ml PO 4X/DAY [facility] Last Admin: 08/27/18 21:27 Dose: 120 ml Ondansetron HCl (Zofran) 4 mg IV Q8H PRN PRN PRN Reason: NAUSEA/VOMITING Pantoprazole Sodium (Protonix) 20 mg PO BID [facility] Last Admin: 08/27/18 21:27 Dose: 20 mg Polyethylene Glycol (Miralax) 17 gm PO DAILY [facility] Last Admin: 08/27/18 09:46 Dose: 17 gm Sodium Chloride () 5 - 15 ml IV UD PRN PRN Reason: SALINE FLUSH Tramadol HCl (Ultram) 50 mg PO Q4H PRN PRN PRN Reason: PAIN Last Admin: 08/27/18 17:35 Dose: 50 mg Trazodone HCl (Desyrel) 50 mg PO QHS [facility] Last Admin: 08/27/18 21:27 Dose: 50 mg Medical Necessity - Tobacco Use Smoking Status: Former smoker Tobacco Use: Non-smoker Assessment/Plan All Active Problems (Last Reviewed 08/23/18 @ 13:20 by Chinyere Rubalcava) Anemia (Acute) Colitis (Acute) S/P jejunostomy (Acute) Acute pancreatitis (Acute) Abdominal pain (Acute) SBO (small bowel obstruction) (Acute) history of colectomy from colonoscopy perforation (Resolved) History of (Resolved) history open cholecystectomy (Resolved) History of gastrectomy (Resolved) Hypophosphatemia (Acute) Eosinophilia (Acute) Hypomagnesemia (Acute) Severe sepsis (Acute) Septic shock (Ruled-out) Acute renal failure (Acute) Urinary tract infection (Acute) Toxic encephalopathy (Acute) Hyperammonemia (Acute) 1. Sepsis due to UTI and transverse colitis SIRS criteria is 1/4 (leucocytosis); wbc is still elevated, but is down to 21.2, from 26.2 on admission on IV meroprenem urine cultured E. coli (presumptive) blood culture pending. 2. Anemia, possibly due to blood loss from recent surgery Hb still remains 7.9; stable Likely due to intestinal bypass she had about 2 weeks ago as well as small intestine INR resection. Continue IV PPI and oral iron supplementation. To transfuse if hemoglobin falls less than 7. 3. Hyponatremia: likely due to decreased intake. sodium is up to 134 today. Continue gentle hydration with IVF. 4. Hypomagnesemia and hypophosphatemia: We will replace and monitor. 5. Stage IV stomach cancer: Status post stomach resection 2 years ago and states she had bypass due to recurrence and small bowel resection about 2 weeks ago at [facility]. She is planning to have palliative chemotherapy and had a port placed about 08/24/2018. Follow-up with Dr. Grant on discharge. 6. Thrombocytosis: Improving. Platelets down to 657 today from 8-1 on admission. Possibly related to gastric cancer. platelets were 471 in July 2018; Will monitor. Consult oncology consulted, trend does not continue. 7. Type 2 diabetes mellitus: ISS. Accuchecks ACHS. All meds on hold. Nutrition consulted for caloric calculations she has a PEG tube. 8. Hypertension: Well controlled. On metoprolol. IV hydralazine PRN. 9. Hyperlipidemia: On statin. 10. Fibromyalgia and chronic pain syndrome: On Cymbalta, gabapentin and tramadol. 11. CARLOTA: stable DVT prophylaxis: SCDs Code status: DNRCCA Code Visit Inpatient E&M: 39438 Subs Hosp L3
--- NOTE | 2018-08-28 09:28 | PN_ITS ---
Patient Problems: Active and Suspected Problems (Last Reviewed 08/23/18 @ 13:20 by Chinyere Rubalcava) Anemia (Acute) Colitis (Acute) Severe sepsis (Acute) Urinary tract infection (Acute) Subjective: Patient seen and examined. She feels better today. Abdominal pain and bilateral flank pain have resolved. She denies any nausea, vomiting fever or chills, shortness of breath or chest pain. Review of systems otherwise negative. Labs and vitals reviewed. Vitals/I&O's: Vital Signs Temp Pulse Resp BP Pulse Ox 98.1 F 99 18 131/71 H 95 08/28/18 08:00 08/28/18 08:00 08/28/18 08:00 08/28/18 08:00 08/28/18 08:00 Oxygen Flow Rate (L/min) 2 Oxygen Delivery Method Room Air Weight: 171 lb 8.314 oz Body Mass Index (BMI) 26.0 Finger Stick Blood Glucose 35 Intake and Output for Last 24 Hours 08/26/18 08/27/18 08/28/18 23:59 23:59 23:59 Intake Total 5405 / 5405 2632 / 2632 Output Total 150 / 150 1200 / 1200 Balance 5255 / 5255 1432 / 1432 General: Alert, Oriented x3, Cooperative, Lethargic HEENT: Atraumatic, PERRLA, EOMI, Normocephalic Oral: Dry Mucosa Neck: Supple, No JVD, Negative Carotid Bruits, Negative Hepatojugular Reflux, No Nodes Lungs: - - mildly decreased breath sounds bibasally, no wheeze or crackles. on room air now Cardiovascular: Regular rate, Regular Rhythm, Normal S1, Normal S2, No murmurs Abdomen: Bowel Sounds Present, Soft, Non Tender, - - has PEG tube in place Extremities: No clubbing, No cyanosis, No edema, Capillary Refill Less than 3 Seconds Skin: No rashes, No breakdown Musculoskeletal: No Tenderness to Palpation of Joints or Extremities Lymphatic: No Cervical, Supraclavicular, or Inguinal Adenopathy Neurological: Cranial nerves II-XII grossly intact Psych/Mental Status: Normal Affect, Appropriate Microbiology Past 72 Hours 08/26/18 16:00 Urine, Clean Catch Urine Culture - Preliminary Presumptive E. coli 08/26/18 19:50 Stool Stool Occult Blood ([facility]) - Final Laboratory Results 08/27/18 06:27: Total Counted 100, Neutrophils % (Manual) 71 H, Band Neutrophils % 6 H, Lymphocytes % (Manual) 9 L, Monocytes % (Manual) 6, Eosinophils % (Manual) 1, Metamyelocytes % 2 H, Myelocytes % 5 H, Platelet Estimate MOD, RBC Morphology NORM C+C 08/27/18 11:56: POC Glucose 109 08/27/18 15:49: POC Glucose 81 08/27/18 21:33: POC Glucose 105 08/28/18 05:13: WBC 21.2 H, RBC 2.69 L, Hgb 7.9 L, Hct 23.9 L, MCV 88.8, MCH 29.4, MCHC 33.1, RDW 14.3, RDW Differential 46.5 H, Plt Count 657 H, MPV 7.9, Neut % (Auto) Not Reportable, Absolute Neuts (auto) 17.6 H, Absolute Lymphs (auto) 1.70, Total Counted 100, Neutrophils % (Manual) 44 L, Band Neutrophils % 35 H, Lymphocytes % (Manual) 8 L, Monocytes % (Manual) 8, Eosinophils % (Manual) 1, Metamyelocytes % 4 H, Toxic Granulation 1+, Platelet Estimate MOD INC 08/28/18 05:13: Sodium 134 L, Potassium 3.7, Chloride 100, Carbon Dioxide 24.0, Anion Gap 10, BUN 5 L, Creatinine 0.28 L, Estim Creat Clear Calc 55.82, Est GFR (MDRD) Af Amer 309, Est GFR (MDRD) Non-Af 255, BUN/Creatinine Ratio 17.8, Glucose 134 H, Calcium 8.3 L, Magnesium 1.5 L 08/28/18 06:37: POC Glucose 133 H Diagnostic Data Abdomen/Pelvis CT 08/26/18 15:42 IMPRESSION: 1. Resolution of the marked distention of the stomach remnant and distal esophagus, seen on the prior study. 2. Almost complete resolution of the duodenal and proximal small bowel dilatation seen on the previous study. 3. Findings suggestive of transverse colitis with associated soft tissue stranding. This was not previously noted. 4. NG tube not present on the previous examination. 5. New left pleural effusion and atelectasis. 6. Otherwise stable findings. Electronically Signed: Marcellus Diaz DO at 16:49 EDT Tel [phone], Service support , Chest X-Ray 08/26/18 18:15 IMPRESSION: Nonvisualization of a small left pleural effusion noted on a recent abdominal CT. There is no change in findings when compared with study of 2 days earlier Electronically Signed: Marcellus Diaz DO at 18:52 EDT Tel [phone], Service support , Current Medications Acetaminophen (Tylenol) 650 mg PO Q6H PRN PRN PRN Reason: Non-cardiac pain (mod-severe) Al Hydroxide/Mg Hydroxide (Mylanta Ii) 15 - 30 ml PO Q4H PRN PRN PRN Reason: INDIGESTION Last Admin: 08/28/18 00:02 Dose: 30 ml Albuterol Sulfate (Ventolin Aerosols) 2.5 mg INHALATION Q2H PRN PRN PRN Reason: dyspnea, wheezing Atorvastatin Calcium (Lipitor) 40 mg PO QHS [facility] Last Admin: 08/27/18 21:28 Dose: 40 mg Dextrose (D50w Syringe) 0 gm IV X1 PRN; Protocol PRN Reason: Hypoglycemia Docusate Sodium (Colace) 100 mg PO BID [facility] Last Admin: 08/27/18 21:28 Dose: 100 mg Dorzolamide/Timolol (Cosopt Opth Drops) 1 drop EACH EYE BID [facility] Last Admin: 08/27/18 21:29 Dose: 1 drop Duloxetine HCl (Cymbalta) 60 mg PO DAILY [facility] Last Admin: 08/27/18 09:45 Dose: 60 mg [facility] S[facility] Last Admin: 08/28/18 07:39 Dose: 325 mg Gabapentin (Neurontin) 300 mg PO BID [facility] Last Admin: 08/27/18 21:27 Dose: 300 mg Glucagon () 1 mg IM .X1 PRN PRN Reason: Hypoglycemia Hydralazine HCl (Apresoline Iv) 10 mg IV Q4H PRN PRN PRN Reason: SBP > 160 Sodium Chloride () 1,000 mls @ 125 mls/hr IV .Q8H [facility] Last Admin: 08/28/18 06:47 Dose: 125 mls/hr Meropenem 1 gm/ Sodium (Chloride) 120 mls @ 33 mls/hr IV Q8 [facility] Last Admin: 08/28/18 05:44 Dose: 33 mls/hr Sodium Chloride () 250 mls @ 15 mls/hr IV .[id number] PRN PRN Reason: SALINE FLUSH Last Admin: 08/28/18 06:44 Dose: 15 mls/hr Magnesium Sulfate () 4 gm in 100 mls @ 25 mls/hr IV X1 ONE Stop: 08/28/18 11:29 Last Admin: 08/28/18 08:11 Dose: 25 mls/hr Insulin Glargine (Lantus ([facility])) 20 units SC QHS [facility] Last Admin: 08/27/18 21:34 Dose: 20 u Insulin Human Lispro (Humalog Kwikpen ([facility])) 0 unit SQ ACHS [facility]; Protocol Last Admin: 08/28/18 06:39 Dose: Not Given Magnesium Oxide (Mag-Ox 400) 400 mg PO DAILY [facility] Last Admin: 08/27/18 09:46 Dose: 400 mg Melatonin (Melatonin) 3 mg PO QHS PRN PRN PRN Reason: INSOMNIA Metoprolol Tartrate (Lopressor (Beta Aditya)) 25 mg PO BID [facility] Last Admin: 08/27/18 21:27 Dose: 25 mg Morphine Sulfate () 1 - 2 mg IV Q4H PRN PRN PRN Reason: PAIN Last Admin: 08/27/18 21:40 Dose: 2 mg Nutritional Formula (Lactose Free) (Ensure Clear) 120 ml PO 4X/DAY [facility] Last Admin: 08/27/18 21:27 Dose: 120 ml Ondansetron HCl (Zofran) 4 mg IV Q8H PRN PRN PRN Reason: NAUSEA/VOMITING Pantoprazole Sodium (Protonix) 20 mg PO BID [facility] Last Admin: 08/27/18 21:27 Dose: 20 mg Polyethylene Glycol (Miralax) 17 gm PO DAILY [facility] Last Admin: 08/27/18 09:46 Dose: 17 gm Sodium Chloride () 5 - 15 ml IV UD PRN PRN Reason: SALINE FLUSH Tramadol HCl (Ultram) 50 mg PO Q4H PRN PRN PRN Reason: PAIN Last Admin: 08/27/18 17:35 Dose: 50 mg Trazodone HCl (Desyrel) 50 mg PO QHS [facility] Last Admin: 08/27/18 21:27 Dose: 50 mg Medical Necessity - Tobacco Use Smoking Status: Former smoker Tobacco Use: Non-smoker Assessment/Plan All Active Problems (Last Reviewed 08/23/18 @ 13:20 by Chinyere Rubalcava) Anemia (Acute) Colitis (Acute) S/P jejunostomy (Acute) Acute pancreatitis (Acute) Abdominal pain (Acute) SBO (small bowel obstruction) (Acute) history of colectomy from colonoscopy perforation (Resolved) History of (Resolved) history open cholecystectomy (Resolved) History of gastrectomy (Resolved) Hypophosphatemia (Acute) Eosinophilia (Acute) Hypomagnesemia (Acute) Severe sepsis (Acute) Septic shock (Ruled-out) Acute renal failure (Acute) Urinary tract infection (Acute) Toxic encephalopathy (Acute) Hyperammonemia (Acute) 1. Sepsis due to UTI and transverse colitis * SIRS criteria is 1/4 (leucocytosis); wbc is still elevated, but is down to 21.2, from 26.2 on admission * on IV meroprenem * urine cultured E. coli (presumptive) * blood culture pending. * * 2. Anemia, possibly due to blood loss from recent surgery * Hb still remains 7.9; stable * Likely due to intestinal bypass she had about 2 weeks ago as well as small intestine INR resection. * Continue IV PPI and oral iron supplementation. * To transfuse if hemoglobin falls less than 7. * * 3. Hyponatremia: likely due to decreased intake. sodium is up to 134 today. Continue gentle hydration with IVF. 4. Hypomagnesemia and hypophosphatemia: We will replace and monitor. 5. Stage IV stomach cancer: * Status post stomach resection 2 years ago and states she had bypass due to r ecurrence and small bowel resection about 2 weeks ago at [facility]. * She is planning to have palliative chemotherapy and had a port placed about 08/24/2018. Follow-up with Dr. Grant on discharge. * 6. Thrombocytosis: * Improving. Platelets down to 657 today from 8-1 on admission. * Possibly related to gastric cancer. platelets were 471 in July 2018; * Will monitor. Consult oncology consulted, trend does not continue. * 7. Type 2 diabetes mellitus: ISS. Accuchecks ACHS. All meds on hold. Nutrition consulted for caloric calculations she has a PEG tube. 8. Hypertension: Well controlled. On metoprolol. IV hydralazine PRN. 9. Hyperlipidemia: On statin. 10. Fibromyalgia and chronic pain syndrome: On Cymbalta, gabapentin and tramadol. 11. CARLOTA: stable DVT prophylaxis: SCDs Code status: DNRCCA Code Visit Inpatient E&M: 99386 [facility] Hosp L3
[2018-08-28] MEDS: Docusate Sodium 100 MG Capsule PO ×2 (11:08→22:34)
[2018-08-28] MEDS: Gabapentin 300 MG Capsule PO ×2 (11:09→22:34)
[2018-08-28] MEDS: Metoprolol Tartrate 25 MG Tablet PO ×2 (11:09→22:34)
[2018-08-28] MEDS: Dorzolamide HCL/Timolol 10 ml Bottle 1 DRP EACH EYE ×2 (11:09→22:32)
[2018-08-28] MEDS: Polyethylene Glycol 3350 17 GM PACKET PO (11:10)
[2018-08-28] MEDS: DULoxetine Hcl 60 MG Capsule PO (11:10)
[2018-08-28] MEDS: Magnesium Oxide 400 MG Tablet PO (11:10)
[2018-08-28] MEDS: Pantoprazole Sodium 20 MG Tablet PO ×2 (11:11→22:39)
[2018-08-28 14:01] LABS: Bedside Glucose 171 mg/dL (70-110)
--- NOTE | 2018-08-28 15:54 | NURSING ---
Aware of Vital Signs that were taken by Mylene Leon at 1400 today.
[2018-08-28] MEDS: Ensure Clear 120 ML Liquid PO (17:03)
[2018-08-28] MEDS: Insulin Lispro 100 UNIT/ML INSULN.PEN SQ ×2 (17:06→22:33)
[2018-08-28 17:20] LABS: Bedside Glucose 192 mg/dL (70-110)
[2018-08-28] MEDS: traZODone 50 MG Tablet PO (22:35)
[2018-08-28] MEDS: Atorvastatin Calcium 40 MG Tablet PO (22:39)
[2018-08-28 22:41] LABS: Bedside Glucose 192 mg/dL (70-110)
[2018-08-29] VITALS (10 sets, daily range): BP systolic 108–138; BP diastolic 63–74; PULSE 88–93; RESP 16–18; TEMP 36.8–37.6; O2SAT 93–95
[2018-08-29] MEDS: 0.9% Normal Saline 1,000 ML 125 ML IV ×3 (05:14→22:48)
[2018-08-29 05:53] LABS: Hematocrit 24.4 % (37-47); Mean Corp Hgb Conc 32.8 g/gl (32-36); Mean Corpuscular Hgb 29.3 pg (27.0-32.0); Mean Corpuscular Volume 89.4 fL (81-99); Mean Platelet Vol. 8.1 fl (6.2-12.0); Platelet Count 692 K/mm3 (150-450); RBC Distribution Width CV 14.1 % (11.6-14.6); RBC Distribution Width SD 44.4 fl (35.1-43.9); Red Blood Count 2.73 M/mm3 (4.2-5.4); White Blood Count 20.7 K/mm3 (4.4-11.0)
[2018-08-29 05:54] LABS: Differential Indicated MANUAL DIFF; POSITIVE COUNT YES; POSITIVE DIFFERENTIAL YES; POSITIVE MORPHOLOGY YES
[2018-08-29 06:09] LABS: Anion Gap 9 (5-15); BUN 5 mg/dL (7-18); BUN/Creat Ratio 19.1 RATIO (10-20); Calcium,Total 8.3 mg/dL (8.5-10.1); Chloride 102 mmol/L (98-107); Creatinine, Serum 0.26 mg/dL (0.55-1.02); EST Glomerular Filtration Rate 276 mL/min (>60); Est Glom Filt Rate - Afr Amer 334 mL/min (>60); Estimated Creatinine Clearance 55.82 ml/min; Glucose 158 mg/dL (74-106); Potassium 3.6 mmol/L (3.5-5.1); Sodium Level 136 mmol/L (136-145)
[2018-08-29] MEDS: Insulin Lispro 100 UNIT/ML INSULN.PEN SQ ×4 (06:33→21:31)
[2018-08-29 07:19] LABS: Lymphocyte 10 % (19-41); Metamyelocyte 1 % (0-1); Monocyte 7 % (0-10); Myelocyte 2 (0-0); Neutrophil-Segmented 80 % (47-70); Platelet Estimate ADEQUATE (ADEQ); Red Cell Morphology NORM C+C NORMAL (NORM C&C); Total Cells Counted 100 (MANUAL DIFF)
[2018-08-29 07:20] LABS: Absolute Lymphocyte Count 2.07 X10^3/ul (0.83-4.51); Absolute Neutrophil Count 16.6 X10^3/uL (2.0-7.7); Lymphocyte # 2.07 X10^3/ul (4.0)
[2018-08-29] MEDS: DULoxetine Hcl 60 MG Capsule PO (09:08)
[2018-08-29] MEDS: Metoprolol Tartrate 25 MG Tablet PO ×2 (09:08→21:23)
[2018-08-29] MEDS: Docusate Sodium 100 MG Capsule PO ×2 (09:08→21:23)
[2018-08-29] MEDS: Gabapentin 300 MG Capsule PO ×2 (09:08→21:23)
[2018-08-29] MEDS: Ferrous Sulfate 325 MG Tablet PO ×2 (09:08→17:18)
[2018-08-29] MEDS: Magnesium Oxide 400 MG Tablet PO (09:08)
[2018-08-29] MEDS: Dorzolamide HCL/Timolol 10 ml Bottle 1 DRP EACH EYE ×2 (09:09→21:24)
[2018-08-29] MEDS: Pantoprazole Sodium 20 MG Tablet PO ×2 (09:17→21:23)
--- NOTE | 2018-08-29 10:20 | NURSING ---
wound photo: abdomen
[2018-08-29 12:00] LABS: Bedside Glucose 195 mg/dL (70-110)
[2018-08-29 12:59] LABS: Pathologist Review Reviewed
[2018-08-29 13:02] LABS: Pathologist Review Reviewed
[2018-08-29 13:02] LABS: Pathologist Review Reviewed
--- NOTE | 2018-08-29 13:02 | PCM.HP.ID ---
Problem List (1) Colitis Status: Acute Reason for Consult: esbl ecoli Consulted by: Dr. Lord History of Present Illness: The patient is a 68 year old F with stage 4 gastric cancer, presented with several days of not feeling well. She does not remember what happened prior to coming in. Had port recently placed. Denies dysuria, no fever, mild abd pain. Denies flank pain, no n/v/d. Admitted here on ceftriaxone, changed to meropenem. Feeling better. No rash with iv abx. Full ROS performed and neg except as noted above. - Medical History Past Medical History (Chronic Problems): Chronic Problems (Last Reviewed 08/23/18 @ 13:20 by Chinyere Rubalcava) Edema (Chronic) Hyperlipidemia (Chronic) Atherosclerosis of [place] coronary artery of [place] heart without angina pectoris (Chronic) Chronic pain syndrome (Chronic) Noncompliance with CPAP treatment (Chronic) Morbid obesity (Chronic) Depression (Chronic) Dyslipidemia (Chronic) Fibromyalgia (Chronic) Multinodular goiter (Chronic) Obstructive sleep apnea (Chronic) Recurrent falls (Chronic) Diabetes mellitus type 2 in obese (Chronic) Hypertension (Chronic) Gastric cancer (Chronic) Allergies/Adverse Reactions: Allergies fentanyl Adverse Reaction (Verified 08/26/18 15:06) MAKES ME SHAKE oxycodone [From Percocet] Adverse Reaction (Verified 08/26/18 15:06) MAKES ME SHAKE thiopental Adverse Reaction (Verified 08/26/18 15:06) MAKES ME SHAKE Home Medications: Ambulatory Orders Medication Instructions Recorded Docusate Sodium [Colace] 100 mg PO BID 02/15/16 Dorzolamide HCL/Timolol [Cosopt 1 drp EACH EYE BID 02/15/16 Opth Drops] Duloxetine Hcl [Cymbalta] 60 mg PO DAILY 02/15/16 Polyethylene Glycol 3350 [Miralax] 17 gm PO DAILY 03/05/17 Atorvastatin Calcium [Lipitor] 40 mg PO QHS 05/19/17 hydrochlorothiazide 12.5 mg tablet 12.5 mg PO PRN PRN 09/02/17 Gabapentin [Neurontin] 300 mg PO BID 03/31/18 Magnesium Oxide 400 mg PO DAILY 03/31/18 Insulin Detemir [Levemir FlexPen] 20 units SUBCUT QHS #10 insuln.pen 04/01/18 Ferrous Sulfate 325 mg PO BIDCM 08/05/18 Omeprazole 20 mg PO BID 08/05/18 traZODone [Desyrel] 50 mg PO QHS 08/05/18 Albuterol Inhaler [Ventolin Hfa 1 - 2 puff INHALATION Q4H PRN PRN 08/23/18 (SP)] Metoprolol Tartrate [Lopressor 25 mg PO BID 08/23/18 (Beta Aditya)] Potassium Chloride 10 meq PO PRN PRN 08/23/18 metFORMIN HCl [Glucophage] 1,000 mg PO BIDCM 08/23/18 traMADol [Ultram (G)] 50 mg PO Q6H PRN PRN 08/23/18 Ertapenem Sod [Invanz] 1 gm IV Q24 7 Days #7 vial 08/29/18 - Social History SMOKING STATUS:: Former smoker Vital Signs Temp Pulse Resp BP Pulse Ox 98.3 F 90 18 108/63 94 08/29/18 09:00 08/29/18 12:07 08/29/18 09:00 08/29/18 09:00 08/29/18 09:00 Oxygen Flow Rate (L/min) 2 Oxygen Delivery Method Room Air Weight: 77.8 kg Body Mass Index (BMI) 26.0 Finger Stick Blood Glucose 35 Microbiology Past 72 Hours 08/27/18 11:50 Gram Stain - Final Wound - Abdominal Wound Culture - Preliminary Presumptive C albicans Gram positive organism Gram negative odette 08/26/18 16:00 Urine Culture - Final Urine, Clean Catch Escherichia coli 08/26/18 18:15 Blood Culture - Preliminary Blood Culture (Wb) - Anticubital Right No growth in 48 hours. 08/26/18 18:24 Blood Culture - Preliminary Blood Culture (Wb) - Anticubital Left No growth in 48 hours. 08/26/18 19:50 Stool Occult Blood ([place]) - Final Stool Laboratory Tests Past 24 Hrs 08/26/18 08/27/18 08/29/18 16:10 06:27 05:16 WBC 20.7 H RBC 2.73 L Hgb 8.0 L Hct 24.4 L MCV 89.4 MCH 29.3 MCHC 32.8 RDW 14.1 RDW Differential 44.4 H Plt Count 692 H MPV 8.1 Neut % (Auto) Not Reportable Absolute Neuts (auto) 16.6 H Absolute Lymphs (auto) 2.07 Total Counted 100 Neutrophils % (Manual) 80 H Lymphocytes % (Manual) 10 L Monocytes % (Manual) 7 Metamyelocytes % 1 Myelocytes % 2 H Diff Path Review Reviewed Reviewed July foll Platelet Estimate ADEQUATE RBC Morphology NORM C+C Sodium Potassium Chloride Carbon Dioxide Anion Gap BUN Creatinine Estim Creat Clear Calc Est GFR (MDRD) Af Amer Est GFR (MDRD) Non-Af BUN/Creatinine Ratio Glucose Calcium 08/29/18 05:16 WBC RBC Hgb Hct MCV MCH MCHC RDW RDW Differential Plt Count MPV Neut % (Auto) Absolute Neuts (auto) Absolute Lymphs (auto) Total Counted Neutrophils % (Manual) Lymphocytes % (Manual) Monocytes % (Manual) Metamyelocytes % Myelocytes % Diff Path Review Platelet Estimate RBC Morphology Sodium 136 Potassium 3.6 Chloride 102 Carbon Dioxide 25.0 Anion Gap 9 BUN 5 L Creatinine 0.26 L Estim Creat Clear Calc 55.82 Est GFR (MDRD) Af Amer 334 Est GFR (MDRD) Non-Af 276 BUN/Creatinine Ratio 19.1 Glucose 158 H Calcium 8.3 L - Other Studies Radiology: [] reviewed Other Studies: [] Route of nutrition/ use of supplements: [] Nutritional Intake: [] IV Site: [] Campos Catheter: [] - Physical Exam General: Alert, Oriented x3, Cooperative, No apparent distress HEENT: Atraumatic, PERRLA, EOMI Neck: Supple, No Nodes Lungs: Clear to auscultation, Normal air movement Cardiovascular: Regular rate, Regular Rhythm Abdomen: Soft, Non-Distended, Tender - mild soreness. Abd incision dry, small opening. Extremities: No edema Skin: No rashes IV Site: Central Line, without redness Musculoskeletal: No Tenderness to Palpation of Joints or Extremities Neurological: Cranial nerves II-XII grossly intact - Assessment/Plan Antibiotics: [] Assessment/Plan: [] Active and Suspected Problems (Last Reviewed 08/23/18 @ 13:20 by Chniyere Rubalcava) Anemia (Acute) Colitis (Acute) Severe sepsis (Acute) Urinary tract infection (Acute) sepsis (wbc, hr) due to ESBL ecoli pyelonephritis and transverse colitis with gastric cancer. Improving on meropenem. Plan for discharge will be ertapenem 1gm qday, stop date 09/07/18, weekly bmp/cbc/lft while on iv abx. Will follow, wrote rx, d/w primary team and pillowcase maker.
--- NOTE | 2018-08-29 13:22 | NURSING ---
Spoke to Dr. Bledsoe about using left chest port for home going IV antibiotic use. He stated it is okay to use if port is accessed and de-accessed with each antibiotic infusion. Port cannot be left accessed for multiple days due to increased risk of infection since it is a new port, which was placed 08/24/18.
--- NOTE | 2018-08-29 14:00 | CASEMGMT ---
CHARLIE REID updated that patient will need IV ATB at discharge, daily for 7 days. Referral sent to [facility] and [facility]. CHARLIE REID updated from Floor Nurse Maggie GUERRA that per Dr. Bledsoe he does not want port access left in the whole 7 days. CHARLIE REID called [facility] and updated and they are not able to see patient daily for antibiotics if chest port needs accessed prior to each dose. CHARLIE REID in to speak with patient regarding IV ATB, chest port, HHC, and outpatient infusion clinic. Patient agreeable to going to infusion clinic daily for course of treatment. CHARLIE REID called infusion clinic and patient will need to arrive at 0830. Start of care planned for Wednesday08/31/18. CHARLIE REID updated hospitalist. [facility] was need for [facility]. No prior auth required. CHARLIE REID will continue to follow this patient and plan for a safe discharge.
--- NOTE | 2018-08-29 14:29 | PCM.PN.HOSP ---
Patient Problems: Active and Suspected Problems (Last Reviewed 08/23/18 @ 13:20 by Chinyere Rubalcava) Anemia (Acute) Colitis (Acute) Severe sepsis (Acute) Urinary tract infection (Acute) Objective: Patient seen and examined. SHe has no complaints and feels much better. Review of systems otherwise negative. Labs and vitals reviewed. ID consulted. Vitals/I&O's: Vital Signs Temp Pulse Resp BP Pulse Ox 98.3 F 90 18 108/63 94 08/29/18 09:00 08/29/18 12:07 08/29/18 09:00 08/29/18 09:00 08/29/18 09:00 Oxygen Flow Rate (L/min) 2 Oxygen Delivery Method Room Air Weight: 171 lb 8.314 oz Body Mass Index (BMI) 26.0 Finger Stick Blood Glucose 35 Intake and Output for Last 24 Hours 08/27/18 08/28/18 08/29/18 23:59 23:59 23:59 Intake Total 5405 / 5405 4645 / 4645 3342 / 3342 Output Total 150 / 150 3000 / 3000 2650 / 2650 Balance 5255 / 5255 1645 / 1645 692 / 692 General: Alert, Oriented x3, Cooperative HEENT: Atraumatic, PERRLA, EOMI, Normocephalic Oral: Dry Mucosa Neck: Supple, No JVD, Negative Carotid Bruits, Negative Hepatojugular Reflux, No Nodes Lungs: - - mildly decreased breath sounds bibasally, no wheeze or crackles. on room air now Cardiovascular: Regular rate, Regular Rhythm, Normal S1, Normal S2, No murmurs Abdomen: Bowel Sounds Present, Soft, Non Tender, - - has PEG tube in place Extremities: No clubbing, No cyanosis, No edema, Capillary Refill Less than 3 Seconds Skin: No rashes, No breakdown Musculoskeletal: No Tenderness to Palpation of Joints or Extremities Lymphatic: No Cervical, Supraclavicular, or Inguinal Adenopathy Neurological: Cranial nerves II-XII grossly intact Psych/Mental Status: Normal Affect, Appropriate Microbiology Past 72 Hours 08/27/18 11:50 Wound - Abdominal Gram Stain - Final 08/27/18 11:50 Wound - Abdominal Wound Culture - Preliminary Presumptive C albicans Gram positive organism Gram negative odette 08/26/18 16:00 Urine, Clean Catch Urine Culture - Final Escherichia coli 08/26/18 18:15 Blood Culture (Wb) - Anticubital Right Blood Culture - Preliminary No growth in 48 hours. 08/26/18 18:24 Blood Culture (Wb) - Anticubital Left Blood Culture - Preliminary No growth in 48 hours. 08/26/18 19:50 Stool Stool Occult Blood ([place]) - Final Laboratory Results 08/26/18 16:10: Diff Path Review Reviewed 08/27/18 06:27: Diff Path Review Reviewed 08/28/18 05:13: Diff Path Review Reviewed 08/28/18 16:46: POC Glucose 192 H 08/28/18 22:30: POC Glucose 192 H 08/29/18 05:16: WBC 20.7 H, RBC 2.73 L, Hgb 8.0 L, Hct 24.4 L, MCV 89.4, MCH 29.3, MCHC 32.8, RDW 14.1, RDW Differential 44.4 H, Plt Count 692 H, MPV 8.1, Neut % (Auto) Not Reportable, Absolute Neuts (auto) 16.6 H, Absolute Lymphs (auto) 2.07, Total Counted 100, Neutrophils % (Manual) 80 H, Lymphocytes % (Manual) 10 L, Monocytes % (Manual) 7, Metamyelocytes % 1, Myelocytes % 2 H, Diff Path Review May foll, Platelet Estimate ADEQUATE, RBC Morphology NORM C+C 08/29/18 05:16: Sodium 136, Potassium 3.6, Chloride 102, Carbon Dioxide 25.0, Anion Gap 9, BUN 5 L, Creatinine 0.26 L, Estim Creat Clear Calc 55.82, Est GFR (MDRD) Af Amer 334, Est GFR (MDRD) Non-Af 276, BUN/Creatinine Ratio 19.1, Glucose 158 H, Calcium 8.3 L 08/29/18 11:49: POC Glucose 195 H Current Medications Acetaminophen (Tylenol) 650 mg PO Q6H PRN PRN PRN Reason: Non-cardiac pain (mod-severe) Al Hydroxide/Mg Hydroxide (Mylanta Ii) 15 - 30 ml PO Q4H PRN PRN PRN Reason: INDIGESTION Last Admin: 08/28/18 00:02 Dose: 30 ml Albuterol Sulfate (Ventolin Aerosols) 2.5 mg INHALATION Q2H PRN PRN PRN Reason: dyspnea, wheezing Atorvastatin Calcium (Lipitor) 40 mg PO QHS [facility] Last Admin: 08/28/18 22:39 Dose: 40 mg Dextrose (D50w Syringe) 0 gm IV X1 PRN; Protocol PRN Reason: Hypoglycemia Docusate Sodium (Colace) 100 mg PO BID [facility] Last Admin: 08/29/18 09:08 Dose: 100 mg Dorzolamide/Timolol (Cosopt Opth Drops) 1 drop EACH EYE BID [facility] Last Admin: 08/29/18 09:09 Dose: 1 drop Duloxetine HCl (Cymbalta) 60 mg PO DAILY [facility] Last Admin: 08/29/18 09:08 Dose: 60 mg Ferrous Sulf[facility] ([facility] S[facility]) [facility] Admin: 08/29/18 09:08 Dose: 325 mg Gabapentin (Neurontin) 300 mg PO BID [facility] Last Admin: 08/29/18 09:08 Dose: 300 mg Glucagon () 1 mg IM .X1 PRN PRN Reason: Hypoglycemia Hydralazine HCl (Apresoline Iv) 10 mg IV Q4H PRN PRN PRN Reason: SBP > 160 Sodium Chloride () 1,000 mls @ 125 mls/hr IV .Q8H [facility] Last Admin: 08/29/18 14:07 Dose: 125 mls/hr Meropenem 1 gm/ Sodium (Chloride) 120 mls @ 33 mls/hr IV Q8 [facility] Last Admin: 08/29/18 12:57 Dose: 33 mls/hr Sodium Chloride () 250 mls @ 15 mls/hr IV .[id number] PRN PRN Reason: SALINE FLUSH Last Admin: 08/28/18 06:44 Dose: 15 mls/hr Insulin Glargine (Lantus (Bkc)) 20 units SC QHS [facility] Last Admin: 08/28/18 22:33 Dose: 20 u Insulin Human Lispro (Humalog Kwikpen (Bk)) 0 unit SQ ACHS [facility]; Protocol Last Admin: 08/29/18 11:52 Dose: 2 units Magnesium Oxide (Mag-Ox 400) 400 mg PO DAILY [facility] Last Admin: 08/29/18 09:08 Dose: 400 mg Melatonin (Melatonin) 3 mg PO QHS PRN PRN PRN Reason: INSOMNIA Metoprolol Tartrate (Lopressor (Beta Aditya)) 25 mg PO BID [facility] Last Admin: 08/29/18 09:08 Dose: 25 mg Morphine Sulfate () 1 - 2 mg IV Q4H PRN PRN PRN Reason: PAIN Last Admin: 08/27/18 21:40 Dose: 2 mg Nutritional Formula (Lactose Free) (Ensure Clear) 120 ml PO 4X/DAY [facility] Last Admin: 08/29/18 12:56 Dose: Not Given Ondansetron HCl (Zofran) 4 mg IV Q8H PRN PRN PRN Reason: NAUSEA/VOMITING Pantoprazole Sodium (Protonix) 20 mg PO BID [facility] Last Admin: 08/29/18 09:17 Dose: 20 mg Polyethylene Glycol (Miralax) 17 gm PO DAILY [facility] Last Admin: 08/29/18 09:07 Dose: Not Given Sodium Chloride () 5 - 15 ml IV UD PRN PRN Reason: SALINE FLUSH Tramadol HCl (Ultram) 50 mg PO Q4H PRN PRN PRN Reason: PAIN Last Admin: 08/27/18 17:35 Dose: 50 mg Trazodone HCl (Desyrel) 50 mg PO QHS [facility] Last Admin: 08/28/18 22:35 Dose: 50 mg Medical Necessity - Tobacco Use Smoking Status: Former smoker Tobacco Use: Non-smoker Assessment/Plan All Active Problems (Last Reviewed 08/23/18 @ 13:20 by Chinyere Rubalcava) Anemia (Acute) Colitis (Acute) S/P jejunostomy (Acute) Acute pancreatitis (Acute) Abdominal pain (Acute) SBO (small bowel obstruction) (Acute) history of colectomy from colonoscopy perforation (Resolved) History of (Resolved) history open cholecystectomy (Resolved) History of gastrectomy (Resolved) Hypophosphatemia (Acute) Eosinophilia (Acute) Hypomagnesemia (Acute) Severe sepsis (Acute) Septic shock (Ruled-out) Acute renal failure (Acute) Urinary tract infection (Acute) Toxic encephalopathy (Acute) Hyperammonemia (Acute) 1. Sepsis due to UTI and transverse colitis SIRS criteria is 1/4 (leucocytosis); wbc is still elevated, down to 20.7 today. on IV meropenem urine cultured ESBL E. coli ID consulted; recommend patient having IV ertapenem 1 gram daily with stop date of 08/28/18. TO have weekly CBC, bmp and LFTs whilst on antibiotics. 2. Anemia, possibly due to blood loss from recent surgery Hb still remains 8; stable To transfuse if hemoglobin falls less than 7. 3. Hyponatremia: likely due to decreased intake. resolved. Na is 136 today. 4. Hypomagnesemia and hypophosphatemia: resolved. 5. Stage IV stomach cancer: Status post stomach resection 2 years ago and states she had bypass due to recurrence and small bowel resection about 2 weeks ago at [facility]. She is planning to have palliative chemotherapy and had a port placed about 08/24/2018. Follow-up with Dr. Grant on discharge. 6. Thrombocytosis: Improving. stable. Platelets are 692 today. Possibly related to gastric cancer. platelets were 471 in July 2018; Will monitor. To follow up with oncology upon discharge. 7. Type 2 diabetes mellitus: ISS. Accuchecks ACHS. All meds on hold. 8. Hypertension: Well controlled. On metoprolol. IV hydralazine PRN. 9. Hyperlipidemia: On statin. 10. Fibromyalgia and chronic pain syndrome: On Cymbalta, gabapentin and tramadol. 11. CARLOTA: stable DVT prophylaxis: SCDs Code status: DNRCCA FOr DC tomorrow once she is set up at infusion center for ertapenem administration Code Visit Inpatient E&M: 24015 Subs Hosp L3
--- NOTE | 2018-08-29 14:35 | PN_ITS ---
Patient Problems: Active and Suspected Problems (Last Reviewed 08/23/18 @ 13:20 by Chinyere Rubalcava) Anemia (Acute) Colitis (Acute) Severe sepsis (Acute) Urinary tract infection (Acute) Objective: Patient seen and examined. SHe has no complaints and feels much better. Review of systems otherwise negative. Labs and vitals reviewed. ID consulted. Vitals/I&O's: Vital Signs Temp Pulse Resp BP Pulse Ox 98.3 F 90 18 108/63 94 08/29/18 09:00 08/29/18 12:07 08/29/18 09:00 08/29/18 09:00 08/29/18 09:00 Oxygen Flow Rate (L/min) 2 Oxygen Delivery Method Room Air Weight: 171 lb 8.314 oz Body Mass Index (BMI) 26.0 Finger Stick Blood Glucose 35 Intake and Output for Last 24 Hours 08/27/18 08/28/18 08/29/18 23:59 23:59 23:59 Intake Total 5405 / 5405 4645 / 4645 3342 / 3342 Output Total 150 / 150 3000 / 3000 2650 / 2650 Balance 5255 / 5255 1645 / 1645 692 / 692 General: Alert, Oriented x3, Cooperative HEENT: Atraumatic, PERRLA, EOMI, Normocephalic Oral: Dry Mucosa Neck: Supple, No JVD, Negative Carotid Bruits, Negative Hepatojugular Reflux, No Nodes Lungs: - - mildly decreased breath sounds bibasally, no wheeze or crackles. on room air now Cardiovascular: Regular rate, Regular Rhythm, Normal S1, Normal S2, No murmurs Abdomen: Bowel Sounds Present, Soft, Non Tender, - - has PEG tube in place Extremities: No clubbing, No cyanosis, No edema, Capillary Refill Less than 3 Seconds Skin: No rashes, No breakdown Musculoskeletal: No Tenderness to Palpation of Joints or Extremities Lymphatic: No Cervical, Supraclavicular, or Inguinal Adenopathy Neurological: Cranial nerves II-XII grossly intact Psych/Mental Status: Normal Affect, Appropriate Microbiology Past 72 Hours 08/27/18 11:50 Wound - Abdominal Gram Stain - Final 08/27/18 11:50 Wound - Abdominal Wound Culture - Preliminary Presumptive C albicans Gram positive organism Gram negative odette 08/26/18 16:00 Urine, Clean Catch Urine Culture - Final Escherichia coli 08/26/18 18:15 Blood Culture (Wb) - Anticubital Right Blood Culture - Preliminary No growth in 48 hours. 08/26/18 18:24 Blood Culture (Wb) - Anticubital Left Blood Culture - P reliminary No growth in 48 hours. 08/26/18 19:50 Stool Stool Occult Blood ([place]) - Final Laboratory Results 08/26/18 16:10: Diff Path Review Reviewed 08/27/18 06:27: Diff Path Review Reviewed 08/28/18 05:13: Diff Path Review Reviewed 08/28/18 16:46: POC Glucose 192 H 08/28/18 22:30: POC Glucose 192 H 08/29/18 05:16: WBC 20.7 H, RBC 2.73 L, Hgb 8.0 L, Hct 24.4 L, MCV 89.4, MCH 29.3, MCHC 32.8, RDW 14.1, RDW Differential 44.4 H, Plt Count 692 H, MPV 8.1, Neut % (Auto) Not Reportable, Absolute Neuts (auto) 16.6 H, Absolute Lymphs (auto) 2.07, Total Counted 100, Neutrophils % (Manual) 80 H, Lymphocytes % (Manual) 10 L, Monocytes % (Manual) 7, Metamyelocytes % 1, Myelocytes % 2 H, Diff Path Review May foll, Platelet Estimate ADEQUATE, RBC Morphology NORM C+C 08/29/18 05:16: Sodium 136, Potassium 3.6, Chloride 102, Carbon Dioxide 25.0, Anion Gap 9, BUN 5 L, Creatinine 0.26 L, Estim Creat Clear Calc 55.82, Est GFR (MDRD) Af Amer 334, Est GFR (MDRD) Non-Af 276, BUN/Creatinine Ratio 19.1, Glucose 158 H, Calcium 8.3 L 08/29/18 11:49: POC Glucose 195 H Current Medications Acetaminophen (Tylenol) 650 mg PO Q6H PRN PRN PRN Reason: Non-cardiac pain (mod-severe) Al Hydroxide/Mg Hydroxide (Mylanta Ii) 15 - 30 ml PO Q4H PRN PRN PRN Reason: INDIGESTION Last Admin: 08/28/18 00:02 Dose: 30 ml Albuterol Sulfate (Ventolin Aerosols) 2.5 mg INHALATION Q2H PRN PRN PRN Reason: dyspnea, wheezing Atorvastatin Calcium (Lipitor) 40 mg PO QHS [facility] Last Admin: 08/28/18 22:39 Dose: 40 mg Dextrose (D50w Syringe) 0 gm IV X1 PRN; Protocol PRN Reason: Hypoglycemia Docusate Sodium (Colace) 100 mg PO BID [facility] Last Admin: 08/29/18 09:08 Dose: 100 mg Dorzolamide/Timolol (Cosopt Opth Drops) 1 drop EACH EYE BID [facility] Last Admin: 08/29/18 09:09 Dose: 1 drop Duloxetine HCl (Cymbalta) 60 mg PO DAILY [facility] Last Admin: 08/29/18 09:08 Dose: 60 mg [facility]ous Sulfate ([facility]ate) [facility] Last Admin: 08/29/18 09:08 Dose: 325 mg Gabapentin (Neurontin) 300 mg PO BID [facility] Last Admin: 08/29/18 09:08 Dose: 300 mg Glucagon () 1 mg IM .X1 PRN PRN Reason: Hypoglycemia Hydralazine HCl (Apresoline Iv) 10 mg IV Q4H PRN PRN PRN Reason: SBP > 160 Sodium Chloride () 1,000 mls @ 125 mls/hr IV .Q8H [facility] Last Admin: 08/29/18 14:07 Dose: 125 mls/hr Meropenem 1 gm/ Sodium (Chloride) 120 mls @ 33 mls/hr IV Q8 [facility] Last Admin: 08/29/18 12:57 Dose: 33 mls/hr Sodium Chloride () 250 mls @ 15 mls/hr IV .[id number] PRN PRN Reason: SALINE FLUSH Last Admin: 08/28/18 06:44 Dose: 15 mls/hr Insulin Glargine (Lantus (Bkc)) 20 units SC QHS [facility] Last Admin: 08/28/18 22:33 Dose: 20 u Insulin Human Lispro (Humalog Kwikpen (Bkc)) 0 unit SQ ACHS [facility]; Protocol Last Admin: 08/29/18 11:52 Dose: 2 units Magnesium Oxide (Mag-Ox 400) 400 mg PO DAILY [facility] Last Admin: 08/29/18 09:08 Dose: 400 mg Melatonin (Melatonin) 3 mg PO QHS PRN PRN PRN Reason: INSOMNIA Metoprolol Tartrate (Lopressor (Beta Aditya)) 25 mg PO BID [facility] Last Admin: 08/29/18 09:08 Dose: 25 mg Morphine Sulfate () 1 - 2 mg IV Q4H PRN PRN PRN Reason: PAIN Last Admin: 08/27/18 21:40 Dose: 2 mg Nutritional Formula (Lactose Free) (Ensure Clear) 120 ml PO 4X/DAY [facility] Last Admin: 08/29/18 12:56 Dose: Not Given Ondansetron HCl (Zofran) 4 mg IV Q8H PRN PRN PRN Reason: NAUSEA/VOMITING Pantoprazole Sodium (Protonix) 20 mg PO BID [facility] Last Admin: 08/29/18 09:17 Dose: 20 mg Polyethylene Glycol (Miralax) 17 gm PO DAILY [facility] Last Admin: 08/29/18 09:07 Dose: Not Given Sodium Chloride () 5 - 15 ml IV UD PRN PRN Reason: SALINE FLUSH Tramadol HCl (Ultram) 50 mg PO Q4H PRN PRN PRN Reason: PAIN Last Admin: 08/27/18 17:35 Dose: 50 mg Trazodone HCl (Desyrel) 50 mg PO QHS [facility] Last Admin: 08/28/18 22:35 Dose: 50 mg Medical Necessity - Tobacco Use Smoking Status: Former smoker Tobacco Use: Non-smoker Assessment/Plan All Active Problems (Last Reviewed 08/23/18 @ 13:20 by Chinyere Rubalcava) Anemia (Acute) Colitis (Acute) S/P jejunostomy (Acute) Acute pancreatitis (Acute) Abdominal pain (Acute) SBO (small bowel obstruction) (Acute) history of colectomy from colonoscopy perforation (Resolved) History of (Resolved) history open cholecystectomy (Resolved) History of gastrectomy (Resolved) Hypophosphatemia (Acute) Eosinophilia (Acute) Hypomagnesemia (Acute) Severe sepsis (Acute) Septic shock (Ruled-out) Acute renal failure (Acute) Urinary tract infection (Acute) Toxic encephalopathy (Acute) Hyperammonemia (Acute) 1. Sepsis due to UTI and transverse colitis * SIRS criteria is 1/4 (leucocytosis); wbc is still elevated, down to 20.7 today. * on IV meropenem * urine cultured ESBL E. coli * ID consulted; recommend patient having IV ertapenem 1 gram daily with stop date of 08/28/18. TO have weekly CBC, bmp and LFTs whilst on antibiotics. * * 2. Anemia, possibly due to blood loss from recent surgery * Hb still remains 8; stable * To transfuse if hemoglobin falls less than 7. * * 3. Hyponatremia: likely due to decreased intake. resolved. Na is 136 today. 4. Hypomagnesemia and hypophosphatemia: resolved. 5. Stage IV stomach cancer: * Status post stomach resection 2 years ago and states she had bypass due to recurrence and small bowel resection about 2 weeks ago at [facility]. * She is planning to have palliative chemotherapy and had a port placed about 08/24/2018. Follow-up with Dr. Grant on discharge. * 6. Thrombocytosis: * Improving. stable. Platelets are 692 today. * Possibly related to gastric cancer. platelets were 471 in July 2018; * Will monitor. To follow up with oncology upon discharge. * 7. Type 2 diabetes mellitus: ISS. Accuchecks ACHS. All meds on hold. 8. Hypertension: Well controlled. On metoprolol. IV hydralazine PRN. 9. Hyperlipidemia: On statin. 10. Fibromyalgia and chronic pain syndrome: On Cymbalta, gabapentin and tramadol. 11. CARLOTA: stable DVT prophylaxis: SCDs Code status: DNRCCA FOr DC tomorrow once she is set up at infusion center for ertapenem administration Code Visit Inpatient E&M: 75168 Subs Hosp L3
--- NOTE | 2018-08-29 14:48 | CHAPLAIN ---
Type of Pastoral Visit _x__ Initial Visit ___ Follow-up Visit ___ On-call Visit ___ General Patient Visit ___ Spiritual Assessment ___ Family Conference ___ Bereavement ___ Rapid Response ___ Code Blue ___ Other (describe below) Pastoral Care Referral From _x__ Patient ___ Family ___ Nurse ___ Physician ___ Data Control Assistant ___ Group Supervisor Yard ___ Other (describe below) Sacrament/Intervention _x__ Active listening ___ Anointing ___ Adventism ___ Bereavement ___ Communion ___ Isabel exploration ___ ___ Life review _x__ Prayer ___ Reconciliation ___ Sacrament of Sick _x__ Supportive presence ___ Wedding ___ Other (describe below) Pastoral Comments
[2018-08-29 16:00] LABS: Bedside Glucose 212 mg/dL (70-110)
--- NOTE | 2018-08-29 18:45 | NURSING ---
Son (Arsalan Sylvester) requesting to speak with this RN. Concerned that mother cannot be discharged home due to patient's overall condition. States she will not be able to come in daily for IV antibiotic infusions. He would like the doctor to call him 08/30 prior to discharge.
[2018-08-29] MEDS: traZODone 50 MG Tablet PO (21:23)
[2018-08-29] MEDS: Atorvastatin Calcium 40 MG Tablet PO (21:28)
[2018-08-29 23:01] LABS: Bedside Glucose 167 mg/dL (70-110)
[2018-08-30] VITALS (9 sets, daily range): BP systolic 122–147; BP diastolic 61–68; PULSE 80–95; RESP 16–18; TEMP 36.9–37.5; O2SAT 93–94
[2018-08-30 00:31] LABS: Bedside Glucose 153 mg/dL (70-110)
[2018-08-30] MEDS: traMADol 50 MG Tablet PO ×2 (05:18→14:13)
[2018-08-30 06:03] LABS: Anion Gap 10 (5-15); BUN 4 mg/dL (7-18); BUN/Creat Ratio 16.1 RATIO (10-20); Calcium,Total 8.3 mg/dL (8.5-10.1); Chloride 101 mmol/L (98-107); Creatinine, Serum 0.25 mg/dL (0.55-1.02); EST Glomerular Filtration Rate 295 mL/min (>60); Est Glom Filt Rate - Afr Amer 356 mL/min (>60); Estimated Creatinine Clearance 55.82 ml/min; Glucose 150 mg/dL (74-106); Potassium 3.6 mmol/L (3.5-5.1); Sodium Level 136 mmol/L (136-145)
[2018-08-30 06:04] LABS: Hematocrit 25.1 % (37-47); Hemoglobin 8.4 g/dl (12.0-15.0); Mean Corp Hgb Conc 33.5 g/gl (32-36); Mean Corpuscular Hgb 29.5 pg (27.0-32.0); Mean Corpuscular Volume 88.1 fL (81-99); Mean Platelet Vol. 7.8 fl (6.2-12.0); Platelet Count 629 K/mm3 (150-450); RBC Distribution Width CV 14.3 % (11.6-14.6); RBC Distribution Width SD 46.5 fl (35.1-43.9); Red Blood Count 2.85 M/mm3 (4.2-5.4); White Blood Count 22.8 K/mm3 (4.4-11.0)
[2018-08-30 06:12] LABS: Differential Indicated MANUAL DIFF; POSITIVE COUNT YES; POSITIVE DIFFERENTIAL YES; POSITIVE MORPHOLOGY YES
[2018-08-30] MEDS: Insulin Lispro 100 UNIT/ML INSULN.PEN SQ ×2 (06:41→16:01)
[2018-08-30 06:44] LABS: Eosinophil 1 % (0-5); Lymphocyte 4 % (19-41); Metamyelocyte 1 % (0-1); Microcytosis 1+; Monocyte 14 % (0-10); Myelocyte 1 (0-0); Neutrophil-Band 2 % (0-5); Neutrophil-Segmented 77 % (47-70); Platelet Estimate ADEQUATE (ADEQ); Total Cells Counted 100 (MANUAL DIFF); Toxic Granulation 2+
[2018-08-30 06:45] LABS: Hypochromasia 2+
[2018-08-30 06:46] LABS: Absolute Lymphocyte Count 0.91 X10^3/ul (0.83-4.51); Lymphocyte # 0.91 X10^3/ul (4.0); Neutrophil # 17.99 X10^3/uL (2.7-7.7)
[2018-08-30 07:00] LABS: Bedside Glucose 159 mg/dL (70-110)
[2018-08-30] MEDS: 0.9% Normal Saline 1,000 ML 125 ML IV (07:55)
[2018-08-30] MEDS: Ferrous Sulfate 325 MG Tablet PO ×2 (07:56→16:01)
[2018-08-30] MEDS: Docusate Sodium 100 MG Capsule PO ×2 (07:56→21:44)
[2018-08-30] MEDS: DULoxetine Hcl 60 MG Capsule PO (07:56)
[2018-08-30] MEDS: Metoprolol Tartrate 25 MG Tablet PO ×2 (07:56→21:45)
[2018-08-30] MEDS: Magnesium Oxide 400 MG Tablet PO (07:57)
[2018-08-30] MEDS: Pantoprazole Sodium 20 MG Tablet PO ×2 (07:59→21:45)
[2018-08-30] MEDS: Gabapentin 300 MG Capsule PO ×2 (07:59→21:45)
[2018-08-30] MEDS: Dorzolamide HCL/Timolol 10 ml Bottle 1 DRP EACH EYE ×2 (08:00→21:44)
[2018-08-30 09:08] LABS: Pathologist Review Reviewed
--- NOTE | 2018-08-30 10:08 | DCINST_ITS ---
- Discharge Diagnoses Current Active Problems: Current Active and Chronic Problems (Last Reviewed 08/23/18 @ 13:20 by Chinyere Rubalcava) Anemia (Acute) Colitis (Acute) Severe sepsis (Acute) Urinary tract infection (Acute) You will use the following diet at home:: Cardiac Your food should be the consistency of: Regular Your liquids should be the consistency of: Regular/Thin Discharge Activity: Return to Normal Activity Weight Bearing Status: Weight bearing as tolerated Call your doctor if you observe: Fever of 101 or Higher, Shortness of breath, Dizziness, Chest pain Instructions: ED Gastroenteritis Bacterial, Extended-Spectrum Beta-lactamase (ESBL) - Producing Bacteria Additional Instructions: to go to Infusion Center daily for IV antibiotics - stop date is 09/07/18. TO have weekly CBC, BMP and LFTs whilst on antibiotics. Results to be sent to PCP and Infectious Disease Doctor Allergies/Adverse Reactions: Allergies fentanyl Adverse Reaction (Verified 08/26/18 15:06) MAKES ME SHAKE oxycodone [From Percocet] Adverse Reaction (Verified 08/26/18 15:06) MAKES ME SHAKE thiopental Adverse Reaction (Verified 08/26/18 15:06) MAKES ME SHAKE Medications to take at Discharge Docusate Sodium [Colace] 100 mg PO BID 02/15/16 Dorzolamide HCL/Timolol [Cosopt Opth Drops] 1 drp EACH EYE BID 02/15/16 Duloxetine Hcl [Cymbalta] 60 mg PO DAILY 02/15/16 Polyethylene Glycol 3350 [Miralax] 17 gm PO DAILY 03/05/17 Atorvastatin Calcium [Lipitor] 40 mg PO QHS 05/19/17 hydrochlorothiazide 12.5 mg tablet 12.5 mg PO PRN PRN 09/02/17 Gabapentin [Neurontin] 300 mg PO BID 03/31/18 Magnesium Oxide 400 mg PO DAILY 03/31/18 Insulin Detemir [Levemir FlexPen] 20 units SUBCUT QHS #10 insuln.pen 04/01/18 Ferrous Sulfate 325 mg PO BIDCM 08/05/18 Omeprazole 20 mg PO BID 08/05/18 traZODone [Desyrel] 50 mg PO QHS 08/05/18 Albuterol Inhaler [Ventolin Hfa] 1 - 2 puff INHALATION Q4H PRN PRN 08/23/18 Metoprolol Tartrate [Lopressor (beta anthony)] 25 mg PO BID 08/23/18 Potassium Chloride 10 meq PO PRN PRN 08/23/18 metFORMIN HCl [Glucophage] 1,000 mg PO BIDCM 08/23/18 traMADol [Ultram] 50 mg PO Q6H PRN PRN 08/23/18 Ertapenem Sod [Invanz] 1 gm IV Q24 7 Days #7 vial 08/29/18 The following prescriptions were given: Ertapenem Sod [Invanz] 1 gm IV Q24 7 Days #7 vial Primary Care Physician: Shanta Welsh PA [Primary Care Provider] - Please follow up with your Primary Care Physician in: one week Test Results: Test results from this visit will be discussed in further detail at your follow- up appointment, if applicable. Please Follow Up With: Outpatient Infusion Clinic When: Wednesday Proposed Discharge Date: 08/30/18
--- NOTE | 2018-08-30 10:08 | DS.PCM_ITS ---
Discharge Date and Diagnosis - Problem List Patient Problems: Active and Suspected Problems (Last Reviewed 08/23/18 @ 13:20 by Chinyere Rubalcava) Anemia (Acute) Colitis (Acute) Severe sepsis (Acute) Urinary tract infection (Acute) Date of Admission: 08/26/18 - Primary Discharge Diagnosis Active and Suspected Problems (Last Reviewed 08/23/18 @ 13:20 by Chinyere Rubalcava) Anemia (Acute) Colitis (Acute) Severe sepsis (Acute) Urinary tract infection (Acute) - Secondary Discharge Diagnosis Chronic Problems (Last Reviewed 08/23/18 @ 13:20 by Chinyere Rubalcava) Edema (Chronic) Hyperlipidemia (Chronic) Atherosclerosis of circle coronary artery of circle heart without angina pectoris (Chronic) Chronic pain syndrome (Chronic) Noncompliance with CPAP treatment (Chronic) Morbid obesity (Chronic) Depression (Chronic) Dyslipidemia (Chronic) Fibromyalgia (Chronic) Multinodular goiter (Chronic) Obstructive sleep apnea (Chronic) Recurrent falls (Chronic) Diabetes mellitus type 2 in obese (Chronic) Hypertension (Chronic) Gastric cancer (Chronic) Hospital Course and Treatment Consultations 08/27/18 12:03 Consult: Onc/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 and 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 Routine Comment: Reason for Consult:: recent abd surgery and peg placement Comments:: bile leaking?, dried drainage proximal verticle incisio Operations: None Summary of Care Provided: The patient is a 68 year old F [] Patient Problems: Active and Suspected Problems (Last Reviewed 08/23/18 @ 13:20 by Chinyere Rubalcava) Anemia (Acute) Colitis (Acute) Severe sepsis (Acute) Urinary tract infection (Acute) - Physical Exam Vital Signs Temp Pulse Resp BP Pulse Ox 98.5 F 95 16 124/67 H 94 08/30/18 08:03 08/30/18 09:30 08/30/18 08:03 08/30/18 08:03 08/30/18 08:03 Oxygen Flow Rate (L/min) 2 Oxygen Delivery Method Room Air Weight: 171 lb 8.314 oz Body Mass Index (BMI) 26.0 Finger Stick Blood Glucose 35 Intake and Output for Last 24 Hours 08/28/18 08/29/18 08/30/18 23:59 23:59 23:59 Intake Total 4645 / 4645 4442 / 4442 1907 / 1907 Output Total 3000 / 3000 3175 / 3175 1999 Balance 1645 / 1645 1267 / 1267 -93 / -93 Microbiology Past 72 Hours 08/27/18 11:50 Gram Stain - Final Wound - Abdominal Wound Culture - Preliminary Presumptive C albicans Gram positive organism Gram negative odette 08/26/18 16:00 Urine Culture - Final Urine, Clean Catch Escherichia coli 08/26/18 18:15 Blood Culture - Preliminary Blood Culture (Wb) - Anticubital Right No growth in 48 hours. 08/26/18 18:24 Blood Culture - Preliminary Blood Culture (Wb) - Anticubital Left No growth in 48 hours. Laboratory Tests Past 24 Hrs 08/26/18 08/27/18 08/28/18 16:10 06:27 05:13 WBC RBC Hgb Hct MCV MCH MCHC RDW RDW Differential Plt Count MPV Neut % (Auto) Absolute Neuts (auto) Absolute Lymphs (auto) Total Counted Neutrophils % (Manual) Band Neutrophils % Lymphocytes % (Manual) Monocytes % (Manual) Eosinophils % (Manual) Metamyelocytes % Myelocytes % Diff Path Review Reviewed Reviewed Reviewed Toxic Granulation Platelet Estimate Hypochromasia Microcytosis Sodium Potassium Chloride Carbon Dioxide Anion Gap BUN Creatinine Estim Creat Clear Calc Est GFR (MDRD) Af Amer Est GFR (MDRD) Non-Af BUN/Creatinine Ratio Glucose Calcium 08/29/18 08/30/18 08/30/18 05:16 05:28 05:28 WBC 22.8 H RBC 2.85 L Hgb 8.4 L Hct 25.1 L MCV 88.1 MCH 29.5 MCHC 33.5 RDW 14.3 RDW Differential 46.5 H Plt Count 629 H MPV 7.8 Neut % (Auto) Not Reportable Absolute Neuts (auto) 18.0 H Absolute Lymphs (auto) 0.91 Total Counted 100 Neutrophils % (Manual) 77 H Band Neutrophils % 2 Lymphocytes % (Manual) 4 L Monocytes % (Manual) 14 H Eosinophils % (Manual) 1 Metamyelocytes % 1 Myelocytes % 1 H Diff Path Review Reviewed May foll Toxic Granulation 2+ Platelet Estimate ADEQUATE Hypochromasia 2+ Microcytosis 1+ Sodium 136 Potassium 3.6 Chloride 101 Carbon Dioxide 25.0 Anion Gap 10 BUN 4 L Creatinine 0.25 L Estim Creat Clear Calc 55.82 Est GFR (MDRD) Af Amer 356 Est GFR (MDRD) Non-Af 295 BUN/Creatinine Ratio 16.1 Glucose 150 H Calcium 8.3 L POC Glucose 08/30/18 08/29/18 08/29/18 06:37 21:30 15:51 POC Glucose 159 H 167 H 212 H 08/29/18 08/29/18 11:49 06:31 POC Glucose 195 H 153 H Discharge Activity: Return to Normal Activity Weight Bearing Status: Weight bearing as tolerated Call your doctor if you observe: Fever of 101 or Higher, Shortness of breath, Dizziness, Chest pain Home Medications: Medications to take at Discharge Docusate Sodium [Colace] 100 mg PO BID 02/15/16 Dorzolamide HCL/Timolol [Cosopt Opth Drops] 1 drp EACH EYE BID 02/15/16 Duloxetine Hcl [Cymbalta] 60 mg PO DAILY 02/15/16 Polyethylene Glycol 3350 [Miralax] 17 gm PO DAILY 03/05/17 Atorvastatin Calcium [Lipitor] 40 mg PO QHS 05/19/17 hydrochlorothiazide 12.5 mg tablet 12.5 mg PO PRN PRN 09/02/17 Gabapentin [Neurontin] 300 mg PO BID 03/31/18 Magnesium Oxide 400 mg PO DAILY 03/31/18 Insulin Detemir [Levemir FlexPen] 20 units SUBCUT QHS #10 insuln.pen 04/01/18 Ferrous Sulfate 325 mg PO BIDCM 08/05/18 Omeprazole 20 mg PO BID 08/05/18 traZODone [Desyrel] 50 mg PO QHS 08/05/18 Albuterol Inhaler [Ventolin Hfa] 1 - 2 puff INHALATION Q4H PRN PRN 08/23/18 Metoprolol Tartrate [Lopressor (beta anthony)] 25 mg PO BID 08/23/18 Potassium Chloride 10 meq PO PRN PRN 08/23/18 metFORMIN HCl [Glucophage] 1,000 mg PO BIDCM 08/23/18 traMADol [Ultram] 50 mg PO Q6H PRN PRN 08/23/18 Ertapenem Sod [Invanz] 1 gm IV Q24 7 Days #7 vial 08/29/18 Following Prescrptions Were Given to Patient: Ertapenem Sod [Invanz] 1 gm IV Q24 7 Days #7 vial Primary Care Physician: Shanta Welsh PA [Primary Care Provider] - Please follow up with your Primary Care Physician in: one week Please Follow Up With: Outpatient Infusion Clinic When: Wednesday Patient Instructions: Extended-Spectrum Beta-lactamase (ESBL) - Producing Bacteria, ED Gastroenteritis Bacterial Medical Necessity - Tobacco Use Smoking Status: Former smoker Tobacco Use: Non-smoker
--- NOTE | 2018-08-30 10:21 | PN.ID_ITS ---
Patient Problems: Active and Suspected Problems (Last Reviewed 08/23/18 @ 13:20 by Chinyere Rubalcava) Anemia (Acute) Colitis (Acute) Severe sepsis (Acute) Urinary tract infection (Acute) Subjective: Feeling ok, no abd pain, no fever - Physical Exam General: Alert, Cooperative, No apparent distress Lungs: Clear to auscultation, Normal air movement Cardiovascular: Regular rate, Regular Rhythm Abdomen: Soft, Non Tender, Non-Distended Skin: Incision Vital Signs Temp Pulse Resp BP Pulse Ox 98.5 F 95 16 124/67 H 94 08/30/18 08:03 08/30/18 09:30 08/30/18 08:03 08/30/18 08:03 08/30/18 08:03 Oxygen Flow Rate (L/min) 2 Oxygen Delivery Method Room Air Weight: 77.8 kg Body Mass Index (BMI) 26.0 Finger Stick Blood Glucose 35 Intake and Output for Last 24 Hours 08/28/18 08/29/18 08/30/18 23:59 23:59 23:59 Intake Total 4645 / 4645 4442 / 4442 1907 / 1907 Output Total 3000 / 3000 3175 / 3175 1999 / 1999 Balance 1645 / 1645 1267 / 1267 -93 / -93 Microbiology Past 72 Hours 08/27/18 11:50 Gram Stain - Final Wound - Abdominal Wound Culture - Preliminary Presumptive C albicans Staphylococcus species GNR 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 08/26/18 18:24 Blood Culture - Preliminary Blood Culture (Wb) - Anticubital Left No growth in 48 hours. Laboratory Tests Past 24 Hrs 08/26/18 08/27/18 08/28/18 16:10 06:27 05:13 WBC RBC Hgb Hct MCV MCH MCHC RDW RDW Differential Plt Count MPV Neut % (Auto) Absolute Neuts (auto) Absolute Lymphs (auto) Total Counted Neutrophils % (Manual) Band Neutrophils % Lymphocytes % (Manual) Monocytes % (Manual) Eosinophils % (Manual) Metamyelocytes % Myelocytes % Diff Path Review Reviewed Reviewed Reviewed Toxic Granulation Platelet Estimate Hypochromasia Microcytosis Sodium Potassium Chloride Carbon Dioxide Anion Gap BUN Creatinine Estim Creat Clear Calc Est GFR (MDRD) Af Amer Est GFR (MDRD) Non-Af BUN/Creatinine Ratio Glucose Calcium 08/29/18 08/30/18 08/30/18 05:16 05:28 05:28 WBC 22.8 H RBC 2.85 L Hgb 8.4 L Hct 25.1 L MCV 88.1 MCH 29.5 MCHC 33.5 RDW 14.3 RDW Differential 46.5 H Plt Count 629 H MPV 7.8 Neut % (Auto) Not Reportable Absolute Neuts (auto) 18.0 H Absolute Lymphs (auto) 0.91 Total Counted 100 Neutrophils % (Manual) 77 H Band Neutrophils % 2 Lymphocytes % (Manual) 4 L Monocytes % (Manual) 14 H Eosinophils % (Manual) 1 Metamyelocytes % 1 Myelocytes % 1 H Diff Path Review Reviewed May foll Toxic Granulation 2+ Platelet Estimate ADEQUATE Hypochromasia 2+ Microcytosis 1+ Sodium 136 Potassium 3.6 Chloride 101 Carbon Dioxide 25.0 Anion Gap 10 BUN 4 L Creatinine 0.25 L Estim Creat Clear Calc 55.82 Est GFR (MDRD) Af Amer 356 Est GFR (MDRD) Non-Af 295 BUN/Creatinine Ratio 16.1 Glucose 150 H Calcium 8.3 L POC Glucose 08/30/18 08/29/18 08/29/18 06:37 21:30 15:51 POC Glucose 159 H 167 H 212 H 08/29/18 08/29/18 11:49 06:31 POC Glucose 195 H 153 H Medical Necessity - Tobacco Use Smoking Status: Former smoker Tobacco Use: Non-smoker Route of nutrition/ use of supplements: [] Nutritional Intake: [] IV Site: [] Campos Catheter: [] - Assessment/Plan Antibiotics: [] Assessment/Plan: [] Active and Suspected Problems (Last Reviewed 08/23/18 @ 13:20 by Chinyere Rubalcava) Anemia (Acute) Colitis (Acute) Severe sepsis (Acute) Urinary tract infection (Acute) sepsis (wbc, hr) due to ESBL ecoli pyelonephritis and transverse colitis with gastric cancer. Improving on meropenem. Plan for discharge will be ertapenem 1gm qday, stop date 09/05/18, weekly bmp/cbc/lft while on iv abx. Wbc remains elevated. Will follow, d/w case management coordinator.
[2018-08-30 11:29] LABS: Pathologist Review Reviewed
--- NOTE | 2018-08-30 11:51 | NURSING ---
virgilio jenkins [phone] pt niece called and refused for pt to be discharged. virgilio stated that pt is confused, and weak and no one is at home to care for her. virgilio is requesting to speak to dr yancey and nurse case manager. notified dr yancey of pt and family concerns. and gave phone number of niece to dr yancey
--- NOTE | 2018-08-30 12:00 | CASEMGMT ---
CHARLIE REID received update that family has concerns regarding discharge plans. CHARLIE REID in to speak with patient and boyfriend. Boyfriend Arsalan called patient's niece Ines Estrada. With patient's permission CHARLIE REID updated conniejane Ines Estrada regarding discharge plan and patient's work with therapy. Ines voiced concern regarding patient going home and requiring more help. Ines asked patient about going to TCU if beds available and patient voiced that she would go to TCU for additional therapy. CHARLIE REID updated LEIGHA Nath regarding new request for TCU. CHARLIE REID updated the hospitalist. CHARLIE REID updated outpatient infusion center on discharge planned for TCU pending precert and to hold order for IV ATB.
[2018-08-30 12:36] LABS: Bedside Glucose 135 mg/dL (70-110)
--- NOTE | 2018-08-30 13:39 | CASEMGMT ---
Addendum entered by Lizbeth Nath 08/30/18 15:38: SW also placed a call to pt's niece Ines Estrada and left her a message updating her on pt's acceptance to TCU pending pre-cert. Original Note: Addendum entered by Lizbeth Nath 08/30/18 14:00: SW updated pt on acceptance to TCU pending pre-cert. Pt states understanding. Original Note: Social Work Note CHARLIE Lemus updated this worker that pt and pt's family are agreeable to TCU. LEIGHA placed a call to [facility], provided referral, and informed [facility] that pt is ready once pre-cert is obtained and to submit for pre-cert. CHARLIE Lemus called Ines Estrada and left her message informing her referral was sent to TCU and pt will need to get approval from insurance. Plan: TCU pending pre-cert Lizbeth Nath [employer], [employer]
--- NOTE | 2018-08-30 14:56 | PCM.PN.HOSP ---
Patient Problems: Active and Suspected Problems (Last Reviewed 08/23/18 @ 13:20 by Chinyere Rubalcava) Anemia (Acute) Colitis (Acute) Severe sepsis (Acute) Urinary tract infection (Acute) Subjective: Patient seen and examined. She feels well and has no complaints. Review of systems otherwise negative. Patient was agreeable to going home. However her son had come and stated to the nurses that they wanted patient to go to a half-way or stay in the hospital until the IV antibiotics were completed. I discussed this with patient who stated that she wanted to go home as she had support from her significant other and her grandson as well as her niece. Hospitalist was later informed by nurse that patient's niece had come in stating that she did not want patient to come home and wanted to go to TCU and patient was agreeable to this. Hospitalist called patient's niece on the phone and discussed this with her. Niece had concerns about patient's care at home and she said her significant other also had pancreatic cancer and work from 2 PM to 2 AM and so was not really available to support patient all the time. Her grandson who lived with her was also not of much help to the patient. It appeared to me that the concerns of the family had were chronic concerns and not related to this acute need for IV antibiotics which was to get at the infusion center until 09/07/2018. He stated that she was working with the patient's insurance company to get her better care and support at home. In the interim they would want patient to be placed in TCU if she is agreeable. Patient now states she is agreeable to go to TCU and the precert process has been started by caser. Vitals/I&O's: Vital Signs Temp Pulse Resp BP Pulse Ox 98.8 F 88 16 147/65 H 94 08/30/18 14:37 08/30/18 14:37 08/30/18 14:37 08/30/18 14:37 08/30/18 14:37 Oxygen Flow Rate (L/min) 2 Oxygen Delivery Method Room Air Weight: 171 lb 8.314 oz Body Mass Index (BMI) 26.0 Finger Stick Blood Glucose 35 Intake and Output for Last 24 Hours 08/28/18 08/29/18 08/30/18 23:59 23:59 23:59 Intake Total 4645 / 4645 4442 / 4442 2036 Output Total 3000 / 3000 3175 / 3175 2650 / 2650 Balance 1645 / 1645 1267 / 1267 -613 / -613 General: Alert, Oriented x3, Cooperative HEENT: Atraumatic, PERRLA, EOMI, Normocephalic Oral: Dry Mucosa Neck: Supple, No JVD, Negative Carotid Bruits, No Nodes Lungs: - - mildly decreased breath sounds bibasally, no wheeze or crackles. on room air now Cardiovascular: Regular rate, Regular Rhythm, Normal S1, Normal S2, No murmurs Abdomen: Bowel Sounds Present, Soft, Non Tender, - - has PEG tube in place Extremities: No clubbing, No cyanosis, No edema, Capillary Refill Less than 3 Seconds Skin: No rashes, No breakdown Musculoskeletal: No Tenderness to Palpation of Joints or Extremities Lymphatic: No Cervical, Supraclavicular, or Inguinal Adenopathy Neurological: Cranial nerves II-XII grossly intact Psych/Mental Status: Normal Affect, Appropriate Microbiology Past 72 Hours 08/27/18 11:50 Wound - Abdominal Gram Stain - Final 08/27/18 11:50 Wound - Abdominal Wound Culture - Preliminary Presumptive C albicans Staphylococcus species GNR lactose cook relief 08/27/18 11:50 Wound - Abdominal Anaerobic Culture - Final No anaerobic bacteria isolated. 08/26/18 16:00 Urine, Clean Catch Urine Culture - Final Escherichia coli 08/26/18 18:15 Blood Culture (Wb) - Anticubital Right Blood Culture - Preliminary No growth in 48 hours. 08/26/18 18:24 Blood Culture (Wb) - Anticubital Left Blood Culture - Preliminary No growth in 48 hours. Laboratory Results 08/29/18 05:16: Diff Path Review Reviewed 08/29/18 06:31: POC Glucose 153 H 08/29/18 15:51: POC Glucose 212 H 08/29/18 21:30: POC Glucose 167 H 08/30/18 05:28: WBC 22.8 H, RBC 2.85 L, Hgb 8.4 L, Hct 25.1 L, MCV 88.1, MCH 29.5, MCHC 33.5, RDW 14.3, RDW Differential 46.5 H, Plt Count 629 H, MPV 7.8, Neut % (Auto) Not Reportable, Absolute Neuts (auto) 18.0 H, Absolute Lymphs (auto) 0.91, Total Counted 100, Neutrophils % (Manual) 77 H, Band Neutrophils % 2, Lymphocytes % (Manual) 4 L, Monocytes % (Manual) 14 H, Eosinophils % (Manual) 1, Metamyelocytes % 1, Myelocytes % 1 H, Diff Path Review Reviewed, Toxic Granulation 2+, Platelet Estimate ADEQUATE, Hypochromasia 2+, Microcytosis 1+ 08/30/18 05:28: Sodium 136, Potassium 3.6, Chloride 101, Carbon Dioxide 25.0, Anion Gap 10, BUN 4 L, Creatinine 0.25 L, Estim Creat Clear Calc 55.82, Est GFR (MDRD) Af Amer 356, Est GFR (MDRD) Non-Af 295, BUN/Creatinine Ratio 16.1, Glucose 150 H, Calcium 8.3 L 08/30/18 06:37: POC Glucose 159 H 08/30/18 12:31: POC Glucose 135 H Current Medications Acetaminophen (Tylenol) 650 mg PO Q6H PRN PRN PRN Reason: Non-cardiac pain (mod-severe) Al Hydroxide/Mg Hydroxide (Mylanta Ii) 15 - 30 ml PO Q4H PRN PRN PRN Reason: INDIGESTION Last Admin: 08/28/18 00:02 Dose: 30 ml Albuterol Sulfate (Ventolin Aerosols) 2.5 mg INHALATION Q2H PRN PRN PRN Reason: dyspnea, wheezing Atorvastatin Calcium (Lipitor) 40 mg PO QHS [facility] Last Admin: 08/29/18 21:28 Dose: 40 mg Dextrose (D50w Syringe) 0 gm IV X1 PRN; Protocol PRN Reason: Hypoglycemia Docusate Sodium (Colace) 100 mg PO BID [facility] Last Admin: 08/30/18 07:56 Dose: 100 mg Dorzolamide/Timolol (Cosopt Opth Drops) 1 drop EACH EYE BID [facility] Last Admin: 08/30/18 08:00 Dose: 1 drop Duloxetine HCl (Cymbalta) 60 mg PO DAILY [facility] Last Admin: 08/30/18 07:56 Dose: 60 mg [facility] Last Admin: 08/30/18 07:56 Dose: 325 mg Gabapentin (Neurontin) 300 mg PO BID [facility] Last Admin: 08/30/18 07:59 Dose: 300 mg Glucagon () 1 mg IM .X1 PRN PRN Reason: Hypoglycemia Hydralazine HCl (Apresoline Iv) 10 mg IV Q4H PRN PRN PRN Reason: SBP > 160 Sodium Chloride () 250 mls @ 15 mls/hr IV .[id number] PRN PRN Reason: SALINE FLUSH Last Admin: 08/28/18 06:44 Dose: 15 mls/hr Insulin Glargine (Lantus (Bk)) 20 units SC QHS [facility] Last Admin: 08/29/18 21:31 Dose: 20 u Insulin Human Lispro (Humalog Kwikpen ([facility])) 0 unit SQ ACHS [facility]; Protocol Last Admin: 08/30/18 12:33 Dose: Not Given Magnesium Oxide (Mag-Ox 400) 400 mg PO DAILY [facility] Last Admin: 08/30/18 07:57 Dose: 400 mg Melatonin (Melatonin) 3 mg PO QHS PRN PRN PRN Reason: INSOMNIA Metoprolol Tartrate (Lopressor (Beta Aditya)) 25 mg PO BID [facility] Last Admin: 08/30/18 07:56 Dose: 25 mg Morphine Sulfate () 1 - 2 mg IV Q4H PRN PRN PRN Reason: PAIN Last Admin: 08/27/18 21:40 Dose: 2 mg Nutritional Formula (Lactose Free) (Ensure Clear) 120 ml PO 4X/DAY [facility] Last Admin: 08/30/18 08:02 Dose: Not Given Ondansetron HCl (Zofran) 4 mg IV Q8H PRN PRN PRN Reason: NAUSEA/VOMITING Pantoprazole Sodium (Protonix) 20 mg PO BID [facility] Last Admin: 08/30/18 07:59 Dose: 20 mg Polyethylene Glycol (Miralax) 17 gm PO DAILY [facility] Last Admin: 08/30/18 08:02 Dose: Not Given Sodium Chloride () 5 - 15 ml IV UD PRN PRN Reason: SALINE FLUSH Tramadol HCl (Ultram) 50 mg PO Q4H PRN PRN PRN Reason: PAIN Last Admin: 08/30/18 14:13 Dose: 50 mg Trazodone HCl (Desyrel) 50 mg PO QHS [facility] Last Admin: 08/29/18 21:23 Dose: 50 mg Medical Necessity - Tobacco Use Smoking Status: Former smoker Tobacco Use: Non-smoker Assessment/Plan All Active Problems (Last Reviewed 08/23/18 @ 13:20 by Chinyere Rubalcava) Anemia (Acute) Colitis (Acute) S/P jejunostomy (Acute) Acute pancreatitis (Acute) Abdominal pain (Acute) SBO (small bowel obstruction) (Acute) history of colectomy from colonoscopy perforation (Resolved) History of (Resolved) history open cholecystectomy (Resolved) History of gastrectomy (Resolved) Hypophosphatemia (Acute) Eosinophilia (Acute) Hypomagnesemia (Acute) Severe sepsis (Acute) Septic shock (Ruled-out) Acute renal failure (Acute) Urinary tract infection (Acute) Toxic encephalopathy (Acute) Hyperammonemia (Acute) 1. Sepsis due to UTI and transverse colitis SIRS criteria is 1/4 (leucocytosis); wbc is still elevated, down to 20.7 today. on IV meropenem urine cultured ESBL E. coli ID consulted; recommend patient having IV ertapenem 1 gram daily with stop date of 09/07/18. TO have weekly CBC, bmp and LFTs whilst on antibiotics. 2. Anemia, possibly due to blood loss from recent surgery Hb still remains 8; stable To transfuse if hemoglobin falls less than 7. 3. Hyponatremia: resolved. 4. Hypomagnesemia and hypophosphatemia: resolved. 5. Stage IV stomach cancer: Status post stomach resection 2 years ago and states she had bypass due to recurrence and small bowel resection about 2 weeks ago at [facility]. She is planning to have palliative chemotherapy and had a port placed about 08/24/2018. Follow-up with Dr. Grant on discharge. 6. Thrombocytosis: Improving. stable. Platelets are 629 today. Possibly related to gastric cancer. platelets were 471 in July 2018; Will monitor. To follow up with oncology upon discharge. 7. Type 2 diabetes mellitus: ISS. Accuchecks ACHS. All meds on hold. 8. Hypertension: Well controlled. On metoprolol. IV hydralazine PRN. 9. Hyperlipidemia: On statin. 10. Fibromyalgia and chronic pain syndrome: On Cymbalta, gabapentin and tramadol. 11. CARLOTA: stable DVT prophylaxis: SCDs Code status: DNRCCA Disposition: Patient wants to be discharged to TCU to complete the IV ertapenem 1 g daily till 09/07/2018. Pre-CERT pending. Code Visit Inpatient E&M: 84038 Subs Hosp L3
--- NOTE | 2018-08-30 15:01 | PN_ITS ---
Patient Problems: Active and Suspected Problems (Last Reviewed 08/23/18 @ 13:20 by Chinyere Rubalcava) Anemia (Acute) Colitis (Acute) Severe sepsis (Acute) Urinary tract infection (Acute) Subjective: Patient seen and examined. She feels well and has no complaints. Review of systems otherwise negative. Patient was agreeable to going home. However her son had come and stated to the nurses that they wanted patient to go to a fci or stay in the hospital until the IV antibiotics were completed. I discussed this with patient who stated that she wanted to go home as she had support from her significant other and her grandson as well as her niece. Hospitalist was later informed by nurse that patient's niece had come in stating that she did not want patient to come home and wanted to go to TCU and patient was agreeable to this. Hospitalist called patient's niece on the phone and discussed this with her. Niece had concerns about patient's care at home and she said her significant other also had pancreatic cancer and work from 2 PM to 2 AM and so was not really available to support patient all the time. Her gr andson who lived with her was also not of much help to the patient. It appeared to me that the concerns of the family had were chronic concerns and not related to this acute need for IV antibiotics which was to get at the infusion center until 09/07/2018. He stated that she was working with the patient's insurance company to get her better care and support at home. In the interim they would want patient to be placed in TCU if she is agreeable. Patient now states she is agreeable to go to TCU and the precert process has been started by case briefer. Vitals/I&O's: Vital Signs Temp Pulse Resp BP Pulse Ox 98.8 F 88 16 147/65 H 94 08/30/18 14:37 08/30/18 14:37 08/30/18 14:37 08/30/18 14:37 08/30/18 14:37 Oxygen Flow Rate (L/min) 2 Oxygen Delivery Method Room Air Weight: 171 lb 8.314 oz Body Mass Index (BMI) 26.0 Finger Stick Blood Glucose 35 Intake and Output for Last 24 Hours 08/28/18 08/29/18 08/30/18 23:59 23:59 23:59 Intake Total 4645 / 4645 4442 / 4442 2036 Output Total 3000 / 3000 3175 / 3175 2650 / 2650 Balance 1645 / 1645 1267 / 1267 -613 / -613 General: Alert, Oriented x3, Cooperative HEENT: Atraumatic, PERRLA, EOMI, Normocephalic Oral: Dry Mucosa Neck: Supple, No JVD, Negative Carotid Bruits, No Nodes Lungs: - - mildly decreased breath sounds bibasally, no wheeze or crackles. on room air now Cardiovascular: Regular rate, Regular Rhythm, Normal S1, Normal S2, No murmurs Abdomen: Bowel Sounds Present, Soft, Non Tender, - - has PEG tube in place Extremities: No clubbing, No cyanosis, No edema, Capillary Refill Less than 3 Seconds Skin: No rashes, No breakdown Musculoskeletal: No Tenderness to Palpation of Joints or Extremities Lymphatic: No Cervical, Supraclavicular, or Inguinal Adenopathy Neurological: Cranial nerves II-XII grossly intact Psych/Mental Status: Normal Affect, Appropriate Microbiology Past 72 Hours 08/27/18 11:50 Wound - Abdominal Gram Stain - Final 08/27/18 11:50 Wound - Abdominal Wound Culture - Preliminary Presumptive C albicans Staphylococcus species GNR lactose can pusher 08/27/18 11:50 Wound - Abdominal Anaerobic Culture - Final No anaerobic bacteria isolated. 08/26/18 16:00 Urine, Clean Catch Urine Culture - Final Escherichia coli 08/26/18 18:15 Blood Culture (Wb) - Anticubital Right Blood Culture - Preliminary No growth in 48 hours. 08/26/18 18:24 Blood Culture (Wb) - Anticubital Left Blood Culture - Preliminary No growth in 48 hours. Laboratory Results 08/29/18 05:16: Diff Path Review Reviewed 08/29/18 06:31: POC Glucose 153 H 08/29/18 15:51: POC Glucose 212 H 08/29/18 21:30: POC Glucose 167 H 08/30/18 05:28: WBC 22.8 H, RBC 2.85 L, Hgb 8.4 L, Hct 25.1 L, MCV 88.1, MCH 29.5, MCHC 33.5, RDW 14.3, RDW Differential 46.5 H, Plt Count 629 H, MPV 7.8, Neut % (Auto) Not Reportable, Absolute Neuts (auto) 18.0 H, Absolute Lymphs (auto) 0.91, Total Counted 100, Neutrophils % (Manual) 77 H, Band Neutrophils % 2, Lymphocytes % (Manual) 4 L, Monocytes % (Manual) 14 H, Eosinophils % (Manual) 1, Metamyelocytes % 1, Myelocytes % 1 H, Diff Path Review Reviewed, Toxic Granulation 2+, Platelet Estimate ADEQUATE, Hypochromasia 2+, Microcytosis 1+ 08/30/18 05:28: Sodium 136, Potassium 3.6, Chloride 101, Carbon Dioxide 25.0, Anion Gap 10, BUN 4 L, Creatinine 0.25 L, Estim Creat Clear Calc 55.82, Est GFR (MDRD) Af Amer 356, Est GFR (MDRD) Non-Af 295, BUN/Creatinine Ratio 16.1, Glucose 150 H, Calcium 8.3 L 08/30/18 06:37: POC Glucose 159 H 08/30/18 12:31: POC Glucose 135 H Current Medications Acetaminophen (Tylenol) 650 mg PO Q6H PRN PRN PRN Reason: Non-cardiac pain (mod-severe) Al Hydroxide/Mg Hydroxide (Mylanta Ii) 15 - 30 ml PO Q4H PRN PRN PRN Reason: INDIGESTION Last Admin: 08/28/18 00:02 Dose: 30 ml Albuterol Sulfate (Ventolin Aerosols) 2.5 mg INHALATION Q2H PRN PRN PRN Reason: dyspnea, wheezing Atorvastatin Calcium (Lipitor) 40 mg PO QHS [facility] Last Admin: 08/29/18 21:28 Dose: 40 mg Dextrose (D50w Syringe) 0 gm IV X1 PRN; Protocol PRN Reason: Hypoglycemia Docusate Sodium (Colace) 100 mg PO BID [facility] Last Admin: 08/30/18 07:56 Dose: 100 mg Dorzolamide/Timolol (Cosopt Opth Drops) 1 drop EACH EYE BID [facility] Last Admin: 08/30/18 08:00 Dose: 1 drop Duloxetine HCl (Cymbalta) 60 mg PO DAILY [facility] Last Admin: 08/30/18 07:56 Dose: 60 mg [facility]ous S[facility]) [facility] Last Admin: 08/30/18 07:56 Dose: 325 mg Gabapentin (Neurontin) 300 mg PO BID [facility] Last Admin: 08/30/18 07:59 Dose: 300 mg Glucagon () 1 mg IM .X1 PRN PRN Reason: Hypoglycemia Hydralazine HCl (Apresoline Iv) 10 mg IV Q4H PRN PRN PRN Reason: SBP > 160 Sodium Chloride () 250 mls @ 15 mls/hr IV .[id number] PRN PRN Reason: SALINE FLUSH Last Admin: 08/28/18 06:44 Dose: 15 mls/hr Insulin Glargine (Lantus (Bk)) 20 units SC QHS [facility] Last Admin: 08/29/18 21:31 Dose: 20 u Insulin Human Lispro (Humalog Kwikpen ([facility])) 0 unit SQ ACHS [facility]; Protocol Last Admin: 08/30/18 12:33 Dose: Not Given Magnesium Oxide (Mag-Ox 400) 400 mg PO DAILY [facility] Last Admin: 08/30/18 07:57 Dose: 400 mg Melatonin (Melatonin) 3 mg PO QHS PRN PRN PRN Reason: INSOMNIA Metoprolol Tartrate (Lopressor (Beta Aditya)) 25 mg PO BID [facility] Last Admin: 08/30/18 07:56 Dose: 25 mg Morphine Sulfate () 1 - 2 mg IV Q4H PRN PRN PRN Reason: PAIN Last Admin: 08/27/18 21:40 Dose: 2 mg Nutritional Formula (Lactose Free) (Ensure Clear) 120 ml PO 4X/DAY [facility] Last Admin: 08/30/18 08:02 Dose: Not Given Ondansetron HCl (Zofran) 4 mg IV Q8H PRN PRN PRN Reason: NAUSEA/VOMITING Pantoprazole Sodium (Protonix) 20 mg PO BID [facility] Last Admin: 08/30/18 07:59 Dose: 20 mg Polyethylene Glycol (Miralax) 17 gm PO DAILY [facility] Last Admin: 08/30/18 08:02 Dose: Not Given Sodium Chloride () 5 - 15 ml IV UD PRN PRN Reason: SALINE FLUSH Tramadol HCl (Ultram) 50 mg PO Q4H PRN PRN PRN Reason: PAIN Last Admin: 08/30/18 14:13 Dose: 50 mg Trazodone HCl (Desyrel) 50 mg PO QHS [facility] Last Admin: 08/29/18 21:23 Dose: 50 mg Medical Necessity - Tobacco Use Smoking Status: Former smoker Tobacco Use: Non-smoker Assessment/Plan All Active Problems (Last Reviewed 08/23/18 @ 13:20 by Chinyere Rubalcava) Anemia (Acute) Colitis (Acute) S/P jejunostomy (Acute) Acute pancreatitis (Acute) Abdominal pain (Acute) SBO (small bowel obstruction) (Acute) history of colectomy from colonoscopy perforation (Resolved) History of (Resolved) history open cholecystectomy (Resolved) History of gastrectomy (Resolved) Hypophosphatemia (Acute) Eosinophilia (Acute) Hypomagnesemia (Acute) Severe sepsis (Acute) Septic shock (Ruled-out) Acute renal failure (Acute) Urinary tract infection (Acute) Toxic encephalopathy (Acute) Hyperammonemia (Acute) 1. Sepsis due to UTI and transverse colitis * SIRS criteria is 1/4 (leucocytosis); wbc is still elevated, down to 20.7 today. * on IV meropenem * urine cultured ESBL E. coli * ID consulted; recommend patient having IV ertapenem 1 gram daily with stop date of 09/07/18. TO have weekly CBC, bmp and LFTs whilst on antibiotics. * * 2. Anemia, possibly due to blood loss from recent surgery * Hb still remains 8; stable * To transfuse if hemoglobin falls less than 7. * * 3. Hyponatremia: resolved. 4. Hypomagnesemia and hypophosphatemia: resolved. 5. Stage IV stomach cancer: * Status post stomach resection 2 years ago and states she had bypass due to recurrence and small bowel resection about 2 weeks ago at [facility]. * She is planning to have palliative chemotherapy and had a port placed about 08/24/2018. Follow-up with Dr. Grant on discharge. * 6. Thrombocytosis: * Improving. stable. Platelets are 629 today. * Possibly related to gastric cancer. platelets were 471 in July 2018; * Will monitor. To follow up with oncology upon discharge. * 7. Type 2 diabetes mellitus: ISS. Accuchecks ACHS. All meds on hold. 8. Hypertension: Well controlled. On metoprolol. IV hydralazine PRN. 9. Hyperlipidemia: On statin. 10. Fibromyalgia and chronic pain syndrome: On Cymbalta, gabapentin and tramadol. 11. CARLOTA: stable DVT prophylaxis: SCDs Code status: DNRCCA Disposition: Patient wants to be discharged to TCU to complete the IV ertapenem 1 g daily till 09/07/2018. Pre-CERT pending. Code Visit Inpatient E&M: 37866 Subs Hosp L3
[2018-08-30 16:05] LABS: Bedside Glucose 159 mg/dL (70-110)
[2018-08-30] MEDS: traZODone 50 MG Tablet PO (21:44)
[2018-08-30] MEDS: Atorvastatin Calcium 40 MG Tablet PO (21:44)
[2018-08-30 22:15] LABS: Bedside Glucose 148 mg/dL (70-110)
[2018-08-31 02:50] VITALS: BP 118/63; PULSE 90; RESP 16; TEMP 37.3; O2SAT 94
[2018-08-31] MEDS: Mag Hydrox/Al Hydrox/Simeth 30 ML UDC PO (05:02)
[2018-08-31 06:51] LABS: Bedside Glucose 92 mg/dL (70-110)
[2018-08-31] MEDS: Gabapentin 300 MG Capsule PO (09:06)
[2018-08-31] MEDS: Ferrous Sulfate 325 MG Tablet PO (09:06)
[2018-08-31] MEDS: DULoxetine Hcl 60 MG Capsule PO (09:06)
[2018-08-31] MEDS: traMADol 50 MG Tablet PO (09:06)
[2018-08-31] MEDS: Magnesium Oxide 400 MG Tablet PO (09:06)
[2018-08-31] MEDS: Dorzolamide HCL/Timolol 10 ml Bottle 1 DRP EACH EYE (09:07)
[2018-08-31] MEDS: Docusate Sodium 100 MG Capsule PO (09:07)
[2018-08-31] MEDS: 0.9% NaCl Peripheral Flush Adult/Peds IV (09:08)
[2018-08-31 09:12] VITALS: PULSE 98
[2018-08-31] MEDS: Pantoprazole Sodium 20 MG Tablet PO (09:12)
[2018-08-31] MEDS: Metoprolol Tartrate 25 MG Tablet PO (09:12)
[2018-08-31 09:19] VITALS: BP 103/69; PULSE 98; RESP 16; TEMP 37.2; O2SAT 95
--- NOTE | 2018-08-31 10:20 | CASEMGMT ---
Social Work Note Lesa with [facility] to assess pt for PASSPORT. Per Lesa she will enroll pt in PASSPORT services but not sure they are going to be able to meet pt's needs. Lesa states pt requested an aide from 2:00pm to 2:00am. SW updated Lesa that the plan is to get pt to TCU pending pre-cert. Lizbeth Nath ATHLETIC MONITOR, SEWER TAPPER
--- NOTE | 2018-08-31 10:34 | CASEMGMT ---
Addendum entered by Lizbeth Nath 08/31/18 11:14: Physician updated on approval to go to TCU today. Original Note: Social Work Note LEIGHA received call from Parul in TCU stating pre-cert has been obtained and pt is able to discharge to TCU today. LEIGHA placed a call to pt's niece Ines Estrada, left message, informing her that pre-cert has been obtained and pt will be discharged to TCU today. LEIGAH updated pt on approval to go to TCU. Pt denied wanting this worker to call any additional family or friends, pt states she will call her son. Plan: TCU today Lizbeth Nath DOCKMASTER, REAL ESTATE SERVICES COORDINATOR
--- NOTE | 2018-08-31 11:02 | NURSING ---
called report to tcu
[2018-08-31 11:10] LABS: Bedside Glucose 122 mg/dL (70-110)
[2018-08-31 11:20] VITALS: BP 112/62; PULSE 88; RESP 16; TEMP 36.8; O2SAT 96
--- NOTE | 2018-08-31 11:35 | PCM.TXEXTCAR ---
- Diet 08/26/18 20:48 Diet: 1800 wale ADA Food consistency:: N/A - Liquid only Liquid Consistency:: Regular/Thin Type of Dietary Supplement:: Glucerna Shake - Routine Orders/Code Status Routine Lab Work: - - fingerstick blood sugars: ACQHS-coverage with Humalog SQ per protocol: 200-250: 5 units, 251-300: 10 units, 301-350 12 units, 351-400: 15 units Code Status: DNC-A - Wound(s) midline verticle healed abdominal wound 3 weeks old Wound Type: Surgical Incision LLQ Wound Type: Peg Tube Site Left Chest Wound Type: Surgical Incision - Therapies Weight Bearing: Full weight bearing Physical Therapy: Eval and Treat Occupational Therapy: Eval and Treat - Problem/Diagnosis (1) History of gastrectomy Status: Resolved Current Visit: No (2) Severe sepsis Status: Acute Current Visit: Yes (3) Urinary tract infection Status: Acute Comment: E. coli Current Visit: Yes (4) Noncompliance with CPAP treatment Status: Chronic Current Visit: No (5) Depression Status: Chronic Current Visit: No (6) Diabetes mellitus type 2 in obese Status: Chronic Current Visit: No (7) Gastric cancer Status: Chronic Current Visit: No - Allergies/Procedures Done in Hospital Allergies/Adverse Reactions: Allergies fentanyl Adverse Reaction (Verified 08/26/18 15:06) MAKES ME SHAKE oxycodone [From Percocet] Adverse Reaction (Verified 08/26/18 15:06) MAKES ME SHAKE thiopental Adverse Reaction (Verified 08/26/18 15:06) MAKES ME SHAKE - Type of Care/Length of Stay Estimated LOS: Convalescent Care Less Than 30 days Type of Care Needed: Skilled Rehab Potential: Good Prognosis: Good - Additional Orders/Day of Discharge Additional Orders: nutritional services to follow H&P will serve as current which was dated: 08/26/18 Day of Discharge: 08/31/18 - Dietary and Speech Recommendations Dietitian Recommendations/Changes: Recommend daily wts. - Follow Up Care Primary Care Physician: Shanta Welsh PA [Primary Care Provider] -
--- NOTE | 2018-09-01 09:24 | PCM.DC.SUM ---
Discharge Date and Diagnosis - Problem List Patient Problems: Active and Suspected Problems (Last Reviewed 08/23/18 @ 13:20 by Chinyere Rubalcava) Sepsis (Acute) Pyelonephritis (Acute) Date of Admission: 08/26/18 Date of Discharge: 08/31/18 - Primary Discharge Diagnosis Active and Suspected Problems (Last Reviewed 08/23/18 @ 13:20 by Chinyere Rubalcava) #1 severe sepsis secondary to pyelonephritis from E. coli-ESBL producing #2 transverse myelitis #3 gastric cancer #4 generalized debility #5 acute anemia secondary to recent blood loss from extensive abdominal surgery #6 type 2 diabetes #7 hypertension #8 obstructive sleep apnea-noncompliant with CPAP - Secondary Discharge Diagnosis Chronic Problems (Last Reviewed 08/23/18 @ 13:20 by Chinyere Rubalcava) Sleep apnea (Chronic) Diabetes mellitus (Chronic) Neuropathy (Chronic) Glaucoma (Chronic) Insomnia (Chronic) Edema (Chronic) Hyperlipidemia (Chronic) Atherosclerosis of [place] coronary artery of [place] heart without angina pectoris (Chronic) Chronic pain syndrome (Chronic) Noncompliance with CPAP treatment (Chronic) Morbid obesity (Chronic) Depression (Chronic) Dyslipidemia (Chronic) Fibromyalgia (Chronic) Multinodular goiter (Chronic) Obstructive sleep apnea (Chronic) Recurrent falls (Chronic) Diabetes mellitus type 2 in obese (Chronic) Hypertension (Chronic) Gastric cancer (Chronic) Hospital Course and Treatment Consultations 08/27/18 12:03 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 Patient underwent extensive surgery in [place] for removal of gastric cancer in July. Work-up in the emergency room showed a white blood cell count of 26.2, hemoglobin was 8.8, sodium was 130 and chloride was 95. Urinalysis showed positive leukocyte esterase positive nitrites, 5200 white blood cells and 4+ bacteria. CT of the abdomen was obtained and showed evidence of transverse colitis. Lactic acid was elevated at 2.2. Patient was given IV fluids, she was started on IV Rocephin, and she was admitted to [place] [address] and infectious diseases was consulted. Patient's CODE STATUS was a DNR CC arrest. Urine culture resulted in E. coli that was ESBL. Patient was seen by PT and OT, family requested the patient go into residential short-term and the patient had no problems with this. Patient's oral intake was poor during her hospitalization. On 08/31/2018 patient was examined: On examination she appeared in good health and spirits. Vital signs as documented. Skin warm and dry and without overt rashes. Neck without JVD. Lungs clear. Heart exam notable for regular rhythm, normal sounds and absence of murmurs, rubs or gallops. Abdomen unremarkable and without evidence of organomegaly, masses, or abdominal aortic enlargement. PEG tube is in place. Extremities nonedematous. Neuro: Cranial nerves II through XII are grossly intact, no focal motor deficits were noted, sensation to light touch and pinprick is intact. Psych: Patient is alert and oriented x3, she has a flat affect Patient had her abdominal wound site cultured and it grew out several different organisms, the significance of this it was unknown. I did not believe the patient had an infection of her abdominal wound. On 08/31/2018, patient was seen and examined and felt to be in stable condition for transfer to TCU for short term inpatient rehab.. Patient Problems: Active and Suspected Problems (Last Reviewed 08/23/18 @ 13:20 by Chinyere Rubalcava) Sepsis (Acute) Pyelonephritis (Acute) - Physical Exam Vital Signs Temp Pulse Resp BP Pulse Ox 98.3 F 88 16 112/62 96 08/31/18 11:20 08/31/18 11:20 08/31/18 11:20 08/31/18 11:20 08/31/18 11:20 Oxygen Flow Rate (L/min) 2 Oxygen Delivery Method Room Air Weight: 77.8 kg Body Mass Index (BMI) 26.0 Finger Stick Blood Glucose 35 Intake and Output for Last 24 Hours 08/30/18 08/31/18 09/01/18 23:59 23:59 23:59 Intake Total 2417 / 2417 240 / 240 Output Total 2650 / 2650 Balance -233 / -233 240 / 240 Microbiology Past 72 Hours 08/26/18 18:24 Blood Culture - Final Blood Culture (Wb) - Anticubital Left No growth in 5 days. 08/26/18 18:15 Blood Culture - Final Blood Culture (Wb) - Anticubital Right No growth in 5 days. 08/27/18 11:50 Gram Stain - Final Wound - Abdominal Wound Culture - Preliminary Presumptive C albicans Klebsiella pneumoniae sp pneum Staphylococcus epidermidis Anaerobic Culture - Final No anaerobic bacteria isolated. 08/26/18 16:00 Urine Culture - Final Urine, Clean Catch Escherichia coli POC Glucose 08/31/18 11:05 POC Glucose 122 H Discharge Activity: Return to Normal Activity Weight Bearing Status: Weight bearing as tolerated Call your doctor if you observe: Fever of 101 or Higher, Shortness of breath, Dizziness, Chest pain Home Medications: Medications to take at Discharge Docusate Sodium [Colace] 100 mg PO BID 02/15/16 Dorzolamide HCL/Timolol [Cosopt Opth Drops] 1 drp EACH EYE BID 02/15/16 Duloxetine Hcl [Cymbalta] 60 mg PO DAILY 02/15/16 Polyethylene Glycol 3350 [Miralax] 17 gm PO DAILY 03/05/17 Atorvastatin Calcium [Lipitor] 40 mg PO QHS 05/19/17 Gabapentin [Neurontin] 300 mg PO BID 03/31/18 Magnesium Oxide 400 mg PO DAILY 03/31/18 Insulin Detemir [Levemir FlexPen] 20 units SUBCUT QHS #10 insuln.pen 04/01/18 Ferrous Sulfate 325 mg PO BIDCM 08/05/18 traZODone [Desyrel] 50 mg PO QHS 08/05/18 Albuterol Inhaler [Ventolin Hfa] 1 - 2 puff INHALATION Q4H PRN PRN 08/23/18 Metoprolol Tartrate [Lopressor (beta anthony)] 25 mg PO BID 08/23/18 Potassium Chloride 10 meq PO PRN PRN 08/23/18 metFORMIN HCl [Glucophage] 1,000 mg PO BIDCM 08/23/18 Enoxaparin Sodium [Lovenox] 40 mg SQ DAILY 08/31/18 Ertapenem Sod [Invanz] 1 gm IV Q24 08/31/18 Furosemide [Lasix] 20 mg PO DAILY PRN 08/31/18 Pantoprazole Sodium [Protonix] 20 mg PO BID 08/31/18 traMADol [Ultram] 50 mg PO Q6H PRN PRN 7 Days #28 tab 08/31/18 Following Prescrptions Were Given to Patient: traMADol [Ultram] 50 mg PO Q6H PRN PRN 7 Days #28 tab PRN Reason: Pain Primary Care Physician: Shanta Welsh PA [Primary Care Provider] - Please follow up with your Primary Care Physician in: one week Please Follow Up With: Outpatient Infusion Clinic When: Wednesday Patient Instructions: Extended-Spectrum Beta-lactamase (ESBL) - Producing Bacteria, ED Gastroenteritis Bacterial Disposition: Halfway facility Minutes spent on discharge:: 32 Patient Condition:: Stable Medical Necessity - Tobacco Use Smoking Status: Former smoker Tobacco Use: Non-smoker Meaningful Use Info Meaningful Use Diagnoses (Choose all that apply): None applicable Code Visit Inpatient E&M: 85522 Disch Hosp
--- NOTE | 2018-09-01 09:36 | DS.PCM_ITS ---
Discharge Date and Diagnosis - Problem List Patient Problems: Active and Suspected Problems (Last Reviewed 08/23/18 @ 13:20 by Chinyere Rubalcava) Sepsis (Acute) Pyelonephritis (Acute) Date of Admission: 08/26/18 Date of Discharge: 08/31/18 - Primary Discharge Diagnosis Active and Suspected Problems (Last Reviewed 08/23/18 @ 13:20 by Chinyere Rubalcava) #1 severe sepsis secondary to pyelonephritis from E. coli-ESBL producing #2 transverse myelitis #3 gastric cancer #4 generalized debility #5 acute anemia secondary to recent blood loss from extensive abdominal surgery #6 type 2 diabetes #7 hypertension #8 obstructive sleep apnea-noncompliant with CPAP - Secondary Discharge Diagnosis Chronic Problems (Last Reviewed 08/23/18 @ 13:20 by Chinyere Rubalcava) Sleep apnea (Chronic) Diabetes mellitus (Chronic) Neuropathy (Chronic) Glaucoma (Chronic) Insomnia (Chronic) Edema (Chronic) Hyperlipidemia (Chronic) Atherosclerosis of [place] coronary artery of [place] heart without angina pectoris (Chronic) Chronic pain syndrome (Chronic) Noncompliance with CPAP treatment (Chronic) Morbid obesity (Chronic) Depression (Chronic) Dyslipidemia (Chronic) Fibromyalgia (Chronic) Multinodular goiter (Chronic) Obstructive sleep apnea (Chronic) Recurrent falls (Chronic) Diabetes mellitus type 2 in obese (Chronic) Hypertension (Chronic) Gastric cancer (Chronic) Hospital Course and Treatment Consultations 08/27/18 12:03 Consult: Onc/Wound/development scientist Routine Comment: Reason for Consult:: recent abd surgery and peg placement Comments:: bile leaking?, dried drainage proximal verticle incisio Operations: None Procedures: None Summary of Care Provided: The patient is a 68 year old F was seen in the emergency room at [facility] with chief complaint of bilateral flank pain x3 days. Patient underwent extensive surgery in [place] for removal of gastric cancer in July. Work-up in the emergency room showed a white blood cell count of 26.2, hemoglobin was 8.8, sodium was 130 and chloride was 95. Urinalysis showed positive leukocyte esterase positive nitrites, 5200 white blood cells and 4+ bacteria. CT of the abdomen was obtained and showed evidence of transverse colitis. Lactic acid was elevated at 2.2. Patient was given IV fluids, she was started on IV Rocephin, and she was admitted to [place] [address] and infectious diseases was consulted. Patient's CODE STATUS was a DNR CC arrest. Urine culture resulted in E. coli that was ESBL. Patient was seen by PT and OT, family [facility] the [facility] and the patient had no problems with this. Patient's oral intake was poor during her hospitalization. On 08/31/2018 patient was examined: On examination she appeared in good health and spirits. Vital signs as documented. Skin warm and dry and without overt rashes. Neck without JVD. Lungs clear. Heart exam notable for regular rhythm, normal sounds and absence of murmurs, rubs or gallops. Abdomen unremarkable and without evidence of organomegaly, masses, or abdominal aortic enlargement. PEG tube is in place. Extremities nonedematous. Neuro: Cranial nerves II through XII are grossly intact, no focal motor deficits were noted, sensation to light touch and pinprick is intact. Psych: Patient is alert and oriented x3, she has a flat affect Patient had her abdominal wound site cultured and it grew out several different organisms, the significance of this it was unknown. I did not believe the patient had an infection of her abdominal wound. On 08/31/2018, patient was seen and examined and felt to be in stable condition for transfer to TCU for short term inpatient rehab.. Patient Problems: Active and Suspected Problems (Last Reviewed 08/23/18 @ 13:20 by Chinyere Rubalcava) Sepsis (Acute) Pyelonephritis (Acute) - Physical Exam Vital Signs Temp Pulse Resp BP Pulse Ox 98.3 F 88 16 112/62 96 08/31/18 11:20 08/31/18 11:20 08/31/18 11:20 08/31/18 11:20 08/31/18 11:20 Oxygen Flow Rate (L/min) 2 Oxygen Delivery Method Room Air Weight: 77.8 kg Body Mass Index (BMI) 26.0 Finger Stick Blood Glucose 35 Intake and Output for Last 24 Hours 08/30/18 08/31/18 09/01/18 23:59 23:59 23:59 Intake Total 2417 / 2417 240 / 240 Output Total 2650 / 2650 Balance -233 / -233 240 / 240 Microbiology Past 72 Hours 08/26/18 18:24 Blood Culture - Final Blood Culture (Wb) - Anticubital Left No growth in 5 days. 08/26/18 18:15 Blood Culture - Final Blood Culture (Wb) - Anticubital Right No growth in 5 days. 08/27/18 11:50 Gram Stain - Final Wound - Abdominal Wound Culture - Preliminary Presumptive C albicans Klebsiella pneumoniae sp pneum Staphylococcus epidermidis Anaerobic Culture - Final No anaerobic bacteria isolated. 08/26/18 16:00 Urine Culture - Final Urine, Clean Catch Escherichia coli POC Glucose 08/31/18 11:05 POC Glucose 122 H Discharge Activity: Return to Normal Activity Weight Bearing Status: Weight bearing as tolerated Call your doctor if you observe: Fever of 101 or Higher, Shortness of breath, Dizziness, Chest pain Home Medications: Medications to take at Discharge Docusate Sodium [Colace] 100 mg PO BID 02/15/16 Dorzolamide HCL/Timolol [Cosopt Opth Drops] 1 drp EACH EYE BID 02/15/16 Duloxetine Hcl [Cymbalta] 60 mg PO DAILY 02/15/16 Polyethylene Glycol 3350 [Miralax] 17 gm PO DAILY 03/05/17 Atorvastatin Calcium [Lipitor] 40 mg PO QHS 05/19/17 Gabapentin [Neurontin] 300 mg PO BID 03/31/18 Magnesium Oxide 400 mg PO DAILY 03/31/18 Insulin Detemir [Levemir FlexPen] 20 units SUBCUT QHS #10 insuln.pen 04/01/18 Ferrous Sulfate 325 mg PO BIDCM 08/05/18 traZODone [Desyrel] 50 mg PO QHS 08/05/18 Albuterol Inhaler [Ventolin Hfa] 1 - 2 puff INHALATION Q4H PRN PRN 08/23/18 Metoprolol Tartrate [Lopressor (beta anthony)] 25 mg PO BID 08/23/18 Potassium Chloride 10 meq PO PRN PRN 08/23/18 metFORMIN HCl [Glucophage] 1,000 mg PO BIDCM 08/23/18 Enoxaparin Sodium [Lovenox] 40 mg SQ DAILY 08/31/18 Ertapenem Sod [Invanz] 1 gm IV Q24 08/31/18 Furosemide [Lasix] 20 mg PO DAILY PRN 08/31/18 Pantoprazole Sodium [Protonix] 20 mg PO BID 08/31/18 traMADol [Ultram] 50 mg PO Q6H PRN PRN 7 Days #28 tab 08/31/18 Following Prescrptions Were Given to Patient: traMADol [Ultram] 50 mg PO Q6H PRN PRN 7 Days #28 tab PRN Reason: Pain Primary Care Physician: Shanta Welsh PA [Primary Care Provider] - Please follow up with your Primary Care Physician in: one week Please Follow Up With: Outpatient Infusion Clinic When: Wednesday Patient Instructions: Extended-Spectrum Beta-lactamase (ESBL) - Producing Bacteria, ED Gastroenteritis Bacterial Disposition: Half-Way facility Minutes spent on discharge:: 32 Patient Condition:: Stable Medical Necessity - Tobacco Use Smoking Status: Former smoker Tobacco Use: Non-smoker Meaningful Use Info Meaningful Use Diagnoses (Choose all that apply): None applicable Code Visit Inpatient E&M: 55158 Disch Hosp
== END 2018-08-31 13:13 | disposition skilled nursing facility (03) | DRG 690 ==
LOC: ED 19:20 → MS3 20:04
PROVIDERS: Student in an Organized Health Care Education/Training Program; Admitting Provider Family Medicine; Emergency Provider Emergency Medicine; Family Provider Physician Assistant; PCP Physician Assistant; Visit Provider Internal Medicine
DX: N12 Tubulo-interstitial nephritis, not specified as acute or chronic (principal); E87.1 Hypo-osmolality and hyponatremia; D62 Acute posthemorrhagic anemia; C16.9 Malignant neoplasm of stomach, unspecified; Z79.4 Long term (current) use of insulin; E11.40 Type 2 diabetes mellitus with diabetic neuropathy, unspecified; I10 Essential (primary) hypertension; E78.5 Hyperlipidemia, unspecified; Z66 Do not resuscitate; Z91.19 Patient's noncompliance with other medical treatment and regimen; G47.33 Obstructive sleep apnea (adult) (pediatric); R53.81 Other malaise; I25.10 Atherosclerotic heart disease of native coronary artery without angina pectoris; M79.7 Fibromyalgia; R29.6 Repeated falls; Z93.1 Gastrostomy status; Z16.12 Extended spectrum beta lactamase (ESBL) resistance; K52.9 Noninfective gastroenteritis and colitis, unspecified; E83.42 Hypomagnesemia; E83.39 Other disorders of phosphorus metabolism; Z87.891 Personal history of nicotine dependence; D64.9 Anemia, unspecified; G89.4 Chronic pain syndrome; K21.9 Gastro-esophageal reflux disease without esophagitis; F32.9 Major depressive disorder, single episode, unspecified; F41.9 Anxiety disorder, unspecified; Z78.0 Asymptomatic menopausal state; Z79.899 Other long term (current) drug therapy
CPT/HCPCS: 36415; 71045; 74176; 77001; 80048; 80053; 81001; 82274; 82962; 83605; 83735; 84100; 85014; 85018; 85025; 85610; 85730; 87040; 87070; 87075; 87077; 87086; 87088; 87106; 87186; 87205; 97110; 97162; 97166; 97530; 97535; 97802; 99285; J2185; J7030; J7050; J7120; A4216

== ENCOUNTER 2018-08-31 13:18 | Inpatient (IN) | payer MEDICARE, MEDICAID, SELFPAY ==
[2018-08-26 20:49] VITALS: BMI 26.0
--- NOTE | 2018-08-31 13:28 | NURSING ---
pt arrived from [facility] @ 1:20pm via bed
[2018-08-31 14:25] VITALS: BMI 25.0
[2018-08-31 14:27] VITALS: BMI 25.0
[2018-08-31 14:32] VITALS: BP 121/66; PULSE 83; RESP 18; TEMP 36.5; O2SAT 94
[2018-08-31 16:00] VITALS: BP 123/69; PULSE 78; RESP 20; TEMP 36.6; O2SAT 92
[2018-08-31 17:01] LABS: Bedside Glucose 101 mg/dL (70-110)
[2018-08-31] MEDS: metFORMIN HCl 500 MG Tablet 1000 MG PO (17:56)
[2018-08-31] MEDS: Ferrous Sulfate 325 MG Tablet PO (17:56)
[2018-08-31 17:57] VITALS: BP 123/69; PULSE 78
[2018-08-31] MEDS: Metoprolol Tartrate 25 MG Tablet PO (17:57)
[2018-08-31] MEDS: Gabapentin 300 MG Capsule PO (17:57)
[2018-08-31] MEDS: Docusate Sodium 100 MG Capsule PO (17:57)
[2018-08-31] MEDS: Pantoprazole Sodium 20 MG Tablet PO (17:57)
[2018-08-31] MEDS: Dorzolamide HCL/Timolol 10 ml Bottle 1 DRP EACH EYE (17:58)
[2018-08-31] MEDS: Nystatin Powder 15gm Bottle 1 APPLIC TOPICAL (18:13)
[2018-08-31] MEDS: traMADol 50 MG Tablet PO (19:47)
[2018-08-31] MEDS: traZODone 50 MG Tablet PO (19:48)
[2018-08-31] MEDS: Atorvastatin Calcium 40 MG Tablet PO (19:50)
[2018-08-31] MEDS: Menthol/Lanolin/Calamine/Znox 113 GM Tube 1 APPLIC TOPICAL (19:51)
--- NOTE | 2018-08-31 21:18 | PCM.HP.STD ---
Problem List (1) Sepsis Status: Acute (2) Pyelonephritis Status: Acute (3) Sleep apnea Status: Chronic (4) Diabetes mellitus Status: Chronic (5) Neuropathy Status: Chronic (6) Glaucoma Status: Chronic (7) Insomnia Status: Chronic (8) Anemia Status: Acute Qualifiers: (9) Colitis Status: Acute (10) Hyperlipidemia Status: Chronic Qualifiers: (11) Depression Status: Chronic (12) Fibromyalgia Status: Chronic (13) Hypertension Status: Chronic Qualifiers: (14) Gastric cancer Status: Chronic Qualifiers: History of Present Illness Date of Admission: 08/31/18 Chief Complaint: Here for rehabilitation, strengthening, intravenous antibiotics, prior to discharge home with family. The patient is a 68 year old Female with below past medical history presented to [facility] Emergency Department with bilateral flank pain. 08/26/2018 CT abdomen/pelvis showed transverse colitis, NG tube, left pleural effusion/atelectasis. 08/26/2018 Chest X-ray showed right Port-A-Cath. Worse x 3 days, throbbing pain. WBC 26.2, Hemoglobin 8.8, Hematocrit 27.3, Platelet 821. Sodium 130, Chloride 95. UA consistent with UTI. Urine, blood cultures sent. Lactate 2.2 Rocephin, IV fluids given. 08/26/2018 Admit to Hospital. Stage 4 gastric cancer recent surgical intervention. 05/2018 Urine culture grew ESBL E. Coli, Klebsiella Pneumoniae. Meropenem IV, IV fluids for sepsis, pyelonephritis. Follow H&H for anemia. IV fluids for low sodium. Palliative chemotherapy planned for stage [address] Grant. 08/29/2018 Dr. Moncada recommended discharge on Ertapenem 1GM daily thru 09/07/2018 for ESBL E. Coli Pyelonephritis, transverse colitis. Transfuse if hemoglobin < 7. Hypomagnesemia, Hypophosphatemia resolved. Thrombocytosis improved. 08/31/2018 Admit to TCU with debility, here for rehabilitation, strengthening, intravenous antibiotics, prior to discharge home with family. Past Medical History Past Medical History (Chronic Problems): Chronic Problems (Last Reviewed 08/23/18 @ 13:20 by Chinyere Rubalcava) Sleep apnea (Chronic) Diabetes mellitus (Chronic) Neuropathy (Chronic) Glaucoma (Chronic) Insomnia (Chronic) Edema (Chronic) Hyperlipidemia (Chronic) Atherosclerosis of [place] coronary artery of [place] heart without angina pectoris (Chronic) Chronic pain syndrome (Chronic) Noncompliance with CPAP treatment (Chronic) Morbid obesity (Chronic) Depression (Chronic) Dyslipidemia (Chronic) Fibromyalgia (Chronic) Multinodular goiter (Chronic) Obstructive sleep apnea (Chronic) Recurrent falls (Chronic) Diabetes mellitus type 2 in obese (Chronic) Hypertension (Chronic) Gastric cancer (Chronic) Medical History: Medical History (Last Reviewed 08/23/18 @ 13:20 by Chinyere Rubalcava) Edema (Chronic) R60.9 Hyperlipidemia (Chronic) E78.5 Atherosclerosis of [place] coronary artery of [place] heart without angina pectoris (Chronic) I25.10 Hypophosphatemia (Acute) E83.39 Chronic pain syndrome (Chronic) G89.4 Eosinophilia (Acute) D72.1 Hypomagnesemia (Acute) E83.42 Severe sepsis (Acute) A41.9, R65.20 Septic shock (Ruled-out) A41.9, R65.21 Acute renal failure (Acute) N17.9 Urinary tract infection (Acute) N39.0 E. coli Toxic encephalopathy (Acute) G92 Hyperammonemia (Acute) E72.20 Noncompliance with CPAP treatment (Chronic) Z91.14 Morbid obesity (Chronic) E66.01 Depression (Chronic) F32.9 Dyslipidemia (Chronic) E78.5 Fibromyalgia (Chronic) M79.7 Multinodular goiter (Chronic) E04.2 Obstructive sleep apnea (Chronic) G47.33 Recurrent falls (Chronic) R29.6 Diabetes mellitus type 2 in obese (Chronic) E11.69, E66.9 Hypertension (Chronic) I10 Gastric cancer (Chronic) C16.9 Allergies fentanyl Adverse Reaction (Verified 08/26/18 15:06) MAKES ME SHAKE oxycodone [From Percocet] Adverse Reaction (Verified 08/26/18 15:06) MAKES ME SHAKE thiopental Adverse Reaction (Verified 08/26/18 15:06) MAKES ME SHAKE Home Medications: Ambulatory Orders Medication Instructions Recorded Docusate Sodium [Colace] 100 mg PO BID 02/15/16 Dorzolamide HCL/Timolol [Cosopt 1 drp EACH EYE BID 02/15/16 Opth Drops] Duloxetine Hcl [Cymbalta] 60 mg PO DAILY 02/15/16 Polyethylene Glycol 3350 [Miralax] 17 gm PO DAILY 03/05/17 Atorvastatin Calcium [Lipitor] 40 mg PO QHS 05/19/17 Gabapentin [Neurontin] 300 mg PO BID 03/31/18 Magnesium Oxide 400 mg PO DAILY 03/31/18 Insulin Detemir [Levemir FlexPen] 20 units SUBCUT QHS #10 insuln.pen 04/01/18 Ferrous Sulfate 325 mg PO BIDCM 08/05/18 traZODone [Desyrel] 50 mg PO QHS 08/05/18 Albuterol Inhaler [Ventolin Hfa] 1 - 2 puff INHALATION Q4H PRN PRN 08/23/18 Metoprolol Tartrate [Lopressor 25 mg PO BID 08/23/18 (beta anthony)] Potassium Chloride 10 meq PO PRN PRN 08/23/18 metFORMIN HCl [Glucophage] 1,000 mg PO BIDCM 08/23/18 Enoxaparin Sodium [Lovenox] 40 mg SQ DAILY 08/31/18 Ertapenem Sod [Invanz] 1 gm IV Q24 08/31/18 Furosemide [Lasix] 20 mg PO DAILY PRN 08/31/18 Pantoprazole Sodium [Protonix] 20 mg PO BID 08/31/18 traMADol [Ultram] 50 mg PO Q6H PRN PRN 7 Days #28 tab 08/31/18 Surgical History: Surgical History (Last Reviewed 08/23/18 @ 13:20 by Chinyere Rubalcava) S/P jejunostomy (Acute) Z93.4 placement history of colectomy from colonoscopy perforation (Resolved) History of (Resolved) Z98.891 history open cholecystectomy (Resolved) History of gastrectomy (Resolved) Z90.3 Surgical History: cholecystectomy, hysterectomy, - - Subtotal gastrectomy for gastric cancer, prior cervical fusion as well as Jefferson rods in the thoracic and lumbosacral spine, recent PowerPort placement, recent gastric cancer bypass with small bowel partial resection, J-tube placement. Psychiatric History: Depression FORM COVERER History: No pertinent FORM COVERER history Lives: With Family Smoking Status: Former smoker Tobacco Use: Non-smoker Alcohol: None Drugs: None - *Family History Maternal Family History: Family History (Last Reviewed 08/23/18 @ 13:20 by Chinyere Rubalcava) Mother Diabetes Father Diabetes Heart disease History Items: Diabetes Paternal Family History: Family History (Last Reviewed 08/23/18 @ 13:20 by Chinyere Rubalcava) Mother Diabetes Father Diabetes Heart disease History Items: Diabetes, Heart Disease Review of Systems Constitutional: Denies: Chills, Fever, Weight Change HEENT: Denies: Head Aches, Sinus Congestion, Sinus Drainage Cardiovascular: Denies: Chest Pain, Palpitations Respiratory: Denies: Cough, Shortness of breath at rest, Sputum production Gastrointestinal: Denies: Abdominal Pain, Nausea, Vomiting Genitourinary: Denies: Dysuria Musculoskeletal: Denies: Joint Pain, Joint Tenderness Skin: Denies: Rash, Wounds Neurological: Denies: Numbness, Tingling, Focal weakness Psychiatric: Denies: Anxiety, Depression, Homicidal Ideations, Suicidal Ideations Hematologic/ Lymphatic: Denies: Easy Bruising, Easy Bleeding VTE Information - Inpt Only VTE Present on Admission: No VTE Mechan Device Prophylaxis: SCD's VTE Pharm Prophylaxis ordered?: No Reason prophylaxis not ordered:: Medical Contraindication Patient Problems: Active and Suspected Problems (Last Reviewed 08/23/18 @ 13:20 by Chinyere Rubalcava) Sepsis (Acute) Pyelonephritis (Acute) - Physical Exam General: Alert, Oriented x3, Cooperative HEENT: Atraumatic, PERRLA, EOMI, Normocephalic Neck: Supple, No JVD, Negative Carotid Bruits Lungs: Clear to auscultation, Normal air movement Cardiovascular: Regular rate, No murmurs Abdomen: Bowel Sounds Present, Soft, Non Tender, - - J-tube present mid lower abdomen. Extremities: No edema, Capillary Refill Less than 3 Seconds Skin: No rashes, No breakdown Musculoskeletal: No Tenderness to Palpation of Joints or Extremities Neurological: Cranial nerves II-XII grossly intact Psych/Mental Status: Normal Affect, Appropriate Vital Signs Temp Pulse Resp BP Pulse Ox 97.9 F 78 20 H 123/69 H 92 08/31/18 16:00 08/31/18 17:57 08/31/18 16:00 08/31/18 17:57 08/31/18 16:00 Oxygen Delivery Method Room Air Weight: 74.588 kg Body Mass Index (BMI) 25.0 Finger Stick Blood Glucose 35 Intake and Output for Last 24 Hours 08/29/18 08/30/18 08/31/18 23:59 23:59 23:59 Intake Total 150 / 150 Balance 150 / 150 POC Glucose 08/31/18 16:51 POC Glucose 101 Assessment/Plan All Active Problems (Last Reviewed 08/23/18 @ 13:20 by Chinyere Rubalcava) Anemia (Acute) Colitis (Acute) Sepsis (Acute) Pyelonephritis (Acute) S/P jejunostomy (Acute) Acute pancreatitis (Acute) Abdominal pain (Acute) SBO (small bowel obstruction) (Acute) history of colectomy from colonoscopy perforation (Resolved) History of (Resolved) history open cholecystectomy (Resolved) History of gastrectomy (Resolved) Hypophosphatemia (Acute) Eosinophilia (Acute) Hypomagnesemia (Acute) Severe sepsis (Acute) Septic shock (Ruled-out) Acute renal failure (Acute) Urinary tract infection (Acute) Toxic encephalopathy (Acute) Hyperammonemia (Acute) 68 year old female with below past medical history significant for stage 4 gastric cancer, hospitalized for sepsis secondary to ESBL E. Coli pyelonephritis, transverse colitis, admitted to TCU for debility, here for rehabilitation, strengthening, intravenous antibiotics, prior to discharge home with family. Debility - PT/OT. Pain - Tylenol 1000MG Q6H PRN mild pain, Tramadol 50MG Q6H PRN moderate pain. Bowel - Miralax 17GM daily, Colace 100MG BID, Dulcolax 10MG daily PRN. Pneumonia vaccination - Administer Prevnar 13 and/or Pneumovax 23 as necessary. DVT prophylaxis - SCD's for now, hold Lovenox due to anemia, possible bleeding, until hemoglobin continues to trend up. Shortness of breath - Albuterol 1-2 puff Q4H PRN. Hyperlipidemia - Atorvastatin 40MG QHS. Depression - Cymbalta 60MG daily. ESBL E. Coli pyelonephritis/transverse colitis - Invanz 1GM IV Q24H thru 09/07/2018. Iron deficiency anemia - Iron sulfate 325MG BID. Neuropathic pain - Gabapentin 300MG BID. Edema - HCTZ 12.5MG daily PRN. Hypokalemia - KCL 10MEQ daily PRN HCTZ administration. Diabetes Mellitus II - Metformin 1000MG BID, Lantus 20 units QHS. Hypomagnesemia - Magnesium Oxide 400MG daily. Skin irritation - Calmoseptine TID. Hypertension - Metoprolol 25MG BID. Tinea Corporis - Nystatin powder BID. GERD - Pantoprazole 20MG BID. Insomnia - Trazodone 50MG QHS. Stage 4 gastric cancer - outpatient chemotherapy after discharge from [facility].
--- NOTE | 2018-08-31 21:26 | HP.PCM_ITS ---
Problem List (1) Sepsis Status: Acute (2) Pyelonephritis Status: Acute (3) Sleep apnea Status: Chronic (4) Diabetes mellitus Status: Chronic (5) Neuropathy Status: Chronic (6) Glaucoma Status: Chronic (7) Insomnia Status: Chronic (8) Anemia Status: Acute Qualifiers: (9) Colitis Status: Acute (10) Hyperlipidemia Status: Chronic Qualifiers: (11) Depression Status: Chronic (12) Fibromyalgia Status: Chronic (13) Hypertension Status: Chronic Qualifiers: (14) Gastric cancer Status: Chronic Qualifiers: History of Present Illness Date of Admission: 08/31/18 Chief Complaint: Here for rehabilitation, strengthening, intravenous antibiotics, prior to discharge home with family. The patient is a 68 year old Female with below past medical history presented to [facility] Emergency Department with bilateral flank pain. 08/26/2018 CT abdomen/pelvis showed transverse colitis, NG tube, left pleural effusion/atelectasis. 08/26/2018 Chest X-ray showed right Port-A-Cath. Worse x 3 days, throbbing pain. WBC 26.2, Hemoglobin 8.8, Hematocrit 27.3, Platelet 821. Sodium 130, Chloride 95. UA consistent with UTI. Urine, blood cultures sent. Lactate 2.2 Rocephin, IV fluids given. 08/26/2018 Admit to Hospital. Stage 4 gastric cancer recent surgical intervention. 05/2018 Urine culture grew ESBL E. Coli, Klebsiella Pneumoniae. Meropenem IV, IV fluids for sepsis, pyelonephritis. Follow H&H for anemia. IV fluids for low sodium. Palliative chemotherapy planned for stage [address] Grant. 08/29/2018 Dr. Moncada recommended discharge on Ertapenem 1GM daily thru 09/07/2018 for ESBL E. Coli Pyelonephritis, transverse colitis. Transfuse if hemoglobin < 7. Hypomagnesemia, Hypophosphatemia resolved. Thrombocytosis improved. 08/31/2018 Admit to TCU with debility, here for rehabilitation, strengthening, intravenous antibiotics, prior to discharge home with family. Past Medical History Past Medical History (Chronic Problems): Chronic Problems (Last Reviewed 08/23/18 @ 13:20 by Chinyere Rubalcava) Sleep apnea (Chronic) Diabetes mellitus (Chronic) Neuropathy (Chronic) Glaucoma (Chronic) Insomnia (Chronic) Edema (Chronic) Hyperlipidemia (Chronic) Atherosclerosis of [place] coronary artery of [place] heart without angina pectoris (Chronic) Chronic pain syndrome (Chronic) Noncompliance with CPAP treatment (Chronic) Morbid obesity (Chronic) Depression (Chronic) Dyslipidemia (Chronic) Fibromyalgia (Chronic) Multinodular goiter (Chronic) Obstructive sleep apnea (Chronic) Recurrent falls (Chronic) Diabetes mellitus type 2 in obese (Chronic) Hypertension (Chronic) Gastric cancer (Chronic) Medical History: Medical History (Last Reviewed 08/23/18 @ 13:20 by Chinyere Rubalcava) Edema (Chronic) R60.9 Hyperlipidemia (Chronic) E78.5 Atherosclerosis of [place] coronary artery of [place] heart without angina pectoris (Chronic) I25.10 Hypophosphatemia (Acute) E83.39 Chronic pain syndrome (Chronic) G89.4 Eosinophilia (Acute) D72.1 Hypomagnesemia (Acute) E83.42 Severe sepsis (Acute) A41.9, R65.20 Septic shock (Ruled-out) A41.9, R65.21 Acute renal failure (Acute) N17.9 Urinary tract infection (Acute) N39.0 E. coli Toxic encephalopathy (Acute) G92 Hyperammonemia (Acute) E72.20 Noncompliance with CPAP treatment (Chronic) Z91.14 Morbid obesity (Chronic) E66.01 Depression (Chronic) F32.9 Dyslipidemia (Chronic) E78.5 Fibromyalgia (Chronic) M79.7 Multinodular goiter (Chronic) E04.2 Obstructive sleep apnea (Chronic) G47.33 Recurrent falls (Chronic) R29.6 Diabetes mellitus type 2 in obese (Chronic) E11.69, E66.9 Hypertension (Chronic) I10 Gastric cancer (Chronic) C16.9 Allergies fentanyl Adverse Reaction (Verified 08/26/18 15:06) MAKES ME SHAKE oxycodone [From Percocet] Adverse Reaction (Verified 08/26/18 15:06) MAKES ME SHAKE thiopental Adverse Reaction (Verified 08/26/18 15:06) MAKES ME SHAKE Home Medications: Ambulatory Orders Medication Instructions Recorded Docusate Sodium [Colace] 100 mg PO BID 02/15/16 Dorzolamide HCL/Timolol [Cosopt 1 drp EACH EYE BID 02/15/16 Opth Drops] Duloxetine Hcl [Cymbalta] 60 mg PO DAILY 02/15/16 Polyethylene Glycol 3350 [Miralax] 17 gm PO DAILY 03/05/17 Atorvastatin Calcium [Lipitor] 40 mg PO QHS 05/19/17 Gabapentin [Neurontin] 300 mg PO BID 03/31/18 Magnesium Oxide 400 mg PO DAILY 03/31/18 Insulin Detemir [Levemir FlexPen] 20 units SUBCUT QHS #10 insuln.pen 04/01/18 Ferrous Sulfate 325 mg PO BIDCM 08/05/18 traZODone [Desyrel] 50 mg PO QHS 08/05/18 Albuterol Inhaler [Ventolin Hfa] 1 - 2 puff INHALATION Q4H PRN PRN 08/23/18 Metoprolol Tartrate [Lopressor 25 mg PO BID 08/23/18 (beta anthony)] Potassium Chloride 10 meq PO PRN PRN 08/23/18 metFORMIN HCl [Glucophage] 1,000 mg PO BIDCM 08/23/18 Enoxaparin Sodium [Lovenox] 40 mg SQ DAILY 08/31/18 Ertapenem Sod [Invanz] 1 gm IV Q24 08/31/18 Furosemide [Lasix] 20 mg PO DAILY PRN 08/31/18 Pantoprazole Sodium [Protonix] 20 mg PO BID 08/31/18 traMADol [Ultram] 50 mg PO Q6H PRN PRN 7 Days #28 tab 08/31/18 Surgical History: Surgical History (Last Reviewed 08/23/18 @ 13:20 by Chinyere Rubalcava) S/P jejunostomy (Acute) Z93.4 placement history of colectomy from colonoscopy perforation (Resolved) History of (Resolved) Z98.891 history open cholecystectomy (Resolved) History of gastrectomy (Resolved) Z90.3 Surgical History: cholecystectomy, hysterectomy, - - Subtotal gastrectomy for gastric cancer, prior cervical fusion as well as Jefferson rods in the thoracic and lumbosacral spine, recent PowerPort placement, recent gastric cancer bypass with small bowel partial resection, J-tube placement. 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 Lives: With Family Smoking Status: Former smoker Tobacco Use: Non-smoker Alcohol: None Drugs: None - *Family History Maternal Family History: Family History (Last Reviewed 08/23/18 @ 13:20 by Chinyere Rubalcava) Mother Diabetes Father Diabetes Heart disease History Items: Diabetes Paternal Family History: Family History (Last Reviewed 08/23/18 @ 13:20 by Chinyere Rubalcava) Mother Diabetes Father Diabetes Heart disease History Items: Diabetes, Heart Disease Review of Systems Constitutional: Denies: Chills, Fever, Weight Change HEENT: Denies: Head Aches, Sinus Congestion, Sinus Drainage Cardiovascular: Denies: Chest Pain, Palpitations Respiratory: Denies: Cough, Shortness of breath at rest, Sputum production Gastrointestinal: Denies: Abdominal Pain, Nausea, Vomiting Genitourinary: Denies: Dysuria Musculoskeletal: Denies: Joint Pain, Joint Tenderness Skin: Denies: Rash, Wounds Neurological: Denies: Numbness, Tingling, Focal weakness Psychiatric: Denies: Anxiety, Depression, Homicidal Ideations, Suicidal Ideations Hematologic/ Lymphatic: Denies: Easy Bruising, Easy Bleeding VTE Information - Inpt Only VTE Present on Admission: No VTE Mechan Device Prophylaxis: SCD's VTE Pharm Prophylaxis ordered?: No Reason prophylaxis not ordered:: Medical Contraindication Patient Problems: Active and Suspected Problems (Last Reviewed 08/23/18 @ 13:20 by Chinyere Rubalcava) Sepsis (Acute) Pyelonephritis (Acute) - Physical Exam General: Alert, Oriented x3, Cooperative HEENT: Atraumatic, PERRLA, EOMI, Normocephalic Neck: Supple, No JVD, Negative Carotid Bruits Lungs: Clear to auscultation, Normal air movement Cardiovascular: Regular rate, No murmurs Abdomen: Bowel Sounds Present, Soft, Non Tender, - - J-tube present mid lower abdomen. Extremities: No edema, Capillary Refill Less than 3 Seconds Skin: No rashes, No breakdown Musculoskeletal: No Tenderness to Palpation of Joints or Extremities Neurological: Cranial nerves II-XII grossly intact Psych/Mental Status: Normal Affect, Appropriate Vital Signs Temp Pulse Resp BP Pulse Ox 97.9 F 78 20 H 123/69 H 92 08/31/18 16:00 08/31/18 17:57 08/31/18 16:00 08/31/18 17:57 08/31/18 16:00 Oxygen Delivery Method Room Air Weight: 74.588 kg Body Mass Index (BMI) 25.0 Finger Stick Blood Glucose 35 Intake and Output for Last 24 Hours 08/29/18 08/30/18 08/31/18 23:59 23:59 23:59 Intake Total 150 / 150 Balance 150 / 150 POC Glucose 08/31/18 16:51 POC Glucose 101 Assessment/Plan All Active Problems (Last Reviewed 08/23/18 @ 13:20 by Chinyere Rubalcava) Anemia (Acute) Colitis (Acute) Sepsis (Acute) Pyelonephritis (Acute) S/P jejunostomy (Acute) Acute pancreatitis (Acute) Abdominal pain (Acute) SBO (small bowel obstruction) (Acute) history of colectomy from colonoscopy perforation (Resolved) History of (Resolved) history open cholecystectomy (Resolved) History of gastrectomy (Resolved) Hypophosphatemia (Acute) Eosinophilia (Acute) Hypomagnesemia (Acute) Severe sepsis (Acute) Septic shock (Ruled-out) Acute renal failure (Acute) Urinary tract infection (Acute) Toxic encephalopathy (Acute) Hyperammonemia (Acute) 68 year old female with below past medical history significant for stage 4 gastric cancer, hospitalized for sepsis secondary to ESBL E. Coli pyelonephritis, transverse colitis, admitted to TCU for debility, here for rehabilitation, strengthening, intravenous antibiotics, prior to discharge home with family. * Debility - PT/OT. * Pain - Tylenol 1000MG Q6H PRN mild pain, Tramadol 50MG Q6H PRN moderate pain. * Bowel - Miralax 17GM daily, Colace 100MG BID, Dulcolax 10MG daily PRN. * Pneumonia vaccination - Administer Prevnar 13 and/or Pneumovax 23 as necessary. * DVT prophylaxis - SCD's for now, hold Lovenox due to anemia, possible bleeding, until hemoglobin continues to trend up. * Shortness of breath - Albuterol 1-2 puff Q4H PRN. * Hyperlipidemia - Atorvastatin 40MG QHS. * Depression - Cymbalta 60MG daily. * ESBL E. Coli pyelonephritis/transverse colitis - Invanz 1GM IV Q24H thru 09/07/2018. * Iron deficiency anemia - Iron sulfate 325MG BID. * Neuropathic pain - Gabapentin 300MG BID. * Edema - HCTZ 12.5MG daily PRN. * Hypokalemia - KCL 10MEQ daily PRN HCTZ administration. * Diabetes Mellitus II - Metformin 1000MG BID, Lantus 20 units QHS. * Hypomagnesemia - Magnesium Oxide 400MG daily. * Skin irritation - Calmoseptine TID. * Hypertension - Metoprolol 25MG BID. * Tinea Corporis - Nystatin powder BID. * GERD - Pantoprazole 20MG BID. * Insomnia - Trazodone 50MG QHS. * Stage 4 gastric cancer - outpatient chemotherapy after discharge from [facility].
[2018-08-31 21:36] LABS: Bedside Glucose 126 mg/dL (70-110)
--- NOTE | 2018-08-31 21:38 | NURSING ---
Addendum entered by Amanda Estrada 08/31/18 22:47: DANIA Heredia Present. Original Note: Pt and son, Arsalan both agreeable to have information provided to niece, Ines Estrada. Per Arsalan Ines has been very active in the management of his mothers care. Ines reviewed medication list with RN, son Arsalan present. Pt takes Protonix 20mg BID at home not Prilosec. Ines also reported, pt takes Lasix 20mg QD PRN for edema at home not HCTZ. Per Ines, pt take Lovenox 40mg QD. Home medication list updated. Dr Benitez aware. Pt's hgb 8.4 on 08/30, Dr Benitez would like to hold Lovenox at this time and have SCDs applied.
[2018-09-01 05:49] LABS: Hematocrit 25.3 % (37-47); Hemoglobin 8.3 g/dl (12.0-15.0); Mean Corp Hgb Conc 32.8 g/gl (32-36); Mean Corpuscular Hgb 29.1 pg (27.0-32.0); Mean Corpuscular Volume 88.8 fL (81-99); Mean Platelet Vol. 8.1 fl (6.2-12.0); Platelet Count 691 K/mm3 (150-450); RBC Distribution Width CV 14.4 % (11.6-14.6); RBC Distribution Width SD 44.9 fl (35.1-43.9); Red Blood Count 2.85 M/mm3 (4.2-5.4); White Blood Count 19.9 K/mm3 (4.4-11.0)
[2018-09-01 06:06] LABS: AST(SGOT) 22 U/L (15-37); Alanine Aminotransfer ALT/SGPT 13 U/L (13-56); Albumin, Serum 1.7 g/dL (3.2-5.0); Alkaline Phosphatase 141 U/L (45-117); Anion Gap 10 (5-15); BUN 9 mg/dL (7-18); BUN/Creat Ratio 32.7 RATIO (10-20); Bilirubin, Direct 0.23 mg/dL (0.00-0.30); Calcium,Total 8.6 mg/dL (8.5-10.1); Chloride 98 mmol/L (98-107); Creatinine, Serum 0.28 mg/dL (0.55-1.02); EST Glomerular Filtration Rate 261 mL/min (>60); Est Glom Filt Rate - Afr Amer 316 mL/min (>60); Estimated Creatinine Clearance 55.82 ml/min; Globulin 4.6 g/dL (2.2-4.2); Glucose 83 mg/dL (74-106); Potassium 3.8 mmol/L (3.5-5.1); Protein, Total 6.3 g/dL (6.4-8.2); Sodium Level 134 mmol/L (136-145)
[2018-09-01 06:08] LABS: Differential Indicated MANUAL DIFF; POSITIVE COUNT YES; POSITIVE DIFFERENTIAL YES; POSITIVE MORPHOLOGY YES
[2018-09-01 06:31] LABS: Bedside Glucose 85 mg/dL (70-110)
[2018-09-01 06:32] LABS: Basophil 1 % (0-1); Eosinophil 1 % (0-5); Lymphocyte 14 % (19-41); Monocyte 4 % (0-10); Neutrophil-Band 1 % (0-5); Neutrophil-Segmented 79 % (47-70); Platelet Estimate MOD INC (ADEQ); Red Cell Morphology NORM C+C NORMAL (NORM C&C); Total Cells Counted 100 (MANUAL DIFF)
[2018-09-01 06:33] LABS: Absolute Neutrophil Count 15.9 X10^3/uL (2.0-7.7); Neutrophil # 15.88 X10^3/uL (2.7-7.7)
[2018-09-01 06:34] LABS: Absolute Lymphocyte Count 2.78 X10^3/ul (0.83-4.51); Lymphocyte # 2.78 X10^3/ul (4.0)
[2018-09-01] MEDS: Menthol/Lanolin/Calamine/Znox 113 GM Tube 1 APPLIC TOPICAL ×3 (06:47→22:44)
[2018-09-01 06:48] VITALS: BP 116/62; PULSE 82
[2018-09-01] MEDS: Magnesium Oxide 400 MG Tablet PO (06:48)
[2018-09-01] MEDS: Pantoprazole Sodium 20 MG Tablet PO ×2 (06:48→17:54)
[2018-09-01] MEDS: DULoxetine Hcl 60 MG Capsule PO (06:48)
[2018-09-01] MEDS: Nystatin Powder 15gm Bottle 1 APPLIC TOPICAL ×2 (06:48→18:04)
[2018-09-01] MEDS: Metoprolol Tartrate 25 MG Tablet PO ×2 (06:48→17:54)
[2018-09-01] MEDS: Gabapentin 300 MG Capsule PO ×2 (06:48→17:55)
[2018-09-01] MEDS: Docusate Sodium 100 MG Capsule PO ×2 (06:49→17:54)
[2018-09-01] MEDS: Dorzolamide HCL/Timolol 10 ml Bottle 1 DRP EACH EYE ×2 (06:56→18:04)
--- NOTE | 2018-09-01 07:00 | NURSING ---
All care provided in pt room remains in precaution for ESBL
--- NOTE | 2018-09-01 08:31 | NURSING ---
BS prior to breakfast 85. Pt ate 25% of meal. Hold scheduled Metformin 1,000mg per Leda GUERRA.
[2018-09-01] MEDS: Ferrous Sulfate 325 MG Tablet PO ×2 (09:18→17:54)
[2018-09-01] MEDS: Tuberculin,Purif.prot.deriv. 50 TU/ML Vial 5 ML ID (09:32)
--- NOTE | 2018-09-01 10:12 | PN.ID_ITS ---
Patient Problems: Active and Suspected Problems (Last Reviewed 08/23/18 @ 13:20 by Chinyere Rubalcava) Sepsis (Acute) Pyelonephritis (Acute) Subjective: N/v this AM, no fever - Physical Exam General: Alert, Cooperative, No apparent distress Lungs: Clear to auscultation, Normal air movement Cardiovascular: Regular rate, Regular Rhythm Abdomen: Soft, Non Tender, Non-Distended Skin: No rashes Vital Signs Temp Pulse Resp BP Pulse Ox 97.9 F 82 20 H 116/62 92 08/31/18 16:00 09/01/18 06:48 08/31/18 16:00 09/01/18 06:48 08/31/18 16:00 Oxygen Delivery Method Room Air Weight: 72.66 kg Body Mass Index (BMI) 25.0 Finger Stick Blood Glucose 35 Intake and Output for Last 24 Hours 08/30/18 08/31/18 09/01/18 23:59 23:59 23:59 Intake Total 150 / 150 120 / 120 Balance 150 / 150 120 / 120 Laboratory Tests Past 24 Hrs 09/01/18 09/01/18 05:10 05:10 WBC 19.9 H RBC 2.85 L Hgb 8.3 L Hct 25.3 L MCV 88.8 MCH 29.1 MCHC 32.8 RDW 14.4 RDW Differential 44.9 H Plt Count 691 H MPV 8.1 Neut % (Auto) Not Reportable Absolute Neuts (auto) 15.9 H Absolute Lymphs (auto) 2.78 Total Counted 100 Neutrophils % (Manual) 79 H Band Neutrophils % 1 Lymphocytes % (Manual) 14 L Monocytes % (Manual) 4 Eosinophils % (Manual) 1 Basophils % (Manual) 1 Diff Path Review May foll Platelet Estimate MOD INC RBC Morphology NORM C+C Sodium 134 L Potassium 3.8 Chloride 98 Carbon Dioxide 26.0 Anion Gap 10 BUN 9 Creatinine 0.28 L Estim Creat Clear Calc 55.82 Est GFR (MDRD) Af Amer 316 Est GFR (MDRD) Non-Af 261 BUN/Creatinine Ratio 32.7 H Glucose 83 Calcium 8.6 Total Bilirubin 0.50 Direct Bilirubin 0.23 AST 22 ALT 13 Alkaline Phosphatase 141 H Total Protein 6.3 L Albumin 1.7 L Globulin 4.6 H POC Glucose 09/01/18 08/31/18 08/31/18 06:14 21:09 16:51 POC Glucose 85 126 H 101 Medical Necessity - Tobacco Use Smoking Status: Former smoker Tobacco Use: Non-smoker Route of nutrition/ use of supplements: [] Nutritional Intake: [] IV Site: [] Campos Catheter: [] - Assessment/Plan Antibiotics: [] Assessment/Plan: [] Active and Suspected Problems (Last Reviewed 08/23/18 @ 13:20 by Chinyere Rubalcava) Sepsis (Acute) Pyelonephritis (Acute) sepsis (wbc, hr) due to ESBL ecoli pyelonephritis and transverse colitis with ga stric cancer. Cont on ertapenem 1gm qday, stop date 09/05/18, weekly bmp/cbc/lft while on iv abx. Wbc remains elevated but improved today. Some n/v. Will follow
[2018-09-01 10:56] LABS: Bedside Glucose 115 mg/dL (70-110)
--- NOTE | 2018-09-01 11:21 | RAD_ITS ---
STUDY: X-RAY - ABDOMEN/PELVIS REASON FOR EXAM: Female, 68 years old. Nausea vomiting TECHNIQUE: Single AP view of the abdomen / pelvis. COMPARISON: None. FINDINGS: Normal visualized lung bases. There is an unremarkable bowel gas pattern. The visualized liver, spleen and kidneys are grossly normal in size and morphology. Normal soft tissue structures. Extensive spinal rods. RAD/Abdomen Single View IMPRESSION: Normal x-ray examination of the abdomen and pelvis. Electronically Signed: Jp Salomon MD at 14:58 EDT Tel , Service support ,
--- NOTE | 2018-09-01 11:22 | NURSING ---
Addendum entered by Leda Purvis 09/01/18 17:19: NNO from KUB results. Original Note: Patient has c/o nausea, had 2 small emesis that are bustamante in color. Abdomen soft and non-tender, bowel sounds active, incisions intact, afebrile. Dr. Benitez notified, new order to downgrade diet to full liquid, Zofran 4mg SL [id number] PRN and KUB. Patient updated.
[2018-09-01] MEDS: Ondansetron ODT 4 MG Tablet PO ×2 (11:37→18:02)
--- NOTE | 2018-09-01 13:24 | CASEMGMT ---
Insurance: Continued stay review sent through [employer] email this day. Auth #[id number].
[2018-09-01 13:30] LABS: Pathologist Review Reviewed
--- NOTE | 2018-09-01 13:49 | CASEMGMT ---
Insurance: Patient approved for additional days. Next review date 09/05/18. Auth # [id number]
[2018-09-01 13:57] VITALS: BP 118/72; PULSE 77; RESP 17; TEMP 36.5; O2SAT 94
[2018-09-01 17:05] LABS: Bedside Glucose 88 mg/dL (70-110)
[2018-09-01 17:54] VITALS: BP 118/72; PULSE 77
[2018-09-01 21:21] LABS: Bedside Glucose 128 mg/dL (70-110)
[2018-09-01] MEDS: traZODone 50 MG Tablet PO (22:37)
[2018-09-01] MEDS: 0.9% NaCl Peripheral Flush Adult/Peds IV (22:38)
[2018-09-01] MEDS: Atorvastatin Calcium 40 MG Tablet PO (22:44)
[2018-09-01 23:10] VITALS: PULSE 74; RESP 16; O2SAT 94
[2018-09-02] MEDS: Docusate Sodium 100 MG Capsule PO ×2 (06:18→17:44)
[2018-09-02] MEDS: Pantoprazole Sodium 20 MG Tablet PO ×2 (06:18→17:44)
[2018-09-02] MEDS: Gabapentin 300 MG Capsule PO ×2 (06:18→17:50)
[2018-09-02] MEDS: DULoxetine Hcl 60 MG Capsule PO (06:19)
[2018-09-02] MEDS: Magnesium Oxide 400 MG Tablet PO (06:19)
[2018-09-02 06:21] VITALS: BP 110/62; PULSE 74
[2018-09-02] MEDS: Metoprolol Tartrate 25 MG Tablet PO ×2 (06:21→17:44)
[2018-09-02] MEDS: Menthol/Lanolin/Calamine/Znox 113 GM Tube 1 APPLIC TOPICAL ×3 (06:22→21:28)
[2018-09-02] MEDS: Nystatin Powder 15gm Bottle 1 APPLIC TOPICAL ×2 (06:23→17:45)
[2018-09-02] MEDS: Dorzolamide HCL/Timolol 10 ml Bottle 1 DRP EACH EYE ×2 (06:24→17:52)
[2018-09-02 06:35] LABS: Bedside Glucose 104 mg/dL (70-110)
--- NOTE | 2018-09-02 07:24 | NURSING ---
All care provided in pt room remains in precaution for ESBL
--- NOTE | 2018-09-02 08:04 | PCM.PN.RX ---
<Sahil Schuler D - Last Filed: 09/02/18 08:04> Progress Note - Pharmacy Subjective: TCU Admission Objective: Allergies fentanyl Adverse Reaction (Verified 08/26/18 15:06) MAKES ME SHAKE oxycodone [From Percocet] Adverse Reaction (Verified 08/26/18 15:06) MAKES ME SHAKE thiopental Adverse Reaction (Verified 08/26/18 15:06) MAKES ME SHAKE Current Medications Generic Name Dose Route Start Last Admin Trade Name Freq PRN Reason Stop Dose Admin Acetaminophen 1,000 mg 08/31/18 21:45 Tylenol PO Q6H PRN PRN MILD PAIN (1-310) Albuterol Sulfate 1 - 2 puff 08/31/18 13:53 Ventolin Hfa (Sp) INHALATION Q4H PRN PRN SOB &/OR WHEEZING Atorvastatin Calcium 40 mg 08/31/18 22:00 09/01/18 22:44 Lipitor PO 40 mg QHS CRUZITO Administration Bisacodyl 10 mg 08/31/18 21:45 Dulcolax PO DAILY PRN Constipation Calamine/Phenol 1 applic 08/31/18 22:00 09/02/18 06:22 Calmoseptine Ointment TOPICAL 1 applicatio TID CRUZITO Administration Protocol Docusate Sodium 100 mg 08/31/18 18:00 09/02/18 06:18 Colace PO 100 mg BID CRUZITO Administration Dorzolamide/Timolol 1 drop 08/31/18 18:00 09/02/18 06:24 Cosopt Opth Drops EACH EYE 1 drop BID CRUZITO Administration Duloxetine HCl 60 mg 09/01/18 06:00 09/02/18 06:19 Cymbalta PO 60 mg DAILY CRUZITO Administration Ferrous Sulfate 325 mg 08/31/18 17:00 09/01/18 17:54 Ferrous Sulfate PO 325 mg BIDCM CRU[facility]O Administration Gabapentin 300 mg 08/31/18 18:00 09/02/18 06:18 Neurontin PO 300 mg BID [facility] Administration Heparin Sodium (Beef Lung) 50 units 08/31/18 22:00 IV UD PRN HEPARIN FLUSH Hydrochlorothiazide 12.5 mg 08/31/18 15:15 PO DAILY PRN PRN EDEMA Ertapenem 1 gm/ Sodium 60 mls @ 100 mls/hr 09/01/18 10:00 09/01/18 10:36 Chloride IV 09/07/18 23:59 100 mls/hr Q24 CRUZITO Administration Sodium Chloride 250 mls @ 15 mls/hr 08/31/18 22:00 IV .[id number] PRN SALINE FLUSH Insulin Glargine 20 units 08/31/18 22:00 09/01/18 22:40 Lantus (Bkc) SC 20 u QHS CRUZITO Administration Magnesium Oxide 400 mg 09/01/18 06:00 09/02/18 06:19 Mag-Ox 400 PO 400 mg DAILY CRUZITO Administration Metformin HCl 1,000 mg 08/31/18 17:00 09/01/18 17:55 [facility]op[facility] Tartrate 25 mg 08/31/18 18:00 09/02/18 06:21 Lopressor (Beta Aditya) PO 25 mg BID CRU[facility]O Administration Nystatin 1 applic 08/31/18 18:00 09/02/18 06:23 Mycostatin Powder TOPICAL 1 applicatio BID CRUZITO Administration Protocol Ondansetron HCl 4 mg 09/01/18 11:19 09/01/18 18:02 Zofran Odt PO 4 mg Q6H PRN PRN Administration NAUSEA/VOMITING Pantoprazole Sodium 20 mg 08/31/18 18:00 09/02/18 06:18 Protonix PO 20 mg BID CRUZITO Administration Polyethylene Glycol 17 gm 09/01/18 06:00 09/02/18 06:32 Miralax PO Not Given DAILY CRUZ[facility]O Potassium Chloride 10 meq 08/31/18 13:55 K-Dur PO DAILY PRN PRN only take with water pill Sodium Chloride 5 - 15 ml 08/31/18 22:00 09/01/18 22:38 IV 10 ml UD PRN Administration SALINE FLUSH Sodium Chloride 10 ml 08/31/18 22:00 IV UD PRN VAD FLUSH Tramadol HCl 50 mg 08/31/18 13:55 08/31/18 19:47 Ultram PO 50 mg Q6H PRN PRN Administration PAIN Trazodone HCl 50 mg 08/31/18 22:00 09/01/18 22:37 Desyrel PO 50 mg QHS CRU[facility] Administration Tuberculin PPD 5 tu 09/08/18 10:00 Tubersol, Aplisol, Ppd ID 09/08/18 10:01 X1 ONE Problem List (Last Reviewed 08/23/18 @ 13:20 by Chinyere Rubalcava) Sepsis (Acute) Pyelonephritis (Acute) Sleep apnea (Chronic) Diabetes mellitus (Chronic) Neuropathy (Chronic) Glaucoma (Chronic) Insomnia (Chronic) Vital Signs Temp Pulse Resp BP Pulse Ox 97.7 F L 74 16 110/62 94 09/01/18 13:57 09/02/18 06:21 09/01/18 23:10 09/02/18 06:21 09/01/18 23:10 Oxygen Delivery Method Room Air Weight: 72.66 kg Body Mass Index (BMI) 25.0 Finger Stick Blood Glucose 35 Sodium 134 mmol/L (136-145) L 09/01/18 05:10 Potassium 3.8 mmol/L (3.5-5.1) 09/01/18 05:10 Chloride 98 mmol/L (98-107) 09/01/18 05:10 Carbon Dioxide 26.0 mmol/L (21.0-32.0) 09/01/18 05:10 Anion Gap 10 (5-15) 09/01/18 05:10 BUN 9 mg/dL (7-18) 09/01/18 05:10 Creatinine 0.28 mg/dL (0.55-1.02) L 09/01/18 05:10 Est GFR (MDRD) Af Amer 316 mL/min (>60) 09/01/18 05:10 Est GFR (MDRD) Non-Af 261 mL/min (>60) 09/01/18 05:10 BUN/Creatinine Ratio 32.7 RATIO (10-20) H 09/01/18 05:10 Glucose 83 mg/dL (74-106) 09/01/18 05:10 Assessment/Plan: * 1) Pain APAP for mild pain, gabapentin, tramadol for pain. Continue to monitor prn medication use, daily pain scores. * Please clarify pain instructions for tramadol so they do not overlap with APAP. Thank you. 2) HTN Metoprolol. Continue to monitor BP/HR. 3) HLD Atorvastatin. Continue to monitor lipids. 4) Edema HCTZ and KCL prn. Continue to monitor BP/HR, renal function, electrolytes, prn medication use, swelling. 5) ID Ertapenem. ID following. Continue to monitor s/s infection. 6) DM2 Insulin glargine, metformin. Continue to monitor BGT, s/s hyper/hypoglycemia. 7) Nutrition Mg, Fe. Continue to monitor electrolytes. 8) GI Pantoprazole, ondansetron prn. Continue to monitor prn medication use, s/s GI distress. Psychotropic Medications: 9) Insomnia/Depression Trazodone, duloxetine. Continue to monitor for insomnia, s/s depression. Unnecessary Medications: None Bowel Regimen: 10) PEG, docusate, prn bisacodyl. Continue to monitor prn medication use, for constipation/diarrhea. Date of Note:: 09/02/18 - Provider Comments Provider responsibility: Provider responsible to enter orders to implement recommendations <Anselmo Benitez Chi - Last Filed: 09/02/18 14:13> Progress Note - Pharmacy Subjective: [] Objective: Allergies fentanyl Adverse Reaction (Verified 08/26/18 15:06) MAKES ME SHAKE oxycodone [From Percocet] Adverse Reaction (Verified 08/26/18 15:06) MAKES ME SHAKE thiopental Adverse Reaction (Verified 08/26/18 15:06) MAKES ME SHAKE Current Medications Generic Name Dose Route Start Last Admin Trade Name Freq PRN Reason Stop Dose Admin Acetaminophen 1,000 mg 08/31/18 21:45 Tylenol PO Q6H PRN PRN MILD PAIN (1-3/10) Albuterol Sulfate 1 - 2 puff 08/31/18 13:53 Ventolin Hfa (Sp) INHALATION Q4H PRN PRN SOB &/OR WHEEZING Atorvastatin Calcium 40 mg 08/31/18 22:00 09/01/18 22:44 Lipitor PO 40 mg QHS CRUZITO Administration Bisacodyl 10 mg 08/31/18 21:45 Dulcolax PO DAILY PRN Constipation Calamine/Phenol 1 applic 08/31/18 22:00 09/02/18 13:20 Calmoseptine Ointment TOPICAL 1 applicatio TID CRUZITO Administration Protocol Docusate Sodium 100 mg 08/31/18 18:00 09/02/18 06:18 Colace PO 100 mg BID CRUZITO Administration Dorzolamide/Timolol 1 drop 08/31/18 18:00 09/02/18 06:24 Cosopt Opth Drops EACH EYE 1 drop BID CR[facility]O Administration Duloxetine HCl 60 mg 09/01/18 06:00 09/02/18 06:19 Cymbalta PO 60 mg DAILY CRUZITO Administration Ferrous Sulfate 325 mg 08/31/18 17:00 09/02/18 09:15 Ferrous Sulfate PO 325 mg BIDCM [facility] Administration Gabapentin 300 mg 08/31/18 18:00 09/02/18 06:18 Neurontin PO 300 mg BID [facility] Administration Heparin Sodium (Beef Lung) 50 units 08/31/18 22:00 IV UD PRN HEPARIN FLUSH Hydrochlorothiazide 12.5 mg 08/31/18 15:15 PO DAILY PRN PRN EDEMA Ertapenem 1 gm/ Sodium 60 mls @ 100 mls/hr 09/01/18 10:00 09/02/18 10:25 Chloride IV 09/07/18 23:59 100 mls/hr Q24 CRUZITO Administration Sodium Chloride 250 mls @ 15 mls/hr 08/31/18 22:00 09/02/18 10:35 IV 15 mls/hr .[id number] PRN Administration SALINE FLUSH Insulin Glargine 20 units 08/31/18 22:00 09/01/18 22:40 Lantus (Bkc) SC 20 u QHS [facility] Administration Magnesium Oxide 400 mg 09/01/18 06:00 09/02/18 06:19 Mag-Ox 400 PO 400 mg DAILY [facility] Administration Metformin HCl 1,000 mg 08/31/18 17:00 09/02/18 09:15 [facility] Metoprolol Tartrate 25 mg 08/31/18 18:00 09/02/18 06:21 Lopressor (Beta Aditya) PO 25 mg BID [facility] Administration Nystatin 1 applic 08/31/18 18:00 09/02/18 06:23 Mycostatin Powder TOPICAL 1 applicatio BID [facility] Administration Protocol Ondansetron HCl 4 mg 09/01/18 11:19 09/01/18 18:02 Zofran Odt PO 4 mg Q6H PRN PRN Administration NAUSEA/VOMITING Pantoprazole Sodium 20 mg 08/31/18 18:00 09/02/18 06:18 Protonix PO 20 mg BID [facility] Administration Polyethylene Glycol 17 gm 09/01/18 06:00 09/02/18 06:32 Miralax PO Not Given DAILY [facility] Potassium Chloride 10 meq 08/31/18 13:55 K-Dur PO DAILY PRN PRN only take with water pill Sodium Chloride 5 - 15 ml 08/31/18 22:00 09/02/18 10:25 IV 10 ml UD PRN Administration SALINE FLUSH Sodium Chloride 10 ml 08/31/18 22:00 IV UD PRN VAD FLUSH Tramadol HCl 50 mg 08/31/18 13:55 08/31/18 19:47 Ultram PO 50 mg Q6H PRN PRN Administration PAIN Trazodone HCl 50 mg 08/31/18 22:00 09/01/18 22:37 Desyrel PO 50 mg QHS [facility] Administration Tuberculin PPD 5 tu 09/08/18 10:00 Tubersol, Aplisol, Ppd ID 09/08/18 10:01 X1 ONE Problem List (Last Reviewed 08/23/18 @ 13:20 by Chinyere Rubalcava) Sepsis (Acute) Pyelonephritis (Acute) Sleep apnea (Chronic) Diabetes mellitus (Chronic) Neuropathy (Chronic) Glaucoma (Chronic) Insomnia (Chronic) Vital Signs Temp Pulse Resp BP Pulse Ox 97.7 F L 74 16 110/62 94 09/01/18 13:57 09/02/18 06:21 09/01/18 23:10 09/02/18 06:21 09/01/18 23:10 Oxygen Delivery Method Room Air Weight: 71.356 kg Body Mass Index (BMI) 25.0 Finger Stick Blood Glucose 35 Sodium 134 mmol/L (136-145) L 09/01/18 05:10 Potassium 3.8 mmol/L (3.5-5.1) 09/01/18 05:10 Chloride 98 mmol/L (98-107) 09/01/18 05:10 Carbon Dioxide 26.0 mmol/L (21.0-32.0) 09/01/18 05:10 Anion Gap 10 (5-15) 09/01/18 05:10 BUN 9 mg/dL (7-18) 09/01/18 05:10 Creatinine 0.28 mg/dL (0.55-1.02) L 09/01/18 05:10 Est GFR (MDRD) Af Amer 316 mL/min (>60) 09/01/18 05:10 Est GFR (MDRD) Non-Af 261 mL/min (>60) 09/01/18 05:10 BUN/Creatinine Ratio 32.7 RATIO (10-20) H 09/01/18 05:10 Glucose 83 mg/dL (74-106) 09/01/18 05:10 Assessment/Plan: Psychotropic Medications: Unnecessary Medications: Bowel Regimen: - Provider Comments Provider responsibility: Provider responsible to enter orders to implement recommendations Provider Comments to Recommendations by Pharmacy: Agree
--- NOTE | 2018-09-02 08:14 | PHA.CONS_ITS ---
<Sahil Schuler D - Last Filed: 09/02/18 08:04> Progress Note - Pharmacy Subjective: TCU Admission Objective: Allergies fentanyl Adverse Reaction (Verified 08/26/18 15:06) MAKES ME SHAKE oxycodone [From Percocet] Adverse Reaction (Verified 08/26/18 15:06) MAKES ME SHAKE thiopental Adverse Reaction (Verified 08/26/18 15:06) MAKES ME SHAKE Current Medications Generic Name Dose Route Start Last Admin Trade Name Freq PRN Reason Stop Dose Admin Acetaminophen 1,000 mg 08/31/18 21:45 Tylenol PO Q6H PRN PRN MILD PAIN (1-310) Albuterol Sulfate 1 - 2 puff 08/31/18 13:53 Ventolin Hfa (Sp) INHALATION Q4H PRN PRN SOB &/OR WHEEZING Atorvastatin Calcium 40 mg 08/31/18 22:00 09/01/18 22:44 Lipitor PO 40 mg QHS [facility] Administration Bisacodyl 10 mg 08/31/18 21:45 Dulcolax PO DAILY PRN Constipation Calamine/Phenol 1 applic 08/31/18 22:00 09/02/18 06:22 Calmoseptine Ointment TOPICAL 1 applicatio TID CRUZITO Administration Protocol Docusate Sodium 100 mg 08/31/18 18:00 09/02/18 06:18 Colace PO 100 mg BID [facility] Administration Dorzolamide/Timolol 1 drop 08/31/18 18:00 09/02/18 06:24 Cosopt Opth Drops EACH EYE 1 drop BID [facility] Administration Duloxetine HCl 60 mg 09/01/18 06:00 09/02/18 06:19 Cymbalta PO 60 mg DAILY [facility] Administration Ferrous Sulfate 325 mg 08/31/18 17:00 09/01/18 17:54 Ferrous Sulfate PO 325 mg BIDCM [facility] Administration Gabapentin 300 mg 08/31/18 18:00 09/02/18 06:18 Neurontin PO 300 mg BID [facility] Administration Heparin Sodium (Beef Lung) 50 units 08/31/18 22:00 IV UD PRN HEPARIN FLUSH Hydrochlorothiazide 12.5 mg 08/31/18 15:15 PO DAILY PRN PRN EDEMA Ertapenem 1 gm/ Sodium 60 mls @ 100 mls/hr 09/01/18 10:00 09/01/18 10:36 Chloride IV 09/07/18 23:59 100 mls/hr Q24 CRU[facility]O Administration Sodium Chloride 250 mls @ 15 mls/hr 08/31/18 22:00 IV .[id number] PRN SALINE FLUSH Insulin Glargine 20 units 08/31/18 22:00 09/01/18 22:40 Lantus (Bkc) SC 20 u QHS [facility] Administration Magnesium Oxide 400 mg 09/01/18 06:00 09/02/18 06:19 Mag-Ox 400 PO 400 mg DAILY [facility] Administration Metformin HCl 1,000 mg 08/31/18 17:00 09/01/18 17:55 [facility]op[facility] Tartrate 25 mg 08/31/18 18:00 09/02/18 06:21 Lopressor (Beta Aditya) PO 25 mg BID [facility] Administration Nystatin 1 applic 08/31/18 18:00 09/02/18 06:23 Mycostatin Powder TOPICAL 1 applicatio BID [facility]O Administration Protocol Ondansetron HCl 4 mg 09/01/18 11:19 09/01/18 18:02 Zofran Odt PO 4 mg Q6H PRN PRN Administration NAUSEA/VOMITING Pantoprazole Sodium 20 mg 08/31/18 18:00 09/02/18 06:18 Protonix PO 20 mg BID [facility] Administration Polyethylene Glycol 17 gm 09/01/18 06:00 09/02/18 06:32 Miralax PO Not Given DAILY [facility] Potassium Chloride 10 meq 08/31/18 13:55 K-Dur PO DAILY PRN PRN only take with water pill Sodium Chloride 5 - 15 ml 08/31/18 22:00 09/01/18 22:38 IV 10 ml UD PRN Administration SALINE FLUSH Sodium Chloride 10 ml 08/31/18 22:00 IV UD PRN VAD FLUSH Tramadol HCl 50 mg 08/31/18 13:55 08/31/18 19:47 Ultram PO 50 mg Q6H PRN PRN Administration PAIN Trazodone HCl 50 mg 08/31/18 22:00 09/01/18 22:37 Desyrel PO 50 mg QHS [facility] Administration Tuberculin PPD 5 tu 09/08/18 10:00 Tubersol, Aplisol, Ppd ID 09/08/18 10:01 X1 ONE Problem List (Last Reviewed 08/23/18 @ 13:20 by Chinyere Rubalcava) Sepsis (Acute) Pyelonephritis (Acute) Sleep apnea (Chronic) Diabetes mellitus (Chronic) Neuropathy (Chronic) Glaucoma (Chronic) Insomnia (Chronic) Vital Signs Temp Pulse Resp BP Pulse Ox 97.7 F L 74 16 110/62 94 09/01/18 13:57 09/02/18 06:21 09/01/18 23:10 09/02/18 06:21 09/01/18 23:10 Oxygen Delivery Method Room Air Weight: 72.66 kg Body Mass Index (BMI) 25.0 Finger Stick Blood Glucose 35 Sodium 134 mmol/L (136-145) L 09/01/18 05:10 Potassium 3.8 mmol/L (3.5-5.1) 09/01/18 05:10 Chloride 98 mmol/L (98-107) 09/01/18 05:10 Carbon Dioxide 26.0 mmol/L (21.0-32.0) 09/01/18 05:10 Anion Gap 10 (5-15) 09/01/18 05:10 BUN 9 mg/dL (7-18) 09/01/18 05:10 Creatinine 0.28 mg/dL (0.55-1.02) L 09/01/18 05:10 Est GFR (MDRD) Af Amer 316 mL/min (>60) 09/01/18 05:10 Est GFR (MDRD) Non-Af 261 mL/min (>60) 09/01/18 05:10 BUN/Creatinine Ratio 32.7 RATIO (10-20) H 09/01/18 05:10 Glucose 83 mg/dL (74-106) 09/01/18 05:10 Assessment/Plan: * 1) Pain APAP for mild pain, gabapentin, tramadol for pain. Continue to monitor prn medication use, daily pain scores. * Please clarify pain instructions for tramadol so they do not overlap with APAP. Thank you. 2) HTN Metoprolol. Continue to monitor BP/HR. 3) HLD Atorvastatin. Continue to monitor lipids. 4) Edema HCTZ and KCL prn. Continue to monitor BP/HR, renal function, electrolytes, prn medication use, swelling. 5) ID Ertapenem. ID following. Continue to monitor s/s infection. 6) DM2 Insulin glargine, metformin. Continue to monitor BGT, s/s hyper/hypoglycemia. 7) Nutrition Mg, Fe. Continue to monitor electrolytes. 8) GI Pantoprazole, ondansetron prn. Continue to monitor prn medication use, s/s GI distress. Psychotropic Medications: 9) Insomnia/Depression Trazodone, duloxetine. Continue to monitor for insomnia, s/s depression. Unnecessary Medications: None Bowel Regimen: 10) PEG, docusate, prn bisacodyl. Continue to monitor prn medication use, for constipation/diarrhea. Date of Note:: 09/02/18 - Provider Comments Provider responsibility: Provider responsible to enter orders to implement recommendations <Anselmo Benitez Chi - Last Filed: 09/02/18 14:13> Progress Note - Pharmacy Subjective: [] Objective: Allergies fentanyl Adverse Reaction (Verified 08/26/18 15:06) MAKES ME SHAKE oxycodone [From Percocet] Adverse Reaction (Verified 08/26/18 15:06) MAKES ME SHAKE thiopental Adverse Reaction (Verified 08/26/18 15:06) MAKES ME SHAKE Current Medications Generic Name Dose Route Start Last Admin Trade Name Freq PRN Reason Stop Dose Admin Acetaminophen 1,000 mg 08/31/18 21:45 Tylenol PO Q6H PRN PRN MILD PAIN (1-3/10) Albuterol Sulfate 1 - 2 puff 08/31/18 13:53 Ventolin Hfa (Sp) INHALATION Q4H PRN PRN SOB &/OR WHEEZING Atorvastatin Calcium 40 mg 08/31/18 22:00 09/01/18 22:44 Lipitor PO 40 mg QHS [facility] Administration Bisacodyl 10 mg 08/31/18 21:45 Dulcolax PO DAILY PRN Constipation Calamine/Phenol 1 applic 08/31/18 22:00 09/02/18 13:20 Calmoseptine Ointment TOPICAL 1 applicatio TID [facility] Administration Protocol Docusate Sodium 100 mg 08/31/18 18:00 09/02/18 06:18 Colace PO 100 mg BID [facility] Administration Dorzolamide/Timolol 1 drop 08/31/18 18:00 09/02/18 06:24 Cosopt Opth Drops EACH EYE 1 drop BID [facility] Administration Duloxetine HCl 60 mg 09/01/18 06:00 09/02/18 06:19 Cymbalta PO 60 mg DAILY [facility] Administration Ferrous Sulfate 325 mg 08/31/18 17:00 09/02/18 09:15 Ferrous Sulfate PO 325 mg BIDCM [facility] Administration Gabapentin 300 mg 08/31/18 18:00 09/02/18 06:18 Neurontin PO 300 mg BID [facility] Administration Heparin Sodium (Beef Lung) 50 units 08/31/18 22:00 IV UD PRN HEPARIN FLUSH Hydrochlorothiazide 12.5 mg 08/31/18 15:15 PO DAILY PRN PRN EDEMA Ertapenem 1 gm/ Sodium 60 mls @ 100 mls/hr 09/01/18 10:00 09/02/18 10:25 Chloride IV 09/07/18 23:59 100 mls/hr Q24 [facility] Administration Sodium Chloride 250 mls @ 15 mls/hr 08/31/18 22:00 09/02/18 10:35 IV 15 mls/hr .[id number] PRN Administration SALINE FLUSH Insulin Glargine 20 units 08/31/18 22:00 09/01/18 22:40 Lantus (Bkc) SC 20 u QHS [facility] Administration Magnesium Oxide 400 mg 09/01/18 06:00 09/02/18 06:19 Mag-Ox 400 PO 400 mg DAILY [facility] Administration Metformin HCl 1,000 mg 08/31/18 17:00 09/02/18 09:15 [facility] Metoprol[facility] Tartrate 25 mg 08/31/18 18:00 09/02/18 06:21 Lopressor (Beta Aditya) PO 25 mg BID [facility] Administration Nystatin 1 applic 08/31/18 18:00 09/02/18 06:23 Mycostatin Powder TOPICAL 1 applicatio BID [facility] Administration Protocol Ondansetron HCl 4 mg 09/01/18 11:19 09/01/18 18:02 Zofran Odt PO 4 mg Q6H PRN PRN Administration NAUSEA/VOMITING Pantoprazole Sodium 20 mg 08/31/18 18:00 09/02/18 06:18 Protonix PO 20 mg BID [facility] Administration Polyethylene Glycol 17 gm 09/01/18 06:00 09/02/18 06:32 Miralax PO Not Given DAILY [facility] Potassium Chloride 10 meq 08/31/18 13:55 K-Dur PO DAILY PRN PRN only take with water pill Sodium Chloride 5 - 15 ml 08/31/18 22:00 09/02/18 10:25 IV 10 ml UD PRN Administration SALINE FLUSH Sodium Chloride 10 ml 08/31/18 22:00 IV UD PRN VAD FLUSH Tramadol HCl 50 mg 08/31/18 13:55 08/31/18 19:47 Ultram PO 50 mg Q6H PRN PRN Administration PAIN Trazodone HCl 50 mg 08/31/18 22:00 09/01/18 22:37 Desyrel PO 50 mg QHS [facility] Administration Tuberculin PPD 5 tu 09/08/18 10:00 Tubersol, Aplisol, Ppd ID 09/08/18 10:01 X1 ONE Problem List (Last Reviewed 08/23/18 @ 13:20 by Chinyere Rubalcava) Sepsis (Acute) Pyelonephritis (Acute) Sleep apnea (Chronic) Diabetes mellitus (Chronic) Neuropathy (Chronic) Glaucoma (Chronic) Insomnia (Chronic) Vital Signs Temp Pulse Resp BP Pulse Ox 97.7 F L 74 16 110/62 94 09/01/18 13:57 09/02/18 06:21 09/01/18 23:10 09/02/18 06:21 09/01/18 23:10 Oxygen Delivery Method Room Air Weight: 71.356 kg Body Mass Index (BMI) 25.0 Finger Stick Blood Glucose 35 Sodium 134 mmol/L (136-145) L 09/01/18 05:10 Potassium 3.8 mmol/L (3.5-5.1) 09/01/18 05:10 Chloride 98 mmol/L (98-107) 09/01/18 05:10 Carbon Dioxide 26.0 mmol/L (21.0-32.0) 09/01/18 05:10 Anion Gap 10 (5-15) 09/01/18 05:10 BUN 9 mg/dL (7-18) 09/01/18 05:10 Creatinine 0.28 mg/dL (0.55-1.02) L 09/01/18 05:10 Est GFR (MDRD) Af Amer 316 mL/min (>60) 09/01/18 05:10 Est GFR (MDRD) Non-Af 261 mL/min (>60) 09/01/18 05:10 BUN/Creatinine Ratio 32.7 RATIO (10-20) H 09/01/18 05:10 Glucose 83 mg/dL (74-106) 09/01/18 05:10 Assessment/Plan: Psychotropic Medications: Unnecessary Medications: Bowel Regimen: - Provider Comments Provider responsibility: Provider responsible to enter orders to implement recommendations Provider Comments to Recommendations by Pharmacy: Agree
[2018-09-02] MEDS: Ferrous Sulfate 325 MG Tablet PO ×2 (09:15→17:44)
--- NOTE | 2018-09-02 09:17 | NURSING ---
ALL CARE GIVEN IN ROOM DUE TO PT IN PRECAUTIONS FOR ESBL IN URINE.
[2018-09-02] MEDS: 0.9% NaCl Peripheral Flush Adult/Peds IV (10:25)
[2018-09-02] MEDS: 0.9% NaCl IVPB Med Flush (250 mL) 15 ML IV (10:35)
[2018-09-02 10:46] LABS: Bedside Glucose 138 mg/dL (70-110)
[2018-09-02 11:00] VITALS: PULSE 75; RESP 18; O2SAT 96
--- NOTE | 2018-09-02 11:18 | NURSING ---
THIS NURSE VARIED PLACEMENT FLUSHED PEG 30CC. PT TOLERATED WELL. CHANGED DRESSING TO PEG SITE. DRAINAGE TO DRESSING MODERATE AMOUNT OF GREEN DRAINAGE AND SMELLED FOUL. CLEANED AREA AND APPLIED NEW DRESSING,PT TOLERATED WELL. PT BUTT RED AND SORE. REPORTED TO CHARLIE THOMASON
--- NOTE | 2018-09-02 15:02 | CASEMGMT ---
Social Work Completed initial assessment. Pt reports receiving Passport services. [facility] to [facility] services. Assessment completed 08/31 - correctional case records supervisor assignment is pending. [facility] will call this SW when C.M. assigned. Will follow up when pt DC as she could benefit from services and Meals on Wheels. BRENNON AbbottW
[2018-09-02 15:27] VITALS: BP 102/57; PULSE 74; RESP 16; TEMP 36.5; O2SAT 94
[2018-09-02 17:01] LABS: Bedside Glucose 131 mg/dL (70-110)
[2018-09-02 17:44] VITALS: BP 102/57; PULSE 74
[2018-09-02] MEDS: metFORMIN HCl 500 MG Tablet 1000 MG PO (17:44)
[2018-09-02] MEDS: traMADol 50 MG Tablet PO (17:55)
[2018-09-02 21:16] LABS: Bedside Glucose 148 mg/dL (70-110)
[2018-09-02] MEDS: Atorvastatin Calcium 40 MG Tablet PO (21:27)
[2018-09-02] MEDS: traZODone 50 MG Tablet PO (21:27)
[2018-09-03] MEDS: Pantoprazole Sodium 20 MG Tablet PO ×2 (06:09→17:32)
[2018-09-03] MEDS: Magnesium Oxide 400 MG Tablet PO (06:09)
[2018-09-03] MEDS: Polyethylene Glycol 3350 17 GM PACKET PO (06:09)
[2018-09-03 06:10] VITALS: BP 126/63; PULSE 66
[2018-09-03] MEDS: Docusate Sodium 100 MG Capsule PO ×2 (06:10→17:31)
[2018-09-03] MEDS: Gabapentin 300 MG Capsule PO ×2 (06:10→17:31)
[2018-09-03] MEDS: Metoprolol Tartrate 25 MG Tablet PO ×2 (06:10→17:31)
[2018-09-03] MEDS: DULoxetine Hcl 60 MG Capsule PO (06:10)
[2018-09-03] MEDS: Nystatin Powder 15gm Bottle 1 APPLIC TOPICAL ×2 (06:16→17:32)
[2018-09-03] MEDS: Menthol/Lanolin/Calamine/Znox 113 GM Tube 1 APPLIC TOPICAL ×3 (06:16→21:40)
[2018-09-03] MEDS: Dorzolamide HCL/Timolol 10 ml Bottle 1 DRP EACH EYE ×2 (06:18→17:32)
[2018-09-03 06:31] LABS: Bedside Glucose 106 mg/dL (70-110)
--- NOTE | 2018-09-03 07:26 | NURSING ---
All care provided in pt room remains in precaution for ESBL
[2018-09-03] MEDS: 0.9% NaCl Peripheral Flush Adult/Peds IV (09:02)
[2018-09-03] MEDS: Ferrous Sulfate 325 MG Tablet PO ×2 (09:04→17:31)
[2018-09-03 11:00] LABS: Bedside Glucose 117 mg/dL (70-110)
--- NOTE | 2018-09-03 11:20 | NURSING ---
pt remains in contact isolation, all care/treatments done in pt room
[2018-09-03 16:00] VITALS: BP 112/63; PULSE 65; RESP 18; TEMP 36.2; O2SAT 94
--- NOTE | 2018-09-03 16:00 | NURSING ---
Addendum entered by Maggie Vazquez 09/04/18 06:44: Blood sugars have been low normal, new order to DC metformin 1000mg BID. will continue to monitor blood sugars. Original Note: Pt blood sugars have been in normal range during stay. pt only on full liquid diet. Dr Benitez updated
[2018-09-03 17:11] LABS: Bedside Glucose 118 mg/dL (70-110)
[2018-09-03 17:31] VITALS: PULSE 65
[2018-09-03] MEDS: traZODone 50 MG Tablet PO (21:40)
[2018-09-03] MEDS: Atorvastatin Calcium 40 MG Tablet PO (21:40)
[2018-09-03 21:50] LABS: Bedside Glucose 121 mg/dL (70-110)
--- NOTE | 2018-09-03 23:45 | NURSING ---
Addendum entered by Latonia Clark 09/04/18 06:45: Patient is not on Neutropenic precaution. Original Note: All care this shift provided in room due to Neutropenic and Contact Isolation.
[2018-09-04] MEDS: Menthol/Lanolin/Calamine/Znox 113 GM Tube 1 APPLIC TOPICAL ×3 (04:48→21:44)
[2018-09-04 04:49] VITALS: BP 128/61; PULSE 64
[2018-09-04] MEDS: Metoprolol Tartrate 25 MG Tablet PO ×2 (04:49→17:46)
[2018-09-04] MEDS: DULoxetine Hcl 60 MG Capsule PO (04:50)
[2018-09-04] MEDS: Dorzolamide HCL/Timolol 10 ml Bottle 1 DRP EACH EYE ×2 (04:50→17:43)
[2018-09-04] MEDS: Magnesium Oxide 400 MG Tablet PO (04:55)
[2018-09-04] MEDS: Pantoprazole Sodium 20 MG Tablet PO ×3 (04:55→17:42)
[2018-09-04] MEDS: Gabapentin 300 MG Capsule PO ×2 (04:56→17:42)
[2018-09-04] MEDS: Nystatin Powder 15gm Bottle 1 APPLIC TOPICAL ×2 (04:56→17:42)
[2018-09-04 06:21] LABS: Bedside Glucose 114 mg/dL (70-110)
[2018-09-04 07:00] VITALS: PULSE 78; RESP 18; O2SAT 96
[2018-09-04] MEDS: Ferrous Sulfate 325 MG Tablet PO ×2 (09:49→17:42)
[2018-09-04] MEDS: 0.9% NaCl Peripheral Flush Adult/Peds IV (10:27)
[2018-09-04] MEDS: 0.9% NaCl IVPB Med Flush (250 mL) 15 ML IV (10:27)
[2018-09-04 11:36] LABS: Bedside Glucose 124 mg/dL (70-110)
[2018-09-04 15:55] VITALS: BP 109/65; PULSE 66; RESP 20; TEMP 36.3; O2SAT 94
[2018-09-04 17:11] LABS: Bedside Glucose 146 mg/dL (70-110)
[2018-09-04] MEDS: Docusate Sodium 100 MG Capsule PO (17:42)
[2018-09-04 17:46] VITALS: BP 109/65; PULSE 66
[2018-09-04 21:21] LABS: Bedside Glucose 170 mg/dL (70-110)
[2018-09-04] MEDS: traZODone 50 MG Tablet PO (21:44)
[2018-09-04] MEDS: Atorvastatin Calcium 40 MG Tablet PO (21:44)
--- NOTE | 2018-09-04 21:51 | NURSING ---
All care this shift provided in room due to Isolation.
[2018-09-05] MEDS: Menthol/Lanolin/Calamine/Znox 113 GM Tube 1 APPLIC TOPICAL ×3 (05:12→21:46)
[2018-09-05] MEDS: DULoxetine Hcl 60 MG Capsule PO (05:16)
[2018-09-05] MEDS: Magnesium Oxide 400 MG Tablet PO (05:16)
[2018-09-05] MEDS: Gabapentin 300 MG Capsule PO ×2 (05:16→17:24)
[2018-09-05] MEDS: Pantoprazole Sodium 20 MG Tablet PO (05:17)
[2018-09-05] MEDS: Docusate Sodium 100 MG Capsule PO ×2 (05:17→17:24)
[2018-09-05] MEDS: Nystatin Powder 15gm Bottle 1 APPLIC TOPICAL ×2 (05:18→17:25)
[2018-09-05 05:21] VITALS: BP 112/63; PULSE 78
[2018-09-05] MEDS: Metoprolol Tartrate 25 MG Tablet PO ×2 (05:21→17:24)
[2018-09-05] MEDS: Polyethylene Glycol 3350 17 GM PACKET PO (05:25)
[2018-09-05] MEDS: traMADol 50 MG Tablet PO (05:26)
[2018-09-05] MEDS: Dorzolamide HCL/Timolol 10 ml Bottle 1 DRP EACH EYE ×2 (05:30→17:24)
[2018-09-05 06:21] LABS: Bedside Glucose 177 mg/dL (70-110)
[2018-09-05] MEDS: Ferrous Sulfate 325 MG Tablet PO ×2 (08:21→17:24)
[2018-09-05 11:00] LABS: Bedside Glucose 196 mg/dL (70-110)
--- NOTE | 2018-09-05 12:32 | NURSING ---
Attempted IV x2, unsuccessful, CHARLIE Tompkins notified.
--- NOTE | 2018-09-05 12:45 | NURSING ---
Per MARY Albrecht, yajairaay to access port and leave it accessed thru the , until IVATB complete.
[2018-09-05] MEDS: 0.9% NaCl Peripheral Flush Adult/Peds IV (12:57)
[2018-09-05] MEDS: 0.9% NaCl IVPB Med Flush (250 mL) 15 ML IV (12:57)
--- NOTE | 2018-09-05 13:40 | NURSING ---
Saline lock to LFA visibly leaking when flushed by this nurse. Reported to Leda GUERRA.
[2018-09-05 15:12] VITALS: BP 126/69; PULSE 66; RESP 16; TEMP 36.4; O2SAT 96
[2018-09-05 17:15] LABS: Bedside Glucose 135 mg/dL (70-110)
[2018-09-05 17:24] VITALS: BP 126/69; PULSE 66
[2018-09-05 21:45] LABS: Bedside Glucose 180 mg/dL (70-110)
[2018-09-05] MEDS: Atorvastatin Calcium 40 MG Tablet PO (21:47)
[2018-09-05] MEDS: traZODone 50 MG Tablet PO (21:47)
--- NOTE | 2018-09-05 22:00 | NURSING ---
All care this shift provided in room due to Isolation.
[2018-09-06] MEDS: 0.9% NaCl VAD Flush 10 ML IV (00:45)
[2018-09-06] MEDS: Gabapentin 300 MG Capsule PO ×2 (05:00→17:50)
[2018-09-06] MEDS: Docusate Sodium 100 MG Capsule PO ×2 (05:00→17:50)
[2018-09-06] MEDS: Menthol/Lanolin/Calamine/Znox 113 GM Tube 1 APPLIC TOPICAL ×3 (05:00→21:24)
[2018-09-06] MEDS: Magnesium Oxide 400 MG Tablet PO (05:00)
[2018-09-06] MEDS: Dorzolamide HCL/Timolol 10 ml Bottle 1 DRP EACH EYE ×2 (05:00→17:52)
[2018-09-06] MEDS: DULoxetine Hcl 60 MG Capsule PO (05:00)
[2018-09-06] MEDS: Pantoprazole Sodium 20 MG Tablet PO ×2 (05:00→17:50)
[2018-09-06] MEDS: Nystatin Powder 15gm Bottle 1 APPLIC TOPICAL ×2 (05:00→17:54)
[2018-09-06] MEDS: Polyethylene Glycol 3350 17 GM PACKET PO (05:00)
[2018-09-06 06:35] LABS: Bedside Glucose 175 mg/dL (70-110)
[2018-09-06 07:37] VITALS: BP 126/69; PULSE 69
[2018-09-06] MEDS: Metoprolol Tartrate 25 MG Tablet PO ×2 (07:37→17:50)
[2018-09-06] MEDS: Ferrous Sulfate 325 MG Tablet PO ×2 (08:11→17:49)
--- NOTE | 2018-09-06 08:18 | NURSING ---
ALL CARE GIVEN IN ROOM DUE TO PT IN PRECAUTIONS.
--- NOTE | 2018-09-06 08:33 | CASEMGMT ---
Insurance: Patient approved for additional days (09/07/18-09/09/18). Next clinical update due 09/08/18. Auth # [id number].
[2018-09-06 11:01] LABS: Bedside Glucose 195 mg/dL (70-110)
[2018-09-06 15:20] VITALS: BP 101/54; PULSE 66; RESP 16; TEMP 36.4; O2SAT 96
[2018-09-06 17:11] LABS: Bedside Glucose 173 mg/dL (70-110)
[2018-09-06] MEDS: Bisacodyl 5 MG Tablet 10 MG PO (17:49)
[2018-09-06 17:50] VITALS: BP 107/58; PULSE 72
[2018-09-06 17:57] VITALS: BP 107/58; PULSE 72
[2018-09-06 21:15] VITALS: BP 104/56; PULSE 61; RESP 16; TEMP 36.7; O2SAT 94
[2018-09-06] MEDS: traZODone 50 MG Tablet PO (21:24)
[2018-09-06] MEDS: Atorvastatin Calcium 40 MG Tablet PO (21:25)
[2018-09-06 21:45] LABS: Bedside Glucose 131 mg/dL (70-110)
[2018-09-07] MEDS: Menthol/Lanolin/Calamine/Znox 113 GM Tube 1 APPLIC TOPICAL ×3 (04:25→21:45)
[2018-09-07] MEDS: Gabapentin 300 MG Capsule PO ×2 (04:26→17:45)
[2018-09-07] MEDS: Magnesium Oxide 400 MG Tablet PO (04:26)
[2018-09-07] MEDS: Docusate Sodium 100 MG Capsule PO ×2 (04:26→17:46)
[2018-09-07] MEDS: DULoxetine Hcl 60 MG Capsule PO (04:27)
[2018-09-07] MEDS: Polyethylene Glycol 3350 17 GM PACKET PO (04:27)
[2018-09-07] MEDS: Pantoprazole Sodium 20 MG Tablet PO ×2 (04:28→17:45)
[2018-09-07] MEDS: Nystatin Powder 15gm Bottle 1 APPLIC TOPICAL ×2 (04:37→17:46)
[2018-09-07] MEDS: Dorzolamide HCL/Timolol 10 ml Bottle 1 DRP EACH EYE ×2 (04:37→17:48)
[2018-09-07 04:38] VITALS: BP 92/55; PULSE 66
[2018-09-07] MEDS: Metoprolol Tartrate 25 MG Tablet PO ×2 (04:38→17:45)
[2018-09-07 06:31] LABS: Bedside Glucose 124 mg/dL (70-110)
[2018-09-07] MEDS: Ferrous Sulfate 325 MG Tablet PO ×2 (08:18→17:46)
--- NOTE | 2018-09-07 08:21 | NURSING ---
ALL CARE GIVEN IN ROOM DUE TO PT IN PRECAUTIONS.
[2018-09-07 10:45] VITALS: PULSE 67; RESP 18; O2SAT 96
[2018-09-07 11:11] LABS: Bedside Glucose 149 mg/dL (70-110)
[2018-09-07 14:20] VITALS: BP 109/52; PULSE 67; RESP 12; TEMP 36.6; O2SAT 95
--- NOTE | 2018-09-07 14:36 | CASEMGMT ---
Social Work IDT met with patient, niece, significant other, and other family members for care plan meeting. Discussed progress in therapy, diet and working on gaining weight. Patient's assistance with transfers, bed mobility and ALS vary depending on weakness; however, pt and family are requesting to discharge. Therapy is recommending continued home therapy. Niece and significant other, along with other relatives will be able to take care of patient [facility] health aides 8 hours a day. Patient already owns all DME. Notified [facility] of patient discharging 09/08 to assign a supervisor case loading and begin putting services into place. Referred to [facility] for PT/OT/SN. S.O. will transport pt home. Plan: DC home alone with family support, [facility] PT/OT/SN and no DME needs. BRENNON Abbott
[2018-09-07 16:56] LABS: Bedside Glucose 129 mg/dL (70-110)
[2018-09-07 17:45] VITALS: BP 109/52; PULSE 67
--- NOTE | 2018-09-07 21:16 | DCINST_ITS ---
- Discharge Diagnoses Current Active Problems: Current Active and Chronic Problems (Last Reviewed 08/23/18 @ 13:20 by Cihnyere Rubalcava) Sepsis (Acute) Pyelonephritis (Acute) Sleep apnea (Chronic) Diabetes mellitus (Chronic) Neuropathy (Chronic) Glaucoma (Chronic) Insomnia (Chronic) You will use the following diet at home:: No restrictions, Regular Your food should be the consistency of: Regular Your liquids should be the consistency of: Regular/Thin Discharge Activity: Return to Normal Activity, May Shower, Use Walker Weight Bearing Status: Weight bearing as tolerated Call your doctor if you observe: Fever of 101 or Higher, Inability to urinate, Inability to have a bowel movement, Shortness of breath, Chest pain, Uncontrolled pain Allergies/Adverse Reactions: Allergies fentanyl Adverse Reaction (Verified 08/26/18 15:06) MAKES ME SHAKE oxycodone [From Percocet] Adverse Reaction (Verified 08/26/18 15:06) MAKES ME SHAKE thiopental Adverse Reaction (Verified 08/26/18 15:06) MAKES ME SHAKE Medications to take at Discharge Docusate Sodium [Colace] 100 mg PO BID 02/15/16 Dorzolamide HCL/Timolol [Cosopt Opth Drops] 1 drp EACH EYE BID 02/15/16 Duloxetine Hcl [Cymbalta] 60 mg PO DAILY 02/15/16 Polyethylene Glycol 3350 [Miralax] 17 gm PO DAILY 03/05/17 Atorvastatin Calcium [Lipitor] 40 mg PO QHS 05/19/17 Gabapentin [Neurontin] 300 mg PO BID 03/31/18 Magnesium Oxide 400 mg PO DAILY 03/31/18 Insulin Detemir [Levemir FlexPen] 20 units SUBCUT QHS #10 insuln.pen 04/01/18 Ferrous Sulfate 325 mg PO BIDCM 08/05/18 traZODone [Desyrel] 50 mg PO QHS 08/05/18 Albuterol Inhaler [Ventolin Hfa] 1 - 2 puff INHALATION Q4H PRN PRN 08/23/18 Metoprolol Tartrate [Lopressor (beta anthony)] 25 mg PO BID 08/23/18 Potassium Chloride 10 meq PO PRN PRN 08/23/18 Pantoprazole Sodium [Protonix] 20 mg PO BID 08/31/18 traMADol [Ultram] 50 mg PO Q6H PRN PRN 7 Days #28 tab 08/31/18 Acetaminophen [Tylenol] 1,000 mg PO Q6H PRN PRN tab 09/07/18 Menthol/Lanolin/Calamine/Znox [Calmoseptine Ointment] 1 applic TOPICAL TID tube 09/07/18 Nystatin Powder [Mycostatin Powder] 1 applic TOPICAL BID bottle 09/07/18 Pantoprazole Sodium [Protonix] 20 mg PO BID tab 09/07/18 hydroCHLOROthiazide [Hydrochlorothiazide] 12.5 mg PO DAILY PRN PRN cap 09/07/18 Primary Care Physician: Shanta Welsh PA [Primary Care Provider] - Please follow up with your Primary Care Physician in: 1 week. Test Results: Test results from this visit will be discussed in further detail at your follow- up appointment, if applicable. Proposed Discharge Date: 09/08/18
--- NOTE | 2018-09-07 21:17 | DS.PCM_ITS ---
Discharge Date and Diagnosis - Problem List Patient Problems: Active and Suspected Problems (Last Reviewed 08/23/18 @ 13:20 by Chinyere Rubalcava) Sepsis (Acute) Pyelonephritis (Acute) Date of Admission: 08/26/18 Date of Discharge: 09/08/18 - Primary Discharge Diagnosis Active and Suspected Problems (Last Reviewed 08/23/18 @ 13:20 by Chinyere Rubalcava) Sepsis (Acute) Pyelonephritis (Acute) - Secondary Discharge Diagnosis Chronic Problems (Last Reviewed 08/23/18 @ 13:20 by Chinyere Rubalcava) Sleep apnea (Chronic) Diabetes mellitus (Chronic) Neuropathy (Chronic) Glaucoma (Chronic) Insomnia (Chronic) Edema (Chronic) Hyperlipidemia (Chronic) Atherosclerosis of [place] coronary artery of [place] heart without angina pectoris (Chronic) Chronic pain syndrome (Chronic) Noncompliance with CPAP treatment (Chronic) Morbid obesity (Chronic) Depression (Chronic) Dyslipidemia (Chronic) Fibromyalgia (Chronic) Multinodular goiter (Chronic) Obstructive sleep apnea (Chronic) Recurrent falls (Chronic) Diabetes mellitus type 2 in obese (Chronic) Hypertension (Chronic) Gastric cancer (Chronic) Hospital Course and Treatment Imaging Results: 09/06/18 17:15 Diet: Regular Diet Type of Dietary Supplement:: Glucerna Shake Is pt able to select menu?: Yes Clinical Impression(s) from Imaging Studies KUB X-Ray 09/01/18 11:21 IMPRESSION: Normal x-ray examination of the abdomen and pelvis. Electronically Signed: Jp Salomon MD at 14:58 EDT Tel , Service support , Labs (Last 48 Hours) 09/05/18 09/06/18 09/06/18 21:39 06:31 10:54 POC Glucose 180 H 175 H 195 H 09/06/18 09/06/18 09/07/18 17:05 21:27 06:22 POC Glucose 173 H 131 H 124 H 09/07/18 09/07/18 11:00 16:40 POC Glucose 149 H 129 H Operations: None Procedures: None Summary of Care Provided: The patient is a 68 year old Female with below past medical history significant for stage 4 gastric cancer, hospitalized for sepsis secondary to ESBL E. Coli pyelonephritis, transverse colitis, admitted to TCU for debility, here for rehabilitation, strengthening, intravenous antibiotics, prior to discharge home with family. Discharge home alone with family support, Home Health Services for PT/OT/SN. Patient Problems: Active and Suspected Problems (Last Reviewed 08/23/18 @ 13:20 by Chinyere Rubalcava) Sepsis (Acute) Pyelonephritis (Acute) - Physical Exam Vital Signs Temp Pulse Resp BP Pulse Ox 97.8 F 67 12 109/52 L 95 09/07/18 14:20 09/07/18 17:45 09/07/18 14:20 09/07/18 17:45 09/07/18 14:20 Oxygen Delivery Method Room Air Weight: 69.655 kg Body Mass Index (BMI) 25.0 Finger Stick Blood Glucose 35 Intake and Output for Last 24 Hours 09/05/18 09/06/18 09/07/18 23:59 23:59 23:59 Intake Total 630 / 630 660 / 660 670 / 670 Balance 630 / 630 660 / 660 670 / 670 POC Glucose 09/07/18 09/07/18 09/07/18 16:40 11:00 06:22 POC Glucose 129 H 149 H 124 H 09/06/18 21:27 POC Glucose 131 H Discharge Diet: No Restrictions Discharge Activity: Return to Normal Activity, May Shower, Use Walker Weight Bearing Status: Weight bearing as tolerated Call your doctor if you observe: Fever of 101 or Higher, Inability to urinate, Inability to have a bowel movement, Shortness of breath, Chest pain, Uncontrolled pain Home Medications: Medications to take at Discharge Docusate Sodium [Colace] 100 mg PO BID 02/15/16 Dorzolamide HCL/Timolol [Cosopt Opth Drops] 1 drp EACH EYE BID 02/15/16 Duloxetine Hcl [Cymbalta] 60 mg PO DAILY 02/15/16 Polyethylene Glycol 3350 [Miralax] 17 gm PO DAILY 03/05/17 Atorvastatin Calcium [Lipitor] 40 mg PO QHS 05/19/17 Gabapentin [Neurontin] 300 mg PO BID 03/31/18 Magnesium Oxide 400 mg PO DAILY 03/31/18 Insulin Detemir [Levemir FlexPen] 20 units SUBCUT QHS #10 insuln.pen 04/01/18 Ferrous Sulfate 325 mg PO BIDCM 08/05/18 traZODone [Desyrel] 50 mg PO QHS 08/05/18 Albuterol Inhaler [Ventolin Hfa] 1 - 2 puff INHALATION Q4H PRN PRN 08/23/18 Metoprolol Tartrate [Lopressor (beta anthony)] 25 mg PO BID 08/23/18 Potassium Chloride 10 meq PO PRN PRN 08/23/18 Pantoprazole Sodium [Protonix] 20 mg PO BID 08/31/18 traMADol [Ultram] 50 mg PO Q6H PRN PRN 7 Days #28 tab 08/31/18 Acetaminophen [Tylenol] 1,000 mg PO Q6H PRN PRN tab 09/07/18 Menthol/Lanolin/Calamine/Znox [Calmoseptine Ointment] 1 applic TOPICAL TID tube 09/07/18 Nystatin Powder [Mycostatin Powder] 1 applic TOPICAL BID bottle 09/07/18 Pantoprazole Sodium [Protonix] 20 mg PO BID tab 09/07/18 hydroCHLOROthiazide [Hydrochlorothiazide] 12.5 mg PO DAILY PRN PRN cap 09/07/18 Primary Care Physician: Shanta Welsh PA [Primary Care Provider] - Please follow up with your Primary Care Physician in: 1 week. Disposition: Home with Home Health Minutes spent on discharge:: 35 Patient Condition:: Stable Medical Necessity - Tobacco Use Smoking Status: Former smoker Tobacco Use: Non-smoker Meaningful Use Info Meaningful Use Diagnoses (Choose all that apply): None applicable
--- NOTE | 2018-09-07 21:19 | PCM.PN.HH ---
Home Health Note - Plan Overview of reason of hospitalization: The patient is a 68 year old Female with below past medical history significant for stage 4 gastric cancer, hospitalized for sepsis secondary to ESBL E. Coli pyelonephritis, transverse colitis, admitted to TCU for debility, here for rehabilitation, strengthening, intravenous antibiotics, prior to discharge home with family. Discharge home alone with family support, Home Health Services for PT/OT/SN. Problems: Patient was seen for (Last Reviewed 08/23/18 @ 13:20 by Chinyere Rubalcava) Sepsis (Acute) Pyelonephritis (Acute) Sleep apnea (Chronic) Diabetes mellitus (Chronic) Neuropathy (Chronic) Glaucoma (Chronic) Insomnia (Chronic) Complete List of Medical Problems (Last Reviewed 08/23/18 @ 13:20 by Chinyere Rubalcava) Anemia (Acute) Colitis (Acute) Sepsis (Acute) Pyelonephritis (Acute) Sleep apnea (Chronic) Diabetes mellitus (Chronic) Neuropathy (Chronic) Glaucoma (Chronic) Insomnia (Chronic) S/P jejunostomy (Acute) Acute pancreatitis (Acute) Abdominal pain (Acute) SBO (small bowel obstruction) (Acute) Edema (Chronic) Hyperlipidemia (Chronic) Atherosclerosis of [place] coronary artery of [place] heart without angina pectoris (Chronic) Hypophosphatemia (Acute) Chronic pain syndrome (Chronic) Eosinophilia (Acute) Hypomagnesemia (Acute) Severe sepsis (Acute) Acute renal failure (Acute) Urinary tract infection (Acute) Toxic encephalopathy (Acute) Hyperammonemia (Acute) Noncompliance with CPAP treatment (Chronic) Morbid obesity (Chronic) Depression (Chronic) Dyslipidemia (Chronic) Fibromyalgia (Chronic) Multinodular goiter (Chronic) Obstructive sleep apnea (Chronic) Recurrent falls (Chronic) Diabetes mellitus type 2 in obese (Chronic) Hypertension (Chronic) Gastric cancer (Chronic) - Requirements and Reasons Disciplines Needed/Ordered: [facility], Physical Therapy Reason for Disciplines: Gait Training, Stair Training, Fall Prevention, Home Safety/Equipment Instruction, Balance and/or Posture Training, Transfer Training Related To: Limited/Poor Endurance, Physical Impairments, Unsteady Gait/Balance, Fall Risk Patient is unable to leave the home: Without Aid of Supportive Devices (crutches, cane, wheelchair, walker), Without the assistance of another person - Additional Disciplines Additional Disciplines Needed/Ordered: Occupational Therapy
[2018-09-07] MEDS: traZODone 50 MG Tablet PO (21:42)
[2018-09-07] MEDS: Atorvastatin Calcium 40 MG Tablet PO (21:42)
[2018-09-07] MEDS: traMADol 50 MG Tablet PO (21:43)
[2018-09-07 21:45] LABS: Bedside Glucose 168 mg/dL (70-110)
[2018-09-08] MEDS: 0.9% NaCl Peripheral Flush Adult/Peds IV ×3 (05:06→06:14)
[2018-09-08] MEDS: 0.9% NaCl VAD Flush 10 ML IV (05:06)
[2018-09-08 05:33] LABS: Absolute Neutrophil Count 4.5 X10^3/uL (2.0-7.7); Basophil% 1.1 % (0-1); Eosinophils% 4.2 % (0-5); Hematocrit 27.3 % (37-47); Hemoglobin 8.7 g/dl (12.0-15.0); Mean Corp Hgb Conc 31.9 g/gl (32-36); Mean Corpuscular Hgb 29.2 pg (27.0-32.0); Mean Corpuscular Volume 91.6 fL (81-99); Mean Platelet Vol. 7.9 fl (6.2-12.0); Monocyte% 7.4 % (0-10); Neutrophil # 4.54 X10^3/uL (2.7-7.7); Neutrophil % 47.9 % (47-70); Platelet Count 716 K/mm3 (150-450); RBC Distribution Width CV 15.4 % (11.6-14.6); RBC Distribution Width SD 50.5 fl (35.1-43.9); Red Blood Count 2.98 M/mm3 (4.2-5.4); White Blood Count 9.5 K/mm3 (4.4-11.0)
[2018-09-08 05:34] LABS: POSITIVE COUNT YES; POSITIVE DIFFERENTIAL NO; POSITIVE MORPHOLOGY YES
[2018-09-08] MEDS: Menthol/Lanolin/Calamine/Znox 113 GM Tube 1 APPLIC TOPICAL (05:37)
[2018-09-08] MEDS: Nystatin Powder 15gm Bottle 1 APPLIC TOPICAL (05:38)
[2018-09-08] MEDS: Dorzolamide HCL/Timolol 10 ml Bottle 1 DRP EACH EYE (05:39)
[2018-09-08 05:41] LABS: Anion Gap 8 (5-15); BUN 12 mg/dL (7-18); BUN/Creat Ratio 28.9 RATIO (10-20); Calcium,Total 8.8 mg/dL (8.5-10.1); Chloride 102 mmol/L (98-107); Creatinine, Serum 0.42 mg/dL (0.55-1.02); EST Glomerular Filtration Rate 163 mL/min (>60); Est Glom Filt Rate - Afr Amer 197 mL/min (>60); Estimated Creatinine Clearance 55.82 ml/min; Glucose 102 mg/dL (74-106); Sodium Level 140 mmol/L (136-145)
[2018-09-08] MEDS: Docusate Sodium 100 MG Capsule PO (05:46)
[2018-09-08] MEDS: Magnesium Oxide 400 MG Tablet PO (05:46)
[2018-09-08] MEDS: DULoxetine Hcl 60 MG Capsule PO (05:46)
[2018-09-08] MEDS: Gabapentin 300 MG Capsule PO (05:46)
[2018-09-08] MEDS: Pantoprazole Sodium 20 MG Tablet PO (05:46)
[2018-09-08 05:50] VITALS: BP 92/55; RESP 62
--- NOTE | 2018-09-08 06:18 | NURSING ---
All care provided in pt room d/t precaution
[2018-09-08 06:50] VITALS: BP 106/68; PULSE 64
[2018-09-08 06:50] LABS: Bedside Glucose 102 mg/dL (70-110)
[2018-09-08 06:51] VITALS: BP 106/68; PULSE 64
[2018-09-08] MEDS: Metoprolol Tartrate 25 MG Tablet PO (06:51)
[2018-09-08] MEDS: Ferrous Sulfate 325 MG Tablet PO (07:56)
[2018-09-08 09:40] VITALS: BP 102/63; PULSE 52; RESP 16; TEMP 36.2; O2SAT 98
--- NOTE | 2018-09-08 09:55 | NURSING ---
per family request, all records for stay faxed to DR Grant office at this time. & pt updated.
--- NOTE | 2018-09-08 12:46 | CASEMGMT ---
Insurance: left with Ines at insurance that pt d/c home today 09/08/18 with home health services. Ines notified that NOMNOC has been signed and if she would like a copy she will need to call with a working fax number. Auth# [id number] LATRICE Corea
--- NOTE | 2018-09-09 09:29 | MDS.RN ---
Information for the mds was obtained from review of the clinical record, interview of resident, staff, and direct observation of resident's care.
[2018-09-09 09:46] LABS: Pathologist Review Reviewed
== END 2018-09-08 10:00 | disposition home health service (06) | DRG 948 ==
PROVIDERS: Admitting Provider Family Medicine Geriatric Medicine; Family Provider Physician Assistant; PCP Physician Assistant; Referring Provider Family Medicine Geriatric Medicine; Visit Provider Family Medicine Geriatric Medicine
DX: R53.81 Other malaise (principal); C16.9 Malignant neoplasm of stomach, unspecified; N10 Acute pyelonephritis; E78.5 Hyperlipidemia, unspecified; I10 Essential (primary) hypertension; F32.9 Major depressive disorder, single episode, unspecified; B96.20 Unspecified Escherichia coli [E. coli] as the cause of diseases classified elsewhere; K52.9 Noninfective gastroenteritis and colitis, unspecified; Z16.12 Extended spectrum beta lactamase (ESBL) resistance; D50.9 Iron deficiency anemia, unspecified; K21.9 Gastro-esophageal reflux disease without esophagitis; B35.4 Tinea corporis; E11.40 Type 2 diabetes mellitus with diabetic neuropathy, unspecified; M79.7 Fibromyalgia; G47.33 Obstructive sleep apnea (adult) (pediatric); E04.2 Nontoxic multinodular goiter; Z91.19 Patient's noncompliance with other medical treatment and regimen; Z87.891 Personal history of nicotine dependence; I25.10 Atherosclerotic heart disease of native coronary artery without angina pectoris; G89.4 Chronic pain syndrome
CPT/HCPCS: 36415; 74018; 80048; 80076; 82962; 85025; 97110; 97116; 97163; 97166; 97530; 97535; 97802; J7050; A4216

== ENCOUNTER 2018-09-15 14:08 | Emergency (ER) | payer MEDICARE, MEDICAID, SELFPAY ==
[2018-09-15 14:09] VITALS: BP 112/76; PULSE 109; RESP 16; TEMP 37.2; O2SAT 97; BMI 25.0
--- NOTE | 2018-09-15 14:19 | ED.VIS.GEN ---
History of Present Illness Chief Complaint: General Illness Detail of Chief Complaint: Feeding tube fell out Informant: Patient Onset: Today Context: Sudden Onset Timing: Continuous Quality: Not applicable Location: Gastric feeding tube Current Severity: - - Not applicable Maximum Severity: - - Not applicable Worsened by: Balloon ruptured Relieved by: Replacement Associated Symptoms: None Narrative: Patient is an elderly woman with history of gastric cancer who presents because her feeding tube fell out. She does not know the size of her feeding tube. She has no other complaints. Prior similar symptoms: Yes Recent Illness/Hospitalization: No - Past Medical History (1) Acute pancreatitis Status: Acute (2) Colitis Status: Acute (3) Pyelonephritis Status: Acute (4) S/P jejunostomy Status: Acute Comment: placement (5) SBO (small bowel obstruction) Status: Acute (6) Atherosclerosis of [place] coronary artery of [place] heart without angina pectoris Status: Chronic (7) Chronic pain syndrome Status: Chronic (8) Depression Status: Chronic (9) Diabetes mellitus Status: Chronic Past Medical History - Allergies and Home Meds Allergies/Adverse Reactions: Allergies fentanyl Adverse Reaction (Verified 09/15/18 14:11) MAKES ME SHAKE oxycodone [From Percocet] Adverse Reaction (Verified 09/15/18 14:11) MAKES ME SHAKE thiopental Adverse Reaction (Verified 09/15/18 14:11) MAKES ME SHAKE Primary Care Physician: Shanta Welsh PA [Primary Care Provider] - Prior records reviewed: Yes Surgical History: cholecystectomy, hysterectomy, - - Subtotal gastrectomy for gastric cancer, prior cervical fusion as well as Jefferson rods in the thoracic and lumbosacral spine, recent PowerPort placement, recent gastric cancer bypass with small bowel partial resection, J-tube placement. Lives: Alone Smoking Status: Former smoker Alcohol: None - Family History Maternal Family History: Family History (Last Reviewed 08/23/18 @ 13:20 by Chinyere Rubalcava) Mother Diabetes Father Diabetes Heart disease Family History: Reports: Diabetes Paternal Family History: Family History (Last Reviewed 08/23/18 @ 13:20 by Chinyere Rubalcava) Mother Diabetes Father Diabetes Heart disease Family History: Reports: Diabetes, Heart Disease Review of Systems General: Denies: Chills, Fever, Malaise, Sweats Cardiovascular: Denies: Chest pain, Palpitations Respiratory: Denies: Dyspnea, Cough, Dyspnea on exertion Gastrointestinal: Denies: Abdominal pain, Nausea, Vomiting, Diarrhea, Melena, Hematochezia Genitourinary: Denies: Dysuria, Hematuria, Frequency Musculoskeletal: Denies: Myalgias, Arthralgias, Neck pain, Back pain Skin: Denies: Rash, Wounds Physical Exam Vital Signs/Narrative: Vital Signs Temp Pulse Resp BP Pulse Ox 09/15/18 14:09 98.9 F 109 H 16 112/76 97 Inital Vital Signs reviewed: Yes General: Well nourished, Well developed, Unkempt, No Acute Distress Head: Normocephalic, Atraumatic Eyes: Perrl, EOMI. Negative for: Pale conjunctiva, Scleral icterus ENT: Moist mucous membranes, No rhinorrhea Neck: Supple, Nontender, No lymphadenopathy, No JVD, - Cardiovascular: Regular rate, Regular rhythm, No murmurs Respiratory: No distress, CTA bilaterally, Chest nontender Abdomen: Soft, Nontender, Nondistended, Normal bowel sounds, - - Well-healed scar noted. Rectal: Deferred Skin: Normal color, No rash Neurological: Alert, Oriented x3, Cranial nerves II-XII grossly intact, Normal Strength, Normal Sensation Psychological: Depressed Diagnostic/Tx/Re-eval - Medical Decision Making Patient feeding tube fell out. A 20 Tamazight feeding tube was placed. She had originally a to be tube not a gastric tube. The feeding tube was placed with only minor resistance. Gastric contents were noted when central portion was aspirated. Procedures Procedure(s): Placement of jejunostomy tube using 20 Tamazight feeding tube. ED Disposition - Plan for ED Patient: Disposition: Home or Assisted Living Diagnosis: Jejunostomy tube fell out Instructions: Feeding Tube Replacement Referrals: Shanta Welsh PA [Primary Care Provider] - As soon as possible
== END 2018-09-15 14:48 | disposition home or self-care (01) ==
LOC: ED 14:40
PROVIDERS: Emergency Provider Emergency Medicine; Family Provider Physician Assistant; PCP Physician Assistant
DX: K94.29 Other complications of gastrostomy (principal); I25.10 Atherosclerotic heart disease of native coronary artery without angina pectoris; E11.9 Type 2 diabetes mellitus without complications; G89.4 Chronic pain syndrome; F32.9 Major depressive disorder, single episode, unspecified; Z79.4 Long term (current) use of insulin; Z79.899 Other long term (current) drug therapy; Z88.5 Allergy status to narcotic agent; Z85.028 Personal history of other malignant neoplasm of stomach; Z87.19 Personal history of other diseases of the digestive system; Z87.440 Personal history of urinary (tract) infections; Z87.891 Personal history of nicotine dependence; Z90.49 Acquired absence of other specified parts of digestive tract; Z90.710 Acquired absence of both cervix and uterus
CPT/HCPCS: 99284

== ENCOUNTER 2018-09-15 22:47 | Emergency (ER) | payer MEDICARE, MEDICAID, SELFPAY ==
[2018-09-15 14:09] VITALS: BMI 25.0
[2018-09-15 22:48] VITALS: BP 96/66; PULSE 114; RESP 18; TEMP 36.8; O2SAT 98; BMI 24.1
--- NOTE | 2018-09-15 23:09 | ED.DCSUM_ITS ---
- ER Visit Summary Date of Service: 09/15/18 Chief Complaint: My tube feed fell out History of Present Illness: The patient is a 68 F who presents after her feeding tube fell out. She was seen earlier today for the same. She has a jejunostomy tube due to a history of gastric cancer. While they were changing the dressing this was inadvertently pulled out. They had not brought it with him. Patient was seen earlier in the emergency department and a 20 [place] G-tube was placed with return of gastric contents. This fell out shortly before presentation here. The patient otherwise has no complaints. Physical Examination: Heart rate 114 vitals otherwise unremarkable No distress Heart regular rate and rhythm Lungs are clear Abdomen soft nontender nondistended Test Results: [] Emergency Department Course and Treatment: Patient family brought the G-tube with them. The balloon was not inflated. They report that this is exactly how it it fallen out. I tested the balloon and it does function. It is not leak ing. This was likely inadvertently not inflated. This was easily replaced, balloon was inflated and traction applied without dislodgment. KUB x-ray with contrast shows enteric tube in position with no extravasation. Patient was advised to follow-up with her surgeon. Treatment Plan: [] Disposition: Discharge Impression: Feeding tube replacement This note was generated with [employer] dictation software. It may contain incorrect words, spelling, and punctuation that were not noted in review of the chart prior to signing ED Disposition - Plan for ED Patient: Referrals: Shanta Welsh PA [Primary Care Provider] -
--- NOTE | 2018-09-15 23:20 | RAD_ITS ---
HISTORY: G-tube placement. A mixture of 30 cc of Gastrografin and 30 cc of water were injected into the tube. It is a single image. No pre-injection images provided. Comparison study is from the September 01, 2018. Findings: Contrast fills the tube. The tip of the tube is superimposed over the metal within the patient's spine and not definitively perceived. Contrast is present within small bowel and colon. The small bowel activity is likely related to the acute injection. The colon contrast is less dense, and likely related to a CT scan of the abdomen and pelvis performed previously. Extensive spinal and sacral and iliac wing hardware fixation. Multilevel prosthetic disc spacers. RAD/Abdomen Single View (Portable) IMPRESSION: No pre-injection image provided. Tube appears to be an enteric tube. I see no evidence of extravasation of contrast. at [id number] Reported and signed by: Reilly Diallo MD Electronically Signed: Reilly Diallo MD at 23:46 EDT Tel , Service support ,
--- NOTE | 2018-09-16 00:09 | ED.DEP ---
ED Disposition - Plan for ED Patient: Instructions: Feeding Tube Replacement Referrals: Shanta Welsh PA [Primary Care Provider] -
[2018-09-16 00:23] VITALS: RESP 16
== END 2018-09-16 00:23 | disposition home or self-care (01) ==
LOC: ED 23:24
PROVIDERS: Emergency Provider Emergency Medicine; Family Provider Physician Assistant; PCP Physician Assistant
DX: K94.29 Other complications of gastrostomy (principal); E11.9 Type 2 diabetes mellitus without complications; I10 Essential (primary) hypertension; I25.10 Atherosclerotic heart disease of native coronary artery without angina pectoris; G89.4 Chronic pain syndrome; F32.9 Major depressive disorder, single episode, unspecified; Z79.4 Long term (current) use of insulin; Z79.899 Other long term (current) drug therapy; Z85.028 Personal history of other malignant neoplasm of stomach; Z87.19 Personal history of other diseases of the digestive system; Z87.440 Personal history of urinary (tract) infections; Z87.891 Personal history of nicotine dependence; Z90.49 Acquired absence of other specified parts of digestive tract; Z90.710 Acquired absence of both cervix and uterus
CPT/HCPCS: 74018; 99282; 99284

== ENCOUNTER 2018-10-20 16:32 | Emergency (ER) | payer MEDICARE, MEDICAID, SELFPAY ==
[2018-10-20 16:32] VITALS: BP 112/65; PULSE 80; RESP 16; TEMP 36.7; O2SAT 99; BMI 27.3
--- NOTE | 2018-10-20 16:47 | CT_ITS ---
We are attempting to reach an attending provider to discuss findings. An addendum with communication details will be sent when the communication is complete. STUDY: CT ABDOMEN AND PELVIS WITH CONTRAST REASON FOR EXAM: Female, 68 years old. Pain and purulent drainage from feeding tube RADIATION DOSAGE (If Supplied By Facility): CTDIvol = ( 18.20 ) mGy, DLP = ( 998.56 ) mGycm TECHNIQUE: Transaxial images were obtained from the dome of the diaphragm to the symphysis pubis without oral contrast. 100ML IV/Oral Isovue 300 was administered. Sagittal and coronal images were reconstructed. Individualized dose optimization techniques were used for this CT. COMPARISON: August 26, 2018 FINDINGS: The visualized lung bases are unremarkable. The visualized portions of the heart are within normal limits. Normal liver. Normal gallbladder and extrahepatic biliary system. Normal spleen. Normal pancreas. Normal bilateral adrenal glands. Normal right kidney. Tiny nonobstructing left renal calculus.. Postsurgical changes status post Billroth II procedure. No evidence for small bowel obstruction.. Normal colon. No evidence for acute appendicitis Feeding tube is noted entering the small bowel in the lower mid abdomen. At the site of feeding tube insertion there is stranding within the subcutaneous fat. There is diffuse soft tissue thickening within the left transverse rectus sheath There is also diffuse extraperitoneal soft tissue thickening with scattered tiny air bubbles and soft tissue density with air bubbles just superior to the placement of the tube which is suspicious for small focal abscess. Fistulogram would be helpful for further evaluation There is no evidence for extravasation of contrast Atherosclerotic changes of the aorta without evidence for aneurysm.. Normal inferior vena cava. Normal retroperitoneum. Nonspecific distention of the bladder Uterus not visualized consistent with hysterectomy Normal abdominal wall. Lumbar spine demonstrates spondylosis and multilevel laminectomies and posterior fusion. CT/Abdomen/Pelvis WITH Contrast IMPRESSION: Feeding tube insertion in the mid abdomen with focal inflammatory changes in the subcutaneous fat with phlegmonous changes and possible small extraperitoneal abscess. Would recommend fistulogram for further evaluation. Electronically Signed: Fabio Jones MD at 19:55 EDT , Service support ,
--- NOTE | 2018-10-20 16:50 | ED.VIS.GEN ---
History of Present Illness Chief Complaint: Wound Check Informant: Patient, Family Onset: Days Context: Gradual Onset Timing: Continuous - Swelling, redness and drainage from feeding tube Quality: Swelling, redness and drainage from feeding tube Location: Abdominal wall Current Severity: Mild Maximum Severity: Moderate Worsened by: Possible abscess versus improper placement of feeding tube Relieved by: Nothing Associated Symptoms: Nausea, pallor, generalized weakness she was pale to Narrative: Patient is a 68-year-old woman. She is not a good informant. Daughter was the informant. Patient sent from Dr. Leslie's office because of concern for abscess and proper position of feeding tube. The abdominal wall is been red with drainage according the daughter for several days. She has not had fever or chills. Daughter agrees she looks pale compared to normal. She reports generalized weakness. She states she has no appetite or energy. Prior similar symptoms: Yes Recent Illness/Hospitalization: Yes - Past Medical History (1) Acute pancreatitis Status: Acute (2) Anemia Status: Acute (3) Hyperammonemia Status: Acute (4) Hypomagnesemia Status: Acute (5) SBO (small bowel obstruction) Status: Acute (6) Atherosclerosis of [place] coronary artery of [place] heart without angina pectoris Status: Chronic (7) Essential hypertension Status: Chronic (8) Gastric cancer Status: Chronic (9) Glaucoma Status: Chronic (10) Multinodular goiter Status: Chronic (11) Neuropathy Status: Chronic (12) Obstructive sleep apnea Status: Chronic Past Medical History - Allergies and Home Meds Allergies/Adverse Reactions: Allergies fentanyl Adverse Reaction (Verified 10/20/18 16:36) MAKES ME SHAKE oxycodone [From Percocet] Adverse Reaction (Verified 10/20/18 16:36) MAKES ME SHAKE thiopental Adverse Reaction (Verified 10/20/18 16:36) MAKES ME SHAKE Primary Care Physician: Shanta Welsh PA [Primary Care Provider] - Prior records reviewed: Yes Surgical History: cholecystectomy, hysterectomy, - - Subtotal gastrectomy for gastric cancer, prior cervical fusion as well as Jefferson rods in the thoracic and lumbosacral spine, recent PowerPort placement, recent gastric cancer bypass with small bowel partial resection, J-tube placement. Lives: With Family Smoking Status: Former smoker Alcohol: None Drugs: None - Family History Maternal Family History: Family History (Last Reviewed 08/23/18 @ 13:20 by Chinyere Rubalcava) Mother Diabetes Father Diabetes Heart disease Family History: Reports: Diabetes Paternal Family History: Family History (Last Reviewed 08/23/18 @ 13:20 by Chinyere Rubalcava) Mother Diabetes Father Diabetes Heart disease Family History: Reports: Diabetes, Heart Disease Review of Systems ROS: Unable to Obtain - Patient is a poor informant General: Reports: Malaise. Denies: Chills, Fever, Sweats Eyes: Denies: Visual changes - bilaterally, Diplopia ENT: Denies: Rhinorrhea, Sore throat Cardiovascular: Denies: Chest pain, Palpitations Respiratory: Denies: Dyspnea, Cough, Dyspnea on exertion Gastrointestinal: Reports: Abdominal pain, Nausea. Denies: Vomiting, Diarrhea, Constipation, Melena, Hematochezia Genitourinary: Denies: Dysuria, Hematuria, Frequency Musculoskeletal: Denies: Myalgias, Arthralgias, Back pain, Extremity Pain Skin: Reports: Rash, Abscess, Wounds Neurological: Reports: Weakness, Parasthesia. Denies: Headache, Numbness Psych: Reports: Depression Hematologic: Denies: Easy bruising, Easy bleeding Allergy: Denies: Uticaria, Swelling of the mouth Physical Exam Vital Signs/Narrative: Vital Signs Temp Pulse Resp BP Pulse Ox 10/20/18 16:32 98.0 F 80 16 112/65 99 Inital Vital Signs reviewed: Yes General: Well nourished, Well developed, No Acute Distress Head: Normocephalic, Atraumatic Eyes: Perrl, EOMI. Negative for: Pale conjunctiva, Scleral icterus ENT: Moist mucous membranes, No rhinorrhea, TM's clear Neck: Supple, Nontender, No lymphadenopathy, No JVD Cardiovascular: Regular rate, Regular rhythm, No murmurs, Normal S1, Normal S2 Respiratory: No distress, CTA bilaterally, Chest nontender Abdomen: Soft, Nondistended, Normal bowel sounds, No masses, Tender Back: Nontender, Normal Inspection Extremities: Nontender, No edema Skin: Pallor. Negative for: No rash, Cyanosis, Diaphoresis, Jaundice Neurological: Alert, Oriented x3, Cranial nerves II-XII grossly intact, Normal Strength, Normal Sensation Psychological: Depressed Diagnostic/Tx/Re-eval Impressions Abdomen/Pelvis CT 10/20/18 16:47 IMPRESSION: Feeding tube insertion in the mid abdomen with focal inflammatory changes in the subcutaneous fat with phlegmonous changes and possible small extraperitoneal abscess. Would recommend fistulogram for further evaluation. Electronically Signed: Fabio Jones MD at 19:55 EDT , Service support , ADDENDUM: 10/20/182011 IMPRESSION: Feeding tube insertion in the mid abdomen with focal inflammatory changes in the subcutaneous fat with phlegmonous changes and possible small extraperitoneal abscess. Would recommend fistulogram for further evaluation. N.B. : The above information has been verbally conveyed by Fabio Jones MD to Armando Carreon MD, on 10/20/2018 20:05:01 (ET). Electronically Signed: Fabio Jones MD at 19:55 EDT , Service support , 10/20/18 16:47 Abdomen/Pelvis WITH Contrast [CT] Stat Laboratory Results 10/20/18 10/20/18 10/20/18 17:05 17:05 17:05 WBC 11.9 H RBC 2.96 L Hgb 8.5 L Hct 26.9 L MCV 90.9 MCH 28.7 MCHC 31.6 L RDW Std Deviation 61.5 H RDW Coeff of Griselda 18.7 H Plt Count 535 H MPV 8.3 Immature Gran % (Auto) 1.100 H Neut % (Auto) 54.8 Lymph % (Auto) 28.7 [place] % (Auto) 11.2 H Eos % (Auto) 3.3 Baso % (Auto) 0.9 Absolute Neuts (auto) 6.5 Absolute Lymphs (auto) 3.41 Nucleated RBC % 0 Sodium 137 Potassium 4.1 Chloride 101 Carbon Dioxide 29.0 Anion Gap 7 BUN 24 H Creatinine 0.62 Estim Creat Clear Calc 47.79 Est GFR (MDRD) Af Amer 124 Est GFR (MDRD) Non-Af 103 BUN/Creatinine Ratio 38.9 H Glucose 57 L Lactic Acid 1.7 Calcium 8.8 Total Bilirubin 0.30 AST 10 L ALT 12 L Alkaline Phosphatase 109 Total Protein 7.0 Albumin 2.4 L Globulin 4.6 H Albumin/Globulin Ratio 0.5 L - Medical Decision Making Patient with obvious wound and infection. Will obtain CT with IV contrast and oral contrast through feeding tube to assess placement of the feeding tube and to determine if there is recurrence of abscess or anastomosis leak. Will obtain blood work to assess for white count and H&H since she appears pale. Additional blood work was obtained to assess for sepsis. CAT scan reveals an intra-abdominal abscess. Will start on IV antibiotics. Dr. Leslie has seen patient. He informed me that she was discharged from the [facility] less than 1 week ago. He requested transfer back to [facility] since he is receiving [facility]. Spoke with transfer personnel and Dr. Leija for the surgical team. Patient's been accepted. I was told by the transport person that beds are tight and just had her see her getting a bed this evening. ED Disposition - Plan for ED Patient: Disposition: [facility] - Main Diagnosis: Intra-abdominal abscess post-procedure, Sepsis, Anemia, unspecified, Hypoglycemia due to type 1 diabetes mellitus Referrals: Shanta Welsh PA [Primary Care Provider] -
[2018-10-20 17:37] LABS: Absolute Lymphocyte Count 3.41 X10^3/uL (0.83-4.51); Absolute Neutrophil Count 6.5 X10^3/uL (2.0-7.7); Basophil# 0.11 X10^3/uL; Basophil% 0.9 % (0-1); Eosinophil# 0.39 X10^3/uL; Eosinophils% 3.3 % (0-5); Hematocrit 26.9 % (37-47); Hemoglobin 8.5 g/dL (12.0-15.0); Lymphocyte # 3.41 X10^3/ul (4.0); Lymphocyte % 28.7 % (19-41); Mean Corp Hgb Conc 31.6 g/dL (32-36); Mean Corpuscular Hgb 28.7 pg (27.0-32.0); Mean Corpuscular Volume 90.9 fL (81-99); Mean Platelet Vol. 8.3 fl (6.2-12.0); Monocyte# 1.33 X10^3/uL; Monocyte% 11.2 % (0-10); NRBC Flagged by Analyzer 0 % (0-5); Neutrophil % 54.8 % (47-70); Platelet Count 535 K/mm3 (150-450); RBC Distribution Width CV 18.7 % (11.6-14.6); RBC Distribution Width SD 61.5 fl (35.1-43.9); Red Blood Count 2.96 M/mm3 (4.2-5.4); White Blood Count 11.9 K/mm3 (4.4-11.0)
[2018-10-20 17:55] LABS: ALB/GLOB Ratio 0.5 RATIO (0.9-2.4); AST(SGOT) 10 U/L (15-37); Alanine Aminotransfer ALT/SGPT 12 U/L (13-56); Albumin, Serum 2.4 g/dL (3.2-5.0); Alkaline Phosphatase 109 U/L (45-117); Anion Gap 7 (5-15); BUN 24 mg/dL (7-18); BUN/Creat Ratio 38.9 RATIO (10-20); Calcium,Total 8.8 mg/dL (8.5-10.1); Chloride 101 mmol/L (98-107); Creatinine, Serum 0.62 mg/dL (0.55-1.02); EST Glomerular Filtration Rate 103 mL/min (>60); Est Glom Filt Rate - Afr Amer 124 mL/min (>60); Estimated Creatinine Clearance 47.79 ml/min; Globulin 4.6 g/dL (2.2-4.2); Glucose 57 mg/dL (74-106); Potassium 4.1 mmol/L (3.5-5.1); Sodium Level 137 mmol/L (136-145)
[2018-10-20 18:02] LABS: Lactic Acid 1.7 mmol/L (0.4-2.0)
--- NOTE | 2018-10-20 18:03 | ED.RN ---
ORAL CONTRAST GIVEN VIA PEG TUBE. RESIDUAL MATERIAL NOTED IN PEG PRIOR TO START OF ORAL CONTRAST ADMINISTRATION. APPROXIMATELY 200 ML CONTRAST GIVEN. UNABLE TO ADMINISTER ADDITIONAL CONTRAST FLUID NO LONGER ADVANCED THROUGH TUBE.
[2018-10-20 19:32] VITALS: BP 115/76; PULSE 66; RESP 19; TEMP 36.7; O2SAT 98
--- NOTE | 2018-10-20 21:34 | PCM.HP.BLA ---
History and Physical Date of Admission: 10/20/18 ?HISTORY AND PHYSICAL Mamie Sylvester 1950 REFERRING PHYSICIAN: Allen Gaffney MD CHIEF COMPLAINT: Foul-smelling purulent drainage from feeding tube site HPI: The patient is a 68 year old female with a complaint of increased redness pain and swelling at her feeding tube site. The patient noticed increasing discomfort for the past 3 days along with redness and swelling at her feeding tube site. The family states they are still able to push feeds through the tube at her extended care facility. 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 She presents today for evaluation. She is uncertain who had her follow-up in my office. It seems that the appointment was made the day of discharge from [facility]. The patient has a complex medical history. The patient is followed by Dr. Emir Grant who notes the following on office visit on October 17: The patient is a 68 yo female with PMH significant for DM (dx ~20-25 years ago), hyperlipidemia, HTN, GERD, glaucoma, CARLOTA and thyroid nodules. She presented to the emergency department at [facility] on 01/29/2016 with complaints of abdominal pain and significant indigestion/dyspepsia. A CT scan was performed. There were no significant findings other than a somewhat distended stomach with possible wall thickening especially of the gastric antrum. She was referred to [facility] and underwent an attempted EGD/EUS on 03/10/2016. The prep for the procedure was poor and therefore it could not be carried out to completion. She was rescheduled and underwent the procedure again on 03/13/2016. Thick gastric folds in the gastric distal body and proximal antrum were observed. They produced mild luminal narrowing with no resistance scope passage. The duodenum was normal. The wall thickening in the stomach was and a sonographically in the distal body and proximal antrum of the stomach. It appeared to involve the entire gastric wall with absence of layer differentiation. The gastric wall measured up to 14 mm in thickness. FNA was performed. Pathology: 1. Stomach, distal body, biopsy (A) - Invasive, poorly differentiated adenocarcinoma with signet ring cells. 2. Stomach, wall, biopsy (B) - - Invasive, poorly differentiated adenocarcinoma with signet ring cells infiltrating the muscular wall. No family h/o gastric, colon or pancreas cancer. She has a history of atypical chest pain and has undergone 2 coronary catheterizations in the past. She's not been found to have any significant obstructive lesions. Previous therapy: 1) Neoadjuvant ECF. Completed 3 cycles on 06/22/2016 with no dose delays or dose reductions. 2) Underwent a subtotal gastrectomy 08/20/2016. Path: T3N0 gastric CA with 0/15 nodes, poor treatment response, and positive distal margin (duodenum). 3) FLOT x3 completed 10/2016. Was admitted to [facility] 08/06 through 08/11 for worsening vomiting and abdominal pain. Prior to that she had been undergoing workup for gastric outlet obstruction. During hospitalization she underwent an exploratory laparotomy along with extensive lysis of adhesions, duodenojejunostomy, gastrojejunostomy tube jejunostomy. During surgery she was observed to have At the base of the mesentery, a firm mass as palpable with complete matting and fixation of the two limbs. The area representing likely recurrent gastric cancer was causing outlet obstruction of the stomach and the duodenum. The transverse mesocolon in the midline was also intricately involved with the mass. Pathology: 1. Omentum, omentectomy (A) - Omental tissue focally involved by poorly-differentiated adenocarcinoma. - Background focal fat necrosis and fibrous adhesions. - See comment. 2. Small bowel margin (B) - Segment of small intestine with no significant diagnostic abnormality, negative for malignancy. COMMENT 1. The patient's history of poorly-differentiated gastric adenocarcinoma is noted. Sections demonstrate omental tissue with focal fat necrosis, fibrous adhesions, and a focus of dense fibrosis near the omental surface with infiltrating atypical cells, some of which demonstrate an epithelioid morphology and others which have a signet ring cell-like appearance. Immunostains were performed on block A2 for further evaluation of the atypical cells, which are strongly immunoreactive for CAM 5.2 and are negative for CDX-2, WT-1, and D2-40. The morphologic and immunohistochemical findings are consistent with omental involvement by poorly-differentiated adenocarcinoma consistent with the patient's known history of gastric adenocarcinoma. Presents for ongoing oncologic management. Interim history: She was again admitted to [facility] for concern of possible intra-abdominal abscess. She was seen in consultation by ID and Gen. surgery. The bigger was concerned she possibly had anastomotic leak. Upper GI series on 10/05 concerning for gastric leak. Patient underwent endoscopy on 10/07. A large amount of retained food was observed in the stomach. There was evidence of prior distal gastrectomy. There was a loop gastrojejunostomy was widely patent. No evidence of leak was observed. Was thought that some of the intra-abdominal material was communicating via cutaneous fistula along previous midline incision. G-tube was replaced. Patient was discharged to skilled care with nocturnal tube feeds. She reports that she's been doing rather well since time of discharge. She is participating in physical therapy. She is able to eat a wide variety of foods and denies having abdominal bloating and nausea after eating. Her bowels are moving approximately every other day with formed stools. She's not straining to move her bowels. No sign of GI bleed. J-tube is working well with no significant leak. She's not had abdominal bloating or distention. No episode of fever. Per the patient the swelling started approximately 3 days previously. She notes the dressing around her gastrostomy tube was changed last night. She has 4 x 4's and ABDs taped to the site. She notes significant foul-smelling material draining back along the feeding tube site. Reviewing the operative note from August 06, 2018 where she had revision of her initial partial gastrectomy due to obstruction of the pancreaticobiliary limb of her Marie-en-Y anastomosis. The patient was found to have a large boggy stomach. The patient was found to have a firm palpable mass at the base of the mesentery. A 16 American feeding tube was placed into what was recorded as the common channel of the jejunum. The balloon was inflated second with 3 cc of sterile water. She was discharged on August 11. She was admitted to [facility] from August 26 to August 31 with a diagnosis of urinary tract infection sepsis and colitis and anemia. She was then readmitted to [facility] from September 10 to September 13. At that point in time the patient presented to [facility] on September 15 with the tube having fallen out on 2 occasions. A 20 American feeding tube was placed and balloon inflated to 5 cc. The patient then noted more challenges with pain at her incision sites and was readmitted to the [facility] from October [address] scan at this time demonstrated multiple abscesses in the upper abdomen. Interventional radiology was able to place a drain area did an upper GI study was listed as demonstrating a leak between the GJ anastomosis contiguous with the abscesses. The patient was discharged with her tube feeds being resumed. PAST MEDICAL HISTORY PAST SURGICAL HISTORY CURRENT MEDICATIONS ALLERGIES: Sodium Pentothal [Thiopental]; Fentanyl; Percocet [Oxycodone-Acetaminophen] PERSONAL HISTORY: SOCIAL HISTORY FAMILY HISTORY: FAMILY HISTORY REVIEW OF SYMPTOMS: The review of systems data was entered by the nurse and reviewed by me There are no exam notes on file for this visit. PHYSICAL EXAMINATION: General: The patient is 68 year old female, well nourished, well hydrated in no acute distress. The patient is oriented to time, place, and person. VITALS: Blood pressure 104/52, pulse 83, temperature 36.1 ?C (96.9 ?F), resp. rate 16, weight 71.6 kg (157 lb 12.8 oz), SpO2 100 %. HEENT: Normal cephalic, ataumatic, pupils are equally round, sclera are anicteric, mucous membranes are moist, oropharynx is clear. Neck has no masses, asymmetry or lymphadenopathy. Thyroid is unremarkable. Respiratory: Clear to auscultation and percussion. Normal respiratory excursion and pattern. Cardiac: Examination is regular rate and rhythm. Abdominal exam: Soft, tender at the feeding tube site with a 8 x 8 cm area of erythema and with the patient notes his more protuberance then there was present a few days previously. The abdominal pad dressing and 4 x 4's were completely soaked with very foul-smelling purulent material. There wire to 4 x 4's over the open midline wounds which the patient states were previous spontaneously drained abscesses which were being packed and currently have granulation tissue, with no palpable masses. No hepatosplenomegaly. No palpable hernias. Rectal exam: exam deferred Extremities: no clubbing, cyanosis or edema. No adenopathy. Other: LABORATORY VALUES: As Noted RADIOLOGIC STUDIES: As Noted Assessment IMPRESSION: Displaced feeding tube versus jorge a-feeding tube abscess versus subcutaneous abscess PLAN: The patient was sent to [facility] for CT scan of the abdomen pelvis. A CT scan of the abdomen pelvis was obtained right also asked that contrast be given through the feeding tube. Contrast was given early through the feeding tube but no contrast given just before the CT scan. Report of the CT scan was interpreted as tube likely within bowel but a abscess was noted next to the balloon likely outside of bowel along with anterior and material tracking from the abdominal cavity up into the subcutaneous space without a true subcutaneous abscess. Given these findings, the uncertainty if the patient's catheter is truly intraluminal with an abscess next to the site and possible challenges in draining this at the [facility] I recommended the patient be transferred back to [facility]. Diagnoses: (Z98.890) S/P gastric surgery (primary encounter diagnosis) (C16.8) Malignant neoplasm of overlapping sites of stomach (HCC) (L02.211) Abdominal wall abscess Return to Clinic: The patient is instructed to follow-up with me as needed. This note was partially generated using [employer] voice recognition system, and there may be some incorrect words, spellings, and punctuation that were not noted in checking the note before saving. Jp Lowe MD ?
[2018-10-20 21:42] VITALS: BP 111/59; PULSE 64; RESP 19; TEMP 36.5; O2SAT 98
[2018-10-20] MEDS: 0.9% Normal Saline 1,000 ML 250 ML IV (21:42)
[2018-10-20] MEDS: Vancomycin IV 1,000 MG/200 ML BAG 200 MG IV (22:21)
[2018-10-20 22:32] VITALS: BP 111/59; PULSE 64; RESP 19; TEMP 36.5; O2SAT 98
--- NOTE | 2018-10-20 22:50 | ED.RN ---
PT BLOOD GLUCOSE WAS 56. DR. ENG MADE AWARE, DR ORDERED D50, WILL MEDICATE AND RECHECK SUGAR IN 15MIN.
[2018-10-20] MEDS: Dextrose 50%-Water 25 GM/50 ML DISP.SYRIN IV (22:58)
[2018-10-20 23:00] VITALS: BP 114/75; PULSE 77; RESP 16; TEMP 36.6; O2SAT 97
[2018-10-20 23:05] LABS: Bedside Glucose 56 mg/dL (70-110)
--- NOTE | 2018-10-20 23:38 | ED.RN ---
PT RECHECK BLOOD GLUCOSE WAS 154 @ 2320, DR ENG MADE AWARE. NO FURTHER ORDERS AT THIS TIME.
[2018-10-20 23:46] LABS: Bedside Glucose 154 mg/dL (70-110)
== END 2018-10-20 23:34 | disposition short-term general hospital (02) ==
PROVIDERS: Surgery; Emergency Provider Emergency Medicine; Family Provider Physician Assistant; PCP Physician Assistant
DX: T81.43XA Infection following a procedure, organ and space surgical site, initial encounter (principal); T81.44XA Sepsis following a procedure, initial encounter; L02.211 Cutaneous abscess of abdominal wall; C16.8 Malignant neoplasm of overlapping sites of stomach; D64.9 Anemia, unspecified; E72.20 Disorder of urea cycle metabolism, unspecified; E83.42 Hypomagnesemia; I25.10 Atherosclerotic heart disease of native coronary artery without angina pectoris; E11.40 Type 2 diabetes mellitus with diabetic neuropathy, unspecified; I10 Essential (primary) hypertension; E04.2 Nontoxic multinodular goiter; E78.5 Hyperlipidemia, unspecified; K21.9 Gastro-esophageal reflux disease without esophagitis; G47.33 Obstructive sleep apnea (adult) (pediatric); H40.9 Unspecified glaucoma; Z79.4 Long term (current) use of insulin; Z79.899 Other long term (current) drug therapy; Z85.028 Personal history of other malignant neoplasm of stomach; Z87.891 Personal history of nicotine dependence; Z88.5 Allergy status to narcotic agent; Z90.710 Acquired absence of both cervix and uterus; Z90.49 Acquired absence of other specified parts of digestive tract
CPT/HCPCS: 36591; 74177; 80053; 82962; 83605; 85025; 96365; 96367; 99284; J7030; Q9967; A4216

== ENCOUNTER 2018-11-13 11:55 | Emergency (ER) | payer MEDICARE, MEDICAID, SELFPAY ==
[2018-11-13 11:57] VITALS: BP 110/69; PULSE 116; RESP 18; TEMP 37.2; O2SAT 98; BMI 23.2
--- NOTE | 2018-11-13 12:20 | ED.DCSUM_ITS ---
History of Present Illness Chief Complaint: Wound Informant: Patient, Family Onset: Weeks Current Severity: Mild Narrative: Manage from her PEG tube site 4 weeks patient has history of stomach cancer prior PEG tube for poor eating she indicates she had severe drainage from the PEG tube site was seen at [facility] had a surgical procedure or Dr. 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 The patient presents complaining that she wants the drainage to be stopped and wants something done to stop the drainage she otherwise been doing well at home she is eating and drinking her bowel habits been unremarkable she is scheduled to see oncology tomorrow Past Medical History - Allergies and Home Meds Allergies/Adverse Reactions: Allergies fentanyl Adverse Reaction (Verified 11/13/18 12:03) MAKES ME SHAKE oxycodone [From Percocet] Adverse Reaction (Verified 11/13/18 12:03) MAKES ME SHAKE thiopental Adverse Reaction (Verified 11/13/18 12:03) MAKES ME SHAKE Primary Care Physician: Shanta Welsh PA [Primary Care Provider] - Past Medical History: - - See the above Surgical History: cholecystectomy, hysterectomy, - - Subtotal gastrectomy for gastric cancer, prior cervical fusion as well as Jefferson rods in the thoracic and lumbosacral spine, recent PowerPort placement, recent gastric cancer bypass with small bowel partial resection, J-tube placement. Smoking Status: Current every day smoker - Family History Maternal Family History: Family History (Last Reviewed 08/23/18 @ 13:20 by Chinyere Rubalcava) Mother Diabetes Father Diabetes Heart disease Family History: Reports: Diabetes Paternal Family History: Family History (Last Reviewed 08/23/18 @ 13:20 by Chinyere Rubalcava) Mother Diabetes Father Diabetes Heart disease Family History: Reports: Diabetes, Heart Disease Review of Systems General: Reports: - - Image from the PEG tube ostomy site only and slight redness to the skin. Denies: Chills, Fever, Sweats Eyes: Denies: Visual changes - bilaterally, Diplopia ENT: Denies: Rhinorrhea, Sore throat Cardiovascular: Denies: Chest pain, Palpitations Respiratory: Denies: Dyspnea, Cough, Dyspnea on exertion Gastrointestinal: Denies: Abdominal pain, Nausea, Vomiting, Diarrhea, Melena, Hematochezia Genitourinary: Denies: Dysuria, Hematuria, Frequency Musculoskeletal: Denies: Back pain, Extremity Pain Skin: Denies: Rash, Wounds Neurological: Denies: Headache, Weakness, Numbness Physical Exam Vital Signs/Narrative: Vital Signs Temp Pulse Resp BP Pulse Ox 11/13/18 11:57 98.9 F 116 H 18 110/69 98 General: Well nourished, Well developed, No Acute Distress Head: Normocephalic, Atraumatic Eyes: Perrl, EOMI ENT: Moist mucous membranes, No rhinorrhea Neck: Supple, Nontender Cardiovascular: Regular rate, Regular rhythm, No murmurs Respiratory: No distress, CTA bilaterally, Chest nontender Abdomen: Soft, Nontender, Nondistended, Normal bowel sounds, - - The PEG tube site anterior abdominal area is draining some yellowish fluid, the abdomen soft and nontender there is no signs of any soft tissue gross infection, but the skin around the ostomy to about 3 cm diameter is slightly red and excoriated this could be from the fluid the bandage that was on there, again no gross signs of obvious infection this is been going on for 2 weeks Back: Nontender, Normal Inspection Extremities: Nontender, No edema Skin: Normal color, No rash Neurological: Alert, Oriented x3, Cranial nerves II-XII grossly intact, Normal Strength, Normal Sensation Psychological: Normal affect, Normal Mood Diagnostic/Tx/Re-eval - Medical Decision Making I had a long conversation the patient and her family I explained to him that there is nothing to be done at the hospital emergency department to stop the drainage of this fluid from the PEG type site which is been gone for 2 weeks, I then spoke with Dr. Plaza oncology who is very familiar with her he indicates that basically there is a fistula there the [facility] surgery could not resolve this surgically and that the patient was explained this condition and the fact that the persistent drainage from the area and she should manage it with wound care fistula care etc. the patient apparently did not appreciate or understand that part of her care, I explained to the patient that if she would like to be transferred to [facility] for further management of the above she refused that stating that the physicians are told her that there was nothing more that could be done which was in contrast to the above, she preferred to be seen by oncologist as scheduled tomorrow for further management Dr. Plaza was apprised of the above and agreed with Augmentin wound care and follow-up in the office Home stable declined transfer to [facility] Final impression Ridge from PEG tube site, history of fistula involving PEG tube site, history of stomach cancer ED Disposition - Plan for ED Patient: Diagnosis: Fistula Instructions: Cellulitis Prescriptions: Amox/Clavulanate Tablet [Augmentin Tablet] 875 mg PO Q12H #20 tab Prescription Printed Ondansetron [Zofran Odt] 4 mg PO Q8H PRN PRN #10 tab PRN Reason: Nausea Prescription Printed Referrals: Shanta Welsh PA [Primary Care Provider] - Additional Instructions: Wound care, follow-up with your outpatient providers tomorrow as scheduled
[2018-11-13] MEDS: Ondansetron ODT 4 MG Tablet PO (12:26)
[2018-11-13] MEDS: Amox/Clavulanate 875 MG Tablet PO (12:26)
[2018-11-13 12:46] VITALS: BP 110/69; PULSE 116; RESP 18; TEMP 37.1; O2SAT 98
== END 2018-11-13 12:48 | disposition home or self-care (01) ==
LOC: ED 12:45
PROVIDERS: Emergency Provider Emergency Medicine; Family Provider Physician Assistant; PCP Physician Assistant
DX: K94.29 Other complications of gastrostomy (principal); K31.6 Fistula of stomach and duodenum; F17.200 Nicotine dependence, unspecified, uncomplicated; Z88.5 Allergy status to narcotic agent; Z85.028 Personal history of other malignant neoplasm of stomach; Z90.49 Acquired absence of other specified parts of digestive tract; Z90.710 Acquired absence of both cervix and uterus
CPT/HCPCS: 99283

== ENCOUNTER 2018-12-13 12:17 | Emergency (ER) | payer MEDICARE, MEDICAID, SELFPAY ==
[2018-12-13 12:18] VITALS: BP 121/62; PULSE 102; RESP 18; TEMP 36.6; O2SAT 100; BMI 22.3
--- NOTE | 2018-12-13 12:49 | ED.VIS.GEN ---
History of Present Illness Chief Complaint: Wound Check Informant: Patient, Family Onset: Today Narrative: She is a 68-year-old female with history of gastric adenocarcinoma currently in hospice care presenting after her PEG tube fell out. Patient states she is not sure how it fell out. She states it was replaced in the office last week by Dr. Whaley. She states she has had the PEG tube itself for years. She is now having drainage from the site since it fell out. This occurred approximately 1 hour prior to arrival. Patient came to the emergency room for placement of a new PEG tube. Patient denies any other complaints at this time. She states she is not currently on chemotherapy because the chemo was killing me and is in hospice care. She states she is otherwise feeling fine today. Past Medical History - Allergies and Home Meds Allergies/Adverse Reactions: Allergies fentanyl Adverse Reaction (Verified 12/13/18 12:21) MAKES ME SHAKE oxycodone [From Percocet] Adverse Reaction (Verified 12/13/18 12:21) MAKES ME SHAKE thiopental Adverse Reaction (Verified 12/13/18 12:21) MAKES ME SHAKE Primary Care Physician: Shanta Welsh PA [PHYSICIAN INTERIOR SPECIALIST] - Past Medical History: - - Adenocarcinoma gastric Surgical History: cholecystectomy, hysterectomy, - - Subtotal gastrectomy for gastric cancer, prior cervical fusion as well as Jefferson rods in the thoracic and lumbosacral spine, recent PowerPort placement, recent gastric cancer bypass with small bowel partial resection, J-tube placement. Smoking Status: Former smoker - Family History Maternal Family History: Family History (Last Reviewed 08/23/18 @ 13:20 by Chinyere Rubalcava) Mother Diabetes Father Diabetes Heart disease Family History: Reports: Diabetes Paternal Family History: Family History (Last Reviewed 08/23/18 @ 13:20 by Chinyere Rubalcava) Mother Diabetes Father Diabetes Heart disease Family History: Reports: Diabetes, Heart Disease Review of Systems All systems negative except as indicated Skin: Reports: Wounds - chronic surgical wound- midline; LUQ- PEG tube site Physical Exam Vital Signs/Narrative: Vital Signs Temp Pulse Resp BP Pulse Ox 12/13/18 12:18 97.9 F 102 H 18 121/62 H 100 Inital Vital Signs reviewed: Yes General: Well nourished, Well developed, No Acute Distress Head: Normocephalic, Atraumatic Eyes: Perrl ENT: Moist mucous membranes, No rhinorrhea Neck: Supple, Nontender Cardiovascular: Regular rate, Regular rhythm, No murmurs Respiratory: No distress, CTA bilaterally, Chest nontender Abdomen: Soft, Nontender, Nondistended, - - Tract present draining what appears to be gastric contents from prior PEG tube, patient has midline surgical incisions that appear to have been dehisced in the past are now healing by secondary intent, no surrounding erythema or signs of infection at this time Back: Nontender, Normal Inspection Extremities: Nontender, No edema Skin: Normal color, No rash Neurological: Alert, Oriented x3, Normal Strength, Normal Sensation Psychological: Normal affect, Normal Mood Diagnostic/Tx/Re-eval - Medical Decision Making Evaluate for dislodged PEG tube. The tract has been there for quite some time and initially a 14 [place] Campos catheter is placed in the tract. We do not have a new 14 Com[place] PEG tube which is what patient previously had and there. Patient brought in her old one which is cleansed with sterile saline. This is replaced after I touched base with her surgeon, Dr. Garcia. Gastrografin study is ordered to assure proper placement. Patient is discharged home with instructions to follow-up with surgery as needed. Patient is counseled on signs and symptoms requiring return to the emergency room. Patient verbalizes agreement and understand this plan. Patient discharged home in stable and improved condition. ED Disposition - Plan for ED Patient: Disposition: Home or Assisted Living Diagnosis: PEG tube malfunction Instructions: PEG Feeding Tube Care: [place] Referrals: Shanta Welsh PA [PHYSICIAN INTERIOR SPECIALIST] - Additional Instructions: Continue if you develop worsening symptoms with the tube falls out again. Change dressings as needed for leakage. Follow-up with your surgeon as needed.
--- NOTE | 2018-12-13 14:22 | RAD_ITS ---
STUDY: X-RAY - ABDOMEN/PELVIS REASON FOR EXAM: Female, 68 years old. PEG tube verification. TECHNIQUE: Single AP view of the abdomen / pelvis. COMPARISON: Plain film 09/15/2018, CT scan 10/20/2018. FINDINGS: Normal visualized lung bases. Contrast injected through the jejunostomy tube outlines small bowel loops in the pelvis indicating appropriate positioning. There is an unremarkable bowel gas pattern. There is no demonstrated free abdominal air. The visualized liver, spleen and kidneys are grossly normal in size and morphology. Stable appearance of extensive spine and SI joints surgeries and fixations. RAD/Abdomen Single View IMPRESSION: Satisfactory positioning of jejunostomy tube. Electronically Signed: Gerald Gandara MD at 17:27 EDT , Service support ,
[2018-12-13 14:57] VITALS: BP 115/75; PULSE 97; RESP 18; O2SAT 95
== END 2018-12-13 14:53 | disposition home or self-care (01) ==
PROVIDERS: Emergency Provider Emergency Medicine; Family Provider Family Medicine; PCP Family Medicine
DX: K94.29 Other complications of gastrostomy (principal); Z87.891 Personal history of nicotine dependence; Z79.899 Other long term (current) drug therapy; Z88.5 Allergy status to narcotic agent; Z85.028 Personal history of other malignant neoplasm of stomach; Z90.49 Acquired absence of other specified parts of digestive tract; Z90.710 Acquired absence of both cervix and uterus
CPT/HCPCS: 74018; 99282

== ENCOUNTER 2018-12-31 19:04 | Emergency (ER) | payer MEDICARE, MEDICAID, SELFPAY ==
[2018-12-31 19:04] VITALS: BP 101/59; PULSE 77; RESP 16; TEMP 36.2
[2018-12-31 19:05] VITALS: BP 101/59; PULSE 77; RESP 16; TEMP 36.2; BMI 22.4
--- NOTE | 2018-12-31 20:55 | RAD_ITS ---
STUDY: X-RAY - ABDOMEN/PELVIS REASON FOR EXAM: Female, 68 years old. New gastric tube placement TECHNIQUE: Single AP view of the abdomen / pelvis. COMPARISON: Prior study of 12/13/2018 FINDINGS: Normal visualized lung bases. There is an unremarkable bowel gas pattern. There is no demonstrated free abdominal air. The visualized liver, spleen and kidneys are grossly normal in size and morphology. Normal soft tissue structures. No gastric tube is identified. Is extensive orthopedic hardware of the visualized thoracolumbar spine and pelvis. RAD/Abdomen Single View IMPRESSION: The bowel gas pattern is unremarkable with no evidence of ileus or obstruction. There is extensive orthopedic hardware of the visualized thoracolumbar spine and pelvis. No gastric tube is identified. Electronically Signed: Gage Bowles MD at 21:34 EDT , Service support ,
[2018-12-31] MEDS: Morphine 4 MG/ML Syringe IM ×2 (21:07→23:07)
--- NOTE | 2018-12-31 22:30 | CT_ITS ---
STUDY: CT ABDOMEN AND PELVIS WITHOUT CONTRAST REASON FOR EXAM: Female, 68 years old. Pain burning after catheter placement RADIATION DOSAGE (If Supplied By Facility): CTDIvol = ( 15.91 ) mGy, DLP = ( 808.75 ) mGycm TECHNIQUE: Transaxial images were obtained from the dome of the diaphragm to the symphysis pubis without oral contrast, and without intravenous contrast. Sagittal and coronal images were reconstructed. Individualized dose optimization techniques were used for this CT. COMPARISON: CT abdomen pelvis 10/20/2018. Abdominal radiograph same day FINDINGS: The exam is limited due to lack of intravenous contrast. There is a small left pleural effusion. The visualized portions of the heart are within normal limits. Normal liver. Normal gallbladder and extrahepatic biliary system. Normal spleen. Normal pancreas. Normal bilateral adrenal glands. Normal right kidney. Normal left kidney. 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 There is mild wall thickening of the residual stomach.. There is a jejunostomy tube with the tube inflated likely within a small bowel loop. There is contrast within small bowel loops within the pelvis and colon. No intra-abdominal extravasated contrast is demonstrated. There is air and stranding within the subcutaneous soft tissues adjacent to the catheter. There is also enlargement of the left rectus abdominis musculature. There is contrast within the subcutaneous soft tissues. Normal colon. Normal abdominal aorta. Normal inferior vena cava. Normal retroperitoneum. Normal urinary bladder. Normal abdominal wall. There is extensive postsurgical changes thoracic and lumbar spine with orthopedic hardware with fixation rods, multilevel bony fusion process at this resection of posterior elements. There is extensive streak artifact from the orthopedic hardware CT/Abdomen/Pel W ORAL Cont Only IMPRESSION: Limited non-IV contrast study There is small left pleural effusion Partial gastrectomy, history of Billroth II procedure, wall thickening of the residual stomach most likely due to incomplete distention. Pathologic wall thickening cannot be excluded Jejunostomy catheter with catheter inflated likely within a small bowel loop, there is intra-abdominal contrast within small bowel loops and colon which are nondistended, no extravasated intra-abdominal contrast is present. The contrast is likely from contrast injected through the jejunostomy catheter performed the same day. If the catheter has been replaced since the radiograph performed the same day then fluoroscopy documentation of intraluminal position within the small bowel would be recommended. Evaluation of positioning is limited due to multiple small bowel loops at the level of the catheter site and lack of oral contrast within the small bowel loops at the level of the catheter. There are inflammatory infectious changes, involving the anterior skin with skin thickening, with also involvement of the anterior subcutaneous soft tissues and left rectus abdominis muscle, with stranding, air and contrast within the anterior subcutaneous soft tissues indicating a fistula tract and possible leaking of contrast along the catheter. A fistulogram can be performed to further evaluate. Postsurgical changes thoracic and lumbar spine with surgical metallic hardware Electronically Signed: Tee Wright, at 0:51 EDT Tel , Service support ,
[2018-12-31 23:17] VITALS: PULSE 78; RESP 16; O2SAT 92
--- NOTE | 2019-01-01 00:13 | ED.DCSUM_ITS ---
- ER Visit Summary Date of Service: 01/01/19 Chief Complaint: Dislodged G-tube History of Present Illness: The patient is a 68 F who presents with a G-tube that became dislodged today. Patient has a history of gastric cancer and has a PEG tube in her left mid abdomen. Patient states it came out approxi-2 hours prior to arrival. Patient states she has some burning at the site. Patient admits to some leakage of fluid from the tube site. Patient denies any nausea or vomiting. Patient denies any diarrhea. Patient denies any urinary complaints. Physical Examination: Vital signs are stable. Patient is afebrile. Patient is in no acute distress. Oral mucosa is pink and moist. Neck is supple. Trachea is midline. There is no JVD noted. Heart was regular rate and rhythm. Lungs are clear and equal bilaterally. Abdomen is soft. Bowel sounds are normal. There is some tenderness at the tube site. There is some mild induration. There is a healing midline incision with packing in place. There is no rebound or guarding noted. Cranial nerves II through XII are intact. There are no focal deficits noted. Test Results: Gastrografin study was obtained. There is a question of extravasation of the dye at the level of the lumbosacral junction. CT scan of the abdomen pelvis was then obtained. Emergency Department Course and Treatment: Patient had an [address] that came out. A 22 Italian tube was replaced fairly easily. The balloon was inflated with 5 cc of sterile saline. The Gastrografin study was then obtained. It appeared that most of the Gastrografin dye went into the lumen of the bowel however there is a question of extravasation. Therefore the CT scan of the abdomen pelvis was obtained. Disposition: Discharged back to extended care facility Impression: Dislodged G-tube This note was generated with [employer] dictation software. It may contain incorrect words, spelling, and punctuation that were not noted in review of the chart prior to signing ED Disposition - Plan for ED Patient: Disposition: Retirement Facility Diagnosis: Dislodged gastrostomy tube Instructions: Caring for Your Gastrostomy Tube (G-Tube) Referrals: Arsalan Mercer MD [Primary Care Provider] - 3-5 Days
[2019-01-01] MEDS: Morphine 4 MG/ML Syringe IM (01:09)
[2019-01-01 02:15] VITALS: BP 118/78; PULSE 76; RESP 15; O2SAT 99
== END 2019-01-01 02:16 | disposition skilled nursing facility (03) ==
PROVIDERS: Emergency Provider Emergency Medicine; Family Provider Family Medicine; PCP Family Medicine
DX: K94.29 Other complications of gastrostomy (principal); E11.9 Type 2 diabetes mellitus without complications; Z72.0 Tobacco use; Z79.84 Long term (current) use of oral hypoglycemic drugs; Z79.899 Other long term (current) drug therapy; Z90.3 Acquired absence of stomach [part of]; Z85.028 Personal history of other malignant neoplasm of stomach
CPT/HCPCS: 43762; 74018; 74176; 96372; 99283

== ENCOUNTER 2019-01-24 15:53 | Emergency (ER) | payer MEDICARE, SELFPAY ==
[2019-01-24 15:55] VITALS: BP 141/73; PULSE 89; RESP 12; TEMP 36.5; O2SAT 95; BMI 24.5
--- NOTE | 2019-01-24 16:06 | ED.VISSUMM ---
- ER Visit Summary Date of Service: 01/24/19 Chief Complaint: Abdominal pain History of Present Illness: The patient is a 68 F presenting with abdominal pain. This started early this morning. She complains of lower abdominal pain and nausea and vomiting. Her last bowel movement was on Wednesday. She has a history of gastric cancer status post partial gastrectomy. Her last chemotherapy was 1.5 months ago. She had an appointment with her oncologist today but missed it due to vomiting. She is concerned about viral infection versus small bowel obstruction. Denies chest pain or shortness of breath. Denies fever. Denies other complaints. Physical Examination: Vitals are stable. Patient is afebrile. Alert no acute distress. HEENT exam is unremarkable. Neck is supple. Lungs are clear and equal bilaterally. Heart is regular rate and rhythm. Abdomen is soft mild suprapubic tenderness with no rebound or guarding, healing wound feeding tube site Extremities are unremarkable. Skin is warm and dry. Remainder of exam is unremarkable. Emergency Department Course and Treatment: CBC shows white count 13.7. Chemistries unremarkable. Lipase is 150. Urinalysis shows 10-25 white blood cells, 0 red blood cells. Urine culture was sent. She was given IV fluids, Zofran. CT abdomen pelvis shows removal of the small bowel catheter seen on the prior study. Continued mild jejunal small bowel wall thickening and distention most likely postsurgical. No evidence of ileus or obstruction. Stable Billroth II surgery of the stomach. No other major interval change when compared to prior study. On reevaluation, patient is feeling improved, she is able to tolerate p.o. Discussed with Dr. Grant. Patient will schedule a follow-up appointment. She was given prescription for Keflex and Zofran. Advised return to ED for worsening complaints. Disposition: Discharge home Impression: Vomiting, UTI This note was generated with [employer] dictation software. It may contain incorrect words, spelling, and punctuation that were not noted in review of the chart prior to signing ED Disposition - Plan for ED Patient: Instructions: Bladder Infection, Female (Adult) Prescriptions: Cephalexin [Keflex] 500 mg PO Q12 #14 cap Prescription Printed Ondansetron [Zofran Odt] 4 mg PO Q8H PRN PRN #10 tab PRN Reason: Nausea Prescription Printed Referrals: Emir Grant DO [STAFF PHYSICIAN] - Arsalan Mercer MD [Primary Care Provider] -
[2019-01-24] MEDS: 0.9% Normal Saline 1,000 ML 1000 ML IV (16:21)
[2019-01-24] MEDS: Ondansetron 4 MG/2 ML Vial IV ×2 (16:22→18:25)
[2019-01-24 17:09] LABS: ALB/GLOB Ratio 0.6 RATIO (0.9-2.4); AST(SGOT) 22 U/L (15-37); Alanine Aminotransfer ALT/SGPT 28 U/L (13-56); Albumin, Serum 2.7 g/dL (3.2-5.0); Alkaline Phosphatase 110 U/L (45-117); Anion Gap 6 (5-15); BUN 17 mg/dL (7-18); BUN/Creat Ratio 39.3 RATIO (10-20); Chloride 101 mmol/L (98-107); Creatinine, Serum 0.43 mg/dL (0.55-1.02); EST Glomerular Filtration Rate 155 mL/min (>60); Est Glom Filt Rate - Afr Amer 187 mL/min (>60); Estimated Creatinine Clearance 51.81 ml/min; Globulin 4.8 g/dL (2.2-4.2); Glucose 148 mg/dL (74-106); Lipase 150 U/L (73-393); Potassium 4.5 mmol/L (3.5-5.1); Protein, Total 7.5 g/dL (6.4-8.2); Sodium Level 135 mmol/L (136-145)
[2019-01-24 17:11] LABS: Absolute Lymphocyte Count 2.22 X10^3/uL (0.83-4.51); Absolute Neutrophil Count 10.2 X10^3/uL (2.0-7.7); Basophil# 0.07 X10^3/uL; Basophil% 0.5 % (0-1); Eosinophil# 0.08 X10^3/uL; Eosinophils% 0.6 % (0-5); Hematocrit 42.9 % (37-47); Hemoglobin 13.9 g/dL (12.0-15.0); Lymphocyte # 2.22 X10^3/ul (4.0); Lymphocyte % 16.2 % (19-41); Mean Corp Hgb Conc 32.4 g/dL (32-36); Mean Corpuscular Hgb 31.2 pg (27.0-32.0); Mean Corpuscular Volume 96.2 fL (81-99); Mean Platelet Vol. 8.6 fl (6.2-12.0); Monocyte# 1.06 X10^3/uL; Monocyte% 7.7 % (0-10); NRBC Flagged by Analyzer 0 % (0-5); Neutrophil # 10.21 X10^3/uL (2.7-7.7); Neutrophil % 74.4 % (47-70); Platelet Count 456 K/mm3 (150-450); RBC Distribution Width CV 16.2 % (11.6-14.6); RBC Distribution Width SD 57.6 fl (35.1-43.9); Red Blood Count 4.46 M/mm3 (4.2-5.4); White Blood Count 13.7 K/mm3 (4.4-11.0)
--- NOTE | 2019-01-24 17:12 | CT_ITS ---
STUDY: CT ABDOMEN AND PELVIS WITH CONTRAST REASON FOR EXAM: Female, 68 years old. Nausea and vomiting beginning yesterday. Last bowel movement 2 days ago. History of gastric cancer with last chemotherapy 1.5 months ago. History of cholecystectomy, hysterectomy, spinal fusion and jejunostomy RADIATION DOSAGE (If Supplied By Facility): CTDIvol = ( 13.66 ) mGy, DLP = ( 677.20 ) mGycm TECHNIQUE: Transaxial images were obtained from the dome of the diaphragm to the symphysis pubis without oral contrast. IV Isovue 300 100 was administered. Sagittal and coronal images were reconstructed. Individualized dose optimization techniques were used for this CT. COMPARISON: CT of the abdomen and pelvis, December 31, 2018. In October 20, 2018. FINDINGS: The visualized lung bases are unremarkable. The visualized portions of the heart are within normal limits. Normal liver. There are surgical clips in the gallbladder fossa consistent with a prior cholecystectomy. Normal spleen. Normal pancreas. Normal bilateral adrenal glands. Normal right kidney. There is a 2 x 3 mm calcification in the perihilar lower lobe of the left kidney. There is also a small exophytic cyst off the lower pole.. Normal visualized ureter. There is evidence of a Billroth II procedure with resection of the distal stomach the distal antrum appears present. There is mild dilatation of the proximal duodenal with compression of the third portion of the duodenum between the SMA and aorta. Approximately 5 mm space is seen between the 2 vessels. The distal compartment is unremarkable.. There are multiple distended thick walled loops of small bowel in the upper abdomen may be due to prior surgery.. Distal small bowel appears normal. There is evidence of a rectosigmoid anastomosis of the colon. The colon appears otherwise grossly unremarkable. The appendix is visualized and appears normal. There is diffuse atherosclerotic calcification of the abdominal aorta, without a demonstrated aneurysm. Normal inferior vena cava. Normal retroperitoneum. Normal urinary bladder. Normal vaginal cuff. There are phleboliths and pelvis without lymphadenopathy. No free air or free fluid is seen within the peritoneal cavity. There is a tract from the previous seen small bowel catheter extending to a loop of bowel in the midabdomen. The abdominal wall appears otherwise intact. Mild stranding of the subcutaneous fat and musculature of the left abdomen although this is improved when compared to prior study. There is diffuse surgical fusion of the thoracic or lumbar spine unchanged from prior study. CT/Abdomen/Pelvis W IV Cont ONLY IMPRESSION: 1. Removal of the small bowel catheter seen on the prior study. 2. Continued mild jejunal small bowel wall thickening and distention most likely postsurgical. No evidence of ileus or obstruction. 3. Stable Billroth II surgery of the stomach. 4. No other major interval change when compared to prior study. Electronically Signed: Marcellus Diaz DO at 18:19 EST Tel [phone], Service support ,
[2019-01-24 17:25] LABS: Mucous, Urine 0 SEEN /hpf (<or=2+); Red Blood Cells-Urine 0 SEEN /hpf (0-5)
[2019-01-24 17:35] LABS: Color, Urine Yellow (Yellow); Glucose, Dipstick Normal (Normal); Ketone-Dipstick 5 mg/dl (Negative); Leukocyte Esterase-Dipstick 100 /ul (Negative); Nitrite-Dipstick Positive (Negative); Occult Blood-Urine 25 /ul (Negative); Protein-Dipstick 30 mg/dl (Negative); Specific Gravity, Urine 1.015 (1.002-1.030); Urine Bilirubin Dipstick Negative (Negative); Urine Clarity Sl. Cloudy (Clear); Urine Urobilinogen 1 mg/dl (Normal); Urine pH 6.5 (5.0 - 8.0)
[2019-01-24 17:36] LABS: Lactic Acid 1.3 mmol/L (0.4-2.0)
[2019-01-24 17:47] LABS: Bacteria 3+ /hpf (None Seen); Squamous Epithelial Cells - UA 0-5 SEEN /hpf (5-10); White Blood Cells 10-25 SEEN /hpf (0-5)
[2019-01-24 18:04] VITALS: BP 130/79; PULSE 82; RESP 15; O2SAT 99
--- NOTE | 2019-01-24 18:53 | ED.DEP ---
ED Disposition - Plan for ED Patient: Instructions: Bladder Infection, Female (Adult) Prescriptions: Cephalexin [Keflex] 500 mg PO Q12 #14 capsule Referrals: Arsalan Mercer MD [Primary Care Provider] - Emir Grant DO [STAFF PHYSICIAN] -
--- NOTE | 2019-01-24 18:55 | ED.DEP ---
ED Disposition - Plan for ED Patient: Instructions: Bladder Infection, Female (Adult) Prescriptions: Cephalexin [Keflex] 500 mg PO Q12 #14 cap Prescription Printed Ondansetron [Zofran Odt] 4 mg PO Q8H PRN PRN #10 tablet PRN Reason: Nausea Referrals: Emir Grant DO [STAFF PHYSICIAN] - Arsalan Mercer MD [Primary Care Provider] -
[2019-01-24] MEDS: Cephalexin 250 MG Capsule 500 MG PO (19:05)
[2019-01-24 19:10] VITALS: BP 115/78; PULSE 86; RESP 17; O2SAT 96
== END 2019-01-24 19:12 | disposition home or self-care (01) ==
PROVIDERS: Emergency Provider Emergency Medicine; Family Provider Family Medicine; PCP Family Medicine
DX: N39.0 Urinary tract infection, site not specified (principal); R11.2 Nausea with vomiting, unspecified; E11.9 Type 2 diabetes mellitus without complications; I10 Essential (primary) hypertension; K21.9 Gastro-esophageal reflux disease without esophagitis; Z72.0 Tobacco use; Z79.899 Other long term (current) drug therapy; Z85.028 Personal history of other malignant neoplasm of stomach; Z90.3 Acquired absence of stomach [part of]
CPT/HCPCS: 74177; 80053; 81001; 83605; 83690; 85025; 87077; 87086; 87088; 87186; 96361; 96374; 96375; 99285; J7030; Q9967; A4216; J2405

== ENCOUNTER 2019-01-29 18:21 | Emergency (ER) | payer MEDICARE, SELFPAY ==
[2019-01-29 18:23] VITALS: BP 101/71; PULSE 109; RESP 17; TEMP 36.9; O2SAT 95; BMI 21.4
--- NOTE | 2019-01-29 18:51 | CT_ITS ---
STUDY: CT ABDOMEN AND PELVIS WITH CONTRAST REASON FOR EXAM: Female, 68 years old. Abdominal pain and distention, nausea RADIATION DOSAGE (If Supplied By Facility): CTDIvol = ( 12.79 ) mGy, DLP = ( 786.75 ) mGycm TECHNIQUE: Transaxial images were obtained from the dome of the diaphragm to the symphysis pubis without oral contrast. Oral and amp; IV Gastrografin and amp; 100mL Isovue-370 100ML was administered. Sagittal and coronal images were reconstructed. Individualized dose optimization techniques were used for this CT. COMPARISON: 01/24/2019 FINDINGS: The visualized lung bases are unremarkable. The visualized portions of the heart are within normal limits. Liver is unremarkable aside from intrahepatic biliary dilatation which is normal for someone has undergone previous cholecystectomy. There are surgical clips in the gallbladder fossa consistent with a prior cholecystectomy. Normal spleen. Normal pancreas. Normal bilateral adrenal glands. No objective uropathy. Stable nonobstructing left nephrolithiasis, stable exophytic cyst in the left kidney. Again there is evidence of Billroth II procedure with resection of the distal stomach. The distal antrum appears present. There is persistent dilatation of the proximal duodenum and compression of the third portion of the duodenum between the SMA and aorta. There are persistent thick-walled loops of small bowel in the upper abdomen, the distal small bowel appears unremarkable. Evidence of a rectosigmoid anastomosis of the colon which is free of comp location retained stool noted in the colon. There remains evidence of a subcutaneous fluid collection anterior to the stomach suspicious for abscess as seen on axial image 23 and coronal reconstruction image 36. This measures 3.5 x 1.8 x 3.2 cm. There is diffuse atherosclerotic calcification of the abdominal aorta, without a demonstrated aneurysm. Normal inferior vena cava. Normal retroperitoneum. Normal urinary bladder. Normal abdominal wall. There are diffuse degenerative and post surgical changes of the visualized lumbar spine. CT/Abdomen/Pelvis WITH Contrast IMPRESSION: Stable appearance of a 3.5 x 1.8 x 3.2 cm fluid collection in the left upper abdomen anterior to the stomach suspicious for abscess. Stable small bowel wall thickening and distention likely postsurgical, no interval change since the previous study. Stable surgical changes of the stomach No free fluid or air Retained stool Degenerative and postsurgical changes noted in the lumbar spine Electronically Signed: Giuliano Cruz MD at 21:05 EST , Service support ,
[2019-01-29] MEDS: 0.9% Normal Saline 1,000 ML 1000 ML IV (19:09)
[2019-01-29] MEDS: Ondansetron 4 MG/2 ML Vial IV (19:10)
[2019-01-29 19:18] LABS: Absolute Lymphocyte Count 2.66 X10^3/uL (0.83-4.51); Absolute Neutrophil Count 4.1 X10^3/uL (2.0-7.7); Basophil# 0.08 X10^3/uL; Eosinophil# 0.23 X10^3/uL; Hematocrit 40.3 % (37-47); Hemoglobin 12.9 g/dL (12.0-15.0); Lymphocyte # 2.66 X10^3/ul (4.0); Lymphocyte % 34.2 % (19-41); Mean Corpuscular Hgb 31.2 pg (27.0-32.0); Mean Corpuscular Volume 97.6 fL (81-99); Mean Platelet Vol. 8.3 fl (6.2-12.0); Monocyte# 0.63 X10^3/uL; Monocyte% 8.1 % (0-10); NRBC Flagged by Analyzer 0 % (0-5); Neutrophil # 4.14 X10^3/uL (2.7-7.7); Neutrophil % 53.2 % (47-70); Platelet Count 432 K/mm3 (150-450); RBC Distribution Width CV 15.2 % (11.6-14.6); RBC Distribution Width SD 55.2 fl (35.1-43.9); Red Blood Count 4.13 M/mm3 (4.2-5.4); White Blood Count 7.8 K/mm3 (4.4-11.0)
[2019-01-29 19:41] LABS: Lactic Acid 1.2 mmol/L (0.4-2.0)
[2019-01-29] MEDS: Morphine 4 MG/ML Syringe IV ×2 (19:43→22:01)
[2019-01-29 19:48] LABS: Albumin, Serum 2.4 g/dL (3.2-5.0); BUN 21 mg/dL (7-18); BUN/Creat Ratio 42.6 RATIO (10-20); Creatinine, Serum 0.49 mg/dL (0.55-1.02); EST Glomerular Filtration Rate 133 mL/min (>60); Est Glom Filt Rate - Afr Amer 161 mL/min (>60); Estimated Creatinine Clearance 55.82 ml/min; Glucose 161 mg/dL (74-106); Protein, Total 6.5 g/dL (6.4-8.2)
[2019-01-29 19:49] LABS: ALB/GLOB Ratio 0.6 RATIO (0.9-2.4); AST(SGOT) 13 U/L (15-37); Alanine Aminotransfer ALT/SGPT 16 U/L (13-56); Alkaline Phosphatase 95 U/L (45-117); Anion Gap 6 (5-15); Calcium,Total 8.6 mg/dL (8.5-10.1); Chloride 103 mmol/L (98-107); Globulin 4.1 g/dL (2.2-4.2); Lipase 77 U/L (73-393); Sodium Level 137 mmol/L (136-145)
--- NOTE | 2019-01-29 20:16 | ED.DCSUM_ITS ---
- ER Visit Summary Date of Service: 01/29/19 Chief Complaint: Vomiting History of Present Illness: The patient is a 68 F presenting with vomiting. Patient states she has not been eating for the last several days. She complains of nausea and vomiting. She has diffuse abdominal pain. She states she had her PEG tube removed approximately one week ago. This was her second PEG tube. She has a history of gastric cancer status post partial gastrectomy. She finished chemotherapy 1.5 months ago. She states she is awaiting wound healing of her PEG tube site before they can restart chemotherapy. She is currently on antibiotics for UTI. Denies fever or other complaints. Physical Examination: Vitals are stable. Patient is afebrile. Alert no acute distress. HEENT exam is unremarkable. Neck is supple. Lungs are clear and equal bilaterally. Heart is regular rate and rhythm. Abdomen is soft mild diffuse tenderness with no rebound or guarding. Erythema surrounding PEG tube site with drainage Extremities are unremarkable. Skin is warm and dry. No focal neurologic deficit. Remainder of exam is unremarkable. Emergency Department Course and Treatment: CBC, chemistries unremarkable other than glucose 161, BUN 21, creatinine 0.49. Lipase is normal. Urinalysis unremarkable. Lactic acid is normal. CT abdomen pelvis with IV and oral contrast shows stable appearance of a 3.5 x 1.8 x 3.2 cm fluid collection in the left upper abdomen anterior to the stomach suspicious for abscess. Stable small bowel wall thickening and distention likely postsurgical, no interval change since the previous study. Stable surgical changes of the stomach. No free fluid or air. Retained stool. Degenerative and postsurgical changes noted in the lumbar spine. She was given Zosyn IV. Discussed with [facility] for transfer. Disposition: Transfer to [facility] Impression: Intra-abdominal abscess, history of gastric cancer This note was generated with [employer] dictation software. It may contain incorrect words, spelling, and punctuation that were not noted in review of the chart prior to signing ED Disposition - Plan for ED Patient: Referrals: Arsalan Mercer MD [Primary Care Provider] -
[2019-01-29 20:17] LABS: Bacteria 0 SEEN /hpf (None Seen); Red Blood Cells-Urine 0 SEEN /hpf (0-5)
[2019-01-29 20:31] LABS: Color, Urine Yellow (Yellow); Glucose, Dipstick Normal (Normal); Ketone-Dipstick 5 mg/dl (Negative); Leukocyte Esterase-Dipstick 25 /ul (Negative); Nitrite-Dipstick Negative (Negative); Occult Blood-Urine Negative /ul (Negative); Protein-Dipstick Negative (Negative); Urine Bilirubin Dipstick Negative (Negative); Urine Clarity Sl. Cloudy (Clear); Urine Urobilinogen 1 mg/dl (Normal)
[2019-01-29 20:32] LABS: Squamous Epithelial Cells - UA 5-10 SEEN /hpf (5-10); White Blood Cells 0-5 SEEN /hpf (0-5)
[2019-01-29 20:33] LABS: Mucous, Urine 2+ /hpf (<or=2+)
[2019-01-29 20:50] VITALS: BP 112/67; PULSE 84; RESP 16; O2SAT 94
[2019-01-29 22:00] VITALS: BP 100/73; PULSE 68; RESP 18; O2SAT 97
[2019-01-29 23:00] VITALS: BP 104/64; O2SAT 95
[2019-01-29] MEDS: HYDROmorphone 0.5 MG/0.5 ML SYRINGE IV (23:52)
--- NOTE | 2019-01-30 00:55 | ED.RN ---
REPORT GIVEN TO KAROL AT [facility].
== END 2019-01-30 00:55 | disposition short-term general hospital (02) ==
PROVIDERS: Emergency Medicine; Emergency Provider Emergency Medicine; Family Provider Family Medicine; PCP Family Medicine
DX: K65.1 Peritoneal abscess (principal); N39.0 Urinary tract infection, site not specified; R11.2 Nausea with vomiting, unspecified; Z79.899 Other long term (current) drug therapy; Z92.21 Personal history of antineoplastic chemotherapy; Z85.028 Personal history of other malignant neoplasm of stomach; Z90.3 Acquired absence of stomach [part of]
CPT/HCPCS: 74177; 80053; 81001; 83605; 83690; 85025; 87040; 96361; 96365; 96375; 96376; 99285; J7030; J7050; Q9967; A4216; J2405

== ENCOUNTER 2019-02-07 15:19 | Inpatient (IN) | payer MEDICARE, SELFPAY ==
[2019-02-07 15:19] VITALS: BP 130/88; PULSE 110; RESP 18; TEMP 36.8; O2SAT 95
[2019-02-07 15:20] VITALS: BP 130/88; PULSE 110; RESP 18; TEMP 36.8; O2SAT 94; BMI 22.8
--- NOTE | 2019-02-07 15:37 | CT_ITS ---
STUDY: CT ABDOMEN AND PELVIS WITH CONTRAST REASON FOR EXAM: Female, 68 years old. ABD PAIN, SENT BY PCP, POSSIBLE BOWEL OBSTRUCTION . History of purulent Drainage from feeding tube RADIATION DOSAGE (If Supplied By Facility): CTDIvol = ( 15.91 ) mGy, DLP = ( 1074.98 ) mGycm TECHNIQUE: Transaxial images were obtained from the dome of the diaphragm to the symphysis pubis without oral contrast. IV/Oral Isovue 370 100 was administered. Sagittal and coronal images were reconstructed. Individualized dose optimization techniques were used for this CT. COMPARISON: CT of abdomen and pelvis dated December 31, 2018 and January 24, 2019 FINDINGS: Interval development of mild fluid distention and dilatation of the full length of the small bowel. There are also some small bowel loops that contain fecal material. A zone of transition from dilated abnormal fluid distended small bowel to collapsed small bowel is present in the right mid abdomen/distal ileal region likely due to extrinsic adhesions causing small bowel obstruction proximal to this region. No free air is seen. A small amount of ascites is present in the right lower quadrant and pelvis. A moderate amount of stool is present in the colon. No colonic diverticulosis. Reidentification of percutaneous ostomy tract in the left anterior abdominal wall leading to small bowel of the left mid abdomen. No feeding tube or balloon catheter is seen in the small bowel on this study. Reidentification of anastomotic and postsurgical sutures of the stomach and small bowel in the left upper quadrant and mid abdominal region? Prior gastric bypass related changes. Stable postsurgical anastomotic changes of colonic loops in the lower pelvis/rectosigmoid region. The stomach is distended with food contents. Chronic postsurgical changes of the left anterior abdominal wall and midline. The visualized lung bases are unremarkable. No change in mild intrahepatic biliary ductal dilatation and dilatation of the extrahepatic common bile duct likely postcholecystectomy related. Normal liver size and contour. Normal spleen. Normal pancreas. Normal bilateral adrenal glands. Normal right kidney. Normal left kidney. There is diffuse atherosclerotic calcification of the abdominal aorta, without a demonstrated aneurysm. Normal inferior vena cava. Normal retroperitoneum. Normal urinary bladder. Normal abdominal wall. There are diffuse degenerative changes of the visualized lumbar spine. CT/Abdomen/Pelvis WITH Contrast IMPRESSION: 1. Small bowel obstruction 2. A zone of transition from dilated abnormal fluid distended small bowel to collapsed small bowel is present in the right mid abdomen/distal ileal region likely due to extrinsic adhesions causing small bowel obstruction proximal to this region. 3. A small amount of ascites is present in the right lower quadrant and pelvis. Electronically Signed: Humphrey Butterfield MD at 18:20 EST , Service support ,
--- NOTE | 2019-02-07 15:40 | ED.VISSUMM ---
- ER Visit Summary Date of Service: 02/07/19 Chief Complaint: Abdominal pain History of Present Illness: The patient is a 68 F presenting with abdominal pain for several days. She does not recall when this started. She has history of gastric cancer status post partial gastrectomy. This is her fourth ER visit in the last month for abdominal pain. On 01/29 she was transferred to [facility] for possible intra-abdominal abscess. She was empirically treated with meropenem. Ostomy team was consulted to place pouch and drain the abscess site. Antibiotics were discontinued on discharge. She is on Percocet and has been taking 3 Percocet at a time which has not been helping her pain. She denies vomiting or fever. Physical Examination: Vitals are stable. Patient is afebrile. Alert no acute distress. HEENT exam is unremarkable. Neck is supple. Lungs are clear and equal bilaterally. Heart is regular rate and rhythm. Abdomen is soft diffuse tenderness, no guarding or rebound. Midline upper abdominal wounds have closed. Ostomy bag in place left abdomen. Extremities are unremarkable. Skin is warm and dry. Remainder of exam is unremarkable. Emergency Department Course and Treatment: Patient was given Dilaudid, Zofran IV. CT abdomen pelvis shows small bowel obstruction. A zone of transition from dilated abnormal fluid distended small bowel to collapsed small bowel is present in the right mid abdomen/distal ileal region likely due to extrinsic adhesions causing small bowel obstruction proximal to this region. A small amount of ascites is present in the right lower quadrant and pelvis. CBC shows white count 11.7, platelet 532. Chemistries unremarkable. Lactic acid is normal. Discussed with [facility] surgery and patient is accepted for transfer. They state due to bed availability she may not have a bed for [address] Lowe, Dr Grant, and Dr Lam. Patient will be admitted until her bed is available at [facility]. Disposition: Admission Impression: Small bowel obstruction, history of gastric cancer This note was generated with [employer] dictation software. It may contain incorrect words, spelling, and punctuation that were not noted in review of the chart prior to signing ED Disposition - Plan for ED Patient: Referrals: Arsalan Mercer MD [NON-STAFF] -
[2019-02-07] MEDS: Ondansetron 4 MG/2 ML Vial IV (15:58)
[2019-02-07] MEDS: HYDROmorphone 1 MG/ML Syringe IV ×2 (15:58→21:46)
[2019-02-07 16:02] LABS: Absolute Lymphocyte Count 2.98 X10^3/uL (0.83-4.51); Absolute Neutrophil Count 7.5 X10^3/uL (2.0-7.7); Basophil% 0.9 % (0-1); Eosinophil# 0.13 X10^3/uL; Eosinophils% 1.1 % (0-5); Hematocrit 40.7 % (37-47); Hemoglobin 13.3 g/dL (12.0-15.0); Lymphocyte # 2.98 X10^3/ul (4.0); Lymphocyte % 25.5 % (19-41); Mean Corp Hgb Conc 32.7 g/dL (32-36); Mean Corpuscular Hgb 31.6 pg (27.0-32.0); Mean Corpuscular Volume 96.7 fL (81-99); Mean Platelet Vol. 8.4 fl (6.2-12.0); Monocyte# 0.86 X10^3/uL; Monocyte% 7.4 % (0-10); NRBC Flagged by Analyzer 0 % (0-5); Neutrophil # 7.48 X10^3/uL (2.7-7.7); Neutrophil % 64.1 % (47-70); Platelet Count 532 K/mm3 (150-450); RBC Distribution Width CV 14.2 % (11.6-14.6); RBC Distribution Width SD 50.1 fl (35.1-43.9); Red Blood Count 4.21 M/mm3 (4.2-5.4); White Blood Count 11.7 K/mm3 (4.4-11.0)
[2019-02-07 16:19] LABS: ALB/GLOB Ratio 0.7 RATIO (0.9-2.4); AST(SGOT) 26 U/L (15-37); Alanine Aminotransfer ALT/SGPT 31 U/L (13-56); Albumin, Serum 2.8 g/dL (3.2-5.0); Alkaline Phosphatase 118 U/L (45-117); Anion Gap 6 (5-15); BUN 25 mg/dL (7-18); BUN/Creat Ratio 53.6 RATIO (10-20); Calcium,Total 8.8 mg/dL (8.5-10.1); Chloride 101 mmol/L (98-107); Creatinine, Serum 0.47 mg/dL (0.55-1.02); EST Glomerular Filtration Rate 142 mL/min (>60); Est Glom Filt Rate - Afr Amer 172 mL/min (>60); Estimated Creatinine Clearance 55.82 ml/min; Globulin 4.1 g/dL (2.2-4.2); Glucose 139 mg/dL (74-106); Potassium 4.1 mmol/L (3.5-5.1); Protein, Total 6.9 g/dL (6.4-8.2); Sodium Level 138 mmol/L (136-145)
[2019-02-07 16:24] LABS: Lactic Acid 1.5 mmol/L (0.4-2.0)
[2019-02-07 17:32] VITALS: BP 122/85; PULSE 94; RESP 16; O2SAT 94
[2019-02-07] MEDS: proMETHazine 25 MG/ML Syringe 6.25 MG IV ×2 (17:34→21:52)
[2019-02-07 19:02] LABS: Mucous, Urine 0 SEEN /hpf (<or=2+)
[2019-02-07 19:12] VITALS: BP 125/68; PULSE 84; RESP 16; O2SAT 93
[2019-02-07 19:16] LABS: Color, Urine Yellow (Yellow); Glucose, Dipstick Normal (Normal); Ketone-Dipstick Negative (Negative); Leukocyte Esterase-Dipstick 25 /ul (Negative); Nitrite-Dipstick Positive (Negative); Occult Blood-Urine Negative /ul (Negative); Protein-Dipstick Negative (Negative); Urine Bilirubin Dipstick Negative (Negative); Urine Clarity Clear (Clear); Urine Urobilinogen Normal (Normal); Urine pH 6.5 (5.0 - 8.0)
[2019-02-07 19:47] LABS: Squamous Epithelial Cells - UA 0-5 SEEN /hpf (5-10)
[2019-02-07 19:48] LABS: White Blood Cells 5-10 SEEN /hpf (0-5)
[2019-02-07 19:49] LABS: Red Blood Cells-Urine 0-5 SEEN /hpf (0-5)
[2019-02-07 19:50] LABS: Hyaline Cast 0-5 SEEN /lpf (0-5); Transitional Epithelial - Ur 0-5 SEEN /hpf (0-5)
[2019-02-07 19:51] LABS: Bacteria 3+ /hpf (None Seen)
--- NOTE | 2019-02-07 20:11 | HP.PCM_ITS ---
Problem List (1) SBO (small bowel obstruction) Status: Acute (2) Diabetes mellitus, type II Status: Chronic Qualifiers: Diabetes mellitus terminal clerk insulin use: without terminal clerk use Diabetes mellitus complication status: with other specified complication Qualified Code(s): E11.69 - Type 2 diabetes mellitus with other specified complication (3) Pure hypercholesterolemia Status: Chronic (4) Essential hypertension Status: Chronic (5) Anemia Status: Chronic Qualifiers: Anemia type: unspecified type (6) Glaucoma Status: Chronic Qualifiers: Glaucoma type: unspecified (7) Insomnia Status: Chronic Qualifiers: Insomnia type: unspecified Qualified Code(s): G47.00 - Insomnia, un specified (8) Atherosclerosis of [place] coronary artery of [place] heart without angina pectoris Status: Chronic (9) Obstructive sleep apnea Status: Chronic (10) Anxiety and depression Status: Chronic History of Present Illness Date of Admission: 02/07/19 Chief Complaint: Abdominal pain, nausea The patient is a 68 y/o F w/ PMHx: Diabetes mellitus type II, Depression and Anxiety, HTN, HLD, CAD, GERD, [place] non-complaint with CPAP, Hx recurrent fallls, Gastric Cancer following w/ Dr. Grant s/p prior surgical interventions with bypass with retained gastric cancer, terminal stage IV with tube feed abilities but allowed to take oral by mouth who presents to the [facility] ED on 02/07/19 with history of nausea without emesis, diffuse abdominal pain,10/10, sharp stabbing in nature mixed with dull with increased narcotic usage as a result with associated distention and no flatus/BM associated x 2 days, although she notes she has not felt well since 01/31/19, referred to the ED following evaluation per her Oncologist for concern of a bowel obstruction. Patient was recently at the [facility] following [facility] ED evaluation, noted to have been there 01/30/19- 01/31/19 secondary to possible infected tube feeding site with noted enteric cutaneous fistula upon evaluation with meropenem while in the hospital but no abx upon discharge with local care and transition w/ ostomy bag to fistula. Work-up in the ED included T 90.3, heart rate 110, BP 130/88, respiratory rate 18, 95% on room air, CBC with W BC 11.7, hemoglobin 13.3, platelet 532 with increased immature granulocytes, CMP with BUN/creatinine 25/0.47, glucose 139, lactic acid 1.5, urinalysis specific gravity 1.015, positive nitrite, 25 leukocyte esterase, WBC 5-10, bacteria 3+, CT abdomen pelvis with evidence of a small bowel obstruction with a zone of transition from a dilated abnormal fluid distended small bowel to collapsed small bowel present in the right mid abdominal distal ileal region likely secondary to extrinsic adhesions causing small bowel obstruction proximal to that region with a small amount of ascites in the right lower quadrant and pelvis. Discussed case with ED physician and she noted treating patient for E. Coli UTI ~ 2 weeks prior with keflex with no current urinary symptoms. Patient was accepted at [facility] per Dr. Miles; however, there are no beds available with planned evaluation per Dr. Lowe, General Surgeon. Dr. Lowe declined NGT placement secondary to level of obstruction, noting plan for placement if onset intractable emesis. Past Medical History Past Medical History (Chronic Problems): Chronic Problems (Last Updated 10/05/18 @ 17:35 by Merary Shearer) Diabetes mellitus, type II (Chronic) Anxiety and depression (Chronic) Pure hypercholesterolemia (Chronic) Essential hypertension (Chronic) Anemia (Chronic) Neuropathy (Chronic) Glaucoma (Chronic) Insomnia (Chronic) Edema (Chronic) Atherosclerosis of [place] coronary artery of [place] heart without angina pectoris (Chronic) Noncompliance with CPAP treatment (Chronic) Morbid obesity (Chronic) Multinodular goiter (Chronic) Obstructive sleep apnea (Chronic) Recurrent falls (Chronic) Diabetes mellitus type 2 in obese (Chronic) Gastric cancer (Chronic) Medical History: Medical History (Last Updated 10/05/18 @ 17:35 by Merary Shearer) Pure hypercholesterolemia (Chronic) E78.00 Essential hypertension (Chronic) I10 Edema (Chronic) R60.9 Atherosclerosis of [place] coronary artery of [place] heart without angina pectoris (Chronic) I25.10 Eosinophilia (Acute) D72.1 Hypomagnesemia (Acute) E83.42 Severe sepsis (Acute) A41.9, R65.20 Septic shock (Ruled-out) A41.9, R65.21 Acute renal failure (Acute) N17.9 Urinary tract infection (Acute) N39.0 E. coli Toxic encephalopathy (Acute) G92 Hyperammonemia (Acute) E72.20 Noncompliance with CPAP treatment (Chronic) Z91.14 Morbid obesity (Chronic) E66.01 Multinodular goiter (Chronic) E04.2 Obstructive sleep apnea (Chronic) G47.33 Recurrent falls (Chronic) R29.6 Diabetes mellitus type 2 in obese (Chronic) E11.69, E66.9 Gastric cancer (Chronic) C16.9 Chronic pain syndrome G89.4 Depression F32.9 Fibromyalgia M79.7 Hypophosphatemia (Resolved) E83.39 Allergies fentanyl Adverse Reaction (Verified 01/29/19 18:23) MAKES ME SHAKE thiopental Adverse Reaction (Verified 01/29/19 18:23) MAKES ME SHAKE Home Medications: Ambulatory Orders Medication Instructions Recorded Dorzolamide HCL/Timolol [Cosopt 1 drp EACH EYE BID 02/15/16 Opth Drops] Duloxetine Hcl [Cymbalta] 60 mg PO DAILY 02/15/16 Polyethylene Glycol 3350 [Miralax] 17 gm PO DAILY PRN 03/05/17 Atorvastatin Calcium [Lipitor] 40 mg PO QHS 05/19/17 Gabapentin [Neurontin] 300 mg PO BID 03/31/18 Magnesium Oxide 400 mg PO DAILY 03/31/18 Ferrous Sulfate 325 mg PO BIDCM 08/05/18 traZODone [Desyrel] 50 mg PO QHS 08/05/18 Albuterol Inhaler [Ventolin Hfa] 1 - 2 puff INHALATION Q4H PRN PRN 08/23/18 Pantoprazole Sodium [Protonix] 20 mg PO BID tab 09/07/18 Ondansetron [Zofran Odt] 4 mg PO Q8H PRN PRN #10 tab 11/13/18 Ibuprofen/Diphenhydramine Cit 1 tab PO QHS PRN PRN 02/07/19 [Advil Pm Caplet] Surgical History: Surgical History (Last Reviewed 08/23/18 @ 13:20 by Chinyere Rubalcava) S/P jejunostomy Z93.4 placement History of Z98.891 History of gastrectomy Z90.3 history of colectomy from colonoscopy perforation history open cholecystectomy Surgical History: cholecystectomy, hysterectomy, - - Subtotal gastrectomy for gastric cancer, prior cervical fusion as well as Jefferson rods in the thoracic and lumbosacral spine, recent PowerPort placement, recent gastric cancer bypass with small bowel partial resection, J-tube placement. Psychiatric History: Anxiety, Depression COMPASS OPERATOR History: No pertinent COMPASS OPERATOR history Lives: With Family Smoking Status: Current every day smoker Tobacco Use: Cigarettes Alcohol: None Drugs: None - *Family History Maternal Family History: Family History (Last Reviewed 08/23/18 @ 13:20 by Chinyere Rubalcava) Mother Diabetes Father Diabetes Heart disease History Items: Diabetes Paternal Family History: Family History (Last Reviewed 08/23/18 @ 13:20 by Chinyere Rubalcava) Mother Diabetes Father Diabetes Heart disease History Items: Diabetes, Heart Disease Review of Systems Constitutional: Reports: Anorexia, Malaise, Weakness, Fatigue. Denies: Chills, Fever, Weight Change HEENT: Denies: Head Aches, Sinus Congestion, Sinus Drainage Cardiovascular: Denies: Chest Pain, Palpitations Respiratory: Denies: Cough, Shortness of breath at rest, Sputum production Gastrointestinal: Reports: Abdominal Pain, Nausea. Denies: Vomiting Genitourinary: Denies: Dysuria Musculoskeletal: Reports: Back Pain, Joint Pain. Denies: Joint Tenderness Skin: Reports: Skin Changes. Denies: Rash, Wounds Neurological: Denies: Numbness, Tingling, Focal weakness Psychiatric: Reports: Anxiety, Depression. Denies: Homicidal Ideations, Suicidal Ideations Hematologic/ Lymphatic: Reports: Anemia. Denies: Easy Bruising, Easy Bleeding VTE Information - Inpt Only VTE Present on Admission: No VTE Mechan Device Prophylaxis: SCD's VTE Pharm Prophylaxis ordered?: Yes Patient Problems: Active and Suspected Problems (Last Updated 10/05/18 @ 17:35 by Merary Shearer) SBO (small bowel obstruction) (Acute) Subjective: Seated upright in ED bed, fatigued appearance, currently ongoing abdominal pain. Nausea mildly improved. Objective: Physical Examination: General: awake, alert, oriented x 3 and cooperative, seated upright in the ED bed, fatigued appearance, very uncomfortable with examination. Skin: normal color, turgor, no icterus, cyanosis, red and irritated skin at the parameters of the ostomy bag to the left abdomen. HEENT: AT/NC, EOMI, PERRLA, moderately dry MM, no carotid bruits or JVD noted. Lungs: Diminished breath sounds bilaterally, greater bilateral bases, mild effort, no rales, ronchi or wheezing. Heart: Regular rate and rhythm; no gallop, rub audible. Abdomen: Mildly tense, diffusely tender palpation, absent bowel sounds, distended, difficult to assess HSM secondary to acute presentation, ostomy bag in place. Extremities: no cyanosis, clubbing, or edema. Neurological: patient awake, alert, oriented x 3; cognitive function intact; pupils equally reactive to light and accomodation; cranial nerves II-XII grossly normal, moving all 4 extremities, no focal deficits, strength severely global decrease secondary to acute presentation. Psychiatric: affect appears flat, fatigued, no acute evidence of depressive or anxiety feelings. - Physical Exam Vitals/I&O's: Vital Signs Temp Pulse Resp BP Pulse Ox 98.3 F 84 16 125/68 H 93 02/07/19 15:20 02/07/19 19:12 02/07/19 19:12 02/07/19 19:12 02/07/19 19:12 Oxygen Delivery Method Room Air Weight: 149 lb 14.629 oz Body Mass Index (BMI) 22.8 Finger Stick Blood Glucose 35 Intake and Output for Last 24 Hours 02/05/19 02/06/19 02/07/19 23:59 23:59 23:59 Intake Total 500 / 500 Balance 500 / 500 Laboratory Results 02/07/19 15:50: WBC 11.7 H, RBC 4.21, Hgb 13.3, Hct 40.7, MCV 96.7, MCH 31.6, MCHC 32.7, RDW Std Deviation 50.1 H, RDW Coeff of Griselda 14.2, Plt Count 532 H, MPV 8.4, Immature Gran % (Auto) 1.000 H, Neut % (Auto) 64.1, Lymph % (Auto) 25.5, [place] % (Auto) 7.4, Eos % (Auto) 1.1, Baso % (Auto) 0.9, Absolute Neuts (auto) 7.5, Absolute Lymphs (auto) 2.98, Nucleated RBC % 0 02/07/19 15:50: Sodium 138, Potassium 4.1, Chloride 101, Carbon Dioxide 31.0, Anion Gap 6, BUN 25 H, Creatinine 0.47 L, Estim Creat Clear Calc 55.82, Est GFR (MDRD) Af Amer 172, Est GFR (MDRD) Non-Af 142, BUN/Creatinine Ratio 53.6 H, Glucose 139 H, Calcium 8.8, Total Bilirubin 0.30, AST 26, ALT 31, Alkaline Phosphatase 118 H, Total Protein 6.9, Albumin 2.8 L, Globulin 4.1, Albumin/Globulin Ratio 0.7 L 02/07/19 15:50: Lactic Acid 1.5 02/07/19 18:47: Urine Color Yellow, Urine Clarity Clear, Urine pH 6.5, Ur Specific [place] 1.010, Urine Protein Negative, Urine Glucose (UA) Normal, Urine Ketones Negative, Urine Occult Blood Negative, Urine Nitrite Positive H, Urine Bilirubin Negative, Urine Urobilinogen Normal, Ur Leukocyte Esterase 25 H, Urine RBC 0-5 SEEN, Urine WBC 5-10 SEEN, Ur Squamous Epith Cells 0-5 SEEN, Ur Transition Epith Cell 0-5 SEEN, Urine Bacteria 3+, Hyaline Casts 0-5 SEEN, Urine Mucus 0 SEEN Assessment/Plan All Active Problems (Last Updated 10/05/18 @ 17:35 by Merary Shearer) SBO (small bowel obstruction) (Acute) Colitis (Acute) Pyelonephritis (Acute) Acute pancreatitis (Acute) Abdominal pain (Acute) SBO (small bowel obstruction) (Acute) Eosinophilia (Acute) Hypomagnesemia (Acute) Severe sepsis (Acute) Septic shock (Ruled-out) Acute renal failure (Acute) Urinary tract infection (Acute) Toxic encephalopathy (Acute) Hyperammonemia (Acute) Hypophosphatemia (Resolved) The patient is a 68 y/o F w/ PMHx: Diabetes mellitus type II, Depression and Anxiety, HTN, HLD, CAD, GERD, [place] non-complaint with CPAP, Hx recurrent fallls, Gastric Cancer following w/ Dr. Grant s/p prior surgical interventions with b ypass with retained gastric cancer, terminal stage IV with tube feed abilities but allowed to take oral by mouth who presents to the [facility] ED on 02/07/19 with history of nausea without emesis, diffuse abdominal pain,/10, sharp stabbing in nature mixed with dull with increased narcotic usage as a result with associated distention and no flatus/BM associated x 2 days, although she notes she has not felt well since 01/31/19, referred to the ED following evaluation per her Oncologist for concern of a bowel obstruction. (1) Abdominal pain, nausea w/ SBO: Work-up in the ED included T 90.3, heart rate 110, BP 130/88, respiratory rate 18, 95% on room air, CBC with W BC 11.7, hemoglobin 13.3, platelet 532 with increased immature granulocytes, CMP with BUN/creatinine 25/0.47, glucose 139, lactic acid 1.5, urinalysis specific gravity 1.015, positive nitrite, 25 leukocyte esterase, WBC 5-10, bacteria 3+, CT abdomen pelvis with evidence of a small bowel obstruction with a zone of transition from a dilated abnormal fluid distended small bowel to collapsed small bowel present in the right mid abdominal distal ileal region likely secondary to extrinsic adhesions causing small bowel obstruction proximal to that region with a small amount of ascites in the right lower quadrant and pelvis. Will admit to [facility] pending [facility] main bed availability, maintain on IVFs, initiate NGT to suction if onset of emesis per Dr. Lowe instruction, strict I&Os, IV pain/anti-emetics PRN, serial KUB as needed to montior bowel function, Famotidine IV, maintain NPO on bowel rest. General surgery Dr. Lowe consul sandie. (2) Gastric Cancer, Stage IV, Terminal: 08/06/18 bypass of the gastric cancer, serial presentations recently with issues, prior was on palliative chemotherapy, mag and phos pending, nutrition consulted. (3) Diabetes mellitus type II with neuropathy: Hold oral home regimen, continue 1/2 home insulin regimen given NPO status, NPO accu checks w/ ISS q 6 hour. (4) Hypertension: IV PRN hydralazine. (5) Hyperlipidemia: Holding home oral statin regimen. (6) Fibromyalgia, chronic pain syndrome: Holding home Cymbalta, gabapentin, tramadol regimen. (7) [place]: Non-CPAP compliant, defer regardless given acute presentation #1 with SBO. (8) GERD: IV famotidine. (9) ? UTI: Urinalysis with some concerning findings, urine culture pending, recently completed Keflex therapy, urine culture from prior with pansensitive E. coli, will initiate on IV Rocephin pending those results. (10) DVT prophylaxis: SCDs, lovenox. (11) CODE status: Patient's son is present and is healthcare power of claims attorney, living will in place. Discussed CODE status at length including difference between FULL code, DNR-CCA and DNR-CC status. Following discussions about the differences in these status, requested DNR-CCA, no intubation status. Advanced Care Planning Face to Face Time: 16 minutes. Code Visit Inpatient E&M: 47469 Init Hosp L3 Procedures: 38108 Advncd Care Plan 30 Min
[2019-02-07 20:29] VITALS: BP 131/75; PULSE 84; RESP 18; O2SAT 93
[2019-02-07 20:56] VITALS: BMI 22.4; BMI 22.5
[2019-02-07 21:06] VITALS: BP 138/76; PULSE 82; RESP 16; TEMP 36.9; O2SAT 93
[2019-02-07] MEDS: 0.9% Normal Saline 1,000 ML 125 ML IV (21:38)
[2019-02-07] MEDS: 0.9% Saline Lock 10 ML Syringe IV (21:39)
[2019-02-07] MEDS: Menthol/Lanolin/Calamine/Znox 113 GM Tube 1 APPLIC TOPICAL (21:47)
[2019-02-07] MEDS: Dorzolamide HCL/Timolol 10 ml Bottle 1 DRP EACH EYE (21:48)
[2019-02-07] MEDS: Nystatin Powder 15gm Bottle 1 APPLIC TOPICAL (21:49)
[2019-02-07] MEDS: Famotidine 200 MG/20 ML MDV 20 MG in 0.9% Normal Saline (Pres. free 8 ML 300 MG IV (21:51)
[2019-02-07] MEDS: Ceftriaxone 1 GM/50 ML BAG IV (21:51)
[2019-02-07 22:06] LABS: Phosphorus 3.8 mg/dL (2.5-4.9)
[2019-02-07 23:08] LABS: Hemoglobin A1c 5.7 % (4.2-6.3)
[2019-02-07 23:41] LABS: Bedside Glucose 90 mg/dL (70-110)
[2019-02-08] MEDS: Dext 5%-0.45% NS 1,000 ML 125 ML IV (00:22)
--- NOTE | 2019-02-08 00:52 | PCM.DC.SUM ---
Discharge Date and Diagnosis - Problem List Patient Problems: Active and Suspected Problems (Last Updated 10/05/18 @ 17:35 by Merary Shearer) SBO (small bowel obstruction) (Acute) Date of Admission: 02/07/19 Date of Discharge: 02/08/19 - Primary Discharge Diagnosis Active and Suspected Problems (Last Updated 10/05/18 @ 17:35 by Merary Shearer) (1) Abdominal pain, nausea w/ SBO (2) Gastric Cancer, Stage IV, Terminal (3) Diabetes mellitus type II with neuropathy (4) Hypertension (5) Hyperlipidemia (6) Fibromyalgia, chronic pain syndrome (7) CARL[place], Non-CPAP compliant (8) GERD (9) ? UTI - Secondary Discharge Diagnosis Chronic Problems (Last Updated 10/05/18 @ 17:35 by Merary Shearer) Diabetes mellitus, type II (Chronic) Anxiety and depression (Chronic) Pure hypercholesterolemia (Chronic) Essential hypertension (Chronic) Anemia (Chronic) Neuropathy (Chronic) Glaucoma (Chronic) Insomnia (Chronic) Edema (Chronic) Atherosclerosis of [place] coronary artery of [place] heart without angina pectoris (Chronic) Noncompliance with CPAP treatment (Chronic) Morbid obesity (Chronic) Multinodular goiter (Chronic) Obstructive sleep apnea (Chronic) Recurrent falls (Chronic) Diabetes mellitus type 2 in obese (Chronic) Gastric cancer (Chronic) Hospital Course and Treatment Imaging Results: 02/08/19 05:55 Abd Decub and/or Erect(Portabl [RAD] AM (NON MEDS) Dr. Lowe General Surgery Operations: None Procedures: EKG Summary of Care Provided: The patient is a 68 y/o F w/ PMHx: Diabetes mellitus type II, Depression and Anxiety, HTN, HLD, CAD, GERD, CARLOTA non-complaint with CPAP, Hx recurrent fallls, Gastric Cancer following w/ Dr. Grant s/p prior surgical interventions with bypass with retained gastric cancer, terminal stage IV with tube feed abilities but allowed to take oral by mouth who presented to the [facility] ED on 02/07/19 with history of nausea without emesis, diffuse abdominal pain,10/10, sharp stabbing in nature mixed with dull with increased narcotic usage as a result with associated distention and no flatus/BM associated x 2 days, although she notes she has not felt well since 01/31/19, referred to the ED following evaluation per her Oncologist for concern of a bowel obstruction. Patient was recently at the [facility] following [facility] ED evaluation, noted to have been there 01/30/19-01/31/19 secondary to possible infected tube feeding site with noted enteric cutaneous fistula upon evaluation with meropenem while in the hospital but no abx upon discharge with local care and transition w/ ostomy bag to fistula. Work-up in the ED included T 90.3, heart rate 110, BP 130/88, respiratory rate 18, 95% on room air, CBC with W BC 11.7, hemoglobin 13.3, platelet 532 with increased immature granulocytes, CMP with BUN/creatinine 25/0.47, glucose 139, lactic acid 1.5, urinalysis specific gravity 1.015, positive nitrite, 25 leukocyte esterase, WBC 5-10, bacteria 3+, CT abdomen pelvis with evidence of a small bowel obstruction with a zone of transition from a dilated abnormal fluid distended small bowel to collapsed small bowel present in the right mid abdominal distal ileal region likely secondary to extrinsic adhesions causing small bowel obstruction proximal to that region with a small amount of ascites in the right lower quadrant and pelvis. Discussed case with ED physician and she noted treating patient for E. Coli UTI ~ 2 weeks prior with keflex with no current urinary symptoms. Patient was accepted at per Dr. Miles; however, there are no beds available with planned evaluation per Dr. Lowe, General Surgeon. Dr. Lowe declined NGT placement secondary to level of obstruction, noting plan for placement if onset intractable emesis. Patient was admitted to the medical surgical floor pending [facility] bed availability which opened on 02/08/2019 at 1 AM and in the interim patient was maintained on IV fluids, strict I's and O's, IV pain regimen as well as PRN IV antiemetics, famotidine IV with n.p.o. status with ongoing Dr. Leslie, general surgeon consultation. Of note, Urinalysis with some concerning findings, urine culture pending upon admission with patient recently completing Keflex therapy, urine culture from prior with pansensitive E. coli, initiated IV Rocephin pending those results upon transfer. Patient Problems: Active and Suspected Problems (Last Updated 10/05/18 @ 17:35 by Merary Shearer) SBO (small bowel obstruction) (Acute) - Physical Exam Vitals/I&O's: Vital Signs Temp Pulse Resp BP Pulse Ox 98.4 F 82 16 138/76 H 93 02/07/19 21:06 02/07/19 21:06 02/07/19 21:06 02/07/19 21:06 02/07/19 21:06 Oxygen Delivery Method Room Air Weight: 147 lb 11.355 oz Body Mass Index (BMI) 22.4 Finger Stick Blood Glucose 35 Intake and Output for Last 24 Hours 02/06/19 02/07/19 02/08/19 23:59 23:59 23:59 Intake Total 614.17 / 614.17 252.08 / 252.08 Output Total 100 / 100 Balance 614.17 / 514.17 152.08 / 152.08 Laboratory Results 02/07/19 15:50: WBC 11.7 H, RBC 4.21, Hgb 13.3, Hct 40.7, MCV 96.7, MCH 31.6, MCHC 32.7, RDW Std Deviation 50.1 H, RDW Coeff of Griselda 14.2, Plt Count 532 H, MPV 8.4, Immature Gran % (Auto) 1.000 H, Neut % (Auto) 64.1, Lymph % (Auto) 25.5, Peach % (Auto) 7.4, Eos % (Auto) 1.1, Baso % (Auto) 0.9, Absolute Neuts (auto) 7.5, Absolute Lymphs (auto) 2.98, Nucleated RBC % 0 02/07/19 15:50: Sodium 138, Potassium 4.1, Chloride 101, Carbon Dioxide 31.0, Anion Gap 6, BUN 25 H, Creatinine 0.47 L, Estim Creat Clear Calc 55.82, Est GFR (MDRD) Af Amer 172, Est GFR (MDRD) Non-Af 142, BUN/Creatinine Ratio 53.6 H, Glucose 139 H, Calcium 8.8, Total Bilirubin 0.30, AST 26, ALT 31, Alkaline Phosphatase 118 H, Total Protein 6.9, Albumin 2.8 L, Globulin 4.1, Albumin/Globulin Ratio 0.7 L 02/07/19 15:50: Lactic Acid 1.5 02/07/19 15:50: Hemoglobin A1c 5.7 02/07/19 15:50: Phosphorus 3.8, Magnesium 2.0 02/07/19 18:47: Urine Color Yellow, Urine Clarity Clear, Urine pH 6.5, Ur Specific [place] 1.010, Urine Protein Negative, Urine Glucose (UA) Normal, Urine Ketones Negative, Urine Occult Blood Negative, Urine Nitrite Positive H, Urine Bilirubin Negative, Urine Urobilinogen Normal, Ur Leukocyte Esterase 25 H, Urine RBC 0-5 SEEN, Urine WBC 5-10 SEEN, Ur Squamous Epith Cells 0-5 SEEN, Ur Transition Epith Cell 0-5 SEEN, Urine Bacteria 3+, Hyaline Casts 0-5 SEEN, Urine Mucus 0 SEEN 02/07/19 23:33: POC Glucose 90 Current Medications Albuterol Sulfate (Ventolin Aerosols) 2.5 mg INHALATION Q2H PRN PRN PRN Reason: dyspnea, wheezing Calamine/Phenol (Calmoseptine Ointment) 1 applic TOPICAL TID [facility]; Protocol Last Admin: 02/07/19 21:47 Dose: 1 applicatio Documented by: Dextrose (D50w Syringe) 0 gm IV X1 PRN; Protocol PRN Reason: Hypoglycemia Dorzolamide/Timolol (Cosopt Opth Drops) 1 drop EACH EYE BID [facility] Last Admin: 02/07/19 21:48 Dose: 1 drop Documented by: Enoxaparin Sodium (Lovenox) 40 mg SC DAILY@0600 [facility] Glucagon () 1 mg IM .X1 PRN PRN Reason: Hypoglycemia Hydralazine HCl (Apresoline Iv) 10 mg IV Q4H PRN PRN PRN Reason: SBP > 160 Hydromorphone HCl (Dilaudid Inj) 1 mg IV Q3H PRN PRN PRN Reason: severe pain (6-10/10) Last Admin: 02/07/19 21:46 Dose: 1 mg Documented by: Famotidine 20 mg/ Sodium (Chloride) 10 mls @ 300 mls/hr IV Q12 [facility] Last Infusion: 02/07/19 21:53 Dose: Infused Documented by: Ceftriaxone Sodium (Rocephin) 1 gm in 50 mls @ 100 mls/hr IV Q24@2200 [facility] Last Infusion: 02/07/19 22:21 Dose: Infused Documented by: Sodium Chloride () 250 mls @ 15 mls/hr IV .[id number] PRN PRN Reason: Saline Flush Dextrose/Sodium Chloride () 1,000 mls @ 125 mls/hr IV .Q8H [facility] Last Admin: 02/08/19 00:22 Dose: 125 mls/hr Documented by: Insulin Human Lispro (Humalog Kwikpen (Bkc)) 0 unit SC Q6 [facility]; Protocol Last Admin: 02/07/19 23:55 Dose: Not Given Documented by: Nystatin (Mycostatin Powder) 1 applic TOPICAL BID [facility]; Protocol Last Admin: 02/07/19 21:49 Dose: 1 applicatio Documented by: Promethazine HCl (Phenergan) 6.25 mg IV Q4H PRN PRN PRN Reason: NAUSEA/VOMITING Last Admin: 02/07/19 21:52 Dose: 6.25 mg Documented by: Sodium Chloride () 10 - 40 ml IV UD PRN PRN Reason: SALINE FLUSH Last Admin: 02/07/19 21:39 Dose: 10 ml Documented by: Home Medications: Medications to take at Discharge Dorzolamide HCL/Timolol [Cosopt Opth Drops] 1 drp EACH EYE BID 02/15/16 Duloxetine Hcl [Cymbalta] 60 mg PO DAILY 02/15/16 Polyethylene Glycol 3350 [Miralax] 17 gm PO DAILY PRN 03/05/17 Atorvastatin Calcium [Lipitor] 40 mg PO QHS 05/19/17 Gabapentin [Neurontin] 300 mg PO TID 03/31/18 Magnesium Oxide 400 mg PO DAILY 03/31/18 Ferrous Sulfate 325 mg PO BIDCM 08/05/18 traZODone [Desyrel] 50 mg PO QHS 08/05/18 Albuterol Inhaler [Ventolin Hfa] 1 - 2 puff INHALATION Q4H PRN PRN 08/23/18 Pantoprazole Sodium [Protonix] 20 mg PO BID tab 09/07/18 Ondansetron [Zofran Odt] 4 mg PO Q8H PRN PRN #10 tab 11/13/18 Ibuprofen/Diphenhydramine Cit [Advil Pm Caplet] 1 tab PO QHS PRN PRN 02/07/19 Primary Care Physician: Arsalan Mercer MD [NON-STAFF] - Disposition: Acute care Hospital Minutes spent on discharge:: 35 Patient Condition:: Stable Medical Necessity - Tobacco Use Smoking Status: Current every day smoker Tobacco Use: Cigarettes Meaningful Use Info Meaningful Use Diagnoses (Choose all that apply): None applicable Code Visit Inpatient E&M: 89661 Disch Hosp
[2019-02-08 01:15] VITALS: BP 129/74; PULSE 73; RESP 18; TEMP 37.3; O2SAT 94
--- NOTE | 2019-02-08 01:24 | NURSING ---
0118- report called to CHARLIE Christianson from [facility] at this time.
[2019-02-08] MEDS: HYDROmorphone 1 MG/ML Syringe IV (01:29)
[2019-02-08] MEDS: proMETHazine 25 MG/ML Syringe 6.25 MG IV (01:43)
== END 2019-02-08 02:00 | disposition short-term general hospital (02) | DRG 389 ==
LOC: ED 15:46 → MS3 20:38
PROVIDERS: Admitting Provider Family Medicine; Emergency Provider Emergency Medicine; Family Provider Physician Assistant; PCP Physician Assistant; Referring Provider Family Medicine; Visit Provider Family Medicine
DX: K56.609 Unspecified intestinal obstruction, unspecified as to partial versus complete obstruction (principal); C16.9 Malignant neoplasm of stomach, unspecified; N39.0 Urinary tract infection, site not specified; E11.40 Type 2 diabetes mellitus with diabetic neuropathy, unspecified; G47.33 Obstructive sleep apnea (adult) (pediatric); Z66 Do not resuscitate; I10 Essential (primary) hypertension; I25.10 Atherosclerotic heart disease of native coronary artery without angina pectoris; M79.7 Fibromyalgia; E78.5 Hyperlipidemia, unspecified; G89.4 Chronic pain syndrome; K21.9 Gastro-esophageal reflux disease without esophagitis; F32.9 Major depressive disorder, single episode, unspecified; F41.9 Anxiety disorder, unspecified; H40.9 Unspecified glaucoma; R29.6 Repeated falls; F17.210 Nicotine dependence, cigarettes, uncomplicated; Z79.4 Long term (current) use of insulin; Z91.19 Patient's noncompliance with other medical treatment and regimen
CPT/HCPCS: 36591; 74177; 80053; 81001; 82962; 83036; 83605; 83735; 84100; 85025; 87086; 87088; 87186; 99285; J7030; J7040; Q9967; A4216; J2405; J3490; J7799

== ENCOUNTER 2019-03-10 12:35 | Emergency (ER) | payer MEDICARE, SELFPAY ==
[2019-02-07 20:56] VITALS: BMI 22.4
[2019-03-10 12:37] VITALS: BP 123/69; PULSE 86; RESP 18; TEMP 36.6; O2SAT 98; BMI 21.7
--- NOTE | 2019-03-10 13:22 | ED.DCSUM_ITS ---
History of Present Illness Chief Complaint: Abd Pain Informant: Patient - Abdominal Pain/Flank Pain Onset: Days - chronic, worsened x 3d Context: Gradual Onset Timing: Continuous Quality: Aching Location: Diffuse Current Severity: Moderate Maximum Severity: Moderate Worsened by: Nothing Relieved by: Nothing - Nausea/Vomiting/Emesis GI Symptom: Negative for: Vomiting Associated Symptoms: Frequency. Negative for: Dysuria, Hematuria Narrative: Patient is an extremely poor historian but apparently has a history of terminal stage IV metastatic gastric cancer for which she has had surgeries for in the past, presenting for worsening of her chronic pain for the past 3 days. She has stoma bags on her abdomen over 2 different openings and states that both of them are leaking. When asked what they are and about her anatomy, she has no idea and simply states that they are both leaking into the bags, which are both leaking down her abdomen and very uncomfortable, plus she is in more pain than usual, it is the same pain and she has no new symptoms. She states that she is supposed to come here in order to be transferred to [facility] so that Dr. Garcia can do her surgery sooner. She is scheduled for an unknown abdominal exploratory surgery on March 20, 2010 days from now. - Past Medical History (1) Colitis Status: Chronic (2) Eosinophilia Status: Chronic (3) Hyperammonemia Status: Chronic (4) Anemia Status: Chronic (5) Anxiety and depression Status: Chronic (6) Atherosclerosis of [place] coronary artery of [place] heart without angina pectoris Status: Chronic (7) Diabetes mellitus type 2 in obese Status: Chronic (8) Essential hypertension Status: Chronic (9) Gastric cancer Status: Chronic (10) Glaucoma Status: Chronic (11) Insomnia Status: Chronic (12) Morbid obesity Status: Chronic (13) Neuropathy Status: Chronic (14) Noncompliance with CPAP treatment Status: Chronic (15) Obstructive sleep apnea Status: Chronic (16) Pure hypercholesterolemia Status: Chronic Past Medical History - Allergies and Home Meds Allergies/Adverse Reactions: Allergies thiopental Adverse Reaction (Verified 03/10/19 12:35) MAKES ME SHAKE Primary Care Physician: Shanta Welsh PA [Primary Care Provider] - Surgical History: cholecystectomy, hysterectomy, - - Subtotal gastrectomy for gastric cancer, prior cervical fusion as well as Jefferson rods in the thoracic and lumbosacral spine, recent PowerPort placement, recent gastric cancer bypass with small bowel partial resection, J-tube placement. Lives: Spouse/ Significant Other Smoking Status: Unknown if ever smoked - Family History Maternal Family History: Family History (Last Reviewed 08/23/18 @ 13:20 by Chinyere Rubalcava) Mother Diabetes Father Diabetes Heart disease Family History: Reports: Diabetes Paternal Family History: Family History (Last Reviewed 08/23/18 @ 13:20 by Chinyere Rubalcava) Mother Diabetes Father Diabetes Heart disease Family History: Reports: Diabetes, Heart Disease Review of Systems ROS: Unable to Obtain - Limited evaluation, poor historian General: Denies: Chills, Fever ENT: Denies: Bilateral ear pain, Sore throat Cardiovascular: Denies: Chest pain Respiratory: Denies: Dyspnea, Cough Gastrointestinal: Reports: Abdominal pain. Denies: Nausea, Vomiting Genitourinary: Denies: Dysuria, Hematuria Musculoskeletal: Denies: Swelling, Extremity Pain Skin: Reports: Wounds - on abd, leaking. Denies: Rash Physical Exam Vital Signs/Narrative: Vital Signs Temp Pulse Resp BP Pulse Ox 03/10/19 12:37 97.8 F 86 18 123/69 H 98 Inital Vital Signs reviewed: Yes General: Well nourished, Well developed, No Acute Distress Head: Normocephalic, Atraumatic Eyes: Perrl, EOMI - Disconjugate gaze ENT: Moist mucous membranes, No rhinorrhea Neck: Supple, Nontender Cardiovascular: Regular rate, Regular rhythm, No murmurs Respiratory: No distress, CTA bilaterally, Chest nontender Abdomen: Soft, Nondistended, Normal bowel sounds, Tender - diffusely, mild-mod, - - 2 ostomy bags are incompletely sealed on her abdominal wall. There are 2 wounds that are not particularly tender or erythematous. They are draining milky fluid that is thin.. Negative for: Guarding, Rebound tenderness Back: Nontender, Normal Inspection Extremities: Nontender, No edema Skin: Normal color, No rash, No Trauma, - - See abdominal exam Neurological: Alert, Oriented x3, Cranial nerves II-XII grossly intact, Normal Strength, Normal Sensation Psychological: Normal Mood, Tearful Diagnostic/Tx/Re-eval Laboratory Tests 03/10/19 03/10/19 03/10/19 Range/Units 14:05 13:45 13:45 WBC 5.3 (4.4-11.0) K/mm3 RBC 3.75 L (4.2-5.4) M/mm3 Hgb 11.8 L (12.0-15.0) g/dL Hct 36.1 L (37-47) % MCV 96.3 (81-99) fL MCH 31.5 (27.0-32.0) pg MCHC 32.7 (32-36) g/dL RDW Std Deviation 47.6 H (35.1-43.9) fl RDW Coeff of Griselda 13.4 (11.6-14.6) % Plt Count 462 H (150-450) K/mm3 MPV 8.5 (6.2-12.0) fl Immature Gran % (Auto) 0.900 (0.0-0.9) % Neut % (Auto) 47.1 (47-70) % Lymph % (Auto) 35.4 (19-41) % [place] % (Auto) 8.7 (0-10) % Eos % (Auto) 7.0 H (0-5) % Baso % (Auto) 0.9 (0-1) % Absolute Neuts (auto) 2.5 (2.0-7.7) X10^3/uL Absolute Lymphs (auto) 1.87 (0.83-4.51) X10^3/uL Nucleated RBC % 0 (0-5) % Sodium 136 (136-145) mmol/L Potassium 3.7 (3.5-5.1) mmol/L Chloride 103 (98-107) mmol/L Carbon Dioxide 29.0 (21.0-32.0) mmol/L Anion Gap 4 L (5-15) BUN 19 H (7-18) mg/dL Creatinine 0.44 L (0.55-1.02) mg/dL Estim Creat Clear Calc 55.82 ml/min Est GFR (MDRD) Af Amer 184 (>60) mL/min Est GFR (MDRD) Non-Af 152 (>60) mL/min BUN/Creatinine Ratio 43.2 H (10-20) RATIO Glucose 191 H (74-106) mg/dL Calcium 8.1 L (8.5-10.1) mg/dL Total Bilirubin 0.30 (0.20-1.00) mg/dL AST 9 L (15-37) U/L ALT 12 L (13-56) U/L Alkaline Phosphatase 81 (45-117) U/L Total Protein 6.7 (6.4-8.2) g/dL Albumin 2.3 L (3.2-5.0) g/dL Globulin 4.4 H (2.2-4.2) g/dL Albumin/Globulin Ratio 0.5 L (0.9-2.4) RATIO Urine Color Yellow (Yellow) Urine Clarity Cloudy (Clear) Urine pH 5.0 (5.0 - 8.0) Ur Specific [place] 1.025 (1.002-1.030) Urine Protein 30 H (Negative) mg/dl Urine Glucose (UA) Normal (Normal) mg/dl Urine Ketones 5 H (Negative) mg/dl Urine Occult Blood 10 H (Negative) /ul Urine Nitrite Positive H (Negative) Urine Bilirubin Negative (Negative) mg/dL Urine Urobilinogen 1 H (Normal) mg/dl Ur Leukocyte Esterase 25 H (Negative) /ul Urine RBC 0 SEEN (0-5) /hpf Urine WBC 0-5 SEEN (0-5) /hpf Ur Squamous Epith Cells 0 SEEN (5-10) /hpf Calcium Oxalate Crystal RARE (<or=2+) /hpf Urine Bacteria 4+ (None Seen) /hpf Urine Mucus 0 SEEN (<or=2+) /hpf - Medical Decision Making Patient was given IV fluids and pain medication. She felt much better. I discussed with Dr. Grant since the history was so poor and the patient has too unusually located stomas on her abdominal wall. Apparently, home health nurse placed stoma bags over these in order to help collect the fluid, but they do not apparently go anywhere. She had an outpatient CT of the abdomen/pelvis with IV contrast 2 days ago that showed several findings: She is status post subtotal gastrectomy with gastrojejunostomy. She has a dilated biliopancreatic limb and there is a 5 cm mass extending from the duodenojejunostomy. There is a percutaneous jejunostomy tract in the left abdomen that shows persistent communication to the small bowel. There is a small fluid collection adjacent to the gastrojejunal anastomosis that is slightly larger compared to before. 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 There is some mild colonic wall thickening close to this that is thought to be related to its proximity with this fistula. I discussed also with Dr. Garcia with [facility]. He knows the patient well. He states that the surgery is scheduled for the 30 of this month which is 10 days away, and that he is unfortunately unable to move it up. There is nothing on her CT that requires emergent surgery. He offers to admit her if th at is what the patient wants or requires, however will likely been unable to perform her required surgery until it is scheduled. I discussed this with the patient, she prefers to go home with some pain medication. I discussed with Dr. Grant who was concerned about the amount of pain medication patient was requiring/requesting, and is apprehensive about giving her more. I will give her a couple of pills to get her through today and tomorrow, and I am having nursing work on fixing her stoma leaking, for the patient's convenience. She is comfortable calling for a ride home. ED Disposition - Plan for ED Patient: Disposition: Home or Assisted Living Diagnosis: Diffuse abdominal pain, Gastric cancer, Leakage of stoma of digestive tract Instructions: ABDOMINAL PAIN, Unknown Cause, (Female) Prescriptions: Hydrocodone Bitart/Apap 5-325 [[place] 5MG-325MG] 1 - 2 tablet PO Q6H PRN PRN 2 Days #10 tablet PRN Reason: Pain Transmission Status: Received by [facility] [facility] Referrals: Doctor,Your [STAFF PHYSICIAN] - Keep Laquita appointment
[2019-03-10] MEDS: 0.9% Normal Saline 1,000 ML 150 ML IV (13:47)
[2019-03-10] MEDS: Morphine 4 MG/ML Syringe IV (13:49)
[2019-03-10 14:00] LABS: Absolute Lymphocyte Count 1.87 X10^3/uL (0.83-4.51); Absolute Neutrophil Count 2.5 X10^3/uL (2.0-7.7); Basophil# 0.05 X10^3/uL; Basophil% 0.9 % (0-1); Eosinophil# 0.37 X10^3/uL; Hematocrit 36.1 % (37-47); Hemoglobin 11.8 g/dL (12.0-15.0); Lymphocyte # 1.87 X10^3/ul (4.0); Lymphocyte % 35.4 % (19-41); Mean Corp Hgb Conc 32.7 g/dL (32-36); Mean Corpuscular Hgb 31.5 pg (27.0-32.0); Mean Corpuscular Volume 96.3 fL (81-99); Mean Platelet Vol. 8.5 fl (6.2-12.0); Monocyte# 0.46 X10^3/uL; Monocyte% 8.7 % (0-10); NRBC Flagged by Analyzer 0 % (0-5); Neutrophil # 2.48 X10^3/uL (2.7-7.7); Neutrophil % 47.1 % (47-70); Platelet Count 462 K/mm3 (150-450); RBC Distribution Width CV 13.4 % (11.6-14.6); RBC Distribution Width SD 47.6 fl (35.1-43.9); Red Blood Count 3.75 M/mm3 (4.2-5.4); White Blood Count 5.3 K/mm3 (4.4-11.0)
[2019-03-10 14:12] LABS: Mucous, Urine 0 SEEN /hpf (<or=2+); Red Blood Cells-Urine 0 SEEN /hpf (0-5); Squamous Epithelial Cells - UA 0 SEEN /hpf (5-10)
[2019-03-10 14:13] LABS: ALB/GLOB Ratio 0.5 RATIO (0.9-2.4); AST(SGOT) 9 U/L (15-37); Alanine Aminotransfer ALT/SGPT 12 U/L (13-56); Albumin, Serum 2.3 g/dL (3.2-5.0); Alkaline Phosphatase 81 U/L (45-117); Anion Gap 4 (5-15); BUN 19 mg/dL (7-18); BUN/Creat Ratio 43.2 RATIO (10-20); Calcium,Total 8.1 mg/dL (8.5-10.1); Chloride 103 mmol/L (98-107); Creatinine, Serum 0.44 mg/dL (0.55-1.02); EST Glomerular Filtration Rate 152 mL/min (>60); Est Glom Filt Rate - Afr Amer 184 mL/min (>60); Estimated Creatinine Clearance 55.82 ml/min; Globulin 4.4 g/dL (2.2-4.2); Glucose 191 mg/dL (74-106); Potassium 3.7 mmol/L (3.5-5.1); Protein, Total 6.7 g/dL (6.4-8.2); Sodium Level 136 mmol/L (136-145)
[2019-03-10 14:59] LABS: Color, Urine Yellow (Yellow); Glucose, Dipstick Normal (Normal); Ketone-Dipstick 5 mg/dl (Negative); Leukocyte Esterase-Dipstick 25 /ul (Negative); Nitrite-Dipstick Positive (Negative); Occult Blood-Urine 10 /ul (Negative); Protein-Dipstick 30 mg/dl (Negative); Specific Gravity, Urine 1.025 (1.002-1.030); Urine Bilirubin Dipstick Negative (Negative); Urine Clarity Cloudy (Clear); Urine Urobilinogen 1 mg/dl (Normal)
[2019-03-10 15:02] LABS: Bacteria 4+ /hpf (None Seen); Calcium Oxalate Crystals Ur RARE /hpf (<or=2+); White Blood Cells 0-5 SEEN /hpf (0-5)
[2019-03-10 15:26] VITALS: BP 124/78; PULSE 94; RESP 16; O2SAT 99
--- NOTE | 2019-03-10 16:48 | ED.RN ---
EDUCATION ON OSTOMY POUCHES. OFFERED TO CHANGE FOR PT. PT DECLINED, HAS AN AIDE COMING TO HER HOME TONIGHT THAT WILL HELP HER CHANGE WITH HER OWN SUPPLIES.
--- NOTE | 2019-03-14 15:41 | ED.RN ---
URINE CULTURE CAME BACK AND RESULTES GIVEN TO DR TUCKER. PRESCRIPTION CALLED IN AND PT NOTIFIED.
== END 2019-03-10 16:53 | disposition home or self-care (01) ==
PROVIDERS: Emergency Provider Emergency Medicine; Family Provider Physician Assistant; PCP Physician Assistant
DX: R10.9 Unspecified abdominal pain (principal); C16.9 Malignant neoplasm of stomach, unspecified; C79.9 Secondary malignant neoplasm of unspecified site; G89.3 Neoplasm related pain (acute) (chronic); K94.29 Other complications of gastrostomy; E11.40 Type 2 diabetes mellitus with diabetic neuropathy, unspecified; D72.1 Eosinophilia; I25.10 Atherosclerotic heart disease of native coronary artery without angina pectoris; I10 Essential (primary) hypertension; E78.00 Pure hypercholesterolemia, unspecified; H40.9 Unspecified glaucoma; G47.00 Insomnia, unspecified; E66.01 Morbid (severe) obesity due to excess calories; G47.33 Obstructive sleep apnea (adult) (pediatric); F32.9 Major depressive disorder, single episode, unspecified; F41.9 Anxiety disorder, unspecified; Z91.19 Patient's noncompliance with other medical treatment and regimen; Z79.899 Other long term (current) drug therapy; Z90.49 Acquired absence of other specified parts of digestive tract; Z90.710 Acquired absence of both cervix and uterus; Z90.3 Acquired absence of stomach [part of]
CPT/HCPCS: 36591; 80053; 81001; 85025; 87077; 87086; 87088; 87186; 96361; 96374; 99283; J7030; P9612; A4216

== ENCOUNTER 2019-03-26 21:40 | Emergency (ER) | payer MEDICARE, SELFPAY ==
[2019-03-26 21:40] VITALS: BP 124/64; PULSE 95; RESP 18; TEMP 37.2; O2SAT 94; BMI 22.4
--- NOTE | 2019-03-26 22:09 | CT_ITS ---
STUDY: CT ABDOMEN AND PELVIS WITH CONTRAST REASON FOR EXAM: Female, 68 years old. ABD PAIN, LEAKAGE FROM SURGICAL SITES, AGUEDA HAD LAPORSCOPIC SX ENDED UP CLOSING PATIENT DUE TO BEING FULL OF CANCER, NO SURG PERFORMED PER PATIENT, GASTRECTOMY AND GASTROJEJUNOSTOMY, REMOVED DUE TO STOMACH CA WITH METS, HX SPINAL FUSION WITH RODS, POWER PORT, HTN, GB, HYSTERECTOMY, DIAB RADIATION DOSAGE (If Supplied By Facility): CTDIvol = ( 9.00 ) mGy, DLP = ( 531.76 ) mGycm TECHNIQUE: Transaxial images were obtained from the dome of the diaphragm to the symphysis pubis without oral contrast. IV 100mL Isovue-370 was administered. Sagittal and coronal images were reconstructed. Individualized dose optimization techniques were used for this CT. COMPARISON: 02/07/2019 FINDINGS: The visualized lung bases are unremarkable. The visualized portions of the heart are within normal limits. Normal liver. There is non-visualization of the gallbladder, which may be secondary to either contraction or a prior cholecystectomy. Normal spleen. Normal pancreas. Normal bilateral adrenal glands. Normal right kidney. Normal left kidney. Postoperative changes involving the stomach, including partial gastrectomy and gastrojejunostomy. Progressing fluid distention of the residual duodenal segment, now measuring up to 5 cm in diameter. Multiple dilated loops of jejunum are present measuring up to 5.0 cm in diameter which could be related to partial mechanical obstruction or ileus. Left lower quadrant colostomy. There is non-visualization of the appendix. Normal abdominal aorta. Normal inferior vena cava. Normal retroperitoneum. Normal urinary bladder. Postoperative changes of the anterior abdominal wall. Extensive postoperative changes involving the thoracic and lumbar spine. CT/Abdomen/Pelvis W IV Cont ONLY IMPRESSION: Multiple postoperative changes as described. Progressing fluid distention of the residual duodenal segment, now measuring up to 5 cm in diameter. Evolving partial mechanical obstruction cannot be excluded. Multiple dilated loops of jejunum are present more distally measuring up to 5.0 cm in diameter which could be related to partial mechanical obstruction or ileus. No hemorrhages or abscesses are detected. Electronically Signed: Arsalan Meng MD at 23:43 EST Tel , Service support ,
[2019-03-26 22:34] LABS: Absolute Lymphocyte Count 2.72 X10^3/uL (0.83-4.51); Absolute Neutrophil Count 4.7 X10^3/uL (2.0-7.7); Basophil# 0.08 X10^3/uL; Basophil% 0.9 % (0-1); Eosinophil# 0.32 X10^3/uL; Eosinophils% 3.5 % (0-5); Hemoglobin 11.7 g/dL (12.0-15.0); Lymphocyte # 2.72 X10^3/ul (4.0); Lymphocyte % 30.1 % (19-41); Mean Corp Hgb Conc 32.5 g/dL (32-36); Mean Corpuscular Hgb 31.1 pg (27.0-32.0); Mean Corpuscular Volume 95.7 fL (81-99); Mean Platelet Vol. 8.2 fl (6.2-12.0); Monocyte# 1.18 X10^3/uL; Monocyte% 13.1 % (0-10); NRBC Flagged by Analyzer 0 % (0-5); Neutrophil # 4.69 X10^3/uL (2.7-7.7); Platelet Count 438 K/mm3 (150-450); RBC Distribution Width CV 13.9 % (11.6-14.6); Red Blood Count 3.76 M/mm3 (4.2-5.4)
[2019-03-26 22:53] LABS: Anion Gap 4 (5-15); BUN 24 mg/dL (7-18); BUN/Creat Ratio 48.5 RATIO (10-20); Calcium,Total 8.3 mg/dL (8.5-10.1); Chloride 104 mmol/L (98-107); EST Glomerular Filtration Rate 132 mL/min (>60); Est Glom Filt Rate - Afr Amer 160 mL/min (>60); Estimated Creatinine Clearance 51.81 ml/min; Glucose 102 mg/dL (74-106); Potassium 3.7 mmol/L (3.5-5.1); Sodium Level 137 mmol/L (136-145)
[2019-03-26] MEDS: Ondansetron 4 MG/2 ML Vial IV (22:55)
[2019-03-26] MEDS: Morphine 4 MG/ML Syringe IV (22:55)
--- NOTE | 2019-03-26 23:33 | ED.DCSUM_ITS ---
History of Present Illness Chief Complaint: Wound Check Informant: Patient, Family Narrative: Patient underwent abdominal surgery on March 20 at [facility]. Patient has a history of gastric cancer. 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 Surgery was performed, however patient states in the doctor open her up she had evidence of cancer spread throughout her abdomen and they had to just close her back up. She presents today for wound check. She does have a colostomy that has chronically been draining. Wound itself appears to have dehisced somewhat. Family states that they were at PCPs office earlier this week and they had removed a few of the anabel and tried to remove some of the dressing that seem to be adherent into the wound. Patient presents tonight because some further area of the wound apparently dehisced. They are concerned about this piece of gauze that stuck in the wound and cannot be removed. - Past Medical History (1) Anemia Status: Chronic (2) Anxiety and depression Status: Chronic (3) Atherosclerosis of [place] coronary artery of [place] heart without angina pectoris Status: Chronic (4) Diabetes mellitus, type II Status: Chronic (5) Gastric cancer Status: Chronic (6) Obstructive sleep apnea Status: Chronic (7) Pure hypercholesterolemia Status: Chronic Past Medical History - Allergies and Home Meds Allergies/Adverse Reactions: Allergies thiopental Adverse Reaction (Verified 03/26/19 21:44) MAKES ME SHAKE Primary Care Physician: Shanta Welsh PA [Primary Care Provider] - Prior records reviewed: Yes Surgical History: cholecystectomy, hysterectomy, - - Subtotal gastrectomy for gastric cancer, prior cervical fusion as well as Jefferson rods in the thoracic and lumbosacral spine, recent PowerPort placement, recent gastric cancer bypass with small bowel partial resection, J-tube placement. Lives: Spouse/ Significant Other Smoking Status: Current every day smoker - Family History Maternal Family History: Family History (Last Reviewed 08/23/18 @ 13:20 by Chinyere Rubalcava) Mother Diabetes Father Diabetes Heart disease Family History: Reports: Diabetes Paternal Family History: Family History (Last Reviewed 08/23/18 @ 13:20 by Chinyere Rubalcava) Mother Diabetes Father Diabetes Heart disease Family History: Reports: Diabetes, Heart Disease Review of Systems General: Denies: Chills, Fever Eyes: Denies: Visual changes - bilaterally ENT: Denies: Bilateral ear pain Cardiovascular: Denies: Chest pain Respiratory: Denies: Dyspnea Gastrointestinal: Reports: Abdominal pain Skin: Reports: Wounds Neurological: Reports: Weakness - Generalized weakness Allergy: Denies: Uticaria Physical Exam Vital Signs/Narrative: Vital Signs Temp Pulse Resp BP Pulse Ox 03/26/19 21:40 99.0 F 95 18 124/64 H 94 Inital Vital Signs reviewed: Yes General: Cachectic Head: Normocephalic ENT: Moist mucous membranes Neck: Supple Cardiovascular: Regular rate, Regular rhythm Respiratory: No distress, CTA bilaterally Abdomen: Soft, - - Large vertical midline incision that is dehisced. There is wound packing in place. Wound edges are mildly erythematous. Colostomy bag is in place, however on sealed along the medial edge. Neurological: Alert Psychological: Tearful Diagnostic/Tx/Re-eval Impressions Abdomen/Pelvis CT 03/26/19 22:09 IMPRESSION: Multiple postoperative changes as described. Progressing fluid distention of the residual duodenal segment, now measuring up to 5 cm in diameter. Evolving partial mechanical obstruction cannot be excluded. Multiple dilated loops of jejunum are present more distally measuring up to 5.0 cm in diameter which could be related to partial mechanical obstruction or ileus. No hemorrhages or abscesses are detected. Electronically Signed: Arsalan Meng MD at 23:43 EST Tel , Service support , 03/26/19 22:09 Abdomen/Pelvis W IV Cont ONLY [CT] Stat Laboratory Results 03/26/19 03/26/19 22:25 22:25 WBC 9.0 RBC 3.76 L Hgb 11.7 L Hct 36.0 L MCV 95.7 MCH 31.1 MCHC 32.5 RDW Std Deviation 49.0 H RDW Coeff of Griselda 13.9 Plt Count 438 MPV 8.2 Immature Gran % (Auto) 0.400 Neut % (Auto) 52.0 Lymph % (Auto) 30.1 Dauphin % (Auto) 13.1 H Eos % (Auto) 3.5 Baso % (Auto) 0.9 Absolute Neuts (auto) 4.7 Absolute Lymphs (auto) 2.72 Nucleated RBC % 0 Sodium 137 Potassium 3.7 Chloride 104 Carbon Dioxide 29.0 Anion Gap 4 L BUN 24 H Creatinine 0.50 L Estim Creat Clear Calc 51.81 Est GFR (MDRD) Af Amer 160 Est GFR (MDRD) Non-Af 132 BUN/Creatinine Ratio 48.5 H Glucose 102 Calcium 8.3 L - Medical Decision Making Patient was given a dose of morphine and Zofran for pain and nausea. I was able to review the operative note from [facility]. A Vicryl mesh overlay was placed over the laparotomy sites and secured with interrupted Vicryl stitches. This should remain in place. I discussed with patient and at bedside that the CT scan tonight does not reveal any evidence of abscess. Wound culture was taken. I will treat her with doxycycline for localized skin infection. New packing and dressing will be placed. I will provide her the phone number for wound center. She is to follow-up with a phone call to her surgeon tomorrow. ED Disposition - Plan for ED Patient: Disposition: Home or Assisted Living Diagnosis: Postoperative wound dehiscence Instructions: POST OP WOUND CHECK, General Prescriptions: Doxycycline 100 mg PO BID #20 cap Transmission Status: Pending to [id number] Referrals: Shanta Welsh PA [Primary Care Provider] - Additional Instructions: Call your surgeon tomorrow for an update and follow-up [facility] [phone]
[2019-03-26 23:56] VITALS: BP 92/56; PULSE 75; RESP 16; O2SAT 96
[2019-03-27 00:49] VITALS: BP 92/56; PULSE 72; RESP 18; O2SAT 94
[2019-03-27] MEDS: Doxycycline 100 MG CAPSULE PO (00:52)
== END 2019-03-27 00:56 | disposition home or self-care (01) ==
PROVIDERS: Emergency Provider Emergency Medicine; Family Provider Physician Assistant; PCP Physician Assistant
DX: T81.31XA Disruption of external operation (surgical) wound, not elsewhere classified, initial encounter (principal); C16.9 Malignant neoplasm of stomach, unspecified; R64 Cachexia; Z93.3 Colostomy status; I25.10 Atherosclerotic heart disease of native coronary artery without angina pectoris; E11.9 Type 2 diabetes mellitus without complications; E78.00 Pure hypercholesterolemia, unspecified; D64.9 Anemia, unspecified; G47.33 Obstructive sleep apnea (adult) (pediatric); F32.9 Major depressive disorder, single episode, unspecified; F41.9 Anxiety disorder, unspecified; F17.200 Nicotine dependence, unspecified, uncomplicated; Z79.899 Other long term (current) drug therapy; Z90.710 Acquired absence of both cervix and uterus; Z90.49 Acquired absence of other specified parts of digestive tract
CPT/HCPCS: 36591; 74177; 80048; 85025; 87070; 87077; 87186; 87205; 96374; 96375; 99284; Q9967; A4216; J2405

== ENCOUNTER 2019-03-30 01:32 | Emergency (ER) | payer MEDICARE, SELFPAY ==
[2019-03-30 01:33] VITALS: BP 110/73; PULSE 75; RESP 16; TEMP 36.4
[2019-03-30 01:36] VITALS: BP 110/73; PULSE 75; RESP 16; TEMP 36.4; BMI 22.6
--- NOTE | 2019-03-30 02:35 | ED.VIS.GEN ---
History of Present Illness Chief Complaint: General Illness Narrative: Patient is a 68-year-old female who presents for a wound check. She has a complicated history of gastric cancer with partial gastrectomy. She had developed what sounds like enterocutaneous fistulas. She was seen in our emergency department on March 10 due to increased pain and increased drainage. The emergency physician at that time did speak to her surgeon at [facility] and patient was ultimately discharged with symptomatic treatment until her scheduled surgery. On March 20 she underwent another surgery that sounds like a fistulotomy. Family reports that she has inadequate supplies at home. Home nursing only comes out twice a week never has supplies. They are also concerned that her wound appears to be more open than it previously was and she is having increased drainage. She has chronic abdominal pain but notes that it is slightly worse than usual. Past Medical History - Allergies and Home Meds Allergies/Adverse Reactions: Allergies thiopental Adverse Reaction (Verified 03/26/19 21:44) MAKES ME SHAKE Primary Care Physician: Shanta Welsh PA [Primary Care Provider] - Past Medical History: - - Gastric cancer, chronic abdominal pain Surgical History: cholecystectomy, hysterectomy, - - Subtotal gastrectomy for gastric cancer, prior cervical fusion as well as Jefferson rods in the thoracic and lumbosacral spine, recent PowerPort placement, recent gastric cancer bypass with small bowel partial resection, J-tube placement. Smoking Status: Current every day smoker - Family History Maternal Family History: Family History (Last Reviewed 08/23/18 @ 13:20 by Chinyere Rubalcava) Mother Diabetes Father Diabetes Heart disease Family History: Reports: Diabetes Paternal Family History: Family History (Last Reviewed 08/23/18 @ 13:20 by Chinyere Rubalcava) Mother Diabetes Father Diabetes Heart disease Family History: Reports: Diabetes, Heart Disease Review of Systems All systems negative except as indicated General: Denies: Fever Eyes: Denies: Visual changes - bilaterally ENT: Denies: Bilateral ear pain Cardiovascular: Denies: Chest pain Respiratory: Denies: Dyspnea Gastrointestinal: Reports: Abdominal pain. Denies: Nausea, Vomiting Musculoskeletal: Denies: Myalgias Skin: Denies: Rash Neurological: Denies: Headache Hematologic: Denies: Easy bruising Allergy: Denies: Uticaria Physical Exam Vital Signs/Narrative: Vital Signs Temp Pulse Resp BP 03/30/19 01:36 97.5 F L 75 16 110/73 03/30/19 01:33 97.5 F L 75 16 110/73 Inital Vital Signs reviewed: Yes General: Well nourished Head: Normocephalic Eyes: EOMI ENT: Moist mucous membranes Neck: Supple Cardiovascular: Regular rate, Regular rhythm Respiratory: No distress, CTA bilaterally Abdomen: - - Patient has multiple open wounds of the anterior abdomen which are draining stool. These are in communication. There is drain sutured within the large open central wound. There does appear to be some dehiscence with what I believe is visualized linea alba as well as some strands of mesh material Skin: Normal color Neurological: Alert Psychological: Normal affect Diagnostic/Tx/Re-eval - Medical Decision Making Patient was given intramuscular Dilaudid for pain. I was able to contact the covering surgeon at [facility]. Although the patient does have some evidence of worsening dehiscence he notes that they were already aware of dehiscence of the wound. At this point we do not believe she requires any emergent intervention or transfer back to [facility]. The patient's wounds were redressed and repacked and she was discharged to follow-up as scheduled as an outpatient. ED Disposition - Plan for ED Patient: Disposition: Home or Assisted Living Diagnosis: Visit for wound check Instructions: POST OP WOUND CHECK, General Referrals: Shanta Welsh PA [Primary Care Provider] -
[2019-03-30] MEDS: HYDROmorphone 1 MG/ML Syringe IM ×2 (02:56→03:54)
[2019-03-30 04:31] VITALS: BP 108/73; PULSE 70; RESP 16; O2SAT 96
--- NOTE | 2019-03-30 04:32 | ED.RN ---
PT states [facility] home [facility] is coming twice a week. Next scheduled is Wednesday. On Wednesday she was told supplies would take 7 days, which leaves here without from now until over the weekend. Consult placed for case management to get [facility] home health in instead of [facility] for better care. Dr. Mixon did update her Dr., Dr. Garcia, about pts current situation with wound and home health. Surgeon stated he was aware but out of his control. PT has spouse at bedside and young family friend who helps take care of her. Spoke with family friend if anyone had talked to her about hospice and PT does not want hospice. PT states she has an appointment with Wound Center for further wound care.
--- NOTE | 2019-03-30 06:30 | NURSING ---
Was asked to see patient for assistance with wound/ostomy care. pt has a history of gastric cancer and had a partial gastrectomy at the [facility]. pt ended up with an enterocutaneous fistula and according to the ED physician report, may have had a fistulotomy on . The patient and home care administrator states that basically the surgeon went in and found that the cancer had spread and tried to just close her up. Pt has been getting home health care from the [facility], but only have been coming twice a week and still don't have the correct supplies. patient has a dehisced surgical incision to the mid abdomen that appears to have some iodoform stitched into the base of the wound. there are some other fiber appearing areas in the base of the wound that may be some mesh. pt has 2 other opening superior to the main incision that appear to be enterocutaneous fistulas. there is stool on the wound as well. the stoma opening is to the left lower abdomen and is close to the incision making it difficult to pouch. the stoma is retracted and stenosed. asked if that patient has called the surgeon to let him know how bad it has gotten. Pt's aide states they called him and he did not feel he needed to see the patient. she does have a follow up appt next . Educated patient that it would benefit her if she could get in sooner. Pt states they keep saying there is nothing else they can do. Pt did meet with Palliative Care and they are assisting with pain management. Pt states that she also has an appt at the wound healing center and states they are supposed to put on a wound VAC. Do not feel a wound VAC would be appropriate at this time. cleansed incision and fistulas with soap and water, rinsed with NS. pat the skin dry. packed the incision with NS moistened gauze. applied a pediatric ostomy appliance over the most superior fistula. unable to pouch over the 2nd fistula d/t the location. covered incision with an ABD pad. placed a 1 piece flat Serina appliance over the stomal opening. Discussed possibly needing to get a pediatric appliance to place over the stomal opening as well in order to stay in place longer. since the opening is so close to the incision, it makes it quite difficult to pouch without getting over top of the incisional dressing. would recommend a Serina pouch #[id number] for both the stomal opening and the fistula since this would be a drainable appliance. would need emptied often since they are smaller, but would protect the skin better. CM is going to attempt to get patient with [facility]. will recommend this appliance to home health.
--- NOTE | 2019-03-30 06:54 | ED.RN ---
morning show newscast producer at bedside.
[2019-03-30 07:44] VITALS: BP 118/70; PULSE 76; RESP 18; O2SAT 95
--- NOTE | 2019-03-30 11:20 | CM.ED ---
SOCIAL WORK INFORMANT: NURSE, JANA REASON FOR REFERRAL: FOLLOW UP WITH HOME HEALTH REFERRAL PATIENT WAS SEEN IN EMERGENCY DEPARTMENT AFTER SW HOURS. NURSE REQUESTED THIS WORKER FOLLOW UP WITH [facility] ON REFERRAL D/T CONCERNS WITH PATIENT'S WOUND CARE AND CURRENT HOME HEALTH CARE THROUGH [facility]. CALL TO PARVEEN WITH [facility]. PARVEEN AIKEN DID RECEIVE REFERRAL AND HAS FOLLOWED UP WITH PATIENT. PARVEEN AIKEN SPOKE WITH PATIENT'S NIECE. PATIENT TO HAVE VIRTUAL DOCTOR VISIT TOMORROW AND PLAN TO GET ESTABLISHED WITH WOUND CENTER. NIECE WAS NOT WANTING TO TRANSFER PATIENT'S CARE AT THIS TIME. PARVEEN WILL BE FOLLOWING UP REGARDING PATIENT'S NEEDS AND IF [facility] ABLE TO ACCOMMODATE. Carmella PENN MSW, MUD MILL TENDER.
== END 2019-03-30 07:46 | disposition home or self-care (01) ==
PROVIDERS: Emergency Provider Emergency Medicine; Family Provider Physician Assistant; PCP Physician Assistant
DX: T81.31XA Disruption of external operation (surgical) wound, not elsewhere classified, initial encounter (principal); R10.9 Unspecified abdominal pain; G89.29 Other chronic pain; Z79.899 Other long term (current) drug therapy; F17.200 Nicotine dependence, unspecified, uncomplicated; Z85.028 Personal history of other malignant neoplasm of stomach; Z90.3 Acquired absence of stomach [part of]; Z90.710 Acquired absence of both cervix and uterus; Z90.49 Acquired absence of other specified parts of digestive tract
CPT/HCPCS: 96372; 99282